=== PATIENT | male | born 1945 | race Caucasian/White ===

== ENCOUNTER 2023-01-25 10:59 | Outpatient (OUT) | payer MEDICARE, SELFPAY ==
--- NOTE | 2023-01-25 11:14 | ECG_ITS ---
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
== END 2023-01-25 11:00 | disposition home or self-care (01) ==
LOC: PST 11:04
PROVIDERS: PCP Internal Medicine
DX: Z01.810 Encounter for preprocedural cardiovascular examination (principal); K40.90 Unilateral inguinal hernia, without obstruction or gangrene, not specified as recurrent
CPT/HCPCS: 93005

== ENCOUNTER 2023-02-03 06:21 | Day surgery (SDC) | payer MEDICARE, SELFPAY ==
[2023-01-25 12:04] VITALS: PULSE 60; TEMP 36.5; O2SAT 97; BMI 29.2
[2023-02-03] VITALS (9 sets, daily range): BP systolic 112–149; BP diastolic 68–94; PULSE 56–67; RESP 12–18; TEMP 36.3–36.5; O2SAT 96–99; BMI 29.0
[2023-02-03] MEDS: LACTATED RINGER'S SOLUTION 1,000 ML 50 ML IV (07:02)
[2023-02-03] MEDS: CEFAZOLIN SODIUM/DEXTROSE,ISO 2 GM/50 ML PIGGYBACK IV (07:24)
[2023-02-03] MEDS: BUPIVACAINE HCL 0.25% PF 25 MG/10 ML VIAL INJ (08:26)
[2023-02-03] MEDS: 0.9 % SODIUM CHLORIDE 10 ML SYRINGE - SALINE FLUSH INJ (08:33)
[2023-02-03] MEDS: CEFAZOLIN SODIUM 1,000 MG VIAL 1000 MG IRR (08:36)
--- NOTE | 2023-02-03 09:04 | OP_ITS ---
OPERATION DATE: ??02/03/2023 PREOPERATIVE DIAGNOSIS:? Right inguinal hernia. POSTOPERATIVE DIAGNOSIS:? Indirect right inguinal hernia and cord lipoma. PROCEDURE:? Right inguinal herniorrhaphy with Bard polypropylene mesh insertion. SURGEON:? Tremayne Carter M.D. ANESTHESIA:? General with laryngeal mask airway, as well as right sided TAP block per Dr. Appiah.? ESTIMATED BLOOD LOSS:? Less than 10 mL. INDICATIONS AND CONSENT:? Patient is a 77-year-old male with a history of enlarging, symptomatic, reducible right inguinal hernia.? Indications, risks, benefits, alternatives of proceeding with herniorrhaphy were explained extensively to the patient, including the risks of bleeding, infection, scarring, pain, nerve injury, testicular injury, blood clot, pulmonary embolus, heart attack, anesthetic complications, need for further surgery or mesh removal, recurrent hernia.? All of his questions were answered.? Informed consent was obtained. PROCEDURE:? Patient brought to the operating room, placed in the supine position.? General anesthesia was induced.? Right side TAP block was performed by Dr. Appaih.? Patient was prepped and draped in the usual sterile fashion.? A right groin incision was made in the area of the skin crease and carried down through subcutaneous tissue using sharp dissection as well as electrocautery.? The external oblique was opened along the direction of its fibers, down through the external inguinal ring.? The cord structures were mobilized and retracted with a Hipolito drain.? There was noted to be an indirect hernia sac as well as a cord lipoma that was freed up from the cord structures, all the way up to the internal ring and reduced, and from the vas deferens.? The internal ring was enlarged.? This was then closed back down to normal size using interrupted Prolene sutures.? The wound was irrigated.? There was good hemostasis.? The Bard 5 x 10 cm mesh was trimmed and a keyhole was created.? It was placed in the floor of the inguinal canal. ?Arms were placed around the cord structures.? It was then secured circumferentially using interrupted 3-0 Vicryl sutures.? Care was taken to avoid undue tension on the cord structures.? Once this was complete, the wound was irrigated with antibiotic saline.? There was good hemostasis.? The external oblique was closed with a running 3-0 Vicryl suture.? The subcutaneous tissues were infiltrated with the remaining Exparel solution.? Randy?s fascia was re-approximated using interrupted 3-0 Monocryl suture.? The skin was then closed with a running 4-0 subcuticular Monocryl suture and skin glue.? Sterile pressure dressing was applied.? Sponge and needle counts were correct x2 per nursing personnel.? Patient tolerated procedure well, was sent to recovery room in good condition. CC:? Patient?s family doctor ANNIE
[2023-02-03] MEDS: HYDROCODONE/ACETAMINOPHEN 5-325 MG TABLET 1 TAB PO (09:41)
== END 2023-02-03 10:30 | disposition home or self-care (01) ==
PROVIDERS: PCP Internal Medicine; Visit Provider Surgery
PROC: (CPT 49505; principal; 2023-02-03 07:30)
DX: K40.90 Unilateral inguinal hernia, without obstruction or gangrene, not specified as recurrent (principal); Z87.891 Personal history of nicotine dependence; I10 Essential (primary) hypertension; K21.9 Gastro-esophageal reflux disease without esophagitis; G47.33 Obstructive sleep apnea (adult) (pediatric); E78.00 Pure hypercholesterolemia, unspecified
CPT/HCPCS: 49505; C1781; J2704

== ENCOUNTER 2023-06-07 10:20 | Outpatient (OUT) | payer MEDICARE, SELFPAY ==
[2023-06-07 10:52] LABS: Basophils Absolute Auto 0.2 10^3/uL (0.0-0.1); Basophils Percent Auto 2.6 % (0.2-2.0); Eosinophils Absolute Auto 0.1 10^3/uL (0.0-0.7); Eosinophils Percent Auto 1.8 % (0.9-7.0); Hematocrit 42.8 % (42.0-54.0); Hemoglobin 14.4 g/dL (14.0-18.0); Immature Granulocytes Abs Auto 0.04 10^3/uL (0.00-0.03); Immature Granulocytes Pct Auto 0.6 % (0.0-0.5); Lymphocytes Absolute Auto 1.4 10^3/uL (1.2-3.8); Lymphocytes Percent Auto 21.3 % (20.5-60.0); Mean Corpuscular HGB Conc 33.6 g/dL (29.9-35.2); Mean Corpuscular Hemoglobin 28.2 pg (25.9-34.0); Mean Corpuscular Volume 83.9 fL (80.0-94.0); Mean Platelet Volume 9.6 fL (9.5-13.5); Monocytes Absolute Auto 0.4 10^3/uL (0.3-0.8); Monocytes Percent Auto 6.7 % (1.7-12.0); Neutrophils Absolute Auto 4.4 10^3/uL (1.4-6.5); Platelet Count 218 10^3/uL (150-450); Red Cell Distribution Width 13.6 % (11.0-15.0); White Blood Count 6.6 10^3/uL (4.0-11.0)
[2023-06-07 11:10] LABS: Alanine Aminotransferase 31 U/L (16-63); Anion Gap 9.7; BUN Creatinine Ratio 17.6; Calcium 8.8 mg/dL (8.5-10.1); Carbon Dioxide 28.7 mmol/L (21.0-32.0); Chloride 105 mmol/L (98-107); Chol HDL Ratio 2.9; Cholesterol 166 mg/dL (<=200); Estimated GFR (African America >60 (>=60); Estimated GFR (Non-African Ame >60 (>=60); Glucose 90 mg/dL (74-106); HDL Cholesterol 57 mg/dL (40-60); LDL Cholesterol Calculated 96.8 mg/dL; Potassium 4.4 mmol/L (3.5-5.1); Sodium 139 mmol/L (136-145); Triglycerides 61 mg/dL (<=150); VLDL CHOLESTEROL 12.2 mg/dL
[2023-06-07 12:13] LABS: Prostate Specific Antigen Scrn 2.18 ng/mL (<=4.00)
== END 2023-06-07 10:21 | disposition home or self-care (01) ==
LOC: LAB 10:22
PROVIDERS: PCP Internal Medicine; Visit Provider Internal Medicine
DX: E78.00 Pure hypercholesterolemia, unspecified (principal); Z12.5 Encounter for screening for malignant neoplasm of prostate; Z79.899 Other long term (current) drug therapy; I10 Essential (primary) hypertension
CPT/HCPCS: 36415; 80048; 80061; 84460; 85025; G0103

== ENCOUNTER 2023-07-21 09:26 | Outpatient (OUT) | payer MEDICARE, SELFPAY ==
--- OUTSIDE RECORDS SUMMARY | 2023-07-21 09:50 | XMS_ITS | CCD ---
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 Name Role Phone DO Lyndon Dorman Primary Care Provider MD Jovon Ceja Attending Provider [phone] Jovon Ceja Unavailable DO Lyndon Dorman Primary Care Provider MD Jovon Ceja Attending Provider DANDY, DR MENDOZA Primary Care Unavailable KRISTA PATRICK Admitting Unavailable CELINA, KRISTA TIMMONS Attending Unavailable KRISTA PATRICK Consulting Unavailable DANDY, DR MENDOZA Primary Care Unavailable PERLA, DR GANT Admitting Unavailable PERLA, DR GANT Attending Unavailable DANDY, DR MENDOZA Primary Care Unavailable DANDY, DR MENDOZA Admitting Unavailable DANDY, DR MENDOZA Attending Unavailable DANDY, DR MENDOZA Primary Care Unavailable DANDY, DR MENDOZA Admitting Unavailable BALL, DR MENDOZA Attending Unavailable DANDY, DR MENDOZA Consulting Unavailable DANDY, DR MENDOZA Primary Care Unavailable BALL, DR MENDOZA Admitting Unavailable DANDY, DR MENDOZA Attending Unavailable DANDY, DR MENDOZA Consulting Unavailable DO Lyndon Dorman Primary Care Provider MD Jovon Ceja Attending Provider MD Jovon Ceja Referring Provider Lyndon Dorman Unavailable Lyndon Dorman Primary Care Unavailable Jovon Ceja Attending Unavailable Jovon Ceja Admitting Unavailable Lyndon Dorman Primary Care Unavailable Jovon Ceja Attending Unavailable Jovon Ceja Admitting Unavailable Lyndon Dorman Primary Care Unavailable Jovon Ceja Attending Unavailable Jovon Ceja Admitting Unavailable Jovon Ceja Admitting Unavailable Lyndon Dorman Primary Care Unavailable Jovon Ceja Referring Unavailable Jovon Ceja Attending Unavailable LYNDON DORMAN Primary Care Physician Tremayne CARTER Attending Unavailable LYNDON DORMAN Referring Unavailable NILL, Tremayne Davenport Attending Unavailable NILL, Tremayne Davenport Attending Unavailable NILL, Tremayne Davenport Attending Unavailable NILL, Tremayne Davenport Attending Unavailable Allergies Allergy Classification Reported Allergen(s) Allergy Type Date of Onset Reaction(s) Facility (2 sources) patient allergy list reviewed by nurse or physicia Propensity to adverse reactions 4 Comment:Done [employer] Other (1 source) No Known Medication Allergies; Translations: [No Known Medication Allergies] Propensity to adverse reactions (disorder) [facility] Repository Medications Current Medications Medication Drug Class(es) Dates Sig (Normalized) Sig (Original) amLODIPine 5 mg oral tablet (17 sources) Dihydropyridine Calcium Channel Moi Start: 03-03-2019 take 1 tablet by mouth once daily amLODIPine 5 mg Tab 5 mg = 1 tab(s), Oral, Daily Start Date: 03/03/19 Status: Ordered atorvastatin 20 mg oral tablet (20 sources) HMG-CoA Reductase Inhibitor Start: 08-11-2021 take 1 tablet by mouth once daily atorvastatin 20 mg Tab 20 mg = 1 tab(s), Oral, Daily, Refills(s) 0 Start Date: 12/30/22 Status: Ordered cephalexin 500 mg oral capsule (3 sources) Cephalosporin Antibacterial Start: 09-09-2021 take 500 mg by mouth three times daily Cephalexin Active 500 MG PO Three times daily September 09, 2021 12:00am cyclobenzaprine hydrochloride 10 mg oral tablet (3 sources) Muscle Relaxant Start: 09-09-2021 take 10 mg by mouth three times daily Cyclobenzaprine Active 10 MG PO Three times daily September 09, 2021 12:00am diclofenac sodium 75 mg delayed release oral tablet (20 sources) Nonsteroidal Anti-inflammatory Drug Start: 08-11-2021 take 75 mg by mouth twice daily Diclofenac Sodium Active 75 MG PO Twice daily August 11, 2021 12:00am Diclofenac 75mg Tab-DR (3 sources) Start: 03-03-2019 take 1 mg by mouth twice daily Diclofenac 75mg Tab-DR mg, Oral, BID, Refills(s) 0 Start Date: 03/03/19 Status: Ordered gabapentin 100 mg oral capsule (20 sources) Anti-epileptic Agent Start: 06-29-2023 take 1 capsule by mouth three times daily gabapentin 100 mg Cap 100 mg = 1 cap(s), Oral, TID, Refills(s) 0 Start Date: 06/29/23 Status: Ordered Start: 08-11-2021 take 100 mg by mouth twice daily Gabapentin Active 100 MG PO Twice daily August 11, 2021 12:00am losartan potassium 25 mg oral tablet (20 sources) Angiotensin 2 Receptor Moi Start: 08-11-2021 take 1 tablet by mouth once daily losartan 25 mg Tab 25 mg = 1 tab(s), Oral, Daily, Refills(s) 0 Start Date: 12/30/22 Status: Ordered oxyCODONE hydrochloride 5 mg oral tablet (3 sources) Opioid Agonist Start: 09-09-2021 take 5-10 mg by mouth every six hours Oxycodone Active 5 - 10 MG PO Q6H 40 8 September 09, 2021 Completed/Discontinued Medications Medication Drug Class(es) Dates Sig (Normalized) Sig (Original) {20 (nirmatrelvir 150 MG Oral Tablet) / 10 (ritonavir 100 MG Oral Tablet) } Pack [Paxlovid 5-Day] (11 sources) Start: 08-06-2022 take 3 tablets by mouth every twelve hours Paxlovid (300/100) 20 x 150 MG & 10 x 100MG 3 tablets Orally Twice a day for 5 day(s) Aug, Not-Taking Start: 08-06-2022 take 3 tablets by mo uth every twelve hours Paxlovid (300/100) 20 x 150 MG & 10 x 100MG 3 tablets Orally Twice a day for 5 day(s) Aug, Active Problems Active Problems Problem Classification Problem Date Documented Da te Episodic/Chronic Abdominal hernia (5 sources) Inguinal hernia; Translations: [Unilateral inguinal hernia, without obstruction or gangrene, not specified as recurrent] Onset: 01-13-2023 Episodic Abdominal pain (13 sources) Abdominal pain; Translations: [Abdominal pain] Episodic Acute bronchitis (4 sources) Acute bronchitis; Translations: [Acute bronchitis due to other specified organisms] Onset: 07-25-2014 Episodic Anxiety disorders (4 sources) Anxiety disorder; Translations: [Anxiety disorder, unspecified] Onset: 03-30-2016 Chronic Chronic obstructive pulmonary disease and bronchiectasis (1 source) Bronchitis, not specified as acute or chronic Episodic Disorders of lipid metabolism (19 sources) Pure hypercholesterolemi a, unspecified; Translations: [Hypercholesterolem ia] Onset: 06-05-2022 Chronic Diverticulosis and diverticulitis (19 sources) Diverticular disease of colon; Translations: [Diverticulosis of colon] 12-30-2022 Chronic Esophageal disorders (12 sources) Gastro-esophageal reflux disease with esophagitis; Translations: [Gastroesophageal reflux disease with esophagitis without hemorrhage] Onset: 01-12-2018 12-30-2022 Chronic Essential hypertension (20 sources) Essential (primary) hypertension; Translations: [Essential hypertension] Onset: 06-11-2022 Chronic Hyperplasia of prostate (7 sources) Benign prostatic hyperplasia; Translations: [Lower urinary tract symptoms due to benign prostatic hypertrophy] Onset: 03-26-2015 12-30-2022 Chronic Miscellaneous mental health disorders (2 sources) Primary insomnia; Translations: [Primary insomnia] Chronic Osteoarthritis (9 sources) Degenerative joint disease involving multiple joints; Translations: [Osteoarthritis of knee] 03-03-2019 Chronic Other acquired deformities (13 sources) Spondylolysis of cervical spine; Translations: [Spondylolysis, cervical region] Episodic Other aftercare (2 sources) Other fpc (current) drug therapy; Translations: [OTH ORTHOPEDIC DENTIST CURRENT DRUG THERAPY] Onset: 06-11-2022 Episodic Other aftercare (2 sources) Long-term current use of drug therapy; Translations: [Other intermodal dispatcher (current) drug therapy] Episodic Other connective tissue disease (1 source) 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] Episodic Other ear and sense organ disorders (3 sources) Hearing loss 12-30-2022 Chronic Other ear and sense organ disorders (2 sources) Sensorineural hearing loss; Translations: [Unspecified sensorineural hearing loss] Chronic Other ear and sense organ disorders (2 sources) Sensorineural hearing loss, bilateral; Translations: [Sensorineural hearing loss, bilateral] Onset: 05-08-2015 Chronic Other ear and sense organ disorders (3 sources) Tinnitus 03-03-2019 Episodic Other ear and sense organ disorders (2 sources) Bilateral tinnitus; Translations: [Tinnitus, bilateral] Episodic Other gastrointestinal disorders (13 sources) Urgent desire for stool; Translations: [Fecal urgency] Episodic Other gastrointestinal disorders (13 sources) Altered bowel function; Translations: [Change in bowel habits] Episodic Other hereditary and degenerative nervous system conditions (13 sources) Myelopathy due to another disorder; Translations: [Myelopathy in diseases classified elsewhere] Chronic Other hereditary and degenerative nervous system conditions (2 sources) Myelopathy in diseases classified elsewhere Onset: 06-17-2021 Resolved: 10-07-2021 Chronic Other hereditary and degenerative nervous system conditions (5 sources) Essential tremor; Translations: [Essential and other specified forms of tremor] Onset: 03-26-2015 06-29-2023 Chronic Other injuries and conditions due to external causes (2 sources) History of fall; Translations: [History of falling] Episodic Other nervous system disorders (16 sources) Cervical myelopathy; Translations: [Disease of spinal cord, unspecified] 12-30-2022 Chronic Other nervous system disorders (5 sources) Disease of spinal cord, unspecified; Translations: [Disease of spinal cord, unspecified] Onset: 12-25-2021 Resolved: 03-26-2022 Chronic Other nutritional; endocrine; and metabolic disorders (4 sources) Obesity; Translations: [Other obesity due to excess calories] 12-30-2022 Chronic Other nutritional; endocrine; and metabolic disorders (2 sources) Body mass index 30+ - obesity; Translations: [Body mass index (BMI) 30.0-30.9, adult] 07-13-2023 Chronic Other nutritional; endocrine; and metabolic disorders (1 source) Other obesity due to excess calories Chronic Other nutritional; endocrine; and metabolic disorders (1 source) Body mass index (BMI) 30.0-30.9, adult Chronic Other nutritional; endocrine; and metabolic disorders (2 sources) Overweight in adulthood with body mass index of 25 or more but less than 30 01-13-2023 Episodic Other nutritional; endocrine; and metabolic disorders (2 sources) Overweight; Translations: [Overweight] Episodic Other screening for suspected conditions (not mental disorders or infectious disease) (4 sources) Encounter for screening for malignant neoplasm of prostate; Translations: [Encounter for screening for malignant neoplasm of colon] Onset: 06-11-2022 Episodic Other skin disorders (4 sources) Epidermoid cyst of skin 03-03-2019 Episodic Other skin disorders (1 source) Epidermoid cyst; Translations: [Epidermal cyst] Onset: 07-13-2023 Episodic Other upper respiratory disease (2 sources) Seasonal allergic rhinitis; Translations: [Other seasonal allergic rhinitis] Onset: 12-31-2017 Chronic Residual codes; unclassified (15 sources) Obstructive sleep apnea syndrome; Translations: [Obstructive sleep apnea (adult) (pediatric)] 03-03-2019 Chronic Residual codes; unclassified (2 sources) Obstructive sleep apnea (adult) (pediatric) Chronic Residual codes; unclassified (5 sources) Insomnia; Translations: [Insomnia, unspecified] 12-30-2022 Episodic Residual codes; unclassified (2 sources) Immunization refused ; Translations: [Immunization not carried out because of patient refusal] Episodic Substance-related disorders (11 sources) Tobacco dependence in remission; Translations: [Nicotine dependence, cigarettes, in remission] Chronic Unclassified (1 source) 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; Translations: [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] Onset: 09-17-2022 Unclassified (1 source) M50.021 - 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; Translations: [M50.021 - 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] Onset: 12-25-2021 Unclassified (1 source) G99.2 - Myelopathy in diseases classified elsewhere; Translations: [G99.2 - Myelopathy in diseases classified elsewhere] Onset: 10-07-2021 Unclassified (2 sources) Other specified cough; Translations: [Other specified cough] Onset: 10-13-2018 Unclassified (1 source) Patient encounter status 07-13-2023 Past or Other Problems Problem Classification Problem Date Documented Da te Episodic/Chronic Bacterial infection; unspecified site (2 sources) Bacterial infectious disease; Translations: [Bacterial infection, unspecified, in conditions classified elsewhere and of unspecified site] Onset: 09-09-2016 Episodic Conditions associated with dizziness or vertigo (4 sources) Benign paroxysmal positional vertigo; Translations: [Benign paroxysmal positional vertigo] Onset: 03-26-2015 Episodic Esophageal disorders (4 sources) Esophageal disorders; Translations: [Gastro-esophageal reflux disease with esophagitis, without bleeding] Fracture of upper limb (2 sources) Open fracture of distal phalanx of finger; Translations: [Open fracture of distal phalanx or phalanges of hand] Onset: 03-01-2014 Episodic Immunizations and screening for infectious disease (4 sources) Encounter for immunization; Translations: [ENCOUNTER FOR IMMUNIZATION] Onset: 07-08-2021 Episodic Joint disorders and dislocations; trauma-related (2 sources) Current tear of medial cartilage AND/OR meniscus of knee; Translations: [Peripheral tear of medial meniscus, current injury, right knee, initial encounter] Onset: 03-03-2019 Episodic Malaise and fatigue (3 sources) Weakness; Translations: [Malaise and fatigue] Onset: 05-30-2018 Episodic Nonspecific chest pain (2 sources) Chest pain; Translations: [Other chest pain] Resolved: 06-04-2021 Episodic Open wounds of extremities (2 sources) Open wound of finger with complication; Translations: [Open wound of finger(s), complicated] Onset: 03-01-2014 Episodic Other acquired deformities (4 sources) Spondylolysis, cervical region; Translations: [SPONDYLOLYSIS CERVICAL REGION] Onset: 10-27-2021 Episodic Other connective tissue disease (1 source) Abnormal posture; Translations: [ABNORMAL POSTURE] Onset: 11-04-2021 Episodic Other gastrointestinal disorders (2 sources) Diarrhea; Translations: [Diarrhea, unspecified] Onset: 07-25-2014 Episodic Other lower respiratory disease (2 sources) Cough; Translations: [Cough] Onset: 08-12-2015 Episodic Other lower respiratory disease (2 sources) Dyspnea; Translations: [Other forms of dyspnea] Resolved: 06-04-2021 Episodic Other nutritional; endocrine; and metabolic disorders (4 sources) Body mass index 25-29 - overweight; Translations: [Body mass index (BMI) 27.0-27.9, adult] Onset: 08-12-2015 Episodic Other skin disorders (2 sources) Sebaceous cyst; Translations: [Sebaceous cyst] Onset: 02-21-2019 Episodic Other upper respiratory disease (3 sources) Dysphonia; Translations: [Dysphonia] Onset: 01-12-2018 06-29-2023 Episodic Other upper respiratory infections (6 sources) Acute maxillary sinusitis; Translations: [Acute maxillary sinusitis, unspecified] Onset: 10-03-2014 Episodic Residual codes; unclassified (2 sources) Sleep disorder; Translations: [Persistent disorder of initiating or maintaining sleep] Onset: 05-30-2018 Episodic Screening and history of mental health and substance abuse codes (2 sources) History of tobacco use; Translations: [Personal history of tobacco use, presenting hazards to health] Onset: 02-21-2019 Episodic Spondylosis; intervertebral disc disorders; other back problems (20 sources) Cervical spondylosis; Translations: [Other spondylosis with myelopathy, cervical region] Onset: 06-17-2021 Resolved: 12-30-2022 09-09-2021 Chronic Spondylosis; intervertebral disc disorders; other back problems (11 sources) Spinal stenosis, cervical region; Translations: [Radiculopathy, cervical region] Onset: 07-25-2014 Resolved: 10-07-2021 Episodic Viral infection (1 source) COVID-19 Results Test Name Value Interpretation Reference Range Facil ity Consent for Procedure/Surger yon 07-14-2023 Consent for Procedure/Surgery [id number] Normal [facility] Insurance Correspondenceon 1 09-14-2022 Insurance Correspondence [id number] Normal [facility] Ambulatory Visit Summaryon 1 09-13-2022 Ambulatory Visit Summary REGINEALINE PITTSCONNER Guardado :1945 Visit Date:07/13/2023 Ambulatory Visit Instructions Your Diagnosis Screening for malignant neoplasm of colon Epidermal cyst Your Care Team Attending Physician - Tremayne CARTER MD Primary Care Physician - LYNDON DORMAN DO Referring Physician - LYNDON DORMAN DO This Is Your Medications List Contact prescribing physician if questions or concerns amlodipine (amLODIPine 5 mg Tab) atorvastatin (atorvastatin 20 mg Tab) diclofenac (Diclofenac 75mg Tab-DR) gabapentin (gabapentin 100 mg Cap) losartan (losartan 25 mg Tab) Procedures Performed Repair of right inguinal hernia (02/03/2023), Bilateral cataracts (10/01/2015), Colonoscopy (12/31/2012), Arthroscopy of shoulder, History of cervical spine surgery, Repair of left inguinal hernia. Discharge Vitals Heart Rate (Peripheral) 74 Respiratory Rate 16 Blood Pressure 124/82 Height 180.3 cm Height 71 in Weight 100.3 kg Weight 220.66 lb BMI 30.85 Medications What How Much When Instructions Unchanged amlodipine (amLODIPine 5 mg Tab) 1 Tablets By Mouth Every day Contact prescribing physician if questions or concerns Unchanged atorvastatin (atorvastatin 20 mg Tab) 1 Tablets By Mouth Every day Contact prescribing physician if questions or concerns Unchanged diclofenac (Diclofenac 75mg Tab-DR) By Mouth 2 times a day Contact prescribing physician if questions or concerns Unchanged gabapentin (gabapentin 100 mg Cap) 1 Capsules By Mouth 3 times a day Contact prescribing physician if questions or concerns Unchanged losartan (losartan 25 mg Tab) 1 Tablets By Mouth Every day Contact prescribing physician if questions or concerns Medications and Immunizations Administered Not Given influenza virus vaccine, inactivated, Patient Refuses Allergies No Known Allergies No Known Medication Allergies Problems Ongoing - Any problem that you are currently receiving treatment for. BMI 30.0-30.9,adult BPH (benign prostatic hyperplasia) Cervical myelopathy Diverticular disease of colon Dysphonia Epidermal cyst Essential hypertension Essential tremor. Gastro-esophageal reflux disease with esophagitis Hearing loss HTN (hypertension) Hypercholesterolemia Insomnia Obesity Obstructive sleep apnea syndrome Pure hypercholesterolemia Right inguinal hernia Screening for malignant neoplasm of colon Sebaceous cyst Historical - Any problem that you are no longer receiving treatment for. Cervical spondylosis Generalised osteoarthritis Obstructive sleep apnea Tinnitus Patient Survey You may receive a survey via text or e-mail asking about your office visit. Please share your experience with us by completing your survey. We appreciate your feedback and thank you for choosing us for your care. Normal [facility] Physician Referralon 023 Physician Referral [id number] [facility] Ambulatory Visit Summaryon 0 02-24-2023 Ambulatory Visit Summary BRENT WEINER :1945 Visit Date:02/24/2023 Ambulatory Visit Instructions Your Diagnosis Right inguinal hernia Your Care Team Attending Physician - Tremayne CARTER MD Primary Care Physician - LYNDON DORMAN DO This Is Your Medications List Contact prescribing physician if questions or concerns amlodipine (amLODIPine 5 mg Tab) atorvastatin (atorvastatin 20 mg Tab) diclofenac (Diclofenac 75mg Tab-DR) losartan (losartan 25 mg Tab) Procedures Performed Repair of right inguinal hernia (02/03/2023), Bilateral cataracts (10/01/2015), Colonoscopy (12/31/2012), Arthroscopy of shoulder, History of cervical spine surgery, Repair of left inguinal hernia. Medications What How Much When Instructions Unchanged amlodipine (amLODIPine 5 mg Tab) 1 Tablets By Mouth Every day Contact prescribing physician if questions or concerns Unchanged atorvastatin (atorvastatin 20 mg Tab) 1 Tablets By Mouth Every day Contact prescribing physician if questions or concerns Unchanged diclofenac (Diclofenac 75mg Tab-DR) By Mouth 2 times a day Contact prescribing physician if questions or concerns Unchanged losartan (losartan 25 mg Tab) 1 Tablets By Mouth Every day Contact prescribing physician if questions or concerns Allergies No Known Allergies No Known Medication Allergies Problems Ongoing - Any problem that you are currently receiving treatment for. BMI 29.0-29.9,adult BPH (benign prostatic hyperplasia) Cervical myelopathy Diverticular disease of colon Essential hypertension Gastro-esophageal reflux disease with esophagitis Hearing loss HTN (hypertension) Hypercholesterolemia Insomnia Obesity Obstructive sleep apnea syndrome Right inguinal hernia Sebaceous cyst Historical - Any problem that you are no longer receiving treatment for. Cervical spondylosis Generalised osteoarthritis Obstructive sleep apnea Tinnitus Normal [facility] General Surgery Office/Clini c Noteon 02-24-2023 General Surgery Office/Clinic Note Chief Complaint post operative follow up HPI Staff 21 day post operative follow up post right inguinal hernia repair. Minimal positional discomfort. No use of pain medication. Denies bleeding or drainage. Bowels moving well. History of Present Illness 3 weeks s/p RIHR with mesh; doing well, mild soreness at times, takes occasional Diclofenac; no swelling or drainage; no strenuous activities. Review of Systems ROS - Provider Constitutional: no fever, no sweats, no weight loss. Eyes: no glasses, no blurred vision, no visual loss. ENMT: no dentures, no hoarseness, no swallowing difficulties, no hearing loss, no ear infection(s), no nose bleeds. Cardiovascular: normal blood pressure, no chest pain, regular heartbeat, no heart murmur. Respiratory: no shortness of breath, no cough, no asthma, no wheezing. Gastrointestinal: no nausea, no vomiting, no diarrhea, no constipation, no blood in stool, no change in bowel habits, no abdominal pain, no hepatitis. Genitourinary: no kidney stones, no urine infection, no dysuria. Musculoskeletal: no pain, no weakness. Skin: no changing moles, no rash, no skin lumps. Neurologic: no seizures, no epilepsy, no headache. Psychiatric: no emotional or psychiatric problem. Heme/Lymph: no bleeding problems, no anemia, no blood clots, no transfusions. Allergy/Immunologic: no swollen lymph nodes/glands, no IV drug abuse. Other: Additional ROS info: Except as noted in the above Review of Systems and in the History of Present Illness, all other systems have been reviewed and are negative or noncontributory. Physical Exam abd: soft, nontender, nondistended, incision without erythema or drainage, no ecchymoses. Assessment/Plan 1. Right inguinal hernia (K40.90: Unilateral inguinal hernia, without obstruction or gangrene, not specified as recurrent) doing well, gradually resume regular activities next week, ok to return to work; call with problems/questions. Follow-up No qualifying data available Problem List/Past Medical History Ongoing BMI 29.0-29.9,adult BPH (benign prostatic hyperplasia) Cervical myelopathy Diverticular disease of colon Essential hypertension Gastro-esophageal reflux disease with esophagitis Hearing loss HTN (hypertension) Hypercholesterolemia Insomnia Obesity Obstructive sleep apnea syndrome Right inguinal hernia Sebaceous cyst Historical Cervical spondylosis Generalised osteoarthritis Obstructive sleep apnea Tinnitus Procedure/Surgical History Repair of right inguinal hernia (02/03/2023), Bilateral cataracts (10/01/2015), Colonoscopy (12/31/2012), Arthroscopy of shoulder, History of cervical spine surgery, Repair of left inguinal hernia. Medications amLODIPine 5 mg Tab, 5 mg= 1 tab(s), Oral, Daily atorvastatin 20 mg Tab, 20 mg= 1 tab(s), Oral, Daily Diclofenac 75mg Tab-DR, Oral, BID losartan 25 mg Tab, 25 mg= 1 tab(s), Oral, Daily Allergies No Known Allergies No Known Medication Allergies Social History Alcohol Current, Beer, Wine, 1-2 times per week, 01/13/2023 Substance Abuse - Denies Substance Abuse, 03/03/2019 Tobacco Former smoker, quit more than 30 days ago Tobacco Use:. Never Smokeless Tobacco Use:. Cigarettes, 0.5 per day. Started age 20.0 Years. Stopped age 61 Years., 01/13/2023 Family History Asthma: Father. Diabetes mellitus type 2: Mother. Heart disease: Mother and Father. Hypertension: Father. TIA: Mother. Immunizations Vaccine Date Status SARS-CoV-2 (COVID-19) mRNA-1273 vaccine 07/08/2021 Recorded SARS-CoV-2 (COVID-19) mRNA-1273 vaccine 10/15/2020 Recorded SARS-CoV-2 (COVID-19) mRNA-1273 vaccine 09/19/2020 Recorded Normal [facility] Comment on above: Result Comment: Elec tronically Signed By: Tremayne CARTER MD\.br\Date and Time Signed: 02/24/23 15:04 EDT Ambulatory Visit Summaryon 0 02-10-2023 Ambulatory Visit Summary BRENT WEINER :1945 Visit Date:02/10/2023 Ambulatory Visit Instructions Your Care Team Attending Physician - Tremayne CARTER MD Primary Care Physician - LYNDON DORMAN DO This Is Your Medications List Contact prescribing physician if questions or concerns amlodipine (amLODIPine 5 mg Tab) atorvastatin (atorvastatin 20 mg Tab) diclofenac (Diclofenac 75mg Tab-DR) losartan (losartan 25 mg Tab) Procedures Performed Repair of right inguinal hernia (02/03/2023), Bilateral cataracts (10/01/2015), Colonoscopy (12/31/2012), Arthroscopy of shoulder, History of cervical spine surgery, Repair of left inguinal hernia. What to do next Scheduled Follow-Up Appointments Wednesday 1:40 PM EDT With: Tremayne CARTER MD Where: General Surgery Raul/Veto Driscoll Normal [facility] General Surgery Office/Clini c Noteon 02-10-2023 General Surgery Office/Clinic Note Chief Complaint post operative follow up HPI Staff 7 day post operative follow up post right inguinal hernia repair. Reports moderate burning discomfort, especially with certain movements. Taking Diclofenac or Aleve for discomfort. Denies bleeding or drainage. Bowels moving well. History of Present Illness 1 week s/p RIHR with mesh; doing well, mild soreness, controlled with NSAIDs; no drainage, normal bms, voiding well; no strenuous actvities. Review of Systems ROS - Provider Constitutional: no fever, no sweats, no weight loss. Eyes: no glasses, no blurred vision, no visual loss. ENMT: no dentures, no hoarseness, no swallowing difficulties, no hearing loss, no ear infection(s), no nose bleeds. Cardiovascular: normal blood pressure, no chest pain, regular heartbeat, no heart murmur. Respiratory: no shortness of breath, no cough, no asthma, no wheezing. Gastrointestinal: no nausea, no vomiting, no diarrhea, no constipation, no blood in stool, no change in bowel habits, no abdominal pain, no hepatitis. Genitourinary: no kidney stones, no urine infection, no dysuria. Musculoskeletal: no pain, no weakness. Skin: no changing moles, no rash, no skin lumps. Neurologic: no seizures, no epilepsy, no headache. Psychiatric: no emotional or psychiatric problem. Heme/Lymph: no bleeding problems, no anemia, no blood clots, no transfusions. Allergy/Immunologic: no swollen lymph nodes/glands, no IV drug abuse. Other: Additional ROS info: Except as noted in the above Review of Systems and in the History of Present Illness, all other systems have been reviewed and are negative or noncontributory. Physical Exam abd: soft, nontender, nondistended, incision without erythema or drainage, no ecchymosis, minimal induration. Assessment/Plan 1. Right inguinal hernia (K40.90: Unilateral inguinal hernia, without obstruction or gangrene, not specified as recurrent) doing well, continue no lifting > 15 lbs for 3 weeks, f/u with me in 2 weeks; call sooner if problems/questions. Follow-up No qualifying data available Problem List/Past Medical History Ongoing BMI 29.0-29.9,adult BPH (benign prostatic hyperplasia) Cervical myelopathy Diverticular disease of colon Essential hypertension Gastro-esophageal reflux disease with esophagitis Hearing loss HTN (hypertension) Hypercholesterolemia Insomnia Obesity Obstructive sleep apnea syndrome Right inguinal hernia Sebaceous cyst Historical Cervical spondylosis Generalised osteoarthritis Obstructive sleep apnea Tinnitus Procedure/Surgical History Repair of right inguinal hernia (02/03/2023), Bilateral cataracts (10/01/2015), Colonoscopy (12/31/2012), Arthroscopy of shoulder, History of cervical spine surgery, Repair of left inguinal hernia. Medications amLODIPine 5 mg Tab, 5 mg= 1 tab(s), Oral, Daily atorvastatin 20 mg Tab, 20 mg= 1 tab(s), Oral, Daily Diclofenac 75mg Tab-DR, Oral, BID losartan 25 mg Tab, 25 mg= 1 tab(s), Oral, Daily Allergies No Known Allergies No Known Medication Allergies Social History Alcohol Current, Beer, Wine, 1-2 times per week, 01/13/2023 Substance Abuse - Denies Substance Abuse, 03/03/2019 Tobacco Former smoker, quit more than 30 days ago Tobacco Use:. Never Smokeless Tobacco Use:. Cigarettes, 0.5 per day. Started age 20.0 Years. Stopped age 61 Years., 01/13/2023 Family History Asthma: Father. Diabetes mellitus type 2: Mother. Heart disease: Mother and Father. Hypertension: Father. TIA: Mother. Immunizations Vaccine Date Status SARS-CoV-2 (COVID-19) mRNA-1273 vaccine 07/08/2021 Recorded SARS-CoV-2 (COVID-19) mRNA-1273 vaccine 10/15/2020 Recorded SARS-CoV-2 (COVID-19) mRNA-1273 vaccine 09/19/2020 Recorded Normal [facility] Comment on above: Result Comment: Elec tronically Signed By: RAUL ZUNIGA, Tremayne Pope.br\Date and Time Signed: 02/10/23 16:33 EDT Provider Letteron 02-10-2023 Provider Letter (Inserted Image. Lisa ble to display) February 10, 2023 BRENT WEINER [address] [place] [address] : 1945 To Whom It May Concern, Please excuse above patient from work until March 02, 2023. Sincerely, Dr. Tremayne Carter MD General Surgery [facility] Operative Reporton Operative Report [id number]:127 [facility] ECG 12-Leadon 01-26-2023 ECG 12-Lead [id number] D:127 [facility] Pre-Certification Formon Pre-Certification Form [id number]:127 [facility] Consent for Procedure/Surger yon 01-14-2023 Consent for Procedure/Surgery [id number]:127 [facility] Ambulatory Visit Summaryon 0 01-13-2023 Ambulatory Visit Summary BRENT WEINER :1945 Visit Date:01/13/2023 Ambulatory Visit Instructions Your Care Team Attending Physician - RAUL ZUNIGA, Tremayne Davenport Primary Care Physician - LYNDON DORMAN DO This Is Your Medications List Contact prescribing physician if questions or concerns amlodipine (amLODIPine 5 mg Tab) atorvastatin (atorvastatin 20 mg Tab) diclofenac (Diclofenac 75mg Tab-DR) losartan (losartan 25 mg Tab) Procedures Performed Bilateral cataracts (10/01/2015), Colonoscopy (12/31/2012), Arthroscopy of shoulder, History of cervical spine surgery, Repair of left inguinal hernia. Discharge Vitals Heart Rate (Peripheral) 72 Respiratory Rate 16 Blood Pressure 118/74 Height 180.3 cm Height 71 in Weight 97 kg Weight 213.4 lb BMI 29.84 Medications What How Much When Instructions Unchanged amlodipine (amLODIPine 5 mg Tab) 1 Tablets By Mouth Every day Contact prescribing physician if questions or concerns Unchanged atorvastatin (atorvastatin 20 mg Tab) 1 Tablets By Mouth Every day Contact prescribing physician if questions or concerns Unchanged diclofenac (Diclofenac 75mg Tab-DR) By Mouth 2 times a day Contact prescribing physician if questions or concerns Unchanged losartan (losartan 25 mg Tab) 1 Tablets By Mouth Every day Contact prescribing physician if questions or concerns Allergies No Known Allergies No Known Medication Allergies Problems Ongoing - Any problem that you are currently receiving treatment for. BMI 29.0-29.9,adult BPH (benign prostatic hyperplasia) Cervical myelopathy Diverticular disease of colon Essential hypertension Gastro-esophageal reflux disease with esophagitis Hearing loss HTN (hypertension) Hypercholesterolemia Insomnia Obesity Obstructive sleep apnea syndrome Sebaceous cyst Historical - Any problem that you are no longer receiving treatment for. Cervical spondylosis Generalised osteoarthritis Obstructive sleep apnea Tinnitus Normal [facility] Physician Referralon 023 Physician Referral [id number]:127 Normal [facility] XR cerv spine AP/LAT/FLX/EXT on 09-17-2022 XR cerv spine AP/LAT/FLX/EXT [facility] [place] [address] XRay Report Signed Patient: Brent Weiner MR#: [id number] 254 : 1945 Acct:[id number] Age/Sex: 76 / M ADM Date: 09/17/22 Loc: XD Room: Type: [facility] Attending Dr: Jovon Ceja MD Copies to: Jovon Ceja MD Ordering Provider: Jovon Ceja MD Date of Service: 09/17/22 XR/XR cerv spine AP/LAT/FLX/EXT: M50.021 5 views of thecervical spine HISTORY: One year follow-up assessment for neck surgery. LEFT arm pain and posterior neck pain. COMPARISON: None The bony alignment stable. C3-C7 bilateral posterior fusion hardware present. No hardware failure loosening. Similar laminectomy changes. No acute cervical spine fracture identified. Similar mild degenerative listhesis. No hypermobility with flexion and extension views. Similar spondylosis and fusion changes. Facets are in adequate alignment. The dens is intact. The craniocervical junction is unremarkable. No paraspinal soft tissue abnormality seen. XR/XR cerv spine AP/LAT/FLX/EXT IMPRESSION: Stable postsurgical changes. No hypermobility. Impression dictated by: Kervin Marshall M.D.09/17/2022 11:55 AM Dictation Location: [place] [address] Transcribed By: [facility] 09/17/22 1155 Dictated By: Kervin Marshall DO 09/17/22 1150 Signed By: 09/17/22 1155 [facility] CBC AUTO DIFFon 06-05-2022 BASO # 0.2 103/ul Critically high 0.0-0.1 [facility] Comment on above: Performed By: #### C BC #### [facility] [address] [place] [address] Dr. Nirmal Abernathy Basophils/100 WBC (Bld) 3.4 % Critically high 0.2-2.0 [facility] Comment on above: Performed By: #### C BC #### [facility] [address] [place] [address] [address] Nirmal Abernathy EO # 0.2 103/ul Normal 0.0-0.7 [facility] Comment on above: Performed By: #### C BC #### [facility] [address] [place] [address] [address] Nirmal Abernathy Eosinophils/100 WBC (Bld) 3.9 % Normal 0.9-7.0 [facility] Comment on above: Performed By: #### C BC #### [facility] [address] [place] [address] Dr. Nirmal Abernathy Erythrocyte distribution wid th (RBC) [Ratio] 13.4 % Normal 11.0-15.0 [facility] Comment on above: Performed By: #### C BC #### [facility] [address] [place] [address] Dr. Nirmal Abernathy Hematocrit (Bld) [Volume fraction] 43.7 % Normal 4 2.0-54.0 [facility] Comment on above: Performed By: #### C BC #### [facility] [address] [place] [address] Dr. Nirmal Abernathy Hemoglobin (Bld) [Mass/Vol] 14.1 g/dL Normal 14.0-18. 0 [facility] Comment on above: Performed By: #### C BC #### [facility] [address] [place] [address] Dr. Nirmal Abernathy IG # 0.04 10e3/ul Critically high 0.00-0.03 [facility] Comment on above: Performed By: #### C BC #### [facility] [address] [place] [address] Dr. Nirmal Abernathy IG % 0.7 % Critically high 0.0-0.[address] [facility] Comment on above: Performed By: #### C BC #### [facility] [address] [place] [address] Dr. Nirmal Abernathy LYMPH # 1.4 103/ul Normal 1.2-3.8 [facility] Comment on above: Performed By: #### C BC #### [facility] [address] [place] [address] Dr. Nirmal Abernathy Lymphocytes/100 WBC (Bld) 22.9 % Normal 20.5-60.0 [facility] Comment on above: Performed By: #### C BC #### [facility] [address] [place] [address] Dr. Nirmal Abernathy MANUAL DIFF REQ NO Normal [facility] Comment on above: Performed By: #### C BC #### [facility] [address] [place] [address] [address] Nirmal Abernathy MCH (RBC) [Entitic mass] 27.0 pg Normal 25.9-34.0 [facility] Comment on above: Performed By: #### C BC #### [facility] [address] [place] [address] Dr. Nirmal Abernathy MCHC (RBC) [Mass/Vol] 32.3 g/dL Normal 29.9-35.2 [facility] Comment on above: Performed By: #### C BC #### [facility] [address] [place] [address] Dr. Nirmal Abernathy MCV (RBC) [Entitic vol] 83.7 fL Normal 80.0-94.0 [facility] Comment on above: Performed By: #### C BC #### [facility] [address] [place] [address] Dr. Nirmal Abernathy MONO # 0.5 103/ul Normal 0.3-0.8 [facility] Comment on above: Performed By: #### C BC #### [facility] [address] [place] [address] Dr. Nirmal Abernathy Monocytes/100 WBC (Bld) 8.1 % Normal 1.7-12.0 [facility] Comment on above: Performed By: #### C BC #### [facility] [address] [place] [address] Dr. Nirmal Abernathy NEUT # 3.6 103/ul Normal 1.4-6.5 [facility] Comment on above: Performed By: #### C BC #### [facility] [address] [place] [address] Dr. Nimral Abernathy Neutrophils/100 WBC (Bld) 61.0 % Normal 43.0-75.0 [facility] Comment on above: Performed By: #### C BC #### [facility] [address] [place] [address] Dr. Nirmal Abernathy Platelet mean volume (Bld) [Entitic vol] 9.1 fL Critically low 9.5-13.5 [facility] Comment on above: Performed By: #### C BC #### [facility] [address] [place] [address] Dr. Nirmal Abernathy PLT 258 103/ul Normal 150-450 [facility] Comment on above: Performed By: #### C BC #### [facility] [address] [place] [address] Dr. Nirmal Abernathy RBC 5.22 106/ul Normal 4.70-6.10 [facility] Comment on above: Performed By: #### C BC #### [facility] [address] [place] [address] Dr. Nirmal Abernathy WBC 5.9 103/ul Normal 4.0-11.0 [facility] Comment on above: Performed By: #### C BC #### [facility] [address] [place] [address] Dr. Nirmal Abernathy LIPID PROFILEon 06-05-2022 CHOL-HDL RATIO NORM SEE BELOW Normal [facility] Comment on above: Result Comment: 3.3 - 4.4 LOW RISK 4.4 - 7.1 AVERAGE RISK 7.1 - 11.0 MODERATE RISK >11.0 HIGH RISK Performed By: #### B MP, LIPID, ALT #### [facility] [address] [place] [address] Dr. Nirmal Abernathy Cholesterol [Mass/Vol] 164 mg/dL Normal <=200 [facility] Comment on above: Performed By: #### B MP, LIPID, ALT #### [facility] [address] [place] [address] Dr. Nirmal Abernathy Cholesterol in HDL [Mass/Vol] 58 mg/dL Normal 40-60 [facility] Comment on above: Performed By: #### B MP, LIPID, ALT #### [facility] [address] [place] [address] Dr. Nirmal Abernathy Cholesterol in LDL [Mass/Vol] 94.0 mg/dL Normal [facility] Comment on above: Performed By: #### B MP, LIPID, ALT #### [facility] [address] [place] [address] Dr. Nirmal Abernathy Cholesterol.total/Cholestero l in HDL [Mass ratio] 2.8 {ratio} Normal [facility] Comment on above: Performed By: #### B MP, LIPID, ALT #### [facility] [address] [place] [address] Dr. Nirmal Abernathy HDL NORMAL > or = 60 mg/dl - LO W CARDIOVASCULAR RISK <40 mg/dl - HIGH CARDIOVASCULAR RISK Normal [facility] Comment on above: Performed By: #### B MP, LIPID, ALT #### [facility] [address] [place] [address] [address] Nirmal Abernathy LDL CALC NORMAL SEE BELOW Normal [facility] Comment on above: Result Comment: <100 mg/dl OPTIMAL 100 - 129 mg/dl NEAR OR ABOVE OPTIMAL 130 - 159 mg/dl BORDERLINE HIGH 160 - 189 mg/dl HIGH >190 mg/dl VERY HIGH Performed By: #### B MP, LIPID, ALT #### [facility] [address] [place] [address] Dr. Nirmal Abernathy Triglyceride [Mass/Vol] 60 mg/dL Normal <=150 [facility] Comment on above: Performed By: #### B MP, LIPID, ALT #### [facility] [address] [place] [address] Dr. Nirmal Abernathy VLDL CALC 12.0 mg/dL Normal [facility] Comment on above: Performed By: #### B MP, LIPID, ALT #### [facility] [address] [place] [address] Dr. Nirmal Abernathy PROF CHEM 8 (BAS METB)on Anion gap [Moles/Vol] 6.3 mmol/L Normal [facility] Comment on above: Performed By: #### B MP, LIPID, ALT #### [facility] [address] [place] [address] Dr. Nirmal Abernathy Calcium [Mass/Vol] 9.0 mg/dL Normal 8.5-10.1 [facility] Comment on above: Performed By: #### B MP, LIPID, ALT #### [facility] [address] [place] [address] Dr. Nirmal Abernathy Chloride [Moles/Vol] 105 mmol/L Normal 98-107 [facility] Comment on above: Performed By: #### B MP, LIPID, ALT #### [facility] [address] [place] [address] [address] Nirmal Abernathy CO2 [Moles/Vol] 31.0 mmol/L Normal 21.0-32.0 [facility] [place] Comment on above: Performed By: #### B MP, LIPID, ALT #### [facility] [address] [place] [address] [address] Nirmal Abernathy Creatinine [Mass/Vol] 1.12 mg/dL Normal 0.70-1.30 [facility] Comment on above: Performed By: #### B MP, LIPID, ALT #### [facility] [address] [place] [address] [address] Nirmal Abernathy EGFR-AF PALAUAN >60 Normal >=60 [facility] [place] Comment on above: Performed By: #### B MP, LIPID, ALT #### [facility] [address] [place] [address] [address] Nirmal Abernathy EGFR-NON AF PALAUAN >60 Normal >=60 [facility] Comment on above: Performed By: #### B MP, LIPID, ALT #### [facility] [address] [place] [address] [address] Nirmal Abernathy Glucose [Mass/Vol] 99 mg/dL Normal 74-106 [facility] Comment on above: Performed By: #### B MP, LIPID, ALT #### [facility] [address] [place] [address] [address] Nirmal Abernathy Potassium [Moles/Vol] 4.3 mmol/L Normal 3.5-5.1 [facility] Comment on above: Performed By: #### B MP, LIPID, ALT #### [facility] [address] [place] [address] [address] Nirmal Abernathy Sodium [Moles/Vol] 138 mmol/L Normal 136-145 [facility] Comment on above: Performed By: #### B MP, LIPID, ALT #### [facility] [address] [place] [address] [address] Nirmal Abernathy Urea nitrogen [Mass/Vol] 19.0 mg/dL Critically high 7.0-[address] [facility] Comment on above: Performed By: #### B MP, LIPID, ALT #### [facility] [address] [place], [place] [address] Dr. Nirmal Abernathy Urea nitrogen/Creatinine [Mass ratio] 17.0 mg/mg Normal [facility] Comment on above: Performed By: #### B MP, LIPID, ALT #### [facility] [address] [id number] Nirmal Abernathy SGPTon 06-05-2022 ALT [Catalytic activity/Vol] 32 U/L Normal 16-63 [facility] Comment on above: Performed By: #### B MP, LIPID, ALT #### [facility] [address] [place] [address] [address] Nirmal Abernathy XR cerv spine AP/LAT/FLX/EXT on 03-26-2022 XR cerv spine AP/LAT/FLX/EXT [facility] [place] [address] [place] [address] XRay Report Signed Patient: Brent Weiner MR#: [id number] 254 : 1945 Acct:[id number] Age/Sex: 76 / M ADM Date: 03/26/22 Loc: X Room: Type: [facility] Attending Dr: Jovon Ceja MD Copies to: Jovon Ceja MD Ordering Provider: Jovon Ceja MD Date of Service: 03/26/22 XR/XR cerv spine AP/LAT/FLX/EXT: G95.9 AP with lateral neutral, flexion and extension views of thecervical spine HISTORY: Cervical myelopathy. Effusion 6 months ago. COMPARISON: 12/25/21 The bony alignment is stable. No hypermobility seen with flexion and extension views. No hardware failure identified. Laminectomy changes redemonstrated. No acute cervical spine fracture identified. No cervical spine listhesis identified. Similar spondylosis present. Facets are in adequate alignment. The dens is intact. The craniocervical junction is unremarkable. No paraspinal soft tissue abnormality seen. XR/XR cerv spine AP/LAT/FLX/EXT IMPRESSION: No hardware failure. No hypermobility. Stable findings. Impression dictated by: Kervin Marshall M.D.03/26/2022 2:50 PM Dictation Location: [place] [address] Transcribed By: [facility] 03/26/22 1450 Dictated By: Kervin Marshall DO 03/26/22 1448 Signed By: 03/26/22 145 [facility] XR cervical spine 2Von 12-25 XR cervical spine 2V [facility] [place] [id number] XRay Report Signed Patient: Brent Weiner MR#: [id number] 254 : 1945 Acct:[id number] Age/Sex: 75 / M ADM Date: 12/25/21 Loc: XD Room: Type: [facility] Attending Dr: Jovon Ceja MD Ordering Provider: Jovon Ceja MD Date of Service: 12/25/21 XR/XR cervical spine 2V: M50.021 Copies to: Jovon Ceja MD CERVICAL SPINE 2 views: CLINICAL HISTORY: Surgical follow-up. COMPARISON: Cervical spine 10/07/2021 FINDINGS: Posterior hardware fixation C3-C7 without change in alignment or hardware complication. Vertebral body heights appear well-maintained. Degree of disc space narrowing is unchanged. No prevertebral soft tissue swelling. Visualized lung apices are clear. XR/XR cervical spine 2V IMPRESSION: NO EVIDENCE OF HARDWARE COMPLICATION. Impression dictated by: Denis Lee Jr., Jose12/25/2021 10:47 AM Dictation Location: [place] [address] Transcribed By: [facility] 12/25/21 1047 Dictated By: Denis Lee Jr, DO 12/25/21 1046 Signed By: 12/25/21 1047 [facility] XR cervical spine 2Von 10-07 XR cervical spine 2V [facility] [place] [id number] XRay Report Signed Patient: Brent Weiner MR#: [id number] 254 : 1945 Acct:[id number] Age/Sex: 75 / M ADM Date: 10/07/21 Loc: XD Room: Type: [facility] Attending Dr: Jovon Ceja MD Ordering Provider: Jovon Ceja MD Date of Service: 10/07/21 XR/XR cervical spine 2V: G99.2 Copies to: Jovon Ceja MD 2 views of thecervical spine HISTORY: Fell one month postop posterior cervical fusion COMPARISON: 07/11/21 C3 C7 posterior fixation hardware with posterior decompression changes identified. No hardware failure or loosening identified. No acute cervical spine fracture identified. The bony alignment unchanged. Similar multilevel cervical spondylosis identified. Facets are in adequate alignment. The dens is intact. The craniocervical junction is unremarkable. No paraspinal soft tissue abnormality seen. XR/XR cervical spine 2V IMPRESSION: Uncomplicated posterior C3-C7 fixation and decompression. Impression dictated by: Kervin Marshall M.D.10/07/2021 2:05 PM Dictation Location: [place] [address] Transcribed By: [facility] 10/07/21 1405 Dictated By: Kervin Marshall DO 10/07/21 1403 Signed By: 10/07/21 1405 Normal [facility] LIPID PROFILEon 09-03-2021 CHOL-HDL RATIO NORM SEE BELOW Normal [facility] Comment on above: Result Comment: 3.3 - 4.4 LOW RISK 4.4 - 7.1 AVERAGE RISK 7.1 - 11.0 MODERATE RISK >11.0 HIGH RISK Performed By: #### L IPID, ALT #### [facility] [address] [place] [address] [address] Nirmal Abernathy Cholesterol [Mass/Vol] 137 mg/dL Normal <=200 [facility] Comment on above: Performed By: #### L IPID, ALT #### [facility] [address] [address] [address] Nirmal Abernathy Cholesterol in HDL [Mass/Vol] 51 mg/dL Normal [facility] Comment on above: Performed By: #### L IPID, ALT #### [facility] [address] [address] [address] Nirmal Abernathy Cholesterol in LDL [Mass/Vol] 69.6 mg/dL Normal [facility] Comment on above: Performed By: #### L IPID, ALT #### [facility] [address] [address] [address] Nirmal Abernathy Cholesterol.total/Cholestero l in HDL [Mass ratio] 2.7 {ratio} Normal [facility] Comment on above: Performed By: #### L IPID, ALT #### [facility] [address] [address] [address] Nirmal Abernathy HDL NORMAL > or = 60 mg/dl - LO W CARDIOVASCULAR RISK <40 mg/dl - HIGH CARDIOVASCULAR RISK Normal [facility] Comment on above: Performed By: #### L IPID, ALT #### [facility] [address] [place] [address] Dr. Nirmal Abernathy LDL CALC NORMAL SEE BELOW Normal [facility] Comment on above: Result Comment: <100 mg/dl OPTIMAL 100 - 129 mg/dl NEAR OR ABOVE OPTIMAL 130 - 159 mg/dl BORDERLINE HIGH 160 - 189 mg/dl HIGH >190 mg/dl VERY HIGH Performed By: #### L IPID, ALT #### [facility] [address] [place] [address] Dr. Nirmal Abernathy Triglyceride [Mass/Vol] 82 mg/dL Normal <=150 T [facility] Comment on above: Performed By: #### L IPID, ALT #### [facility] [address] [place] [address] Dr. Nirmal Abernathy VLDL CALC 16.4 mg/dL Normal [facility] Comment on above: Performed By: #### L IPID, ALT #### [facility] [address] [address] [address] Nirmal Abernathy [facility] 09-03-2021 ALT [Catalytic activity/Vol] 39 U/L Normal 21-72 [facility] Comment on above: Performed By: #### L IPID, ALT #### [facility] [address] [address] [address] Nirmal Abernathy Vital Signs Date Time Vital Sign Value Performing Clinician Facility 07-13-2023 13:56-0500 Blood Pressure Location Tremayne DEANL [facility] 07-13-2023 13:56-0500 Diastolic blood pressure 82 mm[Hg] Tremayne NILL [facility] 07-13-2023 13:56-0500 Heart rate 74 /min Tremayne NILL [facility] [place] 07-13-2023 13:56-0500 Respiratory rate 16 /min Tremayne NILL [facility] 07-13-2023 13:56-0500 Systolic blood pressure 124 mm[Hg] Tremayne NILL [facility] 06-07-2023 09:00-0500 Body height 180.34 cm Lyndon Ball Other [facility] Other 06-07-2023 09:00-0500 Body mass index (BMI) [Ratio] 30.23 kg/m2 Lyndon Ball Other [facility] Other 06-07-2023 09:00-0500 Body weight 98.34 kg Lynodn Ball Other [facility] Other 06-07-2023 09:00-0500 Diastolic blood pressure 88 mm[Hg] Lyndon Ball Other [facility] Other 06-07-2023 09:00-0500 Respiratory rate 12 /min Lyndon Ball Other [facility] Other 06-07-2023 09:00-0500 Systolic blood pressure 138 mm[Hg] Lyndon Ball Other [facility] Other 01-13-2023 15:25-0400 Blood Pressure Location Tremayne DEANL [facility] 01-13-2023 15:25-0400 Diastolic blood pressure 74 mm[Hg] Tremayne DEANL [facility] [place] 01-13-2023 15:25-0400 Heart rate 72 /min Tremayne NILL [facility] [place] 01-13-2023 15:25-0400 Respiratory rate 16 /min Tremayne DEANL [facility] [place] 01-13-2023 15:25-0400 Systolic blood pressure 118 mm[Hg] Tremayne NILL [facility] [place] 12-04-2022 09:30-0400 Body height 180.34 cm Lyndon Ball Other [facility] Other 12-04-2022 09:30-0400 Body mass index (BMI) [Ratio] 30.71 kg/m2 Lyndon Ball Other [facility] Other 12-04-2022 09:30-0400 Body weight 99.88 kg Lyndon Ball Other [facility] Other 12-04-2022 09:30-0400 Diastolic blood pressure 77 mm[Hg] Lyndon Ball Other [facility] Other 12-04-2022 09:30-0400 Respiratory rate 12 /min Lyndon Ball Other [facility] Other 12-04-2022 09:30-0400 SaO2% (BldA) [Mass fraction] 98 % Lyndon Ball Other [facility] Other 12-04-2022 09:30-0400 Systolic blood pressure 137 mm[Hg] Lyndon Ball Other [facility] Other 10-29-2022 11:20-0400 Body height 180.34 cm Jovon Ceja Other [facility] Other 10-29-2022 11:20-0400 Body mass index (BMI) [Ratio] 29.98 kg/m2 Jovon Ceja Other [facility] Other 10-29-2022 11:20-0400 Body weight 97.52 kg Jovon Ceja Other [facility] Other 09-17-2022 11:20-0500 Body height 180.34 cm Jovon Ceja Other [facility] Other 09-17-2022 11:20-0500 Body mass index (BMI) [Ratio] 29.98 kg/m2 Jovon Ceja Other [facility] Other 09-17-2022 11:20-0500 Body weight 97.52 kg Jovon Ceja Other [facility] Other 09-17-2022 11:20-0500 Respiratory rate 18 /min Jovon Ceja Other [facility] Other 03-26-2022 11:20-0400 Body height 180.34 cm Jovon Ceja Other [facility] Other 03-26-2022 11:20-0400 Body mass index (BMI) [Ratio] 27.33 kg/m2 Jovon Ceja Other [facility] Other 03-26-2022 11:20-0400 Body weight 88.91 kg Jovon Ceja Other [facility] Other 12-25-2021 10:40-0400 Body height 180.34 cm Jovon Ceja Other [facility] Other 05-26-2022 10:40-0400 Body mass index (BMI) [Ratio] 27.33 kg/m2 Jovon Ceja Other [facility] Other 12-25-2021 10:40-0400 Body weight 88.91 kg Jovon Ceja Other [facility] Other 10-07-2021 14:00-0500 Body height 180.34 cm Jovon Ceja Other [facility] Other 10-07-2021 14:00-0500 Body mass index (BMI) [Ratio] 27.89 kg/m2 Jovon Ceja Other [facility] Other 10-07-2021 14:00-0500 Body weight 90.72 kg Jovon Ceja Other [facility] Other 09-18-2021 14:00-0500 Body height 180.34 cm Jovon Ceja Other [facility] Other 09-18-2021 14:00-0500 Body mass index (BMI) [Ratio] 27.89 kg/m2 Jovon Ceja Other [facility] Other 09-18-2021 14:00-0500 Body weight 90.72 kg Jovon Ceja Other [facility] Other 07-24-2021 10:40-0500 Body height 180.34 cm Jovon Ceja Other [facility] Other 07-24-2021 10:40-0500 Body mass index (BMI) [Ratio] 27.89 kg/m2 Jovon Ceja Other [facility] Other 07-24-2021 10:40-0500 Body weight 90.72 kg Jovon Ceja Other [facility] Other 06-17-2021 11:40-0500 Body height 180.34 cm Jovon Ceja Other [facility] Other 06-17-2021 11:40-0500 Body mass index (BMI) [Ratio] 27.89 kg/m2 Jovon Ceja Other [facility] Other 06-17-2021 11:40-0500 Body weight 90.72 kg Jovon Ceja Other [facility] Other 06-17-2021 11:40-0500 Diastolic blood pressure 71 mm[Hg] Jovon Ceja Other [facility] Other 06-17-2021 11:40-0500 Systolic blood pressure 130 mm[Hg] Jovon Ceja Other [facility] Other Encounters Encounter Date Encounter Type Care Provider Facility Start: 07-13-2023 End: 07-14-2023 ambulatory LYNDON BALL Facility:[facility] Start: 07-13-2023 End: 07-13-2023 Patient encounter procedure Tremayne CARTER General [facility] Start: 06-18-2023 End: 06-18-2023 ambulatory Lyndon Ball Other [facility] Other Start: 06-18-2023 Telephone encounter Lyndon Ball [facility] Start: 06-08-2023 End: 06-08-2023 ambulatory Lyndon Ball Other [facility] Other Start: 06-08-2023 Telephone encounter Lyndon Ball [facility] Start: 06-07-2023 End: 06-07-2023 ambulatory Lyndon Ball Other [facility] Other Start: 06-07-2023 Patient encounter procedure Lyndon Dorman [facility] Start: 04-20-2023 End: 04-20-2023 ambulatory Lyndon Dorman Other [facility] Other Start: 04-20-2023 Telephone encounter [facility] Start: 04-19-2023 End: 04-19-2023 ambulatory Lyndon Dorman Other [facility] Other Start: 04-19-2023 Telephone encounter [facility]don [facility] Start: 02-24-2023 End: 02-25-2023 ambulatory Tremayne R NILL Facility: [facility] Start: 02-24-2023 End: 02-24-2023 Patient encounter procedure Tremayne R NILL General [facility] [place] Start: 02-10-2023 End: 02-11-2023 ambulatory Tremayne R NILL Facility: [facility] Start: 02-04-2023 End: 02-04-2023 ambulatory Lyndon Dorman Other [facility] Other Start: 02-04-2023 Telephone encounter [facility]don [facility] Start: 02-03-2023 End: 02-04-2023 ambulatory Tremayne R NILL Facility:[id number] Start: 01-13-2023 End: 01-14-2023 ambulatory Tremayne R NILL Facility: [facility] Start: 01-13-2023 End: 01-13-2023 Patient encounter procedure Tremayne R NILL General Surgery [facility] Start: 12-04-2022 End: 12-04-2022 ambulatory Lyndon Dorman Other [facility] Other Start: 12-04-2022 Office outpatient vi sit 25 minutes Lyndon Dorman [facility] Start: 10-29-2022 End: 10-29-2022 ambulatory Jovon Ceja Other [facility] Other Start: 10-29-2022 Office outpatient vi sit 15 minutes Jovon Ceja [facility] Start: 09-17-2022 Office outpatient vi sit 15 minutes Jovon Ceja [facility] Start: 09-17-2022 End: 09-17-2022 ambulatory Jovon Ceja Facility:[facility] Start: 09-17-2022 End: 09-17-2022 ambulatory DO Lyndon Dorman Work Phone: [facility] Work Phone: Start: 09-17-2022 End: 09-17-2022 Patient encounter procedure DO Lyndon Dorman Work Phone: [facility] [employer] [place] Work Phone: Start: 08-17-2022 End: 08-17-2022 ambulatory Lyndon Dorman Other [facility] Other Start: 08-17-2022 Telephone encounter Lyndon Dorman [facility] Start: 08-06-2022 ([facility] VCS) [facility] Lyndon Dorman [facility] Start: 08-06-2022 End: 08-06-2022 ambulatory Lyndon Dorman Other [facility] Other Start: 06-05-2022 Adult health examination Lyndon Dorman Other [facility] Other Start: 06-05-2022 End: 06-06-[address] LYNDNO DORMAN Facility: Start: 03-26-2022 Office outpatient vi sit 15 minutes Jovon Ceja [facility] Start: 03-26-2022 End: 03-26-2022 ambulatory Lyndon Dorman [facility] [employer] Other Start: 03-26-2022 End: 03-26-2022 Patient encounter procedure DO Lyndon Dorman Work Phone: [facility] [employer] Start: 12-25-2021 Office outpatient vi sit 15 minutes Jovon Ceja [facility] Start: 12-25-2021 End: 12-25-2021 ambulatory Lyndon Dorman [facility] [employer] Other Start: 12-25-2021 End: 12-25-2021 Patient encounter procedure DO Lyndon Dorman Work Phone: [facility] Start: 10-27-2021 End: 11-01-[address] LYNDON DORMAN Facility:[facility] Start: 10-24-2021 End: 10-24-2021 ambulatory Jovon Ceja Other [facility] Other Start: 10-24-2021 Telephone encounter Jovon Ceja [facility] Start: 10-07-2021 Postop follow up vis it related to original px Jovon Ceja [facility] Start: 10-07-2021 End: 10-07-2021 ambulatory Lyndon Dorman [facility] [employer] Other Start: 10-07-2021 End: 10-07-2021 Patient encounter procedure DO Lyndon Dorman Work Phone: [facility] Start: 09-18-2021 End: 09-18-2021 ambulatory Jovon Ceja Other [facility] Other Start: 09-18-2021 Postop follow up vis it related to original px Jovon Ceja [facility] Start: 09-08-2021 Admission to same y surgery center Jovon Ceja [facility] Start: 09-08-2021 End: 09-08-2021 ambulatory Jovon Ceja Other [facility] Other Start: 09-03-2021 End: 09-04-[address] LYNDON DORMAN Facility:[facility] Start: 08-01-[address] LYNDON DORMAN Facili ty:[facility] Start: 07-24-2021 End: 07-24-2021 ambulatory Jovonaileen Ceja Other [facility] Other Start: 07-24-2021 Office outpatient vi sit 40 minutes Jovon Ceja [facility] Start: 07-08-2021 End: 07-09-[address] LYNDON DORMAN Facility:[facility] Start: 06-17-2021 End: 06-17-2021 ambulatory Jovon Ceja Other [facility] [employer] Other Start: 06-17-2021 Office outpatient ne w 30 minutes Jovon Ceja [facility] Procedures Date Procedure Procedure Detail Performing Clinician Start: 02-03-2023 Repair of right ingu inal hernia Tremayne DEANRaji Start: 09-17-2022 X-ray of cervical spine DO Lyndon Dorman Work Phone: Start: 06-05-[address] RUSS ULRICH DANDY Comment on above: Performed By: #### P [facility] #### [facility] [address] [place] [address] Dr. Nirmal Abernathy Start: 03-26-2022 X-ray of cervical spine DO Lyndon Dorman Work Phone: Start: 12-25-2021 X-ray of cervical spine DO Lyndon Dorman Work Phone: Start: 10-07-2021 X-ray of cervical spine DO Lyndon Dorman Work Phone: Start: 05-30-2018 Diabetes mellitus screening Lyndon Dorman Other Start: 05-24-2017 General examination of patient Lyndon Dorman Other Start: 11-20-2015 Screening for malign ant neoplasm of colon Lyndon Dorman Other Start: 10-01-2015 Bilateral cataracts (disorder) Tremayne NILL Start: 03-26-2015 Screening for malign ant neoplasm of prostate Lyndon Dorman Other Start: 12-31-2012 Colonoscopy Tremayne NI LL Arthroscopy of shoulder Chaparro ael NILL Depression screening Omayraroly Dorman Other History of surgical procedure on cervical spine Tremayne CARTER Pre-surgery evaluation Jovon Ceja Other Repair of left inguinal hernia Tremayne CARTER Screening for malign ant neoplasm of prostate Lyndon Dorman Other Immunizations Immunization Date Immunization Notes Care Provider Genevieve ross 07-08-2021 COVID-19 mRNA-1273 (Moderna) DO Lyndon Dorman Work Phone: [facility] 10-15-2020 COVID-19 mRNA-1273 (Moderna) DO Lyndon Dorman Work Phone: [facility] 09-19-2020 COVID-19 mRNA-1277 (Moderna) DO Lyndon Dorman Work Phone: [facility] 05-24-2017 diphtheria, tetanus toxoids and acellular pertussis vaccine, unspecified formulation Lyndon Dorman Other [facility] [employer] Other 05-24-2017 pneumococcal polysaccharide vaccine, 23 valent Lyndon Dorman Other [facility] Other 03-30-2016 pneumococcal conjuga te vaccine, 13 valent Lyndon Dorman Other [facility] Other 03-30-2016 pneumococcal Conjugate, unspecified formulation; Translations: [Need for prophylactic vaccination against Streptococcus pneumoniae (pneumococcus)] Lyndon Dorman Other [employer] Other NEGATED: Highlighted row has not occurred!07-13-2023 influenza virus vaccine, unspecified formulation Tremayne CARTER [facility] Payers Date Payer Category Payer Self-pay [id number] 1957 Medicare [id number] 50 [id number] 1957 Self-pay [id number] 1945 Unknown [id number] 2.16.84 [id number] 1945 Unknown [id number] 2.16.84 [id number] 1945 Unknown [id number] 2.16.84 [id number] 1945 Unknown [id number] 2.16.84 [id number] 1945 Unknown [id number] 2.16.8 [id number] 1945 Unknown [id number] 2.16.8 40.1.337865.3.579.2.727 1945 Unknown [id number] 2.16.8 [id number] 1945 Unknown [id number] 2.16.8 [id number] 1945 Unknown [id number] 2.16.8 [id number] Medicare Medicare [id number] Unknown [id number] 2.16.84 [id number] Unknown [id number] 2.16.8 40.1.392683.3.579.2.531 Unknown [id number] 2.16.8 [id number] Unknown [id number] 2.16.8 [id number] Unknown [id number] 2.16.8 [id number] Social History Date Type Detail Facility Start: 09-08-2021 End: 07-13-2023 Tobacco smoking status ARIS Ex-smoker (finding) [facility] Start: 1945 Sex Assigned At Male F [facility] Sex Assigned At [facility] Tobacco smoking status Never Gener al [facility] [place] [facility] Equipment Procedure Code Equipment Code Equipment Origin al Text Equipment Identifier Dates Decompression, spine, cervical, posterior approach CANCELLOUS 15CC CRUSHED FDA Start: 09-08-2021 Decompression, spine, cervical, posterior approach Bone-screw internal spinal fixation system, non-sterile ()[id number] FDA Start: 09-08-2021 Decompression, spine, cervical, posterior approach Bone-screw internal spinal fixation system, non-sterile ()[id number] FDA Start: 09-08-2021 Decompression, spine, cervical, posterior approach Bone-screw internal spinal fixation system, non-sterile ()[id number] FDA Start: 09-08-2021 Decompression, spine, cervical, posterior approach Bone-screw internal spinal fixation system, non-sterile ()[id number] FDA Start: 09-08-2021 Decompression, spine, cervical, posterior approach Spinal fusion graft kit ([id number] FDA Start: 09-08-2021 Decompression, spine, cervical, posterior approach Bone-screw internal spinal fixation system, non-sterile ()[id number] FDA Start: 09-08-2021 Decompression, spine, cervical, posterior approach CANCELLOUS 15CC CRUSHED FDA Start: 09-08-2021 Decompression, spine, cervical, posterior approach CANCELLOUS 15CC CRUSHED FDA Start: 09-08-2021 Functional Status Date Assessment Result Facility 07-13-2023 Functional Status N/A [facility] 01-13-2023 Functional Status N/A [facility] Clinical Notes 06-17-2021 to 07-13-2023 Note Date & Type Note Facility 07-13-2023 Note Chief Complaint consultation for colonoscopy HPI Staff 77 year old male presents on consultation from Dr. Dorman for screening colonoscopy. Denies abdominal or rectal pain. No rectal bleeding or change in bowel habits. Denies nausea or vomiting. No unexplained weight loss. Last colonoscopy completed 12/2012 with diverticulosis. No known family history of colon cancer. History of Present Illness 77 yo male with h/o htn, hypercholesterolemia, cervical myelopathy, essential tremor, BPH, DARRICK; referred for colorectal screening; denies change in bms or blood in stools; no abdominal complaints; denies asa use, on Diclofenac daily, no SBE prophylaxis; abdominal operations significant for bilateral inguinal hernia repairs, last colonoscopy 2012, reportedly wnl; no fmhx of GI malignancy or IBD; no tobacco use. patient also reports enlarging epidermal cyst left upper back, no episodes of infection. Review of Systems PHQ Score Initial Depression Screen Score: 0 SCORE ROS - Provider Constitutional: no fever, no sweats, no weight loss. Eyes: no glasses, no blurred vision, no visual loss. ENMT: no dentures, no hoarseness, no swallowing difficulties, no hearing loss, no ear infection(s), no nose bleeds. Cardiovascular: normal blood pressure, no chest pain, regular heartbeat, no heart murmur. Respiratory: no shortness of breath, no cough, no asthma, no wheezing. Gastrointestinal: no nausea, no vomiting, no diarrhea, no constipation, no blood in stool, no change in bowel habits, no abdominal pain, no hepatitis. Genitourinary: no kidney stones, no urine infection, no dysuria. Musculoskeletal: no pain, no weakness. Skin: no changing moles, no rash, yes skin lumps. Neurologic: no seizures, no epilepsy, no headache. Psychiatric: no emotional or psychiatric problem. Heme/Lymph: no bleeding problems, no anemia, no blood clots, no transfusions. Allergy/Immunologic: no swollen lymph nodes/glands, no IV drug abuse. Other: Additional ROS info: Except as noted in the above Review of Systems and in the History of Present Illness, all other systems have been reviewed and are negative or noncontributory. Physical Exam Vitals & Measurements HR: 74(Peripheral) RR: 16 BP: 124/82 HT: 71 in HT: 180.3 cm WT: 100.3 kg WT: 220.66 lb BMI: 30.85 HEENT: normal conjunctiva, sclera clear, no scleral icterus, EOM intact, PERRLA, oral mucosa moist without lesions. Neck: trachea midline, no mass, symmetric, no thyromegaly or nodules, no adenopathy Respiratory: lungs CTA, respirations non labored. Cardiovascular: regular rate and rhythm, no murmur, no pedal edema or varicosities. Gastrointestinal: soft, non distended, no tenderness, no masses, no palpable hernias, diastasis recti no, no hepatosplenomegaly; normal bs Lymphatic: no cervical adenopathy, no supraclavicular adenopathy. Musculoskeletal: normal gait, digits and nails without infection, nodes, cyanosis, clubbing. Skin: no rashes, no lesions, no ulcers, no left upper back with 1.5 cm epidermal cyst with central pore, no erythema or fluctuance, no drainage, nontender. Psychiatric/Neuro: oriented to time, place, person, judgement normal, affect appropriate for age, insight intact, no focal deficits. Tests: , review of old records completed , Discussed surgical options, risks, and possible complications with patient. Assessment/Plan 1. Screening for malignant neoplasm of colon (Z12.11: Encounter for screening for malignant neoplasm of colon) plan colonoscopy under anesthesia, also excisional biopsy of enlarging epidermal cyst of left upper back, informed consent obtained. 2. Epidermal cyst (L72.0: Epidermal cyst) see # 1 Follow-up No qualifying data available Problem List/Past Medical History Ongoing BMI 30.0-30.9,adult BPH (benign prostatic hyperplasia) Cervical myelopathy Diverticular disease of colon Dysphonia Epidermal cyst Essential hypertension Essential tremor. Gastro-esophageal reflux disease with esophagitis Hearing loss HTN (hypertension) Hypercholesterolemia Insomnia Obesity Obstructive sleep apnea syndrome Pure hypercholesterolemia Right inguinal hernia Screening for malignant neoplasm of colon Sebaceous cyst Historical Cervical spondylosis Generalised osteoarthritis Obstructive sleep apnea Tinnitus Procedure/Surgical History Repair of right inguinal hernia (02/03/2023), Bilateral cataracts (10/01/2015), Colonoscopy (12/31/2012), Arthroscopy of shoulder, History of cervical spine surgery, Repair of left inguinal hernia. Medications amLODIPine 5 mg Tab, 5 mg= 1 tab(s), Oral, Daily atorvastatin 20 mg Tab, 20 mg= 1 tab(s), Oral, Daily Diclofenac 75mg Tab-DR, Oral, BID gabapentin 100 mg Cap, 100 mg= 1 cap(s), Oral, TID losartan 25 mg Tab, 25 mg= 1 tab(s), Oral, Daily Allergies No Known Allergies No Known Medication Allergies Social History Alcohol Current, Beer, Wine, 1-2 times per week, 01/13/2023 Substance Abuse - Denies (more content not included)... [facility] Comment on above: Result Comment: Elec tronically Signed By: RAUL ZUNIGA, Tremayne Arzola\Date and Time Signed: 07/13/23 14:31 EST 06-18-2023 Evaluation note Encounter Date Diagnosis Assessment Notes Jun, Cervical spondylosis (ICD-10 - M47.812) [facility] Other 11-06-2023 Evaluation note* Encounter Date Diagnosis Assessment Notes Treatment Notes Treatment Clinical Notes Jun, Medicare annual wellness visit, subsequent (ICD-10 - Z00.00) Personalized health advice was given to the beneficiary including a written plan for screenings discussed and provided. Advanced care planning reviewed and/or information given as requested. Additional counseling was provided here today in regards to, [ ]. The above visit was performed by [ ], under direct supervision of [ ]. Document reviewed and amended by provider signed below. Jun, Primary hypertension (ICD-10 - I10) This patient is instructed to consume a healthy, low-fat, low-salt diet. They are also encouraged to continue exercise to achieve/maintain a normal BMI. Jun, Elevated cholesterol (ICD-10 - E78.00) Instructed on diet and exercise with continued statin therapy.Discussed the beneficial effects of lowering cholesterol in reducing the risk for cerebrovascular and cardiovascular disease. Jun, DARRICK (obstructive sleep apnea) (ICD-10 - G47.33) This patient is aware of the benefits associated with DARRICK: With continued use, the patient reduces the risk for NJ, CVA, HTN, cardiac dysrhythmias and sudden cardiac deaths.The patient is also aware of the association between DARRICK and morning headaches, daytime somnolence, fatigue and obesity, which also has been improved with continued use.The patient is compliant with treatment, wearing the equipment every night for greater than 4 hours.The patient is instructed to continue use of the CPAP for DARRICK treatment. Jun, Gastroesophageal reflux disease with esophagitis without hemorrhage (ICD-10 - K21.00) Diet instructions: Smaller portions, avoid eating and laying flat, avoid eating or drinking prior to bedtime. Weight loss. Jun, Cigarette nicotine dependence in remission (ICD-10 - F17.211) Continue abstinence Jun, Primary osteoarthritis of first carpometacarpal joint of left hand (ICD-10 - M18.12) Ice, rest and Voltaren Gel. No improvement, referral to OT vs Orthopedics Jun, De Quervain's tenosynovitis (ICD-10 - M65.4) Jun, Screening PSA (prostate specific antigen) (ICD-10 - Z12.5) Yearly PSA and LEONARDO Jun, Colon cancer screening (ICD-10 - Z12.11) Due for screening colonoscopy. Refer to Dr. Stu Carter Jun, High risk medication use (ICD-10 - Z79.899) Check ALT and CBC [facility] Other 09-19-2023 Evaluation note* Encounter Date Diagnosis Assessment Notes Treatment Notes Treatment Clinical Notes Apr, Primary hypertension (ICD-10 - I10) [facility] Other 09-18-2023 Evaluation note* Encounter Date Diagnosis Assessment Notes Treatment Notes Treatment Clinical Notes Apr, Primary hypertension (ICD-10 - I10) [facility] Other 06-14-2023 NoteChief Complaint consultation for possible hernia HPI Staff 77 year old male presents on consultation from Dr. Dorman for possible right inguinal hernia. Reportsright groin pain since August after excessive coughing. Pushing on groin area relieves pain. Does note small protrusion that he can massage away. Denies nausea or vomiting. Reports some bowel changes. Started wearing truss last week which has resulted in significant improvement in discomfort. No imaging completed. History of Present Illness 77 yo male with h/o htn, hyperlipidemia, DARRICK, cervical myelopathy, bph, referred for right groin bulge and discomfort, began in August after heavy lifting; no skin changes, no N/V or bowel changes; no increase in size, area reduces with sitting and lying; h/o remote LIHR with mesh; on Diclofenac prn, no asa. no tobacco use. Review of Systems PHQ Score Initial Depression Screen Score: 0 ROS - Provider Constitutional: no fever, no sweats, no weight loss. Eyes: no glasses, no blurred vision, no visual loss. ENMT: no dentures, no hoarseness, no swallowing difficulties, no hearing loss, no ear infection(s),no nose bleeds. Cardiovascular: normal blood pressure, no chest pain, regular heartbeat, no heart murmur. Respiratory: no shortness of breath, no cough, no asthma, no wheezing. Gastrointestinal: no nausea, no vomiting, no diarrhea, no constipation, no blood in stool, no change in bowel habits, no abdominal pain, no hepatitis. Genitourinary: no kidney stones, no urine infection, no dysuria. Musculoskeletal: no pain, no weakness. Skin: no changing moles, no rash, no skin lumps. Neurologic: no seizures, no epilepsy, no headache. Psychiatric: no emotional or psychiatric problem. Heme/Lymph: no bleeding problems, no anemia, no blood clots, no transfusions. Allergy/Immunologic: no swollen lymph nodes/glands, no IV drug abuse. Other: Additional ROS info: Except as noted in the above Review of Systems and in the History of Present Illness, all other systems have been reviewed and are negative or noncontributory. Physical Exam Vitals & Measurements HR: 72(Peripheral) RR: 16 BP: 118/74 HT: 71 in HT: 180.3 cm WT: 97 kg WT: 213.4 lb BMI: 29.84 HEENT: normal conjunctiva, sclera clear, no scleral icterus, EOM intact, PERRLA, oral mucosa moist without lesions. Neck: trachea midline, no mass, symmetric, no thyromegaly or nodules, no adenopathy Respiratory: lungs CTA, respirations non labored. Cardiovascular: regular rate and rhythm, no murmur, no pedal edema or varicosities. Gastrointestinal: soft, non distended, no tenderness, no masses, reducible right inguinal hernia, mild tenderness, no skin changes, no recurrent LIH, diastasis recti no, no hepatosplenomegaly; normalbs Lymphatic: no cervical adenopathy, no inguinal adenopathy. Musculoskeletal: normal gait, digits and nails without infection, nodes, cyanosis, clubbing. Skin: no rashes, no lesions, no ulcers, no subcutaneous nodules, induration. Psychiatric/Neuro: oriented to time, place, person, judgement normal, affect appropriate for age, insight intact, no focal deficits. Tests: review of old records completed, Discussed surgical options, risks, and possible complications with patient. Assessment/Plan 1. Right inguinal hernia (K40.90: Unilateral inguinal hernia, without obstruction or gangrene, not specified as recurrent) plan right inguinal herniorrhaphy with mesh insertion, informed consent obtained. Ancef 2 gms IV prior to OR TAP block per Anesthesia SCDs Follow-up No qualifying data available Problem List/Past Medical History Ongoing BMI 29.0-29.9,adult BPH (benign prostatic hyperplasia) Cervical myelopathy Diverticular disease of colon Essential hypertension Gastro-esophageal reflux disease with esophagitis Hearing loss HTN (hypertension) Hypercholesterolemia Insomnia Obesity Obstructive sleep apnea syndrome Right inguinal hernia Sebaceous cyst Historical Cervical spondylosis Generalised osteoarthritis Obstructive sleep apnea Tinnitus Procedure/Surgical History Bilateral cataracts (10/01/2015), Colonoscopy (12/31/2012), Arthroscopy of shoulder, History of cervical spine surgery, Repair of left inguinal hernia. Medications amLODIPine 5 mg Tab, 5 mg= 1 tab(s), Oral, Daily atorvastatin 20 mg Tab, 20 mg= 1 tab(s), Oral, Daily Diclofenac 75mg Tab-DR, Oral, BID losartan 25 mg Tab, 25 mg= 1 tab(s), Oral, Daily Allergies No Known Allergies No Known Medication Allergies Social History Alcohol Current, Beer, Wine, 1-2 times per week, 01/13/2023 Substance Abuse - Denies Substance Abuse, 03/03/2019 Tobacco Former smoker, quit more than 30 days ago Tobacco Use:. Never Smokeless Tobacco Use:. Cigarettes, 0.5 per day. Started age 18.0 Years. Stopped age 61 Years., 01/13/2023 Family History Asthma: Father. Diabetes mellitus type 2: Mother. Heart disease: Mother and Father. Hypertension: Father. TIA: Mother (more content not included)...[facility] CenterComment on above:Result Comment: Electronically Signed By: RAUL ZUNIGA, Tremayne Arzola\Date and Time Signed: 01/13/23 17:35 [id number] Evaluation note* Encounter Date Diagnosis Assessment Notes Treatment Notes Treatment Clinical Notes November, Primary hypertension (ICD-10 - I10) This patient is instructed to consume a healthy, low-fat, low-salt diet. They are also encouraged to continue exercise to achieve/maintain a normal BMI. November, Elevated cholesterol (ICD-10 - E78.00) Instructed on diet and exercise with continued statin therapy.Discussed the beneficial effects of lowering cholesterol in reducing the risk for cerebrovascular and cardiovascular disease. Noncompliant w/ treatment, suggested taking M/W/F or qod to avoid side effects. November, DARRICK (obstructive sleep apnea) (ICD-10 - G47.33) This patient is aware of the benefits associated with DARRICK: With continued use, the patient reduces the risk for [place], CVA, HTN, cardiac dysrhythmias and sudden cardiac deaths.The patient is also aware of the association between DARRICK and morning headaches, daytime somnolence, fatigue and obesity, which also has been improved with continued use.The patient is compliant with treatment, wearing the equipment every night for greater than 4 hours.The patient is instructed to continue use of the CPAP for DARRICK treatment. November, Other obesity due to excess calories (ICD-10 - E66.09) This patient has been instructed on a low-fat, high-fiber diet. They are instructed to reduce calories, portion sizes and snacks. It is recommended that they exercise for 30 minutes, 3-5 times weekly. November, Gastroesophageal reflux disease with esophagitis without hemorrhage (ICD-10 - K21.00) Diet instructions: Smaller portions, avoid eating and laying flat, avoid eating or drinking prior to bedtime. Weight loss. Pepcid as needed November, Cervical spondylosis (ICD-10 - M47.812) ROM exercises, heat/ice and Tylenol. NSAIDs only as needed for increased aching and pain November, Cigarette nicotine dependence in remission (ICD-10 - F17.211) Continue abstinence, aware of benefits of abstaining from tobacco products November, Body mass index [BMI ] 30.0-30.9, adult (ICD-10 - Z68.30) [facility] Other 03-30-2023 Evaluation note* Encounter Date Diagnosis Assessment Notes Treatment Notes Treatment Clinical Notes Sep, 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 (ICD-10 - M50.021) This patient really has a normal exam he feels his neck is a bit uncomfortable on the lower left side. He also has some occipital tenderness but this is more myofascial. His left arm will bother him occasionally this appears to be palpable I suspected tendinitis I made a point to tell him this is not radicular. He held a wheelbarrow with 7 yards of mulch the other day and spread it. I think his activity level for 72-year-old is abnormally high. At this point I will discharge her from my care he is able to follow-up at any time Sep, Cervical myelopathy (ICD-10 - G95.9) [facility] Other 02-16-2023 Evaluation note* Encounter Date Diagnosis Assessment Notes Treatment Notes Treatment Clinical Notes Sep, 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 (ICD-10 - M50.021) I independently reviewed the plain x-ray of the cervical spine which shows good stable solid hardware. Spine is unchanged. This was compared to previous. The patient complains of left anterior shoulder discomfort which is probably a palpable bicep tendinitis. We will see the patient 1 more time in 6 weeks just to make sure he is okay. Sep, Cervical myelopathy (ICD-10 - G95.9) [facility] Other 01-16-2023 Evaluation note* Encounter Date Diagnosis Assessment Notes Treatment Notes Treatment Clinical Notes Aug, Primary hypertension (ICD-10 - I10) [facility] Other 01-05-2023 Evaluation note* Encounter Date Diagnosis Assessment Notes Treatment Notes Treatment Clinical Notes Aug, COVID-19 (ICD-10 - U07.1) Start Paxlovid due to age, HTN and lack of UTD booster. Self isolate at home. - Cannot work - avoid contact with others - avoid pets - wipe counters, door knobs if touched - if can't avoid leaving home, must wear mask to protect others - need to stay isolated for 10 days from onset of symptoms or contact with COVID positive individual - to discontinue isolation must be 10 days AND must be without fever for 24 hours AND symptoms must be improving. Always wear a mask in public places. Aug, Bronchitis, not specified as acute or chronic (ICD-10 - J40) Instructed to use Robitussin or Mucinex for cough, saline or Flonase NS for congestion, Tylenol for pain and fever. [facility] Other 08-25-2022 Evaluation note* Encounter Date Diagnosis Assessment Notes Treatment Notes Treatment Clinical Notes Mar, Cervical myelopathy (ICD-10 - G95.9) Patient's gait is good, arm strength and range of motion good. Neck is healing well he looks quite comfortable. 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 He did not get his xray as requested prior to his appointment today. I will see the patient again in September at his yearly with 1 more x-ray of the neck to ensure the hardware remains good. For his age this patient is unusually active [facility] Other 05-26-2022 Evaluation note* Encounter Date Diagnosis Assessment Notes Treatment Notes Treatment Clinical Notes November, Cervical myelopathy (ICD-10 - G95.9) At 3-1/2 months postop the patient is doing extremely well he has no real deficits he is increasing his activity. X-ray was independently reviewed and shows good hardware placement. He can do work with unlimited activity in my opinion. I will see him back in 3 months with another dynamic neck x-ray. I answered questions for him and his . [facility] Other 03-08-2022 Evaluation note* Encounter Date Diagnosis Assessment Notes Treatment Notes Treatment Clinical Notes Sep, 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 (ICD-10 - M50.021) Clinically the patient has no sequela from surgery. His neck is stiff but he has no true arm pain; overall he has done very well in the first 4 weeks. I have restricted lifting to 25 pounds for 2 more weeks. At that point he can discontinue the collar and increase lifting about 10 pounds more until his 3 months postop visit. I will see him in 2 months with an x-ray. Sep, Spinal stenosis, cervical region (ICD-10 - M48.02) Sep, Cervical radiculopathy at C7 (ICD-10 - M54.12) Sep, Myelopathy in diseases classified elsewhere (ICD-10 - G99.2) [facility] Other 02-17-2022 Evaluation note* Encounter Date Diagnosis Assessment Notes Treatment Notes Treatment Clinical Notes Sep, Cervical radiculopathy at C7 (ICD-10 - M54.12) Brent is doing very well, his radicular symptoms are completely gone. He did say that he had some minimal symptoms in his right arm, and preoperatively all the symptoms were in his left arm. I will see him again in a month with an x-ray of his cervical spine. Sep, 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 (ICD-10 - M50.021) Sep, Spinal stenosis, cervical region (ICD-10 - M48.02) [facility] Other 12-23-2021 Evaluation note* Encounter Date Diagnosis Assessment Notes Treatment Notes Treatment Clinical Notes Jul, 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 (ICD-10 - M50.021) I have independently again reviewed the MRI of the cervical spine and the plain x-ray of the cervical spine independently with flexion-extension views. The patient's main motion segment is that C4-5. It is a poor quality MRI but there is no question there is obvious cervical cord compression at C3-4 and C4-5 especially where the motion segment is. The patient's cervical radicular pain is better but still present. It is minor at this point. He still is in need of a cervical decompression C3 4,5,6,7 as well as lateral mass fusion C3-7 and lateral mass screws and rods C3-7. I discussed with the patient the indication operation postop course risk benefits of surgery to include potential paralysis infection incomplete relief of symptoms new weakness and incomplete relief of neck pain. He fully understands agrees and would like to proceed with surgical intervention.. Jul, Spinal stenosis, cervical region (ICD-10 - M48.02) Jul, Cervical radiculopathy at C7 (ICD-10 - M54.12) [facility] Other 11-16-2021 Evaluation note* Encounter Date Diagnosis Assessment Notes Treatment Notes Treatment Clinical Notes Jun, 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 (ICD-10 - M50.021) I have independently reviewed the MRI of the cervical spine and report. This patient has a disc herniation at C4-5 with significant stenosis, no cord signal change. Clinically he has a C5 radiculopathy on the left, possibly symptoms of cord compression but no hyperreflexia, no Jordan sign, no gait disturbance. It appears he may be fused at C5-6 and C6-7, it is difficult to tell.The patient has had these symptoms for some time, but he is overall doing well. I will obtain a dynamic neck x-ray and see him before and at the new year talk about a remedy for the cervical stenosis. He understands and agrees after a thorough discussion. 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) [facility] Other evaluation + Plan note No data available for this section General Surgery [place] Evaluation noteNo assessment information available [facility] Work Phone: Evaluation noteNo InformationNort [facility] Other History general Narrative - Reported* Type Description Date Medical History hypertension Surgical History HERNIA 2004 Surgical History RIGHT SHOULDER SURGER 1979 [facility] Other History general Narrative - Reported* Type Description Date Medical History hypertension Surgical History HERNIA 2004 Surgical History RIGHT SHOULDER SURGER 1979 Surgical History PCD-Doctor Ceja Hospitalization History See Above [facility] Other Hislmpk general Narrative - Reported* Type Description Date Medical History hypertension Medical History Pure hypercholesterolemia Medical History Essential hypertension Medical History Overweight (BMI 25.0-29.9) Medical History Obstructive sleep apnea Medical History Gastro-esophageal re flux disease with esophagitis, without bleeding Medical History Benign prostatic hyp erplasia with lower urinary tract symptoms Medical History Cervical spondylosis with radicu lopathy Medical History Cigarette nicotine dependence in remission Medical History Bilateral primary osteoarthritis of knee Medical History Primary insomnia Medical History Bilateral tinnitus Medical History Sensorineural hearing loss Surgical History HERNIA 2004 Surgical History RIGHT SHOULDER SURGER 1979 Surgical History PCD-Doctor Ceja Hospitalization History See Above [facility] Other Hisqydg general Narrative - Reported* Type Description Date Medical History hypertension Medical History Pure hypercholesterolemia Medical History Essential hypertension Medical History Overweight (BMI 25.0-29.9) Medical History Obstructive sleep apnea Medical History Gastro-esophageal re flux disease with esophagitis, without bleeding Medical History Benign prostatic hyp erplasia with lower urinary tract symptoms Medical History Cervical spondylosis with radicu lopathy Medical History Cigarette nicotine dependence in remission Medical History Bilateral primary osteoarthritis of knee Medical History Primary insomnia Medical History Bilateral tinnitus Medical History Sensorineural hearing loss Surgical History HERNIA 2004 Surgical History RIGHT SHOULDER SURGER 1979 Surgical History PCD-Doctor Perla Surgical History Right inguinal hernia 01/2023 Hospitalization History See Above [facility] Other Hospital Discharge instructions No data available for this section General Surgery [place] Progress note No data available for this section General Surgery [place] Reason for referral (narrative)* Reason Referral for screeni ng colonoscopy Diagnosis 1 Colon cancer screeni ng (Z12.11) Referral Organization [facility] Dandy holloway Referring Provider First Name Lyndon Referring Provider Last Name Dandy Referring Provider [facility]ty [facility] [place] [facility] Referred Organization [facility] Referred Provider rTemayne Carter Referred Address [address] [place], [place],[address] Referred Provider Specialty Surgery Referral Priority Routine General Notes Mr. Weiner is due fo r a screening colonoscopy. His previous colonoscopy was completed in 2012. He denies personal or family hx of polyps or cancer. He denies change in appetite, weight or bowel habits. He denies abdominal pain, heartburn, dysphagia, melena or hematochezia. Clinical Notes Please include labs just completed for his wellness exam. [facility] Other Reason for visit NarrativeReferral Dr. Pranay Dorman Cervical SpondylosisNort [facility] Other Chief Complaint and Reason for Visit Chief Complaint G99.2 M60.021 Chief Complaint g95.9 Chief Complaint m50.021 Family History No Family History Records Found Relationship Condition Age at Onset Recorded Date/T marty father Asthma Unknown Myocardial infarction Unknown Hypertension Unknown Not Specified Diabetes mellitus Unknown Cerebrovascular accident (CVA) Unknown Transient ischemic attack Unknown Coronary artery disease Unknown Advance Directives No Advanced Directives Records Found Advance Directive Response Recorded Date/ Time Advance Directives No July 07, 2021 1:12pm Advance Directive Response Recorded Date/ Time Advance Directives No July 07, 2021 12:12pm Reason for Referral Reason Evaluate and Treat S trenthening Diagnosis 1 Cervical spondylolys is (M43.02) Referral Organization [facility] Referring Provider First Name Jovon Referring Provider Last Name Perla Referring Provider Specialty Neurologica l Surgery Referred Organization [facility] [address] [facility] [place] Referred Provider Specialty Physical The rapist Referral Priority Routine Summary Purpose Additional Source Comments Care Teams (unrecognized sec tion and content) Team Status: Inactive Member Role Status Dates Lyndon Dorman DO Primary Care Provider Active Jovon Ceja MD Attending Provider Active Team Status: Active Member Role Status Dates Lyndon Dorman DO Primary Care Provider Active Team Status: Inactive Member Role Status Dates Lyndon Dorman , Primary Care Provider Active Jovon Ceja MD Attending Provider, Referring Provid er Active Goals (unrecognized section and content) Goals may be documented in a n alternate sectionNo InformationNo InformationNo InformationNo InformationNo InformationNo InformationNo InformationNo InformationGoals may be documented in an alternate sectionGoals may be documented in an alternate sectionNo InformationNo InformationNo InformationNo InformationNo Information No data available for this sectionNo Information No data available for this sectionNo InformationNo InformationNo InformationNo InformationNo Information No data available for this section REASON FOR VISIT (unrecogniz ed section and content) Xray results and discuss vaibhav geryrequesting order for PTpcd with fusion C3- [id number] removal4 wk po PCD3 mo po PCD w/xray6 months po PCDCOVID +Refillyrly f/u PCD w/xrayf/u arm pain6 MONTH FOLLOW UP MBNo InformationrefillsNo InformationWellnessLab resultsRefill (unrecognized sect ion and content) No Status Records FoundNo Status Records FoundNo Status Records Found INFORMATION SOURCE (unrecogn ized section and content) DATE CREATED AUTHOR 06/12/2022 [facility] DATE CREATED AUTHOR AUTHOR'S ORGANIZ ATION 09/28/2022 [facility] DATE CREATED AUTHOR AUTHOR'S ORGANIZ ATION 07/15/2023 [facility] FOR RECORDS PERTAINING TO PATIENTS WHO ARE OR HAVE BEEN ENROLLED IN A CHEMICAL DEPENDENCY/SUBSTANCEABUSE PROGRAM, SOME INFORMATION MAY BE OMITTED. This clinical summary was aggregated from multiple sources. Caution should be exercised in using it in the provision of clinical care. This summary normalizes information from multiple sources, and as a consequence, information in this document may materially change the coding, format and clinical context of patient data. In addition, data may be omitted in some cases. CLINICAL DECISIONS SHOULD BE BASED ON THE PRIMARY CLINICAL RECORDS. [employer] [facility]. provides no warranty or guarantee of the accuracy or completeness of information in this document.
== END 2023-07-21 09:27 | disposition home or self-care (01) ==
LOC: PST 09:26
PROVIDERS: PCP Internal Medicine; Visit Provider Surgery
DX: Z01.818 Encounter for other preprocedural examination (principal); Z12.11 Encounter for screening for malignant neoplasm of colon; L72.0 Epidermal cyst

== ENCOUNTER 2023-07-28 09:38 | Day surgery (SDC) | payer MEDICARE, SELFPAY ==
--- NOTE | 2023-07-28 | OP_ITS ---
OPERATION DATE: 07/28/2023 PREOPERATIVE DIAGNOSIS: Colorectal screening as well as enlarging epidermal cyst left upper back. POSTOPERATIVE DIAGNOSIS: Mild sigmoid diverticulosis as well as epidermal cyst left upper back, 1.5 cm. PROCEDURE: Colonoscopy to cecum with excisional biopsy of left upper back epidermal cyst. SURGEON: Tremayne Carter M.D. ANESTHESIA: Monitored anesthesia care as well as local with 0.5% Marcaine plain. ESTIMATED BLOOD LOSS: Less than 5 mL. INDICATIONS AND CONSENT: Patient is a 77-year-old male presents for colorectal screening as well as enlarging left upper back epidermal cyst. Indications, risks, benefits, alternatives of proceeding with colonoscopy as well as excisional biopsy of the cyst were explained extensively to the patient, including the risks of bleeding, colon perforation, scarring, pain, recurrence of the cyst or need for further surgery. All of his questions were answered. Informed consent was obtained. PROCEDURE: Patient brought to the operating room, placed in the left lateral decubitus position. Monitored anesthesia care was provided. Rectal exam was performed which revealed no masses or blood. The scope was inserted into the anal canal. Under direct visualization was advanced. It was advanced to the cecum where cecal markings were clearly identified. Upon withdrawal of the scope, mucosal surfaces were carefully examined. There were no mass lesions or polyps. No inflammatory changes or ulcerations. There was mild sigmoid diverticulosis without inflammatory changes or scarring. The scope was retroflexed in the anal canal. There was no significant hemorrhoidal disease. The scope was then withdrawn. Patient was then positioned in the right lateral decubitus position. The epidermal cyst of the left upper back was prepped and draped in the usual sterile fashion. It was anesthetized with 0.5% Marcaine. It was excised in elliptical fashion, encompassing the central pore, carried down through subcutaneous tissue using sharp dissection. It was noted to be 1.5 cm in greatest diameter. Carefully dissected out and sent off to Pathology. The wound was irrigated. The subcutaneous tissue was re-approximated with interrupted 3-0 Monocryl suture. The skin was then closed with a running 4-0 subcuticular Monocryl suture and skin glue. Sterile pressure dressing was applied. Sponge and needle counts were correct x2 per nursing personnel. Patient tolerated procedure well, was sent to recovery room in good condition.f/u screening colonoscopy in 10 years CC: Dr. Pranay VALENCIA
[2023-07-28 10:02] VITALS: BP 143/88; PULSE 73; RESP 18; TEMP 36.2; O2SAT 94; BMI 28.2
[2023-07-28] MEDS: LACTATED RINGER'S SOLUTION 1,000 ML 50 ML IV ×2 (10:10→12:39)
[2023-07-28] MEDS: BUPIVACAINE HCL 0.5% PF 50 MG/10 ML VIAL 6 ML INJ (12:40)
[2023-07-28 12:53] VITALS: BP 91/52; PULSE 54; RESP 16; TEMP 36.4; O2SAT 97
[2023-07-28 13:08] VITALS: BP 118/73; PULSE 54; RESP 16; O2SAT 97
[2023-07-28 13:23] VITALS: BP 125/86; PULSE 55; RESP 18; O2SAT 97
== END 2023-07-28 13:27 | disposition home or self-care (01) ==
PROVIDERS: PCP Internal Medicine; Visit Provider Surgery
PROC: (CPT 11402; principal; 2023-07-28 10:35)
PROC: (CPT 11402; 2023-07-28 10:35)
DX: Z12.11 Encounter for screening for malignant neoplasm of colon (principal); L72.0 Epidermal cyst; K57.30 Diverticulosis of large intestine without perforation or abscess without bleeding; I10 Essential (primary) hypertension; E78.00 Pure hypercholesterolemia, unspecified; G25.0 Essential tremor; G95.9 Disease of spinal cord, unspecified; G47.33 Obstructive sleep apnea (adult) (pediatric); N40.0 Benign prostatic hyperplasia without lower urinary tract symptoms; R49.0 Dysphonia; K21.00 Gastro-esophageal reflux disease with esophagitis, without bleeding; H91.90 Unspecified hearing loss, unspecified ear; E66.9 Obesity, unspecified; G47.00 Insomnia, unspecified; Z87.891 Personal history of nicotine dependence; Z79.899 Other long term (current) drug therapy; Z68.29 Body mass index [BMI] 29.0-29.9, adult
CPT/HCPCS: 11402; 12031; G0121; 88304; J2704

== ENCOUNTER 2024-04-10 08:31 | Outpatient (OUT) | payer MEDICARE, SELFPAY ==
--- OUTSIDE RECORDS SUMMARY | 2024-04-10 08:41 | XMS_ITS | CCD ---
Author Organization [facility] Care Team Providers [facility] Recruiting Coordinator Name Role Phone DO Lyndon Dorman Primary Care Provider MD Jovon Duncan Attending Provider [phone] Jovon Duncan Unavailable DO Lyndon Dorman Primary Care Provider [phone] MD Jovon Duncan Attending Provider DR LYNDON DORMAN Primary Care Unavailable CELINA, KRISTA TIMMONS Admitting Unavailable CELINA, KRISTA TIMMONS Attending Unavailable CELINA, KRISTA TIMMONS Consulting Unavailable DANDY, DR MENDOZA Primary Care Unavailable PERLA, DR GANT Admitting Unavailable DUNCAN, DR GANT Attending Unavailable BALL, DR MENDOZA Primary Care Unavailable BALL, DR MENDOZA Admitting Unavailable BALL, DR MENDOZA Attending Unavailable BALL, DR MENDOZA Primary Care Unavailable BALL, DR MENDOZA Admitting Unavailable BALL, DR MENDOZA Attending Unavailable BALL, DR MENDOZA Consulting Unavailable BALL, DR MENDOZA Primary Care Unavailable BALL, DR MENDOZA Admitting Unavailable BALL, DR MENDOZA Attending Unavailable BALL, DR MENDOZA Consulting Unavailable DO Lyndon Dorman Primary Care Provider MD Jovon Duncan Attending Provider [phone] MD Jovon Duncan Referring Provider [phone] Lyndon Dorman Unavailable LYNDON DORMAN Primary Care Physician RAUL, Tremayne Davenport Attending Unavailable NILL, Tremayne Davenport Attending Unavailable NILL, Tremayne Davenport Attending Unavailable LYNDON DORMAN Referring Unavailable NILL, Tremayne Davenport Attending Unavailable NILL, Tremayne Davenport Attending Unavailable NILL, Tremayne Davenport Attending Unavailable NILL, Tremayne Davenport Attending Unavailable DO Lyndon Dorman Primary Care Provider MD Greta Pena Attending Provider [phone] Greta Pena Attending Unavailable Greta Pena Admitting Unavailable Lyndon Dorman Primary Care Unavailable Allergies Allergy Classification Reported Allergen(s) Allergy Type Date of Onset Reaction(s) Facility (2 sources) patient allergy list reviewed by nurse or physicia Propensity to adverse reactions Comment:Done [employer] Other (1 source) No Known Medication Allergies; Translations: [No Known Medication Allergies] Propensity to adverse reactions (disorder) [facility] Repository Medications Current Medications Medication Drug Class(es) Dates Sig (Normalized) Sig (Original) amLODIPine 5 mg oral tablet (20 sources) Dihydropyridine Calcium Channel Moi Start: 02-07-2024 take 1 tablet by mouth once daily Amlodipine Active 0 .ROUTE .COMPLEX February 07, 2024 7:03am TAKE 1 TABLET BY MOUTH EVERY DAY Start: 03-03-2019 End: 02-07-2024 take 5 mg by mouth once daily Amlodipine Discontinued 5 MG PO Daily October 04, 2023 1:45pm February 07, 2024 7:03am azithromycin 250 mg oral tablet (2 sources) Macrolide Antimicrobial Start: 07-20-2023 Azithromycin 250 MG as directed Orally daily for 5 days Jul, Active diclofenac sodium 75 mg delayed release oral tablet (20 sources) Nonsteroidal Anti-inflammatory Drug Start: 08-11-2021 End: 10-04-2023 take 75 mg by mouth twice daily Diclofenac Sodium Active 75 MG PO Twice daily October 04, 2023 1:46pm Diclofenac 75mg Tab-DR (4 sources) Start: 03-03-2019 take 1 mg by mouth twice daily Diclofenac 75mg Tab-DR mg, Oral, BID, Refills(s) 0 Start Date: 03/03/19 Status: Ordered Losartan (20 sources) Angiotensin 2 Receptor Moi Start: 02-07-2024 take 1 tablet by mouth once daily Losartan Active 0 .ROUTE .COMPLEX February 07, 2024 7:03am TAKE 1 TABLET BY MOUTH EVERY DAY FOR 30 DAYS Start: 08-11-2021 End: 02-07-2024 take 25 mg by mouth once daily Losartan Discontinued 2 5 MG PO Daily October 04, 2023 1:46pm February 07, 2024 7:03am Completed/Discontinued Medications Medication Drug Class(es) Dates Sig (Normalized) Sig (Original) atorvastatin 20 mg oral tablet (20 sources) HMG-CoA Reductase Inhibitor Start: 08-11-2021 End: 12-06-2023 take 20 mg by mouth once daily at bedtime Atorvastatin Discontinued 20 MG PO Daily at bedtime October 04, 2023 1:46pm December 06, 2023 9:21am cephalexin 500 mg oral capsule (7 sources) Cephalosporin Antibacterial Start: 09-09-2021 End: 11-30-2023 take 500 mg by mouth three times daily Cephalexin Discontinued 500 MG PO Three times daily 15 September 09, 2021 1:00am November 30, 2023 9:56am cyclobenzaprine hydrochloride 10 mg oral tablet (7 sources) Muscle Relaxant Start: 09-09-2021 End: 11-30-2023 take 10 mg by mouth three times daily Cyclobenzaprine Discontinued 10 MG PO Three times daily 40 September 09, 2021 1:00am November 30, 2023 9:57am gabapentin 100 mg oral capsule (20 sources) Anti-epileptic Agent Start: 06-29-2023 take 1 capsule by mouth three times daily gabapentin 100 mg Cap 100 mg = 1 cap(s), Oral, TID, Refills(s) 0 Start Date: 06/29/23 Status: Ordered Start: 08-11-2021 End: 10-04-2023 take 100 mg by mouth twice daily Gabapentin Discontinued 100 MG PO Twice daily 60 October 04, 2023 2:27pm October 04, 2023 6:12pm oxyCODONE hydrochloride 5 mg oral tablet (7 sources) Opioid Agonist Start: 09-09-2021 End: 11-30-2023 take 5-10 mg by mouth every six hours Oxycodone Discontinued 5 - 10 MG PO Q6H 40 8 September 09, 2021 November 30, 2023 9:57am paxlovid (300/100) 20 x 150 mg & 10 x 100mg tablet therapy pack (2 sources) Start: 08-06-2022 take 3 tablets by mouth every twelve hours Paxlovid (300/100) 20 x 150 MG & 10 x 100MG 3 tablets Orally Twice a day for 5 day(s) Aug, Not-Taking/PRN {20 (nirmatrelvir 150 MG Oral Tablet) / 10 (ritonavir 100 MG Oral Tablet) } Pack [Paxlovid 5-Day] (11 sources) Start: 08-06-2022 take 3 tablets by mouth every twelve hours Paxlovid (300/100) 20 x 150 MG & 10 x 100MG 3 tablets Orally Twice a day for 5 day(s) Aug, Not-Taking Start: 08-06-2022 take 3 tablets by mo [facility] every twelve hours Paxlovid (300/100) 20 x 150 MG & 10 x 100MG 3 tablets Orally Twice a day for 5 day(s) Aug, Active Problems Active Problems Problem Classification Problem Date Documented Da te Episodic/Chronic Abdominal hernia (6 sources) Inguinal hernia; Translations: [Unilateral inguinal hernia, [...] or chronic Episodic Disorders of lipid metabolism (20 sources) Pure hypercholesterolemi a, unspecified; Translations: [Hypercholesterolem ia] Onset: 06-05-2022 Chronic Diverticulosis and diverticulitis (20 sources) Diverticular disease of colon; Translations: [Diverticulosis of colon] Onset: 08-10-2023 12-30-2022 Chronic Esophageal disorders (16 sources) Gastro-esophageal reflux disease with esophagitis; Translations: [Gastroesophageal reflux disease with esophagitis without hemorrhage] Onset: 01-12-2018 12-30-2022 Chronic Essential hypertension (20 sources) Essential (primary) hypertension; Translations: [Essential hypertension] Onset: 06-11-2022 Chronic Hyperplasia of prostate (8 sources) Benign prostatic hyperplasia; Translations: [Lower urinary tract symptoms due to benign prostatic hypertrophy] Onset: 03-26-2015 12-30-2022 Chronic Miscellaneous mental health disorders (2 sources) Primary insomnia; Translations: [Primary insomnia] Chronic Osteoarthritis (20 sources) Degenerative joint disease involving multiple joints; Translations: [Osteoarthritis of knee] 03-03-2019 Chronic Other acquired deformities (13 sources) Spondylolysis of cervical spine; Translations: [Spondylolysis, cervical region] Episodic Other aftercare (2 sources) 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; Translations: [OTH NURSE TRANSPLANT CURRENT DRUG THERAPY] Onset: 06-11-2022 Episodic Other aftercare (2 sources) Long-term current use of drug therapy; Translations: [Other senior living (current) drug therapy] Episodic Other connective tissue disease (2 sources) 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] Episodic Other connective tissue disease (4 sources) Hand pain; Translations: [Pain in left hand] 11-29-2023 Episodic Other connective tissue disease (4 sources) Pain in left hand; Translations: [Pain in limb] Onset: 11-30-2023 11-30-2023 Episodic Other ear and sense organ disorders (4 sources) Hearing loss 12-30-2022 Chronic Other ear and sense organ disorders (2 sources) Sensorineural hearing loss; Translations: [Unspecified sensorineural hearing loss] Chronic Other ear and sense organ disorders (2 sources) Sensorineural hearing loss, bilateral; Translations: [Sensorineural hearing loss, bilateral] Onset: 05-08-2015 Chronic Other ear and sense organ disorders (4 sources) Tinnitus 03-03-2019 Episodic Other ear and [...] Other hereditary and degenerative nervous system conditions (6 sources) Essential tremor; Translations: [Essential and other specified forms of tremor] Onset: 03-26-2015 06-29-2023 Chronic Other injuries and conditions due to external causes (2 sources) History of fall; Translations: [History of falling] Episodic Other nervous system disorders (20 sources) Cervical myelopathy; Translations: [Disease of spinal cord, unspecified] 12-30-2022 Chronic Other nervous system disorders (4 sources) Disease of spinal cord, unspecified Onset: 12-25-2021 Resolved: 03-26-2022 Chronic Other nutritional; endocrine; and metabolic disorders (6 sources) Obesity; Translations: [Other obesity due to excess calories] 12-30-2022 Chronic Other nutritional; endocrine; and metabolic disorders (3 sources) Body mass index 30+ - obesity; [...] colon] Onset: 06-11-2022 Episodic Other skin disorders (6 sources) Epidermoid cyst of skin 03-03-2019 Episodic Other skin disorders (1 source) Epidermoid cyst; Translations: [Epidermal cyst] Onset: 07-13-2023 Episodic Other skin disorders (1 source) Sebaceous cyst of skin; Translations: [Sebaceous cyst] Onset: 08-10-2023 Episodic Other upper respiratory disease (2 sources) Seasonal allergic rhinitis; Translations: [Other seasonal allergic rhinitis] Onset: 12-31-2017 Chronic Other upper respiratory infections (7 sources) Acute maxillary sinusitis; Translations: [Acute maxillary sinusitis, unspecified] Onset: 10-03-2014 Episodic Residual codes; unclassified (20 sources) Obstructive sleep apnea syndrome; Translations: [Obstructive sleep apnea (adult) (pediatric)] 03-03-2019 Chronic Residual codes; unclassified (4 sources) Obstructive sleep apnea (adult) (pediatric); Translations: [Obstructive sleep apnea (adult)(pediatric)] Chronic Residual codes; unclassified (6 sources) Insomnia; Translations: [Insomnia, unspecified] 12-30-2022 Episodic Residual codes; unclassified (2 sources) Immunization refused ; Translations: [Immunization not carried out because of patient refusal] Episodic Spondylosis; intervertebral disc disorders; other back problems (20 sources) Cervical spondylosis; Translations: [Other spondylosis with myelopathy, cervical region] Onset: 06-17-2021 Resolved: 12-30-2022 09-09-2021 Chronic Spondylosis; intervertebral disc disorders; other back problems (12 sources) Spinal stenosis, cervical region; Translations: [Radiculopathy, cervical region] Onset: 07-25-2014 Resolved: 10-07-2021 Episodic Substance-related disorders (14 sources) Tobacco dependence in remission; Translations: [Nicotine dependence, cigarettes, in remission] Chronic Unclassified (2 sources) Other specified cough; Translations: [Other specified cough] Onset: 10-13-2018 Unclassified (2 sources) Patient encounter status 07-13-2023 Past or Other [...] Onset: 02-21-2019 Episodic Other upper respiratory disease (4 sources) Dysphonia; Translations: [Dysphonia] Onset: 01-12-2018 06-29-2023 Episodic Residual codes; unclassified (2 sources) Sleep disorder; Translations: [Persistent disorder of initiating or maintaining sleep] Onset: 05-30-2018 Episodic Screening and history of mental health and substance abuse codes (2 sources) History of tobacco use; Translations: [Personal history of tobacco use, presenting hazards to health] Onset: 02-21-2019 Episodic Viral infection (1 source) COVID-19 Results Test Name Value Interpretation Reference Range Facility XR hand LT min 3V*on 024 XR hand LT min 3V* [facility] [address] [place] [address] XRay Report Signed Patient: Brent Weiner MR#: [id number] : 1945 Acct:[id number] Age/Sex: 77 / M ADM Date: 11/30/23 Loc: [facility] Room: Type: [facility] Attending Dr: Greta Pena MD Copies to: Greta Pena MD Ordering Provider: Greta Pena MD Date of Service: 11/30/23 XR/XR hand LT min 3V*: M79.642 - Pain in left hand 4 views left hand plain film COMPARISON: None HISTORY: First carpometacarpal joint pain. ACUTE FINDINGS: None DEGENERATIVE CHANGE: Extensive first carpometacarpal degeneration with joint space narrowing symmetrically sclerotic and cystic changes and subluxation. Mild STT arthritis. Interphalangeal degeneration greatest in the fifth digit. SOFT TISSUE FINDINGS: Unremarkable JOINT EFFUSION: None POSTOP CHANGES: None BONY MINERALIZATION: Adequate XR/XR hand LT min 3V* IMPRESSION: Extensive first carpometacarpal degeneration. Impression dictated by: Kervin Marshall M.D.11/30/2023 1:39 PM Dictation Location: [facility]--14 Transcribed By: [facility] 11/30/23 1339 Dictated By: Kervin Marshall DO 11/30/23 1335 Signed By: 11/30/23 1339 Normal [facility] Ambulatory Visit Summaryon 0 08-10-2023 Ambulatory Visit Summary REGINEALINE PITTSCONNER Guardado :1945 Visit Date:08/10/2023 Ambulatory Visit Instructions Your Diagnosis Diverticular disease of colon Sebaceous cyst Your Care Team Attending Physician - RAUL ZUNIGA, Tremayne Davenport Primary Care Physician - LYNDON DORMAN DO This Is Your Medications List Contact prescribing physician if questions or concerns amlodipine (amLODIPine 5 mg Tab) atorvastatin (atorvastatin 20 mg Tab) diclofenac (Diclofenac 75mg Tab-DR) gabapentin (gabapentin 100 mg Cap) losartan (losartan 25 mg Tab) Procedures Performed Colonoscopy (07/28/2023), Excision of cyst (07/28/2023), Repair of right inguinal hernia (02/03/2023), Bilateral [...] you for choosing us for your care. Wendy Curran [facility] General Surgery Office/Clini c Noteon 08-10-2023 General Surgery Office/Clinic Note Chief Complaint post operative follow up HPI Staff 13 day post operative follow up post colonoscopy and excisional biopsy left upper back cyst. Denies soreness, bleeding or drainage. History of Present Illness 13 days s/p colonoscopy and excisional biopsy epidermal cyst of back; colonoscopy with mild diverticulosis; cyst consistent with epidermal cyst; Review of Systems ROS - Provider Constitutional: [...] been reviewed and are negative or noncontributory. Assessment/Plan 1. Diverticular disease of colon (K57.30: Diverticulosis of large intestine without perforation or abscess without bleeding) recommend high fiber diet and daily fiber supplement; f/u screening colonoscopy in 10 years if in good health; call sooner if problems/questions. 2. Sebaceous cyst (L72.3: Sebaceous cyst) healing well, call with problems/questions. Follow-up No qualifying data [...] osteoarthritis Obstructive sleep apnea Tinnitus Procedure/Surgical History Colonoscopy (07/28/2023), Excision of cyst (07/28/2023), Repair of right inguinal hernia (02/03/2023), Bilateral [...] age 18.0 Years. Stopped age 61 Years., 07/13/2023 Family History Asthma: Father. Diabetes mellitus type 2: Mother. Heart disease: Mother and Father. Hypertension: Father. TIA: Mother. Immunizations Vaccine Date Status Comments influenza virus vaccine, inactivated - Not Given Patient Refuses SARS-CoV-2 (COVID-19) mRNA-1273 vaccine 07/08/2021 Recorded SARS-CoV-2 (COVID-19) mRNA-1273 vaccine 10/15/2020 Recorded SARS-CoV-2 (COVID-19) mRNA-1273 vaccine 09/19/2020 Recorded [facility] Comment on above: Result Comment: Elec tronically Signed By: RAUL ZUNIGA, Tremayne Davenport\.br\Date and Time Signed: 08/10/23 13:14 EST Pathology Noteon 08-04-2023 Pathology Note [id number]#1.00TIF F [facility] Outside Colonoscopyon 2023 Outside Colonoscopy [id number]#1.00TIF F [facility] Consent for Procedure/Surger yon 07-14-2023 Consent for Procedure/Surgery [id number]#1.00TI FF [facility] Insurance Correspondenceon 1 09-14-2022 Insurance Correspondence [id number]#1.00TI FF [facility] Ambulatory Visit Summaryon 1 09-13-2022 Ambulatory Visit Summary BRENT WEINER :1945 Visit Date:07/13/2023 Ambulatory Visit Instructions Your Diagnosis Screening for malignant neoplasm of colon Epidermal cyst Your Care Team Attending Physician - RAUL [...] you for choosing us for your care. [facility] Physician Referralon 023 Physician Referral [id number]#1.00TIF F [facility] Ambulatory Visit Summaryon 0 02-24-2023 Ambulatory Visit Summary BRNET WEINER :1945 Visit Date:02/24/2023 Ambulatory Visit Instructions Your Diagnosis Right inguinal hernia Your Care Team Attending Physician - RAUL [...] Generalised osteoarthritis Obstructive sleep apnea Tinnitus Normal [facility] General Surgery Office/Clini c Noteon 02-24-2023 General [...] SARS-CoV-2 (COVID-19) mRNA-1273 vaccine 09/19/2020 Recorded Normal [facility] Comment on above: Result Comment: Elec tronically Signed By: Tremayne CARTER MD\.br\Date and Time Signed: 02/24/23 15:04 EDT Ambulatory Visit Summaryon 0 02-10-2023 Ambulatory Visit Summary BRENT WEINER :1945 Visit Date:02/10/2023 Ambulatory Visit Instructions Your Care Team Attending Physician - Tremayne CARTER MD Primary Care Physician - DANDY ADAMS LYNDON This Is Your Medications List Contact prescribing [...] MD Where: General Surgery Raul/Veto Driscoll Normal [facility] General Surgery Office/Clini c Noteon 02-10-2023 General [...] SARS-CoV-2 (COVID-19) mRNA-1273 vaccine 09/19/2020 Recorded Normal [facility] Comment on above: Result Comment: Elec tronically Signed By: RAUL ZUNIGA, Tremayne Davenport\.br\Date and Time Signed: 02/10/23 16:33 EDT Provider Letteron 02-10-2023 Provider Letter (Inserted Image. Lisa ble to display) February 10, 2023 BRENT WEINER [address] [place] [address] : 1945 To Whom It May Concern, Please excuse above patient from work until March 02, 2023. Sincerely, Dr. Tremayne Carter MD General Surgery [facility] Operative Reporton Operative Report [id number]#1.00CD: 127 [facility] ECG 12-Leadon 01-26-2023 ECG 12-Lead [id number]#1.00CD: 127 [facility] Pre-Certification Formon Pre-Certification Form [id number]#1.00CD :127 [facility] Consent for Procedure/Surger yon 01-14-2023 Consent for Procedure/Surgery [id number]#1.00CD:1 27 Normal [facility] Ambulatory Visit Summaryon 0 01-13-2023 Ambulatory Visit [...] Generalised osteoarthritis Obstructive sleep apnea Tinnitus Normal [facility] Physician Referralon 023 Physician Referral [id number]#1.00CD: 127 Normal [facility] CBC AUTO DIFFon 06-05-2022 BASO # 0.2 103/ul Critically high 0.0-0.1 [facility] Comment on above: Performed By: #### C BC #### [facility] [address] [address] [address] Nirmal Abernathy Basophils/100 WBC (Bld) 3.4 % Critically high 0.2-2.0 [facility] Comment on above: Performed By: #### C BC #### [facility] [address] [address] [address] Nirmal Abernathy EO # 0.2 103/ul Normal 0.0-0.7 [facility] Comment on above: Performed By: #### C BC #### [facility] [address] [address] [address] Nirmal Abernathy Eosinophils/100 WBC (Bld) 3.9 % Normal 0.9-7.0 [facility] Comment on above: Performed By: #### C BC #### [facility] [address] [address] [address] Nirmal Abernathy Erythrocyte distribution width (RBC) [Ratio] 13.4 % Normal 11.0-15.0 [facility] Comment on above: Performed By: #### C BC #### [facility] [address] [address] [address] Nirmal Abernathy Hematocrit (Bld) [Volume fraction] 43.7 % Normal 42.0-54.0 [facility] Comment on above: Performed By: #### C BC #### [facility] [address] [address] [address] Nirmal Abernathy Hemoglobin (Bld) [Mass/Vol] 14.1 g/dL Normal 14.0-18.0 [facility] Comment on above: Performed By: #### C BC #### [facility] [address] [address] [address] Nirmal Abernathy IG # 0.04 10e3/ul Critically high 0.00-0.03 [facility] Comment on above: Performed By: #### C BC #### [facility] [address] [address] [address] Nirmal Abernathy IG % 0.7 % Critically high 0.0-0.5 [facility] Comment on above: Performed By: #### C BC #### [facility] [address] [place] [address] Dr. Nirmal Abernathy LYMPH # 1.4 103/ul Normal 1.2-3.8 [facility] Comment on above: Performed By: #### C BC #### [facility] [address] [place] [address] Dr. Nirmal Abernathy Lymphocytes/100 WBC (Bld) 22.9 % Normal 20.5-60.0 [facility] Comment on above: Performed By: #### C BC #### [facility] [address] [place] [address] Dr. Nirmal Abernathy MANUAL DIFF REQ NO Normal [facility] Comment on above: Performed By: #### C BC #### [facility] [address] [place] [address] Dr. Nirmal Abernathy MCH (RBC) [Entitic mass] 27.0 pg Normal 25.9-34.0 [facility] Comment on above: Performed By: #### C BC #### [facility] [address] [place] [address] Dr. Nirmal Abernathy MCHC (RBC) [Mass/Vol] 32.3 g/dL Normal 29.9-35.2 [facility] Comment on above: Performed By: #### C BC #### [facility] [address] [place] [address] Dr. Nirmal Abernathy MCV (RBC) [Entitic vol] 83.7 fL Normal 80.0-94.0 [facility] Comment on above: Performed By: #### C BC #### [facility] [address] [place] [address] Dr. Nirmal Abernathy MONO # 0.5 103/ul Normal 0.3-0.8 [facility] Comment on above: Performed By: #### C BC #### [facility] [address] [place] [address] Dr. Nirmal Abernathy Monocytes/100 WBC (Bld) 8.1 % Normal 1.7-12.0 [facility] Comment on above: Performed By: #### C BC #### [facility] [address] [address] [address] Nirmal Abernathy NEUT # 3.6 103/ul Normal 1.4-6.5 [facility] Comment on above: Performed By: #### C BC #### [facility] [address] [address] [address] Nirmal Abernathy Neutrophils/100 WBC (Bld) 61.0 % Normal 43.0-75.0 [facility] Comment on above: Performed By: #### C BC #### [facility] [address] [address] [address] Nirmal Abernathy Platelet mean volume (Bld) [Entitic vol] 9.1 fL Critically low 9.5-13.5 [facility] Comment on above: Performed By: #### C BC #### [facility] [address] [place] [address] Dr. Nirmal Abernathy PLT 258 103/ul Normal 150-450 [facility] Comment on above: Performed By: #### C BC #### [facility] [address] [place] [address] Dr. Nirmal Abernathy RBC 5.22 106/ul Normal 4.70-6.10 [facility] Comment on above: Performed By: #### C BC #### [facility] [address] [place] [address] Dr. Nirmal Abernathy WBC 5.9 103/ul Normal 4.0-11.0 [facility] Comment on above: Performed By: #### C BC #### [facility] Laboratory [address] [place] [address] Dr. Nirmal Abernathy LIPID PROFILEon 06-05-2022 CHOL-HDL RATIO NORM SEE BELOW Normal [facility] Comment on above: Result Comment: 3.3 - 4.4 LOW RISK 4.4 - 7.1 AVERAGE RISK 7.1 - 11.0 MODERATE RISK >11.0 HIGH RISK Performed By: #### B MP, LIPID, ALT #### [facility] [address] [address] [address] Nirmal Abernathy Cholesterol [Mass/Vol] 164 mg/dL Normal <=200 [facility] Comment on above: Performed By: #### B MP, LIPID, ALT #### [facility] [address] [address] [address] Nirmal Abernathy Cholesterol in HDL [Mass/Vol] 58 mg/dL Normal 40-60 [facility] Comment on above: Performed By: #### B MP, LIPID, ALT #### [facility] [address] [address] [address] Nirmal Abernathy Cholesterol in LDL [Mass/Vol] 94.0 mg/dL Normal [facility] Comment on above: Performed By: #### B MP, LIPID, ALT #### [facility] [address] [address] [address] Nirmal Abernathy Cholesterol.total/Ch olesterol in HDL [Mass ratio] 2.8 {ratio} Normal [facility] Comment on above: Performed By: #### B MP, LIPID, ALT #### [facility] [address] [address] [address] Nirmal Abernathy HDL NORMAL > or = 60 mg/dl - LO W CARDIOVASCULAR RISK <40 mg/dl - HIGH CARDIOVASCULAR RISK Normal [facility] Comment on above: Performed By: #### B MP, LIPID, ALT #### [facility] [address] [address] [address] Nirmal Abernathy LDL CALC NORMAL SEE BELOW Normal [facility] Comment on above: Result Comment: <100 mg/dl OPTIMAL 100 - 129 mg/dl NEAR OR ABOVE OPTIMAL 130 - 159 mg/dl BORDERLINE HIGH 160 - 189 mg/dl HIGH >190 mg/dl VERY HIGH Performed By: #### B MP, LIPID, ALT #### [facility] [address] [address] [address] Nirmal Abernathy Triglyceride [Mass/Vol] 60 mg/dL Normal <=150 [facility] Comment on above: Performed By: #### B MP, LIPID, ALT #### [facility] [address] [address] [address] Nirmal Abernathy VLDL CALC 12.0 mg/dL Normal [facility] Comment on above: Performed By: #### B MP, LIPID, ALT #### [facility] [address] [address] [address] Nirmal Abernathy PROF CHEM 8 (BAS METB)on Anion gap [Moles/Vol] 6.3 mmol/L Normal [facility] Comment on above: Performed By: #### B MP, LIPID, ALT #### [facility] [address] [address] [address] Nirmal Abernathy Calcium [Mass/Vol] 9.0 mg/dL Normal 8.5-10.1 [facility] Comment on above: Performed By: #### B MP, LIPID, ALT #### [facility] [address] [address] [address] Nirmal Abernathy Chloride [Moles/Vol] 105 mmol/L Normal 98-107 [facility] Comment on above: Performed By: #### B MP, LIPID, ALT #### [facility] [address] [place] [address] Dr. Nirmal Abernathy CO2 [Moles/Vol] 31.0 mmol/L Normal 21.0-32.0 [facility] Comment on above: Performed By: #### B MP, LIPID, ALT #### [facility] [address] [place] [address] Dr. Nirmal Abernathy Creatinine [Mass/Vol] 1.12 mg/dL Normal 0.70-1.30 [facility] Comment on above: Performed By: #### B MP, LIPID, ALT #### [facility] [address] [place] [address] Dr. Nirmal Abernathy EGFR-AF POLISH >60 Normal >=60 [facility] Comment on above: Performed By: #### B MP, LIPID, ALT #### [facility] [address] [address] [address] Nirmal Abernathy EGFR-NON AF POLISH >60 Normal >=60 [facility] Comment on above: Performed By: #### B MP, LIPID, ALT #### [facility] [address] [place] [address] Dr. Nirmal Abernathy Glucose [Mass/Vol] 99 mg/dL Normal 74-106 [facility] Comment on above: Performed By: #### B MP, LIPID, ALT #### [facility] [address] [address] [address] Nirmal Abernathy Potassium [Moles/Vol] 4.3 mmol/L Normal 3.5-5.1 [facility] Comment on above: Performed By: #### B MP, LIPID, ALT #### [facility] [address] [address] [address] Nirmal Abernathy Sodium [Moles/Vol] 138 mmol/L Normal 136-145 [facility] Comment on above: Performed By: #### B MP, LIPID, ALT #### [facility] [address] [place] [address] Dr. Nirmal Abernathy Urea nitrogen [Mass/Vol] 19.0 mg/dL Critically high 7.0-18.0 [facility] Comment on above: Performed By: #### B MP, LIPID, ALT #### [facility] [address] [place] [address] Dr. Nirmal Abernathy Urea nitrogen/Creatinine [Mass ratio] 17.0 mg/mg Normal [facility] Comment on above: Performed By: #### B MP, LIPID, ALT #### [facility] [address] [place] [address] Dr. [facility] ALT [Catalytic activity/Vol] 32 U/L Normal 16-63 [facility] Comment on above: Performed By: #### B MP, LIPID, ALT #### [facility] [address] [place] [address] Dr. Nirmal Abernathy LIPID PROFILEon 09-03-2021 CHOL-HDL RATIO NORM SEE BELOW Normal [facility] Comment on above: Result Comment: 3.3 - 4.4 LOW RISK 4.4 - 7.1 AVERAGE RISK 7.1 - 11.0 MODERATE RISK >11.0 HIGH RISK Performed By: #### L IPID, ALT #### [facility] [address] [place] [address] Dr. Nirmal Abernathy Cholesterol [Mass/Vol] 137 mg/dL Normal <=200 [facility] Comment on above: Performed By: #### L IPID, ALT #### [facility] [address] [address] [address] Nirmal Abernathy Cholesterol in HDL [Mass/Vol] 51 mg/dL Normal [facility] Comment on above: Performed By: #### L IPID, ALT #### [facility] [address] [address] [address] Nirmal Abernathy Cholesterol in LDL [Mass/Vol] 69.6 mg/dL Normal [facility] Comment on above: Performed By: #### L IPID, ALT #### [facility] [address] [address] [address] Nirmal Abernathy Cholesterol.total/Ch olesterol in HDL [Mass ratio] 2.7 {ratio} Normal [facility] Comment on above: Performed By: #### L IPID, ALT #### [facility] [address] [address] [address] Nirmal Abernathy HDL NORMAL > or = 60 mg/dl - LO W CARDIOVASCULAR RISK <40 mg/dl - HIGH CARDIOVASCULAR RISK Normal [facility] Comment on above: Performed By: #### L IPID, ALT #### [facility] [address] [address] [address] Nirmal Abernathy LDL CALC NORMAL SEE BELOW Normal [facility] Comment on above: Result Comment: <100 mg/dl OPTIMAL 100 - 129 mg/dl NEAR OR ABOVE OPTIMAL 130 - 159 mg/dl BORDERLINE HIGH 160 - 189 mg/dl HIGH >190 mg/dl VERY HIGH Performed By: #### L IPID, ALT #### [facility] [address] [address] [address] Nirmal Abernathy Triglyceride [Mass/Vol] 82 mg/dL Normal <=150 [facility] Comment on above: Performed By: #### L IPID, ALT #### [facility] [address] [address] [address] Nirmal Abernathy VLDL CALC 16.4 mg/dL Normal [facility] Comment on above: Performed By: #### L IPID, ALT #### [facility] [address] [address] [address] Nirmal Abernathy [facility] 09-03-2021 ALT [Catalytic activity/Vol] 39 U/L Normal 21-72 [facility] Comment on above: Performed By: #### L IPID, ALT #### [facility] [address] [address] [address] Nirmal Abernathy Vital Signs Date Time Vital Sign Value Performing Clinician Facility 03-31-2024 10:22-0400 Body height 180.[address] [facility] 03-31-2024 10:22-0400 Body mass index (BMI) [Ratio] 27.6 kg/m2 [facility] 03-31-2024 10:22-0400 Body weight 89.[address] [facility] 03-31-2024 10:22-0400 Diastolic blood pressure 79 mm[Hg] [facility] 03-31-2024 10:22-0400 Heart rate 57 /min [facility] 03-31-2024 10:22-0400 Respiratory rate 12 /min [facility] 03-31-2024 10:22-0400 Systolic blood pressure 135 mm[Hg] [facility] 12-06-2023 08:57-0400 Body height 180.34 cm DO Lyndon Ball Work Phone: [facility] 12-06-2023 08:57-0400 Body mass index (BMI) [Ratio] 30.3 kg/m2 DO Lyndon Ball Work Phone: [facility] 12-06-2023 08:57-0400 Body weight 98.59 kg DO Lyndon Ball Work Phone: [facility] 12-06-2023 08:57-0400 Diastolic blood pressure 84 mm[Hg] DO Lyndon Ball Work Phone: [facility] 12-06-2023 08:57-0400 Heart rate 56 /min DO Lyndon Ball Work Phone: [facility] 12-06-2023 08:57-0400 Respiratory rate 12 /min DO Lyndon Ball Work Phone: [facility] 12-06-2023 08:57-0400 Systolic blood pressure 150 mm[Hg] DO Lyndon Ball Work Phone: [facility] 07-13-2023 13:56-0500 Blood Pressure Location Tremayne NILL [facility] [place] 07-13-2023 13:56-0500 Diastolic blood pressure 82 mm[Hg] T[facility] NILL [facility] [place] 07-13-2023 13:56-0500 Heart rate 74 /min Tremayne NILL [facility] [place] 07-13-2023 13:56-0500 Respiratory rate 16 /min Tremayne NILL [facility] [place] 07-13-2023 13:56-0500 Systolic blood pressure 124 mm[Hg] Tremayne NILL [facility] [place] 06-07-2023 09:00-0500 Body height 180.34 cm Lyndon Ball Other [facility] Other 06-07-2023 09:00-0500 Body mass index (BMI) [Ratio] 30.23 kg/m2 Lyndon Ball Other [facility] Other 06-07-2023 09:00-0500 Body weight 98.34 kg Lyndon Ball Other [facility] Other 06-07-2023 09:00-0500 Diastolic blood pressure 88 mm[Hg] Lyndon Ball Other [facility] Other 06-07-2023 09:00-0500 Respiratory rate 12 /min Lyndon Ball Other [facility] Other 06-07-2023 09:00-0500 Systolic blood pressure 138 mm[Hg] Lyndon Ball Other [facility] Other 06-14-2023 15:25-0400 Blood Pressure Location Tremayne DEANL [facility] [place] 01-13-2023 15:25-0400 Diastolic blood pressure 74 mm[Hg] Tremayne DEANL [facility] [place] 01-13-2023 15:25-0400 Heart rate 72 /min Tremayne DEANL [facility] [place] 01-13-2023 15:25-0400 Respiratory rate 16 /min Tremayne DEANL [facility] [place] 01-13-2023 15:25-0400 Systolic blood pressure 118 mm[Hg] Tremayne DEANL [facility] [place] 12-04-2022 09:30-0400 Body height 180.34 cm Lyndon Ball Other [facility] Other 12-04-2022 09:30-0400 Body mass index (BMI) [Ratio] 30.71 kg/m2 Lyndon Ball Other [facility] Other 12-04-2022 09:30-0400 Body weight 99.88 kg Lyndon Ball Other [facility] Other 12-04-2022 09:30-0400 Diastolic blood pressure 77 mm[Hg] Lyndon Ball Other [facility] Other 12-04-2022 09:30-0400 Respiratory rate 12 /min Lyndon Ball Other [facility] Other 12-04-2022 09:30-0400 SaO2% (BldA) [Mass fraction] 98 % Lyndon Ball Other [facility] Other 12-04-2022 09:30-0400 Systolic blood pressure 137 mm[Hg] Lyndon Ball Other [facility] Other 10-29-2022 11:20-0400 Body height 180.34 cm Jovon Duncan Other [facility] Other 10-29-2022 11:20-0400 Body mass index (BMI) [Ratio] 29.98 kg/m2 Jovon Duncan Other [facility] Other 10-29-2022 11:20-0400 Body weight 97.52 kg Jovon Duncan Other [facility] Other 09-17-2022 11:20-0500 Body height 180.34 cm Jovon Duncan Other [facility] Other 09-17-2022 11:20-0500 Body mass index (BMI) [Ratio] 29.98 kg/m2 Jovon Duncan Other [facility] Other 09-17-2022 11:20-0500 Body weight 97.52 kg Jovon Duncan Other [facility] Other 09-17-2022 11:20-0500 Respiratory rate 18 /min Jovon Duncan Other [facility] Other 03-26-2022 11:20-0400 Body height 180.34 cm Jovon Duncan Other [facility] Other 03-26-2022 11:20-0400 Body mass index (BMI) [Ratio] 27.33 kg/m2 Jovon Duncan Other [facility] Other 03-26-2022 11:20-0400 Body weight 88.91 kg Jovon Duncan Other [facility] Other 12-25-2021 10:40-0400 Body height 180.34 cm Jovon Duncan Other [facility] Other 12-25-2021 10:40-0400 Body mass index (BMI) [Ratio] 27.33 kg/m2 Jovon Duncan Other [facility] Other 12-25-2021 10:40-0400 Body weight 88.91 kg Jovon Duncan Other [facility] Other 10-07-2021 14:00-0500 Body height 180.34 cm Jovon Duncan Other [facility] Other 10-07-2021 14:00-0500 Body mass index (BMI) [Ratio] 27.89 kg/m2 Jovon Duncan Other [facility] Other 10-07-2021 14:00-0500 Body weight 90.72 kg Jovon Duncan Other [facility] Other 09-18-2021 14:00-0500 Body height 180.34 cm Jovon Duncan Other [facility] Other 09-18-2021 14:00-0500 Body mass index (BMI) [Ratio] 27.89 kg/m2 Jovon Duncan Other [facility] Other 09-18-2021 14:00-0500 Body weight 90.72 kg Jovon Duncan Other [facility] Other 07-24-2021 10:40-0500 Body height 180.34 cm Jovon Duncan Other [facility] Other 07-24-2021 10:40-0500 Body mass index (BMI) [Ratio] 27.89 kg/m2 Jovon Duncan Other [facility] Other 07-24-2021 10:40-0500 Body weight 90.72 kg Jovon Duncan Other [facility] Other 06-17-2021 11:40-0500 Body height 180.34 cm Jovon Duncan Other [facility] Other 06-17-2021 11:40-0500 Body mass index (BMI) [Ratio] 27.89 kg/m2 Jovon Duncan Other [facility] Other 06-17-2021 11:40-0500 Body weight 90.72 kg Jovon Duncan Other [facility] Other 06-17-2021 11:40-0500 Diastolic blood pressure 71 mm[Hg] Jovon Duncan Other [facility] Other 06-17-2021 11:40-0500 Systolic blood pressure 130 mm[Hg] Jovon Duncan Other [facility] Other Encounters Encounter Date Encounter Type Care Provider Facility Start: 03-31-2024 End: 03-31-2024 ambulatory [facility] Work Phone: Start: 03-31-2024 End: 03-31-2024 Patient encounter procedure [facility] Work Phone: Start: 12-06-2023 End: 12-06-2023 ambulatory DO Lyndon Ball Work Phone: [facility] Work Phone: Start: 12-06-2023 End: 12-06-2023 Patient encounter procedure DO Lyndon Ball Work Phone: [facility] Work Phone: Start: 11-30-2023 End: 11-30-2023 ambulatory Greta Pena Facility:[facility] Start: 11-30-2023 End: 11-30-2023 ambulatory DO Lyndon Dorman Work Phone: [facility] Work Phone: Start: 11-30-2023 End: 11-30-2023 Patient encounter procedure DO Lyndon Dorman Work Phone: [facility] Work Phone: Start: 10-04-2023 Non-patient / Non-visit DO Pranay Dorman Work Phone: [facility] [employer] Work Phone: Start: 08-11-2023 End: 08-11-2023 ambulatory Lyndon Dorman Other [facility] Other Start: 08-11-2023 Telephone encounter Lyndon Dandy [facility] Start: 08-10-2023 End: 08-11-2023 ambulatory Tremayne R NILL Facility:[facility] Start: 08-10-2023 End: 08-10-2023 Patient encounter procedure Tremayne R NILL [facility] [place] Start: 08-05-2023 End: 08-05-2023 ambulatory Lyndon Dorman Other [facility] Other Start: 08-05-2023 Telephone encounter Lyndon Dorman JESE [facility] Start: 07-28-2023 End: 07-29-2023 ambulatory Tremayne R NILL Facility:[id number] Start: 07-20-2023 End: 07-20-2023 ambulatory Lyndon Dorman Other [facility] Other Start: 07-20-2023 Office outpatient vi sit 15 minutes Lyndon Dorman [facility] Start: 07-13-2023 End: 07-14-2023 ambulatory LYNDON DORMAN Facility: [facility] Start: 07-13-2023 End: 07-13-2023 Patient encounter procedure Tremayne R NILL [facility] [place] Start: 06-18-2023 End: 06-18-2023 ambulatory Lyndon Dorman Other [facility] Other Start: 06-18-2023 Telephone encounter Lyndon Dorman [facility] Start: 06-08-2023 End: 06-08-2023 ambulatory Lyndon Dorman Other [facility] Other Start: 06-08-2023 Telephone encounter Lyndon Dorman [facility] Start: 06-07-2023 End: 06-07-2023 ambulatory Lyndon Dorman Other [facility] Other Start: 06-07-2023 Patient encounter procedure Lyndon Dorman [facility] Start: 04-20-2023 End: 04-20-2023 ambulatory Lyndon Dorman Other [facility] Other Start: 04-20-2023 Telephone encounter Lyndon Dorman [facility] Start: 04-19-2023 End: 04-19-2023 ambulatory Lyndon Dorman Other [facility] Other Start: 04-19-2023 Telephone encounter Lyndon Dorman [facility] Start: 02-24-2023 End: 02-25-2023 ambulatory Tremayne R NILL Facility: [place] Start: 02-24-2023 End: 02-24-2023 Patient encounter procedure Tremayne R NILL [facility] [place] Start: 02-10-2023 End: 02-11-2023 ambulatory Tremayne R NILL Facility: [facility] Start: 02-04-2023 End: 02-04-2023 ambulatory Lyndon Dorman Other [facility] Other Start: 02-04-2023 Telephone encounter Lyndon Dorman [facility] Start: 02-03-2023 End: 02-04-2023 ambulatory Tremayne DEANL Facility:[id number] Start: 01-13-2023 End: 01-14-2023 ambulatory Tremayne R NILL Facility:[facility] Start: 01-13-2023 End: 01-13-2023 Patient encounter procedure Tremayne CARTER [facility] Start: 12-04-2022 End: 12-04-2022 ambulatory Lyndon Dorman Other [facility] Other Start: 12-04-2022 Office outpatient vi sit 25 minutes Lyndon Dorman [facility] Start: 10-29-2022 End: 10-29-2022 ambulatory Jovon Duncan Other [facility] Other Start: 10-29-2022 Office outpatient vi sit 15 minutes Jovon Duncan [facility] Start: 09-17-2022 Office outpatient vi sit 15 minutes Jovon Duncan [facility] Start: 09-17-2022 End: 09-17-2022 ambulatory DO Lyndon Dorman Work Phone: [facility] Work Phone: Start: 09-17-2022 End: 09-17-2022 Patient encounter procedure DO Lyndon Dorman Work Phone: [facility] [place] Work Phone: Start: 08-17-2022 End: 08-17-2022 ambulatory Lyndon Dorman Other [facility] Other Start: 08-17-2022 Telephone encounter Lyndon Dorman [facility] Start: 08-06-2022 ([facility]) [facility] Lyndon Dorman [facility] Start: 08-06-2022 End: 08-06-2022 ambulatory Lyndon Dorman Other [facility] Other Start: 06-05-2022 Adult health examination Lyndon Dorman Other [facility] Other Start: 06-05-2022 End: 06-06-[address] LYNDON DORMAN Facility:[facility] Start: 03-26-2022 End: 03-26-2022 ambulatory Jovon Duncan Other [facility] Other Start: 03-26-2022 Office outpatient vi sit 15 minutes Jovon Duncan [facility] Start: 03-26-2022 End: 03-26-2022 Patient encounter procedure DO Lyndon Dorman Work Phone: [facility] Start: 12-25-2021 End: 12-25-2021 ambulatory Jovon Duncan Other [facility] Other Start: 12-25-2021 Office outpatient vi sit 15 minutes Jovon Duncan [facility] Start: 12-25-2021 End: 12-25-2021 Patient encounter procedure DO Lyndon Dorman Work Phone: [facility] Start: 10-27-2021 End: 11-01-[address] LYNDON DORMAN Facility:[facility] Start: 10-24-2021 End: 10-24-2021 ambulatory Jovon Duncan Other [facility] Other Start: 10-24-2021 Telephone encounter Jovon Duncan [facility] Start: 10-07-2021 End: 10-07-2021 ambulatory Jovon Duncan Other [facility] Other Start: 10-07-2021 Postop follow up vis it related to original px Jovon Duncan [facility] Start: 10-07-2021 End: 10-07-2021 Patient encounter procedure DO Lyndon Dorman Work Phone: [facility] Start: 09-18-2021 End: 09-18-2021 ambulatory Jovon Duncan Other [facility] Other Start: 09-18-2021 Postop follow up vis it related to original px Jovon Duncan [facility] Start: 09-08-2021 [facility]mission to [facility] Jovon Duncan [facility] Start: 09-08-2021 End: 09-08-2021 ambulatory Jovonaileen Duncan Other [facility] Other Start: 09-03-2021 End: 09-04-[address] LYNDON DORMAN Facility:[facility] Start: 08-01-[address] LYNDON DORMAN Facili ty:[facility] Start: 07-24-2021 End: 07-24-2021 ambulatory Jovon Duncan Other [facility] Other Start: 07-24-2021 Office outpatient vi sit 40 minutes Jovon Duncan [facility] Start: 07-08-2021 End: 07-09-[address] LYNDON DORMAN Facility:[facility] Start: 06-17-2021 End: 06-17-2021 ambulatory Jovon Duncan Other [facility] Other Start: 06-17-2021 Office outpatient ne w 30 minutes Jovon Duncan [facility] Procedures Date Procedure Procedure Detail Performing Clinician Start: 11-30-2023 Plain X-ray of left hand DO Lyndon Dorman Work Phone: Start: 07-28-2023 Colonoscopy Tremayne NI LL Start: 07-28-2023 Excision of cyst Michae l NILL Comment on above: upper back Start: 02-03-2023 Repair of right ingu inal hernia Tremayne DEANL Start: 09-17-2022 X-ray of cervical spine DO Lyndon Dorman Work Phone: Start: 06-05-[address] RUSS DORMAN Comment on above: Performed By: #### P [facility] #### [facility] [address] [place] [address] Dr. Nirmal Abernathy Start: 03-26-2022 X-ray of [...] Lyndon Dorman Other Start: 12-31-2012 Colonoscopy Tremayne KEBEDE LL Arthroscopy of shoulder Chaparro aeswathi NILL Depression screening Kamilla Dorman Other History of surgical procedure on cervical spine Tremayne DEANL Pre-surgery evaluation Jovon Duncan Other Repair of left ingui nal hernia Tremayne DEANL Screening for malign ant neoplasm of prostate Lyndon Dorman Other Plan of Treatment Date Care Activity Detail Author Start: 11-30-2023 Plain X-ray of left hand XR hand LT min 3V* [facility] Start: 11-30-2023 XR Hand - left GE 3 Views [facility] Immunizations Immunization Date Immunization Notes Care Provider Fa cody 07-08-2021 COVID-19 mRNA-1273 (Moderna) DO Lyndon Ball Work Phone: [facility] 10-15-2020 COVID-19 mRNA-1273 (Moderna) DO Lyndon Ball Work Phone: [facility] 09-19-2020 COVID-19 mRNA-1273 (Moderna) DO Lyndon Dorman Work Phone: [facility] 05-24-2017 diphtheria, tetanus toxoids and acellular pertussis vaccine, unspecified formulation Lyndon Dorman Other [facility] 05-24-2017 pneumococcal polysaccharide vaccine, 23 valent Lyndon Dorman Other [facility] 03-30-2016 pneumococcal conjuga te vaccine, 13 valent Lyndon Dorman Other [facility] 03-30-2016 pneumococcal Conjugate, unspecified formulation; Translations: [Need for prophylactic vaccination against Streptococcus pneumoniae (pneumococcus)] Lyndon Dorman Other [facility] Other NEGATED: Highlighted row has not occurred!07-13-2023 influenza virus vaccine, unspecified formulation Tremayne RAUL [facility] [place] Payers Date Payer Category Payer Self-pay [id number] 1957 Medicare [id number] Self-pay [id number] 1945 Unknown [id number] 2.16.84 0.1.515674.3.579.2.593 1945 Unknown [id number] 2.16.84 0.1.026735.3.579.2.59 1947 Unknown [id number] 2.16.84 0.1.131487.3.579.2.593 1945 Unknown [id number] 2.16.84 0.1.624951.3.579.2.59 1947 Unknown [id number] 2.16.8 40.1.233644.3.579.2.727 1947 Unknown [id number] 2.16.8 40.1.337619.3.579.2.727 1947 Unknown [id number] 2.16.8 40.1.864515.3.579.2.727 1947 Unknown [id number] 2.16.8 40.1.051587.3.579.2.727 1947 Unknown [id number] 2.16.8 40.1.608111.3.579.2.727 1945 Unknown [id number] 2.16.8 40.1.583017.3.579.2.727 1945 Unknown [id number] 2.16.8 40.1.696358.3.579.2.727 Medicare Medicare [id number] Unknown [id number] 2.16.84 0.1.582907.3.579.2.593 Unknown [id number] 2.16.8 40.1.154584.3.579.2.531 Social History Date Type Detail Facility Start: 09-08-2021 End: 07-13-2023 Tobacco smoking status MOIS Ex-smoker (finding) [facility] Start: 1945 Sex Assigned At Male F [facility] Sex Assigned At [facility] Tobacco smoking status Never [facility] [place] Start: 10-04-2023 Tobacco smoking stat us [facility] Never smoked tobacco (finding) [facility] Medical Equipment Procedure Code Equipment Code Equipment Origin al Text Equipment Identifier Dates Decompression, spine, cervical, posterior approach CANCELLOUS 15CC CRUSHED FDA Start: 09-08-2021 Decompression, spine, cervical, posterior approach Bone-screw internal spinal fixation system, non-sterile ()[id number] FDA Start: 09-08-2021 Decompression, spine, cervical, posterior approach Bone-screw internal spinal fixation system, non-sterile ()[id number] FDA Start: 09-08-2021 Decompression, spine, cervical, posterior approach Bone-screw internal spinal fixation system, non-sterile ()[id number] FDA Start: 09-08-2021 Decompression, spine, cervical, posterior approach Bone-screw internal spinal fixation system, non-sterile ()[id number] FDA Start: 09-08-2021 Decompression, spine, cervical, posterior approach Spinal fusion graft kit ([id number] FDA Start: 09-08-2021 Decompression, spine, cervical, posterior approach Bone-screw internal spinal fixation system, non-sterile ()[id number] FDA Start: 09-08-2021 Decompression, spine, cervical, posterior [...] Facility 07-13-2023 Functional Status N/A [facility] [place] 01-13-2023 Functional Status N/A [facility] Clinical Notes 06-17-2021 to 08-11-2023 Note Date & Type Note Facility 08-11-2023 Evaluation note Encounter Date Diagnosis Assessment Notes Aug, 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 [facility] Other 12-19-2023 Evaluation note* Encounter Date Diagnosis Assessment Notes Treatment Notes Treatment Clinical Notes Jul, Acute non-recurrent maxillary sinusitis (ICD-10 - J01.00) Instructed to use Robitussin or Mucinex for cough, saline or Flonase NS for congestion, Tylenol for pain and fever. Jul, Primary hypertension (ICD-10 - I10) Avoid use of Sudafed. This patient is instructed to consume a healthy, low-fat, low-salt diet. They are also encouraged to continue exercise to achieve/maintain a normal BMI. [facility] Other 12-12-2023 NoteChief Complaint consultation for colonoscopy HPI Staff 77 year old male presents on consultation from Dr. Dorman for screening colonoscopy. Denies abdominalor rectal pain. No rectal bleeding or change in bowel habits. Denies nausea or vomiting. No unexplained weight loss. Last colonoscopy completed 12/2012 with diverticulosis. No known family history of c olon cancer. History of Present Illness 77 yo [...] biopsy of enlarging epidermal cyst of left upperback, informed consent obtained. 2. Epidermal cyst (L72.0: [...] Substance Abuse - Denies (more content not included)...[facility]:Result Comment: Electronically Signed By: RAUL ZUNIGA, Tremayne Arzola\Date and Time Signed: 07/13/23 14:31 [id number] Evaluation note * Encounter Date Diagnosis Assessment Notes Treatment Notes Treatment Clinical Notes Jun, Cervical spondylosis (ICD-10 - M47.812) [facility] Other 11-06-2023 Evaluation note* Encounter Date Diagnosis [...] use, the patient reduces the risk for IL, CVA, HTN, cardiac dysrhythmias and sudden cardiac [...] (ICD-10 - Z79.899) Check ALT and CBC [facility] Other 09-19-2023 Evaluation note* Encounter Date Diagnosis Assessment Notes Treatment Notes Treatment Clinical Notes Apr, Primary hypertension (ICD-10 - I10) [facility] Other 09-18-2023 Evaluation note* Encounter Date Diagnosis Assessment Notes Treatment Notes Treatment Clinical Notes Apr, Primary hypertension (ICD-10 - I10) [facility] Other 06-14-2023 NoteChief Complaint consultation for possible [...] Hypertension: Father. TIA: Mother (more content not included)...[facility] on above:Result Comment: Electronically Signed By: RAUL ZUNIGA, Tremayne Arzola\Date and Time Signed: 01/13/23 17:35 [id number] Evaluation note* Encounter Date Diagnosis Assessment Notes [...] use, the patient reduces the risk for IL, CVA, HTN, cardiac dysrhythmias and sudden cardiac [...] [BMI ] 30.0-30.9, adult (ICD-10 - Z68.30) [facility] Other 03-30-2023 Evaluation note* Encounter Date Diagnosis [...] time Sep, Cervical myelopathy (ICD-10 - G95.9) [facility] Other 02-16-2023 Evaluation note* Encounter Date Diagnosis [...] okay. Sep, Cervical myelopathy (ICD-10 - G95.9) [facility] Other 01-16-2023 Evaluation note* Encounter Date Diagnosis Assessment Notes Treatment Notes Treatment Clinical Notes Aug, Primary hypertension (ICD-10 - I10) [facility] Other 01-05-2023 Evaluation note* Encounter Date Diagnosis [...] for congestion, Tylenol for pain and fever. [facility] Other 08-25-2022 Evaluation note* Encounter Date Diagnosis Assessment Notes Treatment Notes Treatment Clinical Notes Mar, Cervical myelopathy (ICD-10 - G95.9) Patient's gait is good, arm strength and range of motion good. Neck is healing well he looks quite comfortable. 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 He did not get his xray as requested prior to his appointment today. I will see the patient again in September at his yearly with 1 more x-ray of the neck to ensure the hardware remains good. For his age this patient is unusually active [facility] Other 05-26-2022 Evaluation note* Encounter Date Diagnosis [...] answered questions for him and his . [facility] Other 03-08-2022 Evaluation note* Encounter Date Diagnosis [...] in diseases classified elsewhere (ICD-10 - G99.2) [facility] Other 02-17-2022 Evaluation note* Encounter Date Diagnosis [...] Spinal stenosis, cervical region (ICD-10 - M48.02) [facility] Other 12-23-2021 Evaluation note* Encounter Date Diagnosis [...] Cervical radiculopathy at C7 (ICD-10 - M54.12) [facility] Other 11-16-2021 Evaluation note* Encounter Date Diagnosis [...] dynamic neck x-ray and see him before [place] and at the new year talk about a remedy for the cervical stenosis. He understands and agrees after a thorough discussion. 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) [facility] Other evaluation + Plan note No data available for this section [facility] [place] Evaluation noteNo assessment information available [facility] Work Phone: Evaluation noteNo InformationNortEncompass Health Rehabilitation [facility] [employer] Other evaluation note* Diagnosis Onset Date Resolution Status Arthritis of carpometacarpal (CMC) joint of left thumb acute Left hand pain acute [facility] Work Phone: Evaluation note* Diagnosis Onset Date Resolution Status Arthritis of carpometacarpal (CMC) joint of left thumb acute Left hand pain acute Hypercholesterolemia acute Hypertension acute DARRICK (obstructive sleep apnea) acute [facility] Work Phone: Evaluation note* Diagnosis Onset Date Resolution Status Hypertension acute DARRICK (obstructive sleep apnea) acute [facility] Work Phone: History general Narrative - Reported* Type Description Date Medical History hypertension Surgical History HERNIA 2004 Surgical History RIGHT SHOULDER SURGER 1979 [facility] Other History general Narrative - Reported* Type Description Date Medical History hypertension Surgical History HERNIA 2004 Surgical History RIGHT SHOULDER SURGER 1979 Surgical History PCD-Doctor Duncan Hospitalization History See Above [facility] Other Hisgkwj general Narrative - Reported* Type Description Date [...] RIGHT SHOULDER SURGER 1979 Surgical History PCD[facility] Hospitalization History See Above [facility] Other Histcyt general Narrative - Reported* Type Description Date [...] RIGHT SHOULDER SURGER 1979 Surgical History PCD-Doctor [facility] Surgical History Right inguinal hernia 01/2023 Hospitalization History See Above [facility] Other Hisloro general Narrative - Reported* Type Description Date [...] RIGHT SHOULDER SURGER 1979 Surgical History PCD-[facility] Surgical History Right inguinal hernia 01/2023 Surgical History Colonoscopy 08/2023 Hospitalization History See Above [facility] Other Hospital Discharge instructions No data available for this section [facility] [place] Progress note No data available for this section [facility] [place] Reason for referral (narrative)* Reason Referral for screeni ng colonoscopy Diagnosis 1 Colon cancer screeni ng (Z12.11) Referral Organization [facility] [employer] Referring Provider First Name Lyndon Referring Provider Last Name Dandy Referring Provider Specialty Internal Ca dicine Referred Organization [facility] Referred Provider Tremayne Carter Referred Address [address], [place],[address] Referred Provider Specialty Surgery Referral Priority Routine [...] labs just completed for his wellness exam. 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 Weiner has faile d conservative treatment, which included NSAIDs, topical Voltaren, ice and rest. [facility] Other Rewryy for visit NarrativeReferral Dr. Pranay Dorman Cervical SpondylosisNort [employer] Other Chief Complaint and Reason for Visit Chief Complaint G99.2 M60.021 Chief Complaint g95.9 Chief Complaint m50.021 Chief Complaint Amb Documentation De Quervain's tenosynovitis M79.642 - Pain in left hand Reason for Visit Arthritis of carpome tacarpal (CMC) joint of left thumb Left hand pain Chief Complaint Amb Documentation De Quervain's tenosynovitis M79.642 - Pain in left hand 6 Month Follow up Reason for Visit Arthritis of carpome tacarpal (CMC) joint of left thumb Left hand pain Hypercholesterolemia Hypertension DARRICK (obstructive sleep apnea) Chief Complaint increased BP Reason for Visit Hypertension DARRICK (obstructive sleep apnea) Family History Relationship Condition Age at Onset Recorded Date/T marty father Asthma Unknown Myocardial infarction Unknown Hypertension Unknown Not Specified Diabetes mellitus Unknown Cerebrovascular accident (CVA) Unknown Transient ischemic attack Unknown Coronary artery disease Unknown Relationship Condition Age at Onset Recorded Date/T marty father Asthma Unknown Myocardial infarction Unknown Hypertension Unknown Not Specified Diabetes mellitus Unknown Cerebrovascular accident (CVA) Unknown Transient ischemic attack Unknown Coronary artery disease Unknown father Hypertension Unknown Heart disease Unknown Relationship Condition Age at Onset Recorded Date/T marty father Asthma Unknown Myocardial infarction Unknown Hypertension Unknown mother Diabetes mellitus Unknown Cerebrovascular accident (CVA) Unknown Transient ischemic attack Unknown Coronary artery disease Unknown father Hypertension Unknown Heart disease Unknown Advance Directives Advance Directive Response Recorded Date/ Time Advance Directives No July 07, 2021 1:12pm Advance Directive Response Recorded Date/ Time Advance Directives No July 07, 2021 12:12pm Reason for Referral Reason Evaluate and Treat S t[place]hening Diagnosis 1 Cervical spondylolys is (M43.02) Referral Organization [facility] Referring Provider First Name Jovon Referring Provider Last Name Perla Referring Provider Specialty Neurologica l Surgery Referred Organization [facility] Referred Address [address], [place],[address] Referred Provider Specialty Physical [employer] Referral Priority Routine Summary Purpose Additional Source Comments Care Teams (unrecognized sec tion and content) Team Status: Active Member Role Status Dates Lyndon Dorman DO Primary Care Provider Active Team Status: Inactive Member Role Status Dates Lyndon Dorman DO Primary Care Provide r, Attending Provider Active Start: March 31, 2024 End: March 31, 2024 Team Status: Active Member Role Status Dates Lyndon Dorman DO Primary Care Provider Active Team Status: Active Member Role Status Dates Lyndon Dorman DO Primary Care Provider Active Start: October 04, 2023 LIZY Shah Attending Provider Active Start : October 04, 2023 Team Status: Inactive Member Role Status Dates Lydnon Dorman DO Primary Care Provider Active Start: November 30, 2023 End: November 30, 2023 Greta Pena MD Attending Provider Active Start: November 30, 2023 End: November 30, 2023 Team Status: Active Member Role Status Dates Lyndon Dorman DO Primary Care Provider Active Start: November 30, 2023 Greta Pena MD Attending Provider Active Start: November 30, 2023 Team Status: Inactive Member Role Status Dates Lyndon Dorman DO Primary Care Provider Active Jovon Duncan MD Attending Provider Active Team Status: Inactive Member Role Status Dates Lyndon Dorman DO Primary Care Provider Active Jovon Duncan MD Attending Provider, Referring Provid er Active Team Status: Inactive Member Role Status Dates Lyndon Dorman DO Primary Care Provide r, Attending Provider Active Start: December 06, 2023 End: December 06, 2023 Team Status: Inactive Member Role Status Dates Lyndon Dorman DO Primary Care Provide r, Attending Provider Active Start: March 31, 2024 End: March 31, 2024 Goals (unrecognized section and content) Goals may [...] No data available for this sectionNo InformationNo Information No data available for this sectionNo InformationGoals may be documented in an alternate sectionGoals may be documented in an alternate sectionGoals may be documented in an alternate sectionGoals may be documented in an alternate section REASON FOR VISIT (unrecogniz ed section and content) Xray results and discuss vaibhav geryrequesting order for PTpcd with fusion C3- [id number] removal4 wk po PCD3 mo po PCD w/xray6 months po PCDCOVID +Refillyrly f/u PCD w/xrayf/u arm pain6 MONTH FOLLOW UP MBNo InformationrefillsNo InformationWellnessLab resultsRefillcoldNo InformationReferral (unrecognized sect ion and content) No Status Records FoundNo Status Records FoundNo Status Records Found INFORMATION SOURCE (unrecogn ized section and content) DATE CREATED AUTHOR 06/12/2022 [facility] DATE CREATED AUTHOR AUTHOR'S ORGANIZ ATION 08/11/2023 [facility] DATE CREATED AUTHOR AUTHOR'S ORGANIZ ATION 12/04/2023 [facility] FOR RECORDS PERTAINING TO PATIENTS WHO ARE [...] BE BASED ON THE PRIMARY CLINICAL RECORDS. [facility]. provides no warranty or guarantee of the accuracy or completeness of information in this document.
--- NOTE | 2024-04-10 08:52 | XR_ITS ---
The [address] [address] Patient Name: NISHI WEINER MRN: [id number] date: 1945 Sex: M Assigned Patient Location: LAB Current Patient Location: LAB Accession/Order Number: [id number] Exam Date: 04/10/2024 08:46 Report Date: 04/10/2024 16:23 At the request of: KELLY DELGADO Procedure: XR chest 2V EXAMINATION: XR chest 2V HISTORY: Palpitations, Shortness Of Breath, Hypertension COMPARISON: 10/13/2018 TECHNIQUE: PA and lateral FINDINGS: LUNGS: No significant pulmonary parenchymal abnormalities. VASCULATURE: No increased pulmonary vasculature. PLEURA: No pneumothorax, effusion, or pleural thickening. CARDIAC: No cardiomegaly or cardiac silhouette abnormality. MEDIASTINUM: Calcifications consistent with old granulomatous disease. BONES: No fracture or visible bone lesion. Cervical fusion hardware OTHER: Negative. XR/XR chest 2V IMPRESSION: No acute cardiac pulmonary process Electronically authenticated by: ANAHY ONOFRE Date: 04/10/2024 16:23
[2024-04-10 09:01] LABS: Basophils Absolute Auto 0.1 10^3/uL (0.0-0.1); Basophils Percent Auto 1.6 % (0.2-2.0); Eosinophils Absolute Auto 0.1 10^3/uL (0.0-0.7); Eosinophils Percent Auto 1.9 % (0.9-7.0); Hematocrit 46.4 % (42.0-54.0); Hemoglobin 15.4 g/dL (14.0-18.0); Immature Granulocytes Abs Auto 0.06 10^3/uL (0.00-0.03); Immature Granulocytes Pct Auto 0.8 % (0.0-0.5); Lymphocytes Absolute Auto 1.2 10^3/uL (1.2-3.8); Lymphocytes Percent Auto 16.7 % (20.5-60.0); Mean Corpuscular HGB Conc 33.2 g/dL (29.9-35.2); Mean Corpuscular Hemoglobin 27.9 pg (25.9-34.0); Mean Corpuscular Volume 84.1 fL (80.0-94.0); Mean Platelet Volume 9.4 fL (9.5-13.5); Monocytes Absolute Auto 0.4 10^3/uL (0.3-0.8); Monocytes Percent Auto 5.9 % (1.7-12.0); Neutrophils Absolute Auto 5.3 10^3/uL (1.4-6.5); Neutrophils Percent Auto 73.1 % (43.0-75.0); Platelet Count 239 10^3/uL (150-450); Red Blood Count 5.52 10^6/uL (4.70-6.10); Red Cell Distribution Width 13.4 % (11.0-15.0); White Blood Count 7.3 10^3/uL (4.0-11.0)
[2024-04-10 10:20] LABS: Anion Gap 10.6; BUN Creatinine Ratio 16.8; Carbon Dioxide 29.7 mmol/L (21.0-32.0); Chloride 103 mmol/L (98-107); Estimated GFR (African America >60 (>=60); Estimated GFR (Non-African Ame >60 (>=60); Glucose 105 mg/dL (74-106); Potassium 4.3 mmol/L (3.5-5.1); Sodium 139 mmol/L (136-145); Thyroid Stimulating Hormone 1.588 uIU/mL (0.358-3.740)
== END 2024-04-10 08:32 | disposition home or self-care (01) ==
LOC: LAB 08:31
PROVIDERS: PCP Internal Medicine; Visit Provider Internal Medicine
DX: R00.2 Palpitations (principal); R06.2 Wheezing; I10 Essential (primary) hypertension; R53.83 Other fatigue
CPT/HCPCS: 36415; 71046; 80048; 84443; 85025; 93242

== ENCOUNTER 2024-04-28 13:45 | Outpatient (OUT) | payer MEDICARE, SELFPAY ==
--- OUTSIDE RECORDS SUMMARY | 2024-04-28 13:49 | XMS_ITS | CCD ---
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 Role Phone DO Lyndon Dorman Primary Care Provider MD Jovon Duncan Attending Provider [phone] Jovon Duncan Unavailable DO Lyndon Dorman Primary Care Provider [phone] MD Jovon Duncan Attending Provider DR LYNDON [...] Care Provider MD Jovon Duncan Attending Provider [phone] MD Jovon Duncan Referring Provider Lyndon Dorman Unavailable LYNDON DORMAN Primary Care Physician RAUL, Tremayne Davenport Attending Unavailable NILL, Tremayne Davenport Attending Unavailable NILL, Tremayne Davenport Attending Unavailable LYNDON DORMAN Referring Unavailable NILL, Tremayne Davenport Attending Unavailable NILL, Tremayne Davenport Attending Unavailable NILL, Tremayne Davenport Attending Unavailable NILL, Tremayne Davenport Attending Unavailable DO Lyndon Dorman Primary Care Provider MD Greta Pena Attending Provider Greta Pena Attending Unavailable Greta Pena Admitting Unavailable Lyndon Dorman Primary Care Unavailable Allergies Allergy Classification Reported Allergen(s) Allergy Type Date of Onset Reaction(s) Facility (2 sources) patient allergy list reviewed by nurse or physicia Propensity to adverse reactions Comment:Done [employer] Other (1 source) No Known Medication Allergies; Translations: [No Known Medication Allergies] Propensity to adverse reactions (disorder) [facility] Repository Medications Current Medications Medication Drug Class(es) [...] Start: 08-06-2022 take 3 tablets by mo 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 Attending Dr: Greta Pena MD Copies to: [...] Kervin Marshall M.D.11/30/2023 1:39 PM Dictation Location: [facility]--14 Transcribed By: [facility] 11/30/23 1339 Dictated By: Kervin Marshall DO 11/30/23 1335 Signed By: 11/30/23 1339 Normal [facility] Ambulatory Visit Summaryon 0 08-10-2023 [...] your care. Wendy Curran [facility] General Surgery Office/Clini c Noteon 08-10-2023 General [...] Recorded SARS-CoV-2 (COVID-19) mRNA-1273 vaccine 09/19/2020 Recorded [facility] Comment on above: Result Comment: Elec tronically Signed By: RAUL ZUNIGA, Tremayne Davenport\.br\Date and Time Signed: 08/10/23 13:14 EST Pathology Noteon 08-04-2023 Pathology Note [id number]#1.00TIF F [facility] Outside Colonoscopyon 2023 Outside Colonoscopy [id number]#1.00TIF F [facility] Consent for Procedure/Surger yon 07-14-2023 Consent for Procedure/Surgery [id number]#1.00TI FF [facility] Insurance Correspondenceon 1 09-14-2022 Insurance Correspondence [id number]#1.00TI FF [facility] Ambulatory Visit Summaryon 1 09-13-2022 Ambulatory [...] you for choosing us for your care. [facility] Physician Referralon 023 Physician Referral [id number]#1.00TIF F [facility] Ambulatory Visit Summaryon 0 02-24-2023 Ambulatory [...] Generalised osteoarthritis Obstructive sleep apnea Tinnitus Normal [facility] General Surgery Office/Clini c Noteon 02-24-2023 General [...] SARS-CoV-2 (COVID-19) mRNA-1273 vaccine 09/19/2020 Recorded Normal [facility] Comment on above: Result Comment: Elec [...] MD Where: General Surgery Raul/Veto Driscoll Normal [facility] General Surgery Office/Clini c Noteon 02-10-2023 General [...] SARS-CoV-2 (COVID-19) mRNA-1273 vaccine 09/19/2020 Recorded Normal [facility] Comment on above: Result Comment: Elec tronically Signed By: RAUL ZUNIGA, Tremayne Davenport\.br\Date and Time Signed: 02/10/23 16:33 EDT Provider Letteron 02-10-2023 Provider Letter (Inserted Image. Lisa ble to display) February 10, 2023 BRENT WEINER [address] [place] [address] : 1945 To Whom It May Concern, Please excuse above patient from work until March 02, 2023. Sincerely, Dr. Tremayne Carter MD General Surgery [facility] Operative Reporton Operative Report [id number]#1.00CD: 127 [facility] ECG 12-Leadon 01-26-2023 ECG 12-Lead [id number]#1.00CD: 127 [facility] Pre-Certification Formon Pre-Certification Form [id number]#1.00CD :127 [facility] Consent for Procedure/Surger yon 01-14-2023 Consent for Procedure/Surgery [id number]#1.00CD:1 27 Normal [facility] Ambulatory Visit Summaryon 0 01-13-2023 Ambulatory Visit [...] Generalised osteoarthritis Obstructive sleep apnea Tinnitus Normal [facility] Physician Referralon 023 Physician Referral [id number]#1.00CD: 127 Normal [facility] CBC AUTO DIFFon 06-05-2022 BASO # 0.2 103/ul Critically high 0.0-0.1 [facility] Comment on above: Performed By: #### C BC #### [facility] [address] [address] [address] Nirmal Abernathy Basophils/100 WBC (Bld) 3.4 % Critically high 0.2-2.0 [facility] Comment on above: Performed By: #### C BC #### [facility] [address] [address] [address] Nirmal Abernathy EO # 0.2 103/ul Normal 0.0-0.7 [facility] Comment on above: Performed By: #### C BC #### [facility] [address] [address] [address] Nirmal Abernathy Eosinophils/100 WBC (Bld) 3.9 % Normal 0.9-7.0 [facility] Comment on above: Performed By: #### C BC #### [facility] [address] [address] [address] Nirmal Abernathy Erythrocyte distribution width (RBC) [Ratio] 13.4 % Normal 11.0-15.0 [facility] Comment on above: Performed By: #### C BC #### [facility] [address] [address] [address] Nirmal Abernathy Hematocrit (Bld) [Volume fraction] 43.7 % Normal 42.0-54.0 [facility] Comment on above: Performed By: #### C BC #### [facility] [address] [address] [address] Nirmal Abernathy Hemoglobin (Bld) [Mass/Vol] 14.1 g/dL Normal 14.0-18.0 [facility] Comment on above: Performed By: #### C BC #### [facility] [address] [address] [address] Nirmal Abernathy IG # 0.04 10e3/ul Critically high 0.00-0.03 [facility] Comment on above: Performed By: #### C BC #### [facility] [address] [address] [address] Nirmal Abernathy IG % 0.7 % Critically high 0.0-0.5 [facility] Comment on above: Performed By: #### C BC #### [facility] [address] [place] [address] Dr. Nirmal Abernathy LYMPH # 1.4 103/ul Normal 1.2-3.8 [facility] Comment on above: Performed By: #### C BC #### [facility] [address] [place] [address] Dr. Nirmal Abernathy Lymphocytes/100 WBC (Bld) 22.9 % Normal 20.5-60.0 [facility] Comment on above: Performed By: #### C BC #### [facility] [address] [place] [address] Dr. Nirmal Abernathy MANUAL DIFF REQ NO Normal [facility] Comment on above: Performed By: #### C BC #### [facility] [address] [place] [address] Dr. Nirmal Abernathy MCH (RBC) [Entitic mass] 27.0 pg Normal 25.9-34.0 [facility] Comment on above: Performed By: #### C BC #### [facility] [address] [place] [address] Dr. Nirmal Abernatyh MCHC (RBC) [Mass/Vol] 32.3 g/dL Normal 29.9-35.2 [facility] Comment on above: Performed By: #### C BC #### [facility] [address] [place] [address] Dr. Nirmal Abernathy MCV (RBC) [Entitic vol] 83.7 fL Normal 80.0-94.0 [facility] Comment on above: Performed By: #### C BC #### [facility] [address] [place] [address] Dr. Nirmal Abernathy MONO # 0.5 103/ul Normal 0.3-0.8 [facility] Comment on above: Performed By: #### C BC #### [facility] [address] [place] [address] Dr. Nirmal Abernathy Monocytes/100 WBC (Bld) 8.1 % Normal 1.7-12.0 [facility] Comment on above: Performed By: #### C BC #### [facility] [address] [address] [address] Nirmal Abernathy NEUT # 3.6 103/ul Normal 1.4-6.5 [facility] Comment on above: Performed By: #### C BC #### [facility] [address] [address] [address] Nirmal Abernathy Neutrophils/100 WBC (Bld) 61.0 % Normal 43.0-75.0 [facility] Comment on above: Performed By: #### C BC #### [facility] [address] [address] [address] Nirmal Abernathy Platelet mean volume (Bld) [Entitic vol] 9.1 fL Critically low 9.5-13.5 [facility] Comment on above: Performed By: #### C BC #### [facility] [address] [place] [address] Dr. Nirmal Abernathy PLT 258 103/ul Normal 150-450 [facility] Comment on above: Performed By: #### C BC #### [facility] [address] [place] [address] Dr. Nirmal Abernathy RBC 5.22 106/ul Normal 4.70-6.10 [facility] Comment on above: Performed By: #### C BC #### [facility] [address] [place] [address] Dr. Nirmal Abernathy WBC 5.9 103/ul Normal 4.0-11.0 [facility] Comment on above: Performed By: #### C BC #### [facility] [address] [place] [address] Dr. Nirmal Abernathy LIPID PROFILEon 06-05-2022 CHOL-HDL RATIO NORM SEE BELOW Normal [facility] Comment on above: Result Comment: 3.3 - 4.4 LOW RISK 4.4 - 7.1 AVERAGE RISK 7.1 - 11.0 MODERATE RISK >11.0 HIGH RISK Performed By: #### B MP, LIPID, ALT #### [facility] [address] [address] [address] Nirmal Abernathy Cholesterol [Mass/Vol] 164 mg/dL Normal <=200 [facility] Comment on above: Performed By: #### B MP, LIPID, ALT #### [facility] [address] [address] [address] Nirmal Abernathy Cholesterol in HDL [Mass/Vol] 58 mg/dL Normal 40-60 [facility] Comment on above: Performed By: #### B MP, LIPID, ALT #### [facility] [address] [address] [address] Nirmal Abernathy Cholesterol in LDL [Mass/Vol] 94.0 mg/dL Normal [facility] Comment on above: Performed By: #### B MP, LIPID, ALT #### [facility] [address] [address] [address] Nirmal Abernathy Cholesterol.total/Ch olesterol in HDL [Mass ratio] 2.8 {ratio} Normal [facility] Comment on above: Performed By: #### B MP, LIPID, ALT #### [facility] [address] [address] [address] Nirmal Abernathy HDL NORMAL > or = 60 mg/dl - LO W CARDIOVASCULAR RISK <40 mg/dl - HIGH CARDIOVASCULAR RISK Normal [facility] Comment on above: Performed By: #### B MP, LIPID, ALT #### [facility] [address] [address] [address] Nirmal Abernathy LDL CALC NORMAL SEE BELOW Normal [facility] Comment on above: Result Comment: <100 mg/dl OPTIMAL 100 - 129 mg/dl NEAR OR ABOVE OPTIMAL 130 - 159 mg/dl BORDERLINE HIGH 160 - 189 mg/dl HIGH >190 mg/dl VERY HIGH Performed By: #### B MP, LIPID, ALT #### [facility] [address] [address] [address] Nirmal Abernathy Triglyceride [Mass/Vol] 60 mg/dL Normal <=150 [facility] Comment on above: Performed By: #### B MP, LIPID, ALT #### [facility] [address] [address] [address] Nirmal Abernathy VLDL CALC 12.0 mg/dL Normal [facility] Comment on above: Performed By: #### B MP, LIPID, ALT #### [facility] [address] [address] [address] Nirmal Abernathy PROF CHEM 8 (BAS METB)on Anion gap [Moles/Vol] 6.3 mmol/L Normal [facility] Comment on above: Performed By: #### B MP, LIPID, ALT #### [facility] [address] [address] [address] Nirmal Abernathy Calcium [Mass/Vol] 9.0 mg/dL Normal 8.5-10.[address] [facility] Comment on above: Performed By: #### B MP, LIPID, ALT #### [facility] [address] [address] [address] Nirmal Abernathy Chloride [Moles/Vol] 105 mmol/L Normal 98-107 [facility] Comment on above: Performed By: #### B MP, LIPID, ALT #### [facility] [address] [place] [address] Dr. Nirmal Abernathy CO2 [Moles/Vol] 31.0 mmol/L Normal 21.0-32.0 [facility] Comment on above: Performed By: #### B MP, LIPID, ALT #### [facility] [address] [place] [address] Dr. Nirmal Abernathy Creatinine [Mass/Vol] 1.12 mg/dL Normal 0.70-1.30 [facility] Comment on above: Performed By: #### B MP, LIPID, ALT #### [facility] [address] [place] [address] Dr. Nirmal Abernathy EGFR-AF SURINAMESE >60 Normal >=60 [facility] Comment on above: Performed By: #### B MP, LIPID, ALT #### [facility] [address] [address] [address] Nirmal Abernathy EGFR-NON AF SURINAMESE >60 Normal >=60 [facility] Comment on above: Performed By: #### B MP, LIPID, ALT #### [facility] [address] [place] [address] Dr. Nirmal Abernathy Glucose [Mass/Vol] 99 mg/dL Normal 74-[address] [facility] Comment on above: Performed By: #### B MP, LIPID, ALT #### [facility] [address] [address] [address] Nirmal Abernathy Potassium [Moles/Vol] 4.3 mmol/L Normal 3.5-5.1 [facility] Comment on above: Performed By: #### B MP, LIPID, ALT #### [facility] [address] [address] [address] Nirmal Abernathy Sodium [Moles/Vol] 138 mmol/L Normal 136-[address] [facility] Comment on above: Performed By: #### B MP, LIPID, ALT #### [facility] [address] [place] [address] Dr. Nirmal Abernathy Urea nitrogen [Mass/Vol] 19.0 mg/dL Critically high 7.0-18.0 [facility] Comment on above: Performed By: #### B MP, LIPID, ALT #### [facility] [address] [place] [address] Dr. Nirmal Abernathy Urea nitrogen/Creatinine [Mass ratio] 17.0 mg/mg Normal [facility] Comment on above: Performed By: #### B MP, LIPID, ALT #### [facility] [address] [place] [address] Dr. [facility]irm[facility] ALT [Catalytic activity/Vol] 32 U/L Normal 16-63 [facility] Comment on above: Performed By: #### B MP, LIPID, ALT #### [facility] [address] [place] [address] Dr. Nirmal Abernathy LIPID PROFILEon 09-03-2021 CHOL-HDL RATIO NORM SEE BELOW Normal [facility] Comment on above: Result Comment: 3.3 - 4.4 LOW RISK 4.4 - 7.1 AVERAGE RISK 7.1 - 11.0 MODERATE RISK >11.0 HIGH RISK Performed By: #### L IPID, ALT #### [facility] [address] [place] [address] Dr. Nirmal Abernathy Cholesterol [Mass/Vol] 137 mg/dL Normal <=200 [facility] Comment on above: Performed By: #### L IPID, ALT #### [facility] [address] [address] [address] Nirmal Abernathy Cholesterol in HDL [Mass/Vol] 51 mg/dL Normal [facility] Comment on above: Performed By: #### L IPID, ALT #### [facility] [address] [address] [address] Nirmal Abernathy Cholesterol in LDL [Mass/Vol] 69.6 mg/dL Normal [facility] Comment on above: Performed By: #### L IPID, ALT #### [facility] [address] [address] [address] Nirmal Abernathy Cholesterol.total/Ch olesterol in HDL [Mass ratio] 2.7 {ratio} Normal [facility] Comment on above: Performed By: #### L IPID, ALT #### [facility] [address] [address] [address] Nirmal Abernathy HDL NORMAL > or = 60 mg/dl - LO W CARDIOVASCULAR RISK <40 mg/dl - HIGH CARDIOVASCULAR RISK Normal [facility] Comment on above: Performed By: #### L IPID, ALT #### [facility] [address] [address] [address] Nirmal Abernathy LDL CALC NORMAL SEE BELOW Normal [facility] Comment on above: Result Comment: <100 mg/dl OPTIMAL 100 - 129 mg/dl NEAR OR ABOVE OPTIMAL 130 - 159 mg/dl BORDERLINE HIGH 160 - 189 mg/dl HIGH >190 mg/dl VERY HIGH Performed By: #### L IPID, ALT #### [facility] [address] [address] [address] Nirmal Abernathy Triglyceride [Mass/Vol] 82 mg/dL Normal <=150 [facility] Comment on above: Performed By: #### L IPID, ALT #### [facility] [address] [address] [address] Nirmal Abernathy VLDL CALC 16.4 mg/dL Normal [facility] Comment on above: Performed By: #### L IPID, ALT #### [facility] [address] [address] [address] Nirmal Abernathy [facility] 09-03-2021 ALT [Catalytic activity/Vol] 39 U/L Normal 21-72 [facility] Comment on above: Performed By: #### L IPID, ALT #### [facility] [address] [address] [address] Nirmal Abernathy Vital Signs Date Time Vital Sign Value Performing Clinician Facility 03-31-2024 10:22-0400 Body height 180.34 cm [facility] 03-31-2024 10:22-0400 Body mass index (BMI) [Ratio] 27.6 kg/m2 [facility] 03-31-2024 10:22-0400 Body weight 89.81 kg [facility] 03-31-2024 10:22-0400 Diastolic blood pressure 79 mm[Hg] [facility] 03-31-2024 10:22-0400 Heart rate 57 /min [facility] 03-31-2024 10:22-0400 Respiratory rate 12 /min [facility] 03-31-2024 10:22-0400 Systolic blood pressure 135 mm[Hg] [facility] 12-06-2023 08:57-0400 Body height 180.34 cm DO Lyndon Ball Work Phone: [facility] 12-06-2023 08:57-0400 Body mass index (BMI) [Ratio] 30.3 kg/m2 DO Lyndon Ball Work Phone: [facility] 12-06-2023 08:57-0400 Body weight 98.59 kg DO Lyndon Ball Work Phone: [facility] 12-06-2023 08:57-0400 Diastolic blood pressure 84 mm[Hg] DO Lyndon Ball Work Phone: [facility] 12-06-2023 08:57-0400 Heart rate 56 /min DO Lyndon Ball Work Phone: [facility] 12-06-2023 08:57-0400 Respiratory rate 12 /min DO Lyndon Ball Work Phone: [facility] 12-06-2023 08:57-0400 Systolic blood pressure 150 mm[Hg] DO Lyndon Ball Work Phone: [facility] 07-13-2023 13:56-0500 Blood Pressure Location Tremayne NILL [facility] [place] 07-13-2023 13:56-0500 Diastolic blood pressure 82 mm[Hg] Tremayne NILL [facility] [place] 07-13-2023 13:56-0500 Heart rate 74 /min Tremayne NILL [facility] [place] 07-13-2023 13:56-0500 Respiratory rate 16 /min Tremayne NILL [facility] [place] 07-13-2023 13:56-0500 Systolic blood pressure 124 mm[Hg] Tremayne NILL [facility] [place] 06-07-2023 09:00-0500 Body height 180.34 cm Lyndon Ball Other [employer] Other 06-07-2023 09:00-0500 Body mass index (BMI) [Ratio] 30.23 kg/m2 Lyndon Ball Other [employer] Other 06-07-2023 09:00-0500 Body weight 98.34 kg Lyndon Ball Other [employer] Other 06-07-2023 09:00-0500 Diastolic blood pressure 88 mm[Hg] Lyndon Ball Other [employer] Other 06-07-2023 09:00-0500 Respiratory rate 12 /min Lyndon Ball Other [employer] Other 06-07-2023 09:00-0500 Systolic blood pressure 138 mm[Hg] Lyndon Ball Other [employer] Other 06-14-2023 15:25-0400 Blood Pressure Location Tremayne DEANL [facility] [place] 01-13-2023 15:25-0400 Diastolic blood pressure 74 mm[Hg] Tremayne DEANL [facility] [place] 01-13-2023 15:25-0400 Heart rate 72 /min Tremayne DEANL [facility] [place] 01-13-2023 15:25-0400 Respiratory rate 16 /min Tremayne DEANL [facility] [place] 01-13-2023 15:25-0400 Systolic blood pressure 118 mm[Hg] Tremayne DEANL [facility] [place] 12-04-2022 09:30-0400 Body height 180.34 cm Lyndon Ball Other [employer] Other 12-04-2022 09:30-0400 Body mass index (BMI) [Ratio] 30.71 kg/m2 Lyndon Ball Other [employer] Other 12-04-2022 09:30-0400 Body weight 99.88 kg Lyndon Ball Other [employer] Other 12-04-2022 09:30-0400 Diastolic blood pressure 77 mm[Hg] Lyndon Ball Other [employer] Other 12-04-2022 09:30-0400 Respiratory rate 12 /min Lyndon Ball Other [employer] Other 12-04-2022 09:30-0400 SaO2% (BldA) [Mass fraction] 98 % Lyndon Ball Other [employer] Other 12-04-2022 09:30-0400 Systolic blood pressure 137 mm[Hg] Lyndon Ball Other [employer] Other 10-29-2022 11:20-0400 Body height 180.34 cm Jovon Duncan Other [employer] Other 10-29-2022 11:20-0400 Body mass index (BMI) [Ratio] 29.98 kg/m2 Jovon Duncan Other [employer] Other 10-29-2022 11:20-0400 Body weight 97.52 kg Jovon Duncan Other [employer] Other 09-17-2022 11:20-0500 Body height 180.34 cm Jovon Duncan Other [employer] Other 09-17-2022 11:20-0500 Body mass index (BMI) [Ratio] 29.98 kg/m2 Jovon Duncan Other [employer] Other 09-17-2022 11:20-0500 Body weight 97.52 kg Jovon Duncan Other [employer] Other 09-17-2022 11:20-0500 Respiratory rate 18 /min Jovon Duncan Other [employer] Other 03-26-2022 11:20-0400 Body height 180.34 cm Jovon Duncan Other [employer] Other 03-26-2022 11:20-0400 Body mass index (BMI) [Ratio] 27.33 kg/m2 Jovon Duncan Other [employer] Other 03-26-2022 11:20-0400 Body weight 88.91 kg Jovon Duncan Other [employer] Other 12-25-2021 10:40-0400 Body height 180.34 cm Jovon Duncan Other [employer] Other 12-25-2021 10:40-0400 Body mass index (BMI) [Ratio] 27.33 kg/m2 Jovon Duncan Other [employer] Other 12-25-2021 10:40-0400 Body weight 88.91 kg Jovon Duncan Other [employer] Other 10-07-2021 14:00-0500 Body height 180.34 cm Jovon Duncan Other [employer] Other 10-07-2021 14:00-0500 Body mass index (BMI) [Ratio] 27.89 kg/m2 Jovon Duncan Other [employer] Other 10-07-2021 14:00-0500 Body weight 90.72 kg Jovon Duncan Other [employer] Other 09-18-2021 14:00-0500 Body height 180.34 cm Jovon Duncan Other [employer] Other 09-18-2021 14:00-0500 Body mass index (BMI) [Ratio] 27.89 kg/m2 Jovon Duncan Other [employer] Other 09-18-2021 14:00-0500 Body weight 90.72 kg Jovon Duncan Other [employer] Other 07-24-2021 10:40-0500 Body height 180.34 cm Jovon Duncan Other [employer] Other 07-24-2021 10:40-0500 Body mass index (BMI) [Ratio] 27.89 kg/m2 Jovon Duncan Other [employer] Other 07-24-2021 10:40-0500 Body weight 90.72 kg Jovon Duncan Other [employer] Other 06-17-2021 11:40-0500 Body height 180.34 cm Jovon Duncan Other [employer] Other 06-17-2021 11:40-0500 Body mass index (BMI) [Ratio] 27.89 kg/m2 Jovon Duncan Other [employer] Other 06-17-2021 11:40-0500 Body weight 90.72 kg Jovon Duncan Other [employer] Other 06-17-2021 11:40-0500 Diastolic blood pressure 71 mm[Hg] Jovon Duncan Other [employer] Other 06-17-2021 11:40-0500 Systolic blood pressure 130 mm[Hg] Jovon Duncan Other [employer] Other Encounters Encounter Date Encounter Type Care Provider Facility Start: 03-31-2024 End: 03-31-2024 ambulatory [facility] Work Phone: Start: 03-31-2024 End: 03-31-2024 Patient encounter procedure [facility] Work Phone: Start: 12-06-2023 End: 12-06-2023 ambulatory DO Lyndon Ball Work Phone: [facility] Work Phone: Start: 12-06-2023 End: 12-06-2023 Patient encounter procedure DO Lyndon Ball Work Phone: [facility] Work Phone: Start: 11-30-2023 End: 11-30-2023 ambulatory Greta Pena Facility:[facility] Start: 11-30-2023 End: 11-30-2023 ambulatory DO Lyndon Dorman Work Phone: [facility] Work Phone: Start: 11-30-2023 End: 11-30-2023 Patient encounter procedure DO Lyndon Dorman Work Phone: [facility] Work Phone: Start: 10-04-2023 Non-patient / Non-visit DO Pranay Dorman Work Phone: [facility] [employer] Work Phone: Start: 08-11-2023 End: 08-11-2023 ambulatory Lyndon Dorman Other [employer] Other Start: 08-11-2023 Telephone encounter Lyndon Dandy SAW[facility] Start: 08-10-2023 End: 08-11-2023 ambulatory Tremayne R NILL Facility:[facility] Start: 08-10-2023 End: 08-10-2023 Patient encounter procedure Tremayne R NILL General Surgery N[facility] [place] Start: 08-05-2023 End: 08-05-2023 ambulatory Lyndon Dorman Other [employer] Other Start: 08-05-2023 Telephone encounter Lyndon Dorman JESE [facility] Start: 07-28-2023 End: 07-29-2023 ambulatory Tremayne R NILL Facility:[id number] Start: 07-20-2023 End: 07-20-2023 ambulatory Lyndon Dorman Other [employer] Other Start: 07-20-2023 Office outpatient vi sit 15 minutes Lyndon Dorman [facility] Start: 07-13-2023 End: 07-14-2023 ambulatory LYNDON DORMAN Facility: [place] Start: 07-13-2023 End: 07-13-2023 Patient encounter procedure Tremayne R NILL General Surgery [facility] [place] Start: 06-18-2023 End: 06-18-2023 ambulatory Lyndon Dorman Other [employer] Other Start: 06-18-2023 Telephone encounter Lyndon Dorman [facility] Start: 06-08-2023 End: 06-08-2023 ambulatory Lyndon Dorman Other [employer] Other Start: 06-08-2023 Telephone encounter Lyndon Dorman [facility] Start: 06-07-2023 End: 06-07-2023 ambulatory Lyndon Dorman Other [employer] Other Start: 06-07-2023 Patient encounter procedure Lyndon Dorman [facility] Start: 04-20-2023 End: 04-20-2023 ambulatory Lyndon Dorman Other [employer] Other Start: 04-20-2023 Telephone encounter Lyndon Dorman [facility] Start: 04-19-2023 End: 04-19-2023 ambulatory Lyndon Dorman Other [employer] Other Start: 04-19-2023 Telephone encounter Lyndon Dorman [facility] Start: 02-24-2023 End: 02-25-2023 ambulatory Tremayne R NILL Facility: [facility] Start: 02-24-2023 End: 02-24-2023 Patient encounter procedure Tremayne R NILL General Surgery [facility] [place] Start: 02-10-2023 End: 02-11-2023 ambulatory Tremayne R NILL Facility: [facility] Start: 02-04-2023 End: 02-04-2023 ambulatory Lyndon Dorman Other [employer] Other Start: 02-04-2023 Telephone encounter Lyndon Dorman [facility] Start: 02-03-2023 End: 02-04-2023 ambulatory Tremayne DEANL Facility:[id number] Start: 01-13-2023 End: 01-14-2023 ambulatory Tremayne R NILL Facility:[facility] Start: 01-13-2023 End: 01-13-2023 Patient encounter procedure Tremayne CARTER General Surgery [facility] [place] Start: 12-04-2022 End: 12-04-2022 ambulatory Lyndon Dorman Other [employer] Other Start: 12-04-2022 Office outpatient vi sit 25 minutes Lyndon Dorman [facility] Start: 10-29-2022 End: 10-29-2022 ambulatory Jovon Duncan Other [employer] Other Start: 10-29-2022 Office outpatient vi sit 15 minutes Jovon Duncan [facility] Start: 09-17-2022 Office outpatient vi sit 15 minutes Jovon Duncan [facility] Start: 09-17-2022 End: 09-17-2022 ambulatory DO Lyndon Dorman Work Phone: [facility] Work Phone: Start: 09-17-2022 End: 09-17-2022 Patient encounter procedure DO Lyndon Dorman Work Phone: [facility] [place] Work Phone: Start: 08-17-2022 End: 08-17-2022 ambulatory Lyndon Dorman Other [employer] Other Start: 08-17-2022 Telephone encounter Lyndon Dorman [facility] Start: 08-06-2022 ([facility]) [facility]uled Lyndon Domran [facility] Start: 08-06-2022 End: 08-06-2022 ambulatory Lyndon Dorman Other [employer] Other Start: 06-05-2022 Adult health examination Lyndon Dorman Other [employer] Other Start: 06-05-2022 End: 06-06-[address] LYNDNO DORMAN Facility:[facility] Start: 03-26-2022 End: 03-26-2022 ambulatory Jovon Duncan Other [employer] Other Start: 03-26-2022 Office outpatient vi sit 15 minutes Jovon Duncan [facility] Start: 03-26-2022 End: 03-26-2022 Patient encounter procedure DO Lyndon Dorman Work Phone: [facility] Start: 12-25-2021 End: 12-25-2021 ambulatory Jovon Duncan Other [employer] Other Start: 12-25-2021 Office outpatient vi sit 15 minutes Jovon Duncan [facility] Start: 12-25-2021 End: 12-25-2021 Patient encounter procedure DO Lyndon Dorman [facility] Phone[facility] Start: 10-27-2021 End: 11-01-[address] LYNDON DORMAN Facility:[facility] Start: 10-24-2021 End: 10-24-2021 ambulatory Jovon Duncan Other [employer] Other Start: 10-24-2021 Telephone encounter Jovon Duncan [facility] Start: 10-07-2021 End: 10-07-2021 ambulatory Jovon Duncan Other [employer] Other Start: 10-07-2021 Postop follow up vis it related to original px Jovon Duncan [facility] Start: 10-07-2021 End: 10-07-2021 Patient encounter procedure DO Lyndon Dorman Work Phone[facility] Start: 09-18-2021 End: 09-18-2021 ambulatory Jovon Duncan Other [employer] Other Start: 09-18-2021 Postop follow up vis it related to original px Jovon Duncan [facility] Start: 09-08-2021 Admission to [facility] center Jovon Duncan [facility] Start: 09-08-2021 End: 09-08-2021 ambulatory Jovonaileen Duncan Other [employer] Other Start: 09-03-2021 End: 09-04-[address] LYNDON DORMAN Facility:[facility] Start: 08-01-[address] LYNDON DORMAN Facili ty:[facility] Start: 07-24-2021 End: 07-24-2021 ambulatory Jovon Duncan Other [employer] Other Start: 07-24-2021 Office outpatient vi sit 40 minutes Jovon Duncan [facility] Start: 07-08-2021 End: 07-09-[address] LYNDON DORMAN Facility:[facility] Start: 06-17-2021 End: 06-17-2021 ambulatory Jovon Duncan Other [employer] Other Start: 06-17-2021 Office outpatient ne w 30 minutes Jovon Duncan [facility] Neuro[facility] Procedures Date Procedure Procedure [...] Comment on above: Performed By: #### P [facility] #### [facility] [address] [place] [address] Dr. Nirmal Abernathy Start: 03-26-2022 X-ray of [...] left hand XR hand LT min 3V* [facility] Start: 11-30-2023 XR Hand - left GE 3 Views [facility] Immunizations Immunization Date Immunization Notes Care Provider Fa cody 07-08-2021 COVID-19 mRNA-1273 (Moderna) DO Lyndon Ball Work Phone: [facility] 10-15-2020 COVID-19 mRNA-1273 (Moderna) DO Lyndon Ball Work Phone: [facility] 09-19-2020 COVID-19 mRNA-1273 (Moderna) DO Lyndon Dorman Work Phone: [facility] 05-24-2017 diphtheria, tetanus toxoids and acellular pertussis vaccine, unspecified formulation Lyndon Dorman Other [facility] 05-24-2017 pneumococcal polysaccharide vaccine, 23 valent Lyndon Dorman Other [facility] 03-30-2016 pneumococcal conjuga te vaccine, 13 valent Lyndon Dorman Other [facility] 03-30-2016 pneumococcal Conjugate, unspecified formulation; Translations: [Need for prophylactic vaccination against Streptococcus pneumoniae (pneumococcus)] Lyndon Dorman Other [employer] Other NEGATED: Highlighted row has not occurred!07-13-2023 influenza virus vaccine, unspecified formulation Tremayne RAUL General Surgery [place] Payers Date Payer Category Payer Self-pay [id number] 1957 Medicare [id number] 50 [id number] 1957 Self-pay [id number] 1945 Unknown [id number] 2.16.84 [id number] 1945 Unknown [id number] 2.16.84 [id number] 1947 Unknown [id number] 2.16.84 [id number] 1945 Unknown [id number] 2.16.84 0.1.213262.3.579.2.59 1945 Unknown [id number] 2.16.8 40.1.917891.3.579.2.727 1945 Unknown [id number] 2.16.8 [id number] 1945 Unknown [id number] 2.16.8 40.1.466242.3.579.2.727 1947 Unknown [id number] 2.16.8 40.1.271033.3.579.2.727 1945 Unknown [id number] 2.16.8 40.1.721920.3.579.2.727 1945 Unknown [id number] 2.16.8 [id number] 1945 Unknown [id number] 2.16.8 [id number] Medicare Medicare [id number] Unknown [id number] 2.16.84 [id number] Unknown [id number] 2.16.8 [id number] Social History Date Type Detail Facility Start: 09-08-2021 End: 07-13-2023 Tobacco smoking status ORIS Ex-smoker (finding) [facility] Start: 1945 Sex Assigned At Male [facility] Assigned At [facility] Tobacco smoking status Never [facility] Start: 10-04-2023 Tobacco smoking stat us [facility] Never smoked tobacco (finding) [facility] Medical Equipment Procedure Code Equipment Code Equipment Origin al Text Equipment Identifier Dates Decompression, spine, cervical, posterior approach CANCELLOUS 15CC CRUSHED FDA Start: 09-08-2021 Decompression, spine, cervical, posterior approach Bone-screw internal spinal fixation system, non-sterile ()[id number] FDA Start: 09-08-2021 Decompression, spine, cervical, posterior approach Bone-screw internal spinal fixation system, non-sterile ()[id number] FDA Start: 09-08-2021 Decompression, spine, cervical, posterior approach Bone-screw internal spinal fixation system, non-sterile ()[id number] FDA Start: 09-08-2021 Decompression, spine, cervical, posterior approach Bone-screw internal spinal fixation system, non-sterile ()[id number] FDA Start: 09-08-2021 Decompression, spine, cervical, posterior approach Spinal fusion graft kit ([id number] FDA Start: 09-08-2021 Decompression, spine, cervical, posterior approach Bone-screw internal spinal fixation system, non-sterile ()[id number] FDA Start: 09-08-2021 Decompression, spine, cervical, posterior [...] 07-13-2023 Functional Status N/A [facility] 01-13-2023 Functional Status N/A General 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 [employer] Other 12-19-2023 Evaluation note* Encounter Date Diagnosis [...] continue exercise to achieve/maintain a normal BMI. [employer] Other 12-12-2023 NoteChief Complaint consultation for colonoscopy [...] Substance Abuse - Denies (more content not included)...[facility]Result Comment: Electronically Signed By: RAUL ZUNIGA, Tremayne Arzola\Date and Time Signed: 07/13/23 14:31 [id number] Evaluation note * Encounter Date Diagnosis Assessment Notes Treatment Notes Treatment Clinical Notes Jun, Cervical spondylosis (ICD-10 - M47.812) [employer] Other 11-06-2023 Evaluation note* Encounter Date Diagnosis [...] use, the patient reduces the risk for MA, CVA, HTN, cardiac dysrhythmias and sudden cardiac [...] (ICD-10 - Z79.899) Check ALT and CBC [employer] Other 09-19-2023 Evaluation note* Encounter Date Diagnosis Assessment Notes Treatment Notes Treatment Clinical Notes Apr, Primary hypertension (ICD-10 - I10) [employer] Other 09-18-2023 Evaluation note* Encounter Date Diagnosis Assessment Notes Treatment Notes Treatment Clinical Notes Apr, Primary hypertension (ICD-10 - I10) [employer] Other 06-14-2023 NoteChief Complaint consultation for possible [...] Hypertension: Father. TIA: Mother (more content not included)...[facility]:Result Comment: Electronically Signed By: RAUL ZUNIGA, Tremayne Arzola\Date and Time Signed: 01/13/23 17:35 [id number] Evaluation note* Encounter Date Diagnosis Assessment Notes [...] use, the patient reduces the risk for MA, CVA, HTN, cardiac dysrhythmias and sudden cardiac [...] [BMI ] 30.0-30.9, adult (ICD-10 - Z68.30) [employer] Other 03-30-2023 Evaluation note* Encounter Date Diagnosis [...] time Sep, Cervical myelopathy (ICD-10 - G95.9) [employer] Other 02-16-2023 Evaluation note* Encounter Date Diagnosis [...] okay. Sep, Cervical myelopathy (ICD-10 - G95.9) [employer] Other 01-16-2023 Evaluation note* Encounter Date Diagnosis Assessment Notes Treatment Notes Treatment Clinical Notes Aug, Primary hypertension (ICD-10 - I10) [employer] Other 01-05-2023 Evaluation note* Encounter Date Diagnosis [...] for congestion, Tylenol for pain and fever. [employer] Other 08-25-2022 Evaluation note* Encounter Date Diagnosis Assessment Notes Treatment Notes Treatment Clinical Notes Mar, Cervical myelopathy (ICD-10 - G95.9) Patient's gait is good, arm strength and range of motion good. Neck is healing well he looks quite comfortable. 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 He did not get his xray as requested prior to his appointment today. I will see the patient again in September at his yearly with 1 more x-ray of the neck to ensure the hardware remains good. For his age this patient is unusually active [employer] Other 05-26-2022 Evaluation note* Encounter Date Diagnosis [...] answered questions for him and his . [employer] Other 03-08-2022 Evaluation note* Encounter Date Diagnosis [...] in diseases classified elsewhere (ICD-10 - G99.2) [employer] Other 02-17-2022 Evaluation note* Encounter Date Diagnosis [...] Spinal stenosis, cervical region (ICD-10 - M48.02) [employer] Other 12-23-2021 Evaluation note* Encounter Date Diagnosis [...] Cervical radiculopathy at C7 (ICD-10 - M54.12) [employer] Other 11-16-2021 Evaluation note* Encounter Date Diagnosis [...] dynamic neck x-ray and see him before Sara and at the new year talk about a remedy for the cervical stenosis. He understands and agrees after a thorough discussion. 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 Work Phone: Evaluation noteNo InformationNortGeisinger Jersey Shore Hospital [employer] Other evaluation note* Diagnosis Onset Date Resolution Status Arthritis of carpometacarpal (CMC) joint of left thumb acute Left hand pain acute [facility] Work Phone: Evaluation note* Diagnosis Onset Date Resolution Status Arthritis of carpometacarpal (CMC) joint of left thumb acute Left hand pain acute Hypercholesterolemia acute Hypertension acute DARRICK (obstructive sleep apnea) acute [facility] Work Phone: Evaluation note* Diagnosis Onset Date Resolution Status Hypertension acute DARRICK (obstructive sleep apnea) acute [facility] Work Phone: History general Narrative - Reported* Type Description Date Medical History hypertension Surgical History HERNIA 2004 Surgical History RIGHT SHOULDER SURGER 1979 [employer] Other History general Narrative - Reported* Type Description Date Medical History hypertension Surgical History HERNIA 2004 Surgical History RIGHT SHOULDER SURGER 1979 Surgical History PCD-Doctor Duncan Hospitalization History See Above [employer] Other Hisjjae general Narrative - Reported* Type Description Date [...] History PCD-Doctor [facility] Hospitalization History See Above [employer] Other Hishlnp general Narrative - Reported* Type Description Date [...] inguinal hernia 01/2023 Hospitalization History See Above [employer] Other Hisnacv general Narrative - Reported* Type Description Date [...] History Colonoscopy 08/2023 Hospitalization History See Above [employer] Other Hospital Discharge instructions No data available for this section General Surgery [place] Progress note No data available for this section General Surgery [place] Reason for referral (narrative)* Reason Referral for screeni ng colonoscopy Diagnosis 1 Colon cancer screeni ng (Z12.11) Referral Organization [facility] [employer] Referring Provider First Name Lyndon Referring Provider Last Name Dandy Referring Provider Specialty Internal Dc dicine Referred Organization [facility] Referred Provider Tremayne Carter Referred Address [address], [place],[address] Referred Provider Specialty Surgery Referral Priority Routine [...] labs just completed for his wellness exam. [employer] Other Reglzk for referral (narrative)* Reason Referral for suspect ed DeQuervain's Tenosynovitis Diagnosis 1 De Quervain's tenosy novitis (M65.4) Referral Organization [facility] [employer] Referring Provider First Name Lyndon Referring Provider Last Name Dandy Referring Provider Specialty Internal Dc dicine Referred Organization [facility] Referred Address [address], [place],[address] Referred Provider Specialty Orthopaedic Surgery Referral Priority Routine General Notes Mr. Weiner has faile d conservative treatment, which included NSAIDs, topical Voltaren, ice and rest. [employer] Other Renecc for visit NarrativeReferral Dr. Pranay Dorman Cervical SpondylosisNort [employer] Other Chief Complaint and Reason for Visit [...] 1 Cervical spondylolys is (M43.02) Referral Organization [facility]gery Referring Provider First Name Jovon Referring Provider Last Name Perla Referring Provider Specialty Neurologica l Surgery Referred Organization [facility] Referred Address [address], [place],[address] Referred Provider Specialty Physical The rapist Referral [...] geryrequesting order for PTpcd with fusion C3- V2oocvlm removal4 wk po PCD3 mo po PCD w/xray6 months po PCDCOVID +Refillyrly f/u PCD w/xrayf/u arm pain6 MONTH FOLLOW UP MBNo InformationrefillsNo InformationWellnessLab resultsRefillcoldNo InformationReferral (unrecognized sect ion and content) No Status Records FoundNo Status Records FoundNo Status Records Found INFORMATION SOURCE (unrecogn ized section and content) DATE CREATED AUTHOR 06/12/2022 [facility] DATE CREATED AUTHOR AUTHOR'S ORGANIZ ATION 08/11/2023 [facility] DATE CREATED AUTHOR AUTHOR'S ORGANIZ ATION 12/04/2023 [facility] y[facility]ician Group FOR RECORDS PERTAINING TO PATIENTS [...] BE BASED ON THE PRIMARY CLINICAL RECORDS. [facility] HospitalFreeChar[facility]. provides no warranty or guarantee of the accuracy or completeness of information in this document.
--- NOTE | 2024-04-28 14:00 | CA_ITS ---
Patient Name: NISHI WEINER MR#: [id number] : 1945 Exam Date: 04/28/2024 Ordering Doctor: DR KELLY DELGADO D.O. ECHOCARDIOGRAM REPORT PROCEDURE: CA ECHO DOPPLER COMPLETE INDICATIONS: Shortness of breath, hypertension, murmur COMPARISON: None. DESCRIPTION: COMPLETE ECHOCARDIOGRAM Real-time transthoracic echocardiography with 2D, M-mode, spectral and color flow Doppler performed. QUALITY: Technical quality was good. LEFT VENTRICLE: Normal chamber size. Mild concentric left ventricular hypertrophy. LV EF: Global left ventricular systolic function is normal; visually estimated ejection fraction is 55 to 60%. No significant wall motion abnormalities DIASTOLIC: Normal diastolic function. ATRIAL SEPTUM: Inadequately seen. LEFT ATRIUM: Normal chamber size. RIGHT ATRIUM: Normal chamber size. RIGHT VENTRICLE: Normal chamber size. Normal right ventricular systolic function. TRICUSPID VALVE: Normal mobility and thickness. No stenosis with trivial regurgitation. Doppler studies reveal mildly (35-45) elevated right sided pressures. RVSP 40 mmHg MITRAL VALVE: Normal mobility and thickness. No evidence of mitral valve stenosis. There is no mitral annular calcification. Trivial mitral regurgitation. AORTIC VALVE: Normal trileaflet appearance. No visible sclerosis. Normal leaflet mobility. No evidence of aortic valve stenosis. No aortic regurgitation. AORTIC ROOT: Normal diameter and appearance. Ascending aorta is normal in size. PULMONIC VALVE: Normal thickness and mobility. No stenosis. Trivial regurgitation. PERICARDIUM: No evidence of pericardial effusion. IVC: Within normal limits. CONCLUSION: 1. Global left ventricular systolic function is normal; visually estimated ejection fraction is 55 to 60% 2. Normal right ventricular size and systolic function 3. Mild left ventricular hypertrophy 4. Normal diastolic function 5. The left atrium is normal in size 6. Mildly elevated right ventricular systolic pressure; RVSP 40 mmHg 7. No significant valvular abnormalities Adult Echocardiography Procedure Report Left Ventricle LVEDD (3.7 - 5.6 cm): 4.70 cm LVESD (2.2 - 4.0 cm): 3.30 cm LVIVS thickness (0.6 - 1.2 cm): 1.20 cm LVPW thickness (0.5 - 1.0 cm): 1.26 cm e': 0.12 m/s E - e': 4.42 LVOT Max Gradient: 3.56 mm[Hg] LVOT Area (cm2): 0.94 m/s Peak Velocity (LVOT): 0.94 m/s Mean Velocity (LVOT): 0.56 m/s LVOT Diameter 2.32 cm Left Atrium Left Atrium Systolic Dimension: 4.04 cm Mitral Valve MV E to A Ratio: 0.85 Mitral Valve A-Wave Peak Velocity: 0.61 m/s Mitral Valve E-Wave Peak Velocity: 0.52 m/s Right Ventricle Aorta AO Root Diam: 3.42 cm Ascending Ao Diam: 3.44 cm Aortic Valve AoV Area (Peak Benjamin): 2.79 cm2, 2.79 cm2 AoV Area (VTI): 3.53 cm2, 3.53 cm2 Peak Velocity(Antegrade Flow): 1.42 m/s Peak Gradient(Antegrade Flow): 8.10 mm[Hg] Mean Velocity(Antegrade Flow): 0.83 m/s Mean Gradient(Antegrade Flow): 3.46 mm[Hg] Velocity Time Integral: 24.09 cm Tricuspid Valve Peak Velocity (Regurgitant Flow): 3.07 m/s, 2.83 m/s Pulmonic Valve Mean Gradient: 2.30 mm[Hg], 1.94 mm[Hg] Mean Velocity: 0.71 m/s, 0.65 m/s Peak Velocity: 0.95 m/s Peak Gradient: 3.86 mm[Hg], 3.31 mm[Hg] Right Atrium Dictated by: Harry Lawson M.D. on 04/28/2024 at 16:16 Approved by: Harry Lawson M.D. on 04/28/2024 at 16:19
== END 2024-04-28 13:46 | disposition home or self-care (01) ==
LOC: CARD 13:46
PROVIDERS: PCP Internal Medicine; Visit Provider Internal Medicine
DX: R06.02 Shortness of breath (principal); I10 Essential (primary) hypertension; E78.00 Pure hypercholesterolemia, unspecified; R01.1 Cardiac murmur, unspecified
CPT/HCPCS: 93306

== ENCOUNTER 2024-05-30 10:28 | Outpatient (OUT) | payer MEDICARE, SELFPAY ==
--- OUTSIDE RECORDS SUMMARY | 2024-05-30 10:34 | XMS_ITS | CCD ---
Author Organization [facility] Care Team Providers Care Veterinary Practice Manager Name Role Phone DO Lyndon Dorman Primary Care Provider MD Jovon Duncan Attending Provider Jovon Duncan Unavailable DO Lyndon Dorman Primary Care Provider [phone] MD Jovon Duncan Attending Provider [phone] LYNDON DORMAN Primary Care Unavailable CELINA, [...] Care Provider MD Jovon Duncan Attending Provider MD Jovon Duncan Referring Provider [phone] Lyndon Dorman Unavailable LYNDON DORMAN Primary Care Physician [phone] RAUL, Tremayne Davenport Attending Unavailable NILL, Tremayne Davenport Attending Unavailable NILL, Tremayne Davenport Attending Unavailable LYNDON DORMAN Referring Unavailable NILL, Tremayne Davenport Attending Unavailable NILL, Tremayne Davenport Attending Unavailable NILL, Tremayne Davenport Attending Unavailable NILL, Tremayne Davenport Attending Unavailable DO Lyndon Dorman Primary Care Provider [phone] MD Greta Pena Attending Provider Greta Pena Attending Unavailable Greta Pena Admitting Unavailable Lyndon Dorman Primary Care Unavailable Allergies Allergy Classification Reported Allergen(s) Allergy Type Date of Onset Reaction(s) Facility (2 sources) patient allergy list reviewed by nurse or physicia Propensity to adverse reactions 4 Comment:Done [employer] Other (1 source) No Known Medication Allergies; Translations: [No Known Medication Allergies] Propensity to adverse reactions (disorder) [facility] Repository Medications Current Medications Medication Drug Class(es) Dates Sig (Normalized) Sig (Original) azithromycin 250 mg oral tablet (2 sources) Macrolide Antimicrobial Start: 07-20-2023 Azithromycin 250 MG as directed Orally daily for 5 days Jul, Active carvedilol 6.25 mg oral tablet (4 sources) alpha-Adrenergic Moi, beta-Adrenergic Moi Start: 04-28-2024 End: 05-02-2024 take 6.25 mg by mouth twice daily at mealtime Carvedilol Active 6.25 MG PO Twice daily 180 90 May 02, 2024 11:40am must administer with a meal/food diclofenac sodium 75 mg delayed release oral tablet (20 sources) Nonsteroidal Anti-inflammatory Drug Start: 08-11-2021 End: 10-04-2023 take 75 mg by mouth twice daily Diclofenac Sodium Active 75 MG PO Twice daily 60 30 October 04, 2023 1:46pm Diclofenac 75mg Tab-DR (4 sources) Start: 03-03-2019 take 1 mg by mouth twice daily Diclofenac 75mg Tab-DR mg, Oral, BID, Refills(s) 0 Start Date: 03/03/19 Status: Ordered losartan potassium 25 mg oral tablet (20 sources) Angiotensin 2 Receptor Moi Start: 04-28-2024 End: 05-02-2024 take 25 mg by mouth twice daily Losartan Active 25 MG PO Twice daily 180 90 May 02, 2024 11:40am Start: 02-07-2024 End: 04-28-2024 take 1 tablet by mouth once daily Losartan Discontinued 0 .ROUTE .COMPLEX February 07, 2024 7:03am April 28, 2024 6:42pm TAKE 1 TABLET BY MOUTH EVERY DAY FOR 30 DAYS Start: 02-07-2024 take 1 tablet by rach th once daily Losartan Active 0 .ROUTE .COMPLEX February 07, 2024 7:03am TAKE 1 TABLET BY MOUTH EVERY DAY FOR 30 DAYS Start: 08-11-2021 End: 02-07-2024 take 25 mg by mouth once daily Losartan Discontinued 2 5 MG PO Daily October 04, 2023 1:46pm February 07, 2024 7:03am predniSONE 10 mg oral tablet (1 source) Start: 05-30-2024 Prednisone Act mariella 10 MG PO As Directed 19 04May 30, 2024 12:00am 1 tab tid w/ food x 3 days, then bid w/ food x 3 days, then qd w/ food x 3 days Completed/Discontinued Medications Medication Drug Class(es) Dates Sig (Normalized) Sig (Original) amLODIPine 5 mg oral tablet (20 sources) Dihydropyridine Calcium Channel Moi Start: 02-07-2024 End: 04-28-2024 take 1 tablet by mouth once daily Amlodipine Discontinued 0 .ROUTE .COMPLEX 90 February 07, 2024 7:03am April 28, 2024 6:41pm TAKE 1 TABLET BY MOUTH EVERY DAY Start: 03-03-2019 End: 02-07-2024 take 5 mg by mouth once daily Amlodipine Discontinued 5 MG PO Daily October 04, 2023 1:45pm February 07, 2024 7:03am atorvastatin 20 mg oral tablet (20 sources) HMG-CoA Reductase Inhibitor Start: 08-11-2021 End: 12-06-2023 take 20 mg by mouth once daily at bedtime Atorvastatin Discontinued 20 MG PO Daily at bedtime October 04, 2023 1:46pm December 06, 2023 9:21am cephalexin 500 mg oral capsule (9 sources) Cephalosporin Antibacterial Start: 09-09-2021 End: 11-30-2023 take 500 mg by mouth three times daily Cephalexin Discontinued 500 MG PO Three times daily September 09, 2021 1:00am November 30, 2023 9:56am cyclobenzaprine hydrochloride 10 mg oral tablet (9 sources) Muscle Relaxant Start: 09-09-2021 End: 11-30-2023 [...] 6:12pm oxyCODONE hydrochloride 5 mg oral tablet (9 sources) Opioid Agonist Start: 09-09-2021 End: 11-30-2023 [...] Translations: [Anxiety disorder, unspecified] Onset: 03-30-2016 Chronic Cardiac dysrhythmias (6 sources) Palpitations; Translations: [Palpitations] 03-31-2024 Episodic Chronic obstructive pulmonary disease and bronchiectasis (1 [...] region] Episodic Other aftercare (2 sources) Other long term care social worker (current) drug therapy; Translations: [OTH MASS SPEC CURRENT DRUG THERAPY] Onset: 06-11-2022 Episodic Other aftercare (2 sources) Long-term current use of drug therapy; Translations: [Other nursing home (current) drug therapy] Episodic Other connective tissue disease (2 sources) 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] Episodic Other connective tissue disease (6 sources) Hand pain; Translations: [Pain in left [...] fall; Translations: [History of falling] Episodic Other lower respiratory disease (4 sources) Dyspnea; Translations: [Other forms of dyspnea] Resolved: 06-04-2021 03-31-2024 Episodic Other lower respiratory disease (4 sources) Shortness of breath; Translations: [Shortness of breath] 03-31-2024 Episodic Other nervous system disorders (20 sources) Cervical myelopathy; Translations: [Disease of spinal cord, unspecified] 12-30-2022 Chronic Other nervous system disorders (4 sources) Disease of spinal cord, unspecified Onset: 12-25-2021 Resolved: 03-26-2022 Chronic Other non-traumatic joint disorders (1 source) Pain in left knee; Translations: [Left knee pain] 05-30-2024 Episodic Other nutritional; endocrine; and metabolic disorders (8 sources) Obesity; Translations: [Other obesity due to [...] (adult) (pediatric)] 03-03-2019 Chronic Residual codes; unclassified (8 sources) Obstructive sleep apnea (adult) (pediatric); Translations: [...] disc disorders; other back problems (20 sources) Spinal stenosis, cervical region; Translations: [Radiculopathy, [...] Cough; Translations: [Cough] Onset: 08-12-2015 Episodic Other nutritional; endocrine; and metabolic disorders [...] Test Name Value Interpretation Reference Range Facility Basophils Auto (Bld) [#/Vol] on 04-10-2024 Basophils (Bld) [#/Vol] 0.1 10 3/uL 0.0-0.1 [facility] Basophils/100 WBC Auto (Bld) on 04-10-2024 Basophils/100 WBC (Bld) 1.6 % 0.2-2.0 [facility] Eosinophils/100 WBC Auto (Bl d)on 04-10-2024 Eosinophils/100 WBC (Bld) 1.9 % 0.9-7.0 [facility] Erythrocyte distribution wid th Auto (RBC) [Ratio]on 04-10-2024 Erythrocyte distribution width (RBC) [Ratio] 13.4 % 11.0-15.0 [facility] Estimated glomerular filtrat ion rate (GFR) non- Americanon 04-10-2024 GFR/1.73 sq M.predicted among non-blacks MDRD (S/P/Bld) [Vol rate/Area] mL/min/{1.73_m2} >=60 [facility] Hematocrit Auto (Bld) [Volum e fraction]on 04-10-2024 Hematocrit (Bld) [Volume fraction] 46.4 % 42.0-54.0 [facility] Hemoglobin [Mass/volume] in Bloodon 04-10-2024 Hemoglobin (Bld) [Mass/Vol] 15.4 g/dL 14.0-18.0 [facility] Laboratory - Chemistry and C hemistry - challengeon 04-10-2024 Calcium [Mass/Vol] 9.0 mg/dL 8.5-10.1 [facility] Chloride [Moles/Vol] 103 mmol/L 98-107 [facility] CO2 [Moles/Vol] 29.7 mmol/L 21.0-32.0 [facility] Creatinine [Mass/Vol] 1.07 mg/dL 0.70-1.30 [facility] GFR/1.73 sq M.predicted MDRD (S/P/Bld) [Vol rate/Area] mL/min/{1.73_m2} >=60 [facility] Glucose [Mass/Vol] 105 mg/dL 74-106 [facility] Potassium [Moles/Vol] 4.3 mmol/L 3.5-5.1 [facility] Sodium [Moles/Vol] 139 mmol/L 136-145 [facility] TSH Qn 1.588 m[IU]/L 0.358-3.740 [facility] Urea nitrogen [Mass/Vol] 18.0 mg/dL 7.0-18.0 [facility] Urea nitrogen/Creatinine [Mass ratio] 16.8 mg/mg [facility] Laboratory - Hematology and Cell countson 04-10-2024 Immature granulocytes/100 WBC (Bld) 0.8 % High 0.0-0.5 [facility] Leukocytes [#/volume] correc gerber for nucleated erythrocytes in Blood by Automated counon 04-10-2024 WBC corrected for nucl RBC Auto (Bld) [#/Vol] 7.3 10 3/uL 4.0-11.0 [facility] Lymphocytes Auto (Bld) [#/Vo l]on 04-10-2024 Lymphocytes (Bld) [#/Vol] 1.2 10 3/uL 1.2-3.8 [facility] Lymphocytes/100 WBC Auto (Bl d)on 04-10-2024 Lymphocytes/100 WBC (Bld) 16.7 % Low 20.5-60.0 [facility] MCH Auto (RBC) [Entitic mass ]on 04-10-2024 MCH (RBC) [Entitic mass] 27.9 pg 25.9-34.0 [facility] MCHC Auto (RBC) [Mass/Vol]on 04-10-2024 MCHC (RBC) [Mass/Vol] 33.2 g/dL 29.9-35.2 [facility] MCV Auto (RBC) [Entitic vol] on 04-10-2024 MCV (RBC) [Entitic vol] 84.1 fL 80.0-94.0 [facility] Monocytes Auto (Bld) [#/Vol] on 04-10-2024 Monocytes (Bld) [#/Vol] 0.4 10 3/uL 0.3-0.8 [facility] Monocytes/100 WBC Auto (Bld) on 04-10-2024 Monocytes/100 WBC (Bld) 5.9 % 1.7-12.0 [facility] Neutrophils Auto (Bld) [#/Vo l]on 04-10-2024 Neutrophils (Bld) [#/Vol] 5.3 10 3/uL 1.4-6.5 [facility] Neutrophils/100 WBC Auto (Bl d)on 04-10-2024 Neutrophils/100 WBC (Bld) 73.1 % 43.0-75.0 [facility] No Panel Informationon 04-10 Eosinophils # (Auto) 0.1 10 3/uL 0.0-0.7 [facility] Immature Granulocyte # (Auto) 0.06 10 3/uL High 0.00-0.03 [facility] Platelet mean volume Auto (B ld) [Entitic vol]on 04-10-2024 Platelet mean volume (Bld) [Entitic vol] 9.4 fL Low 9.5-13.5 [facility] Platelets Auto (Bld) [#/Vol] on 04-10-2024 Platelets (Bld) [#/Vol] 239 10 3/uL 150-450 [facility] RBC Auto (Bld) [#/Vol]on RBC (Bld) [#/Vol] 5.52 10 6/uL 4.70-6.10 [facility] Serum or plasma anion gap de terminationon 04-10-2024 Anion gap [Moles/Vol] 10.6 mmol/L [facility] XR hand LT min 3V*on 024 XR hand LT min 3V* [facility] [address] [place] [address] XRay Report Signed Patient: Brent Weiner MR#: [id number] : 1945 Acct:[id number] Age/Sex: 77 / M ADM Date: 11/30/23 Loc: [facility] Room: Type: [facility] Attending Dr: Greta Pena MD Copies to: [...] Kervin Marshall M.D.11/30/2023 1:39 PM Dictation Location: [place] [address] Transcribed By: [facility] 11/30/23 1339 Dictated By: Kervin Marshall DO 11/30/23 1335 Signed By: 11/30/23 1339 Normal [facility] Ambulatory Visit Summaryon 0 08-10-2023 Ambulatory Visit Summary BRENT WEINER :1945 Visit Date:08/10/2023 Ambulatory Visit Instructions Your [...] for choosing us for your care. Normal [facility] General Surgery Office/Clini c Noteon 08-10-2023 General [...] Recorded SARS-CoV-2 (COVID-19) mRNA-1273 vaccine 09/19/2020 Recorded [facility] Comment on above: Result Comment: Elec tronically Signed By: RAUL ZUNIGA, Tremayne Arzola\Date and Time Signed: 08/10/23 13:14 EST Pathology Noteon 08-04-2023 Pathology Note [id number]#1.00TIF F [facility] Outside Colonoscopyon 2023 Outside Colonoscopy [id number]#1.00TIF F [facility] Consent for Procedure/Surger yon 07-14-2023 Consent for Procedure/Surgery [id number]#1.00TI FF [facility] Insurance Correspondenceon 1 09-14-2022 Insurance Correspondence [id number]#1.00TI FF [facility] Ambulatory Visit Summaryon 1 09-13-2022 Ambulatory [...] for choosing us for your care. Normal [facility] Physician Referralon 023 Physician Referral [id number]#1.00TIF F Normal [facility] Ambulatory Visit Summaryon 0 02-24-2023 Ambulatory [...] Generalised osteoarthritis Obstructive sleep apnea Tinnitus Normal [facility] General Surgery Office/Clini c Noteon 02-24-2023 [...] (COVID-19) mRNA-1273 vaccine 09/19/2020 Recorded Normal [facility] Comment on above: Result Comment: Elec tronically Signed By: RAUL ZUNIGA, Tremayne Davenport\.br\Date and Time Signed: 02/24/23 15:04 EDT Ambulatory [...] Follow-Up Appointments Wednesday 1:40 PM EDT With: RAUL ZUNIGA, Tremayne Davenport Where: General Surgery Raul/Veto Yamila [facility] General Surgery Office/Clini c Noteon [...] (COVID-19) mRNA-1273 vaccine 09/19/2020 Recorded Normal [facility] Comment on above: Result Comment: Elec tronically Signed By: RAUL ZUNIGA, Tremayne Arzola\Date and Time Signed: 02/10/23 16:33 EDT Provider Letteron 02-10-2023 Provider Letter (Inserted Image. Lisa ble to display) February 10, 2023 BRENT WEINER [address] [place] [address] : 1945 To Whom It May Concern, Please excuse above patient from work until March 02, 2023. Sincerely, Dr. Tremayne Carter MD General Surgery [facility] Operative Reporton Operative Report [id number]#1.00CD: 127 [facility] ECG 12-Leadon 01-26-2023 ECG 12-Lead [id number]#1.00CD: 127 [facility] Pre-Certification Formon Pre-Certification Form [id number]#1.00CD :127 [facility] Consent for Procedure/Surger yon 01-14-2023 Consent for Procedure/Surgery [id number]#1.00CD:1 27 [facility] Ambulatory Visit Summaryon 0 01-13-2023 Ambulatory Visit Summary BRENT WEINER :1945 Visit Date:01/13/2023 Ambulatory Visit Instructions Your Care Team Attending Physician - RAUL ZUNIGA, Tremayne Davenport Primary Care Physician - DANDY ADAMS, LYNDON This Is Your Medications List Contact [...] Generalised osteoarthritis Obstructive sleep apnea Tinnitus Normal [facility] Physician Referralon 023 Physician Referral [id number]#1.00CD: 127 Normal [facility] CBC AUTO DIFFon 06-05-2022 BASO # 0.2 103/ul Critically high 0.0-0.1 [facility] Comment on above: Performed By: #### C BC #### [facility] [address] [place] [address] Dr. Nirmal Abernathy Basophils/100 WBC (Bld) 3.4 % Critically high 0.2-2.0 [facility] Comment on above: Performed By: #### C BC #### [facility] [address] [place] [address] Dr. Nirmal Abernathy EO # 0.2 103/ul Normal 0.0-0.7 [facility] Comment on above: Performed By: #### C BC #### [facility] [address] [place] [address] Dr. Nirmal Abernathy Eosinophils/100 WBC (Bld) 3.9 % Normal 0.9-7.0 [facility] Comment on above: Performed By: #### C BC #### [facility] [address] [place] [address] Dr. Nirmal Abernathy Erythrocyte distribution width (RBC) [Ratio] 13.4 % Normal 11.0-15.0 [facility] Comment on above: Performed By: #### C BC #### [facility] [address] [place] [address] Dr. Nirmal Abernathy Hematocrit (Bld) [Volume fraction] 43.7 % Normal 42.0-54.0 [facility] Comment on above: Performed By: #### C BC #### [facility] [address] [place] [address] Dr. Nirmal Abernathy Hemoglobin (Bld) [Mass/Vol] 14.1 g/dL Normal 14.0-18.0 [facility] Comment on above: Performed By: #### C BC #### [facility] [address] [place] [address] Dr. Nirmal Abernathy IG # 0.04 10e3/ul Critically high 0.00-0.03 [facility] Comment on above: Performed By: #### C BC #### [facility] [address] [place] [address] Dr. Nirmal Abernathy IG % 0.7 % Critically high 0.0-0.5 [facility] Comment on above: Performed By: #### C BC #### [facility] [address] [place] [address] Dr. Nirmal Abernathy LYMPH # 1.4 103/ul Normal 1.2-3.8 [facility] Comment on above: Performed By: #### C BC #### [facility] [address] [place] [address] Dr. Nirmal Abernathy Lymphocytes/100 WBC (Bld) 22.9 % Normal 20.5-60.0 [facility] Comment on above: Performed By: #### C BC #### [facility] [address] [place] [address] Dr. Nirmal Abernathy MANUAL DIFF REQ NO Normal [facility] Comment on above: Performed By: #### C BC #### [facility] [address] [place] [address] Dr. Nirmal Abernathy MCH (RBC) [Entitic mass] 27.0 pg Normal 25.9-34.0 [facility] Comment on above: Performed By: #### C BC #### [facility] [address] [place] [address] Dr. Nirmal Abernathy MCHC (RBC) [Mass/Vol] 32.3 g/dL Normal 29.9-35.2 [facility] Comment on above: Performed By: #### C BC #### [facility] [address] [place] [address] [address] Nirmal Abernathy MCV (RBC) [Entitic vol] 83.7 fL Normal 80.0-94.0 [facility] Comment on above: Performed By: #### C BC #### [facility] [address] [place] [address] [address] Nirmal Abernathy MONO # 0.5 103/ul Normal 0.3-0.8 [facility] Comment on above: Performed By: #### C BC #### [facility] [address] [place] [address] Dr. Nirmal Abernathy Monocytes/100 WBC (Bld) 8.1 % Normal 1.7-12.0 [facility] Comment on above: Performed By: #### C BC #### [facility] [address] [place] [address] Dr. Nirmal Abernathy NEUT # 3.6 103/ul Normal 1.4-6.5 [facility] Comment on above: Performed By: #### C BC #### [facility] [address] [place] [address] Dr. Nirmal Abernathy Neutrophils/100 WBC (Bld) 61.0 % Normal 43.0-75.0 [facility] Comment on above: Performed By: #### C BC #### [facility] [address] [place] [address] Dr. Nirmal Abernathy Platelet mean volume (Bld) [Entitic vol] 9.1 fL Critically low 9.5-13.5 [facility] Comment on above: Performed By: #### C BC #### [facility] [address] [place] [address] Dr. Nirmal Abernathy PLT 258 103/ul Normal 150-450 [facility] Comment on above: Performed By: #### C BC #### [facility] [address] [place] [address] Dr. Nirmal Abernathy RBC 5.22 106/ul Normal 4.70-6.10 [facility] Comment on above: Performed By: #### C BC #### [facility] [address] [place] [address] [address] Nirmal Abernathy WBC 5.9 103/ul Normal 4.0-11.0 [facility] Comment on above: Performed By: #### C BC #### [facility] [address] [place] [address] [address] Nirmal Abernathy LIPID PROFILEon 06-05-2022 CHOL-HDL RATIO NORM SEE BELOW Normal [facility] Comment on above: Result Comment: 3.3 - 4.4 LOW RISK 4.4 - 7.1 AVERAGE RISK 7.1 - 11.0 MODERATE RISK >11.0 HIGH RISK Performed By: #### B MP, LIPID, ALT #### [facility] [address] [place] [address] [address] Nirmal Abernathy Cholesterol [Mass/Vol] 164 mg/dL Normal <=200 [facility] Comment on above: Performed By: #### B MP, LIPID, ALT #### [facility] [address] [place] [address] [address] Nirmal Abernathy Cholesterol in HDL [Mass/Vol] 58 mg/dL Normal 40-60 [facility] Comment on above: Performed By: #### B MP, LIPID, ALT #### [facility] [address] [place] [address] [address] Nirmal Abernathy Cholesterol in LDL [Mass/Vol] 94.0 mg/dL Normal [facility] Comment on above: Performed By: #### B MP, LIPID, ALT #### [facility] [address] [place] [address] [address] Nirmal Abernathy Cholesterol.total/Ch olesterol in HDL [Mass ratio] 2.8 {ratio} Normal [facility] Comment on above: Performed By: #### B MP, LIPID, ALT #### [facility] [address] [place] [address] [address] Nirmal Abernathy HDL NORMAL > or = 60 mg/dl - LO W CARDIOVASCULAR RISK <40 mg/dl - HIGH CARDIOVASCULAR RISK Normal [facility] Comment on above: Performed By: #### B MP, LIPID, ALT #### [facility] [address] [place] [address] [address] Nirmal Abernathy LDL CALC NORMAL SEE BELOW Normal [facility] Comment on above: Result Comment: <100 mg/dl OPTIMAL 100 - 129 mg/dl NEAR OR ABOVE OPTIMAL 130 - 159 mg/dl BORDERLINE HIGH 160 - 189 mg/dl HIGH >190 mg/dl VERY HIGH Performed By: #### B MP, LIPID, ALT #### [facility] [address] [place] [address] [address] Nirmal Abernathy Triglyceride [Mass/Vol] 60 mg/dL Normal <=150 [facility] Comment on above: Performed By: #### B MP, LIPID, ALT #### [facility] [address] [place] [address] [address] Nirmal Abernathy VLDL CALC 12.0 mg/dL Normal [facility] Comment on above: Performed By: #### B MP, LIPID, ALT #### [facility] [address] [place] [address] [address] Nirmal Abernathy PROF CHEM 8 (BAS METB)on Anion gap [Moles/Vol] 6.3 mmol/L Normal [facility] Comment on above: Performed By: #### B MP, LIPID, ALT #### [facility] [address] [place] [address] [address] Nirmal Abernathy Calcium [Mass/Vol] 9.0 mg/dL Normal 8.5-10.1 [facility] Comment on above: Performed By: #### B MP, LIPID, ALT #### [facility] [address] [place] [address] [address] Nirmal Abernathy Chloride [Moles/Vol] 105 mmol/L Normal 98-107 [facility] Comment on above: Performed By: #### B MP, LIPID, ALT #### [facility] [address] [place] [address] Dr. Nirmal Abernathy CO2 [Moles/Vol] 31.0 mmol/L Normal 21.0-32.0 [facility] Comment on above: Performed By: #### B MP, LIPID, ALT #### [facility] [address] [place] [address] [address] Nirmal Abernathy Creatinine [Mass/Vol] 1.12 mg/dL Normal 0.70-1.30 [facility] Comment on above: Performed By: #### B MP, LIPID, ALT #### [facility] [address] [place] [address] [address] Nirmal Abernathy EGFR-AF CITIZEN [place] >60 Normal >=60 [facility] Comment on above: Performed By: #### B MP, LIPID, ALT #### [facility] [address] [place] [address] [address] Nirmal Abernathy EGFR-NON AF CITIZEN [place] >60 Normal >=60 [facility] Comment on above: Performed By: #### B MP, LIPID, ALT #### [facility] [address] [place] [address] [address] Nirmal Abernathy Glucose [Mass/Vol] 99 mg/dL Normal 74-106 [facility] Comment on above: Performed By: #### B MP, LIPID, ALT #### [facility] [address] [place] [address] Dr[address] Nirmal Abernathy Potassium [Moles/Vol] 4.3 mmol/L Normal 3.5-5.1 [facility] Comment on above: Performed By: #### B MP, LIPID, ALT #### [facility] [address] [address] [address] Nirmal Abernathy Sodium [Moles/Vol] 138 mmol/L Normal 136-145 [facility] Comment on above: Performed By: #### B MP, LIPID, ALT #### [facility] [address] [address] [address] Nirmal Abernathy Urea nitrogen [Mass/Vol] 19.0 mg/dL Critically high 7.0-18.0 [facility] Comment on above: Performed By: #### B MP, LIPID, ALT #### [facility] [address] [address] [address] Nirmal Abernathy Urea nitrogen/Creatinine [Mass ratio] 17.0 mg/mg Normal [facility] Comment on above: Performed By: #### B MP, LIPID, ALT #### [facility] [address] [address] [address] Nirmal Abernathy SGPTon 06-05-2022 ALT [Catalytic activity/Vol] 32 U/L Normal 16-63 [facility] Comment on above: Performed By: #### B MP, LIPID, ALT #### [facility] [address] [place] [address] Dr. Nirmal Abernathy LIPID PROFILEon 09-03-2021 CHOL-HDL RATIO NORM SEE BELOW Normal [facility] Comment on above: Result Comment: 3.3 - 4.4 LOW RISK 4.4 - 7.1 AVERAGE RISK 7.1 - 11.0 MODERATE RISK >11.0 HIGH RISK Performed By: #### L IPID, ALT #### [facility] [address] [place] [address] Dr. Nirmal Abernathy Cholesterol [Mass/Vol] 137 mg/dL Normal <=200 [facility] Comment on above: Performed By: #### L IPID, ALT #### [facility] [address] [place] [address] Dr. Nirmal Abernathy Cholesterol in HDL [Mass/Vol] 51 mg/dL Normal [facility] Comment on above: Performed By: #### L IPID, ALT #### [facility] [address] [place] [address] Dr. Nirmal Abernathy Cholesterol in LDL [Mass/Vol] 69.6 mg/dL Normal [facility] Comment on above: Performed By: #### L IPID, ALT #### [facility] [address] [place] [address] Dr. Nirmal Abernathy Cholesterol.total/Ch olesterol in HDL [Mass ratio] 2.7 {ratio} Normal [facility] Comment on above: Performed By: #### L IPID, ALT #### [facility] [address] [place] [address] Dr. Nirmal Abernathy HDL NORMAL > or = 60 mg/dl - LO W CARDIOVASCULAR RISK <40 mg/dl - HIGH CARDIOVASCULAR RISK Normal [facility] Comment on above: Performed By: #### L IPID, ALT #### [facility] [address] [place] [address] Dr. Nirmal Abernathy LDL CALC NORMAL SEE BELOW Normal [facility] Comment on above: Result Comment: <100 mg/dl OPTIMAL 100 - 129 mg/dl NEAR OR ABOVE OPTIMAL 130 - 159 mg/dl BORDERLINE HIGH 160 - 189 mg/dl HIGH >190 mg/dl VERY HIGH Performed By: #### L IPID, ALT #### [facility] [address] [address] [address] Nirmal Abernathy Triglyceride [Mass/Vol] 82 mg/dL Normal <=150 [facility] Comment on above: Performed By: #### L IPID, ALT #### [facility] [address] [address] [address] Nirmal Abernathy VLDL CALC 16.4 mg/dL Normal [facility] Comment on above: Performed By: #### L IPID, ALT #### [facility] [address] [address] [address] Nirmal Abernathy [facility] 09-03-2021 ALT [Catalytic activity/Vol] 39 U/L Normal [facility] Comment on above: Performed By: #### L IPID, ALT #### [facility] [address] [address] [address] Nirmal Abernathy Vital Signs Date Time Vital Sign Value Performing Clinician Facility 05-30-2024 09:28040 Body height 180.34 cm [facility] 05-30-2024 09:280400 Body mass index (BMI) [Ratio] 30.4 kg/m2 [facility] 05-30-2024 09:0400 Body weight 98.99 kg [facility] 05-30-2024 [id number]:[id number] Diastolic blood pressure 88 mm[Hg] [facility] 05-30-2024 09:28-0400 Heart rate 57 /min [facility] 05-30-2024 09:0400 Respiratory rate 12 /min [facility] 05-30-2024 09:[id number] Systolic blood pressure 158 mm[Hg] [facility] 05-23-2024 14:290400 Body height 180.34 cm [facility] 05-23-2024 14:29-0400 Body mass index (BMI) [Ratio] 30.4 kg/m2 [facility] 05-23-2024 14:29-0400 Body weight 98.93 kg [facility] 05-23-2024 14:29-0400 Diastolic blood pressure 80 mm[Hg] [facility] 05-23-2024 14:29-0400 Heart rate 58 /min [facility] 05-23-2024 14:29-0400 Respiratory rate 12 /min [facility] 05-23-2024 14:29-0400 Systolic blood pressure 137 mm[Hg] [facility] 05-18-2024 15:55-0400 Diastolic blood pressure 80 mm[Hg] [facility] 05-18-2024 15:55-0400 Heart rate 64 /min [facility] 05-18-2024 15:55-0400 Systolic blood pressure 130 mm[Hg] [facility] 03-31-2024 10:22-0400 Body height 180.34 cm [facility] 03-31-2024 10:22-0400 Body mass index (BMI) [Ratio] 27.6 kg/m2 [facility] 03-31-2024 10:22-0400 Body weight 89.81 kg [facility] 03-31-2024 10:22-0400 Diastolic blood pressure 79 mm[Hg] [facility] 03-31-2024 10:22-0400 Heart rate 57 /min [facility] 03-31-2024 10:22-0400 Respiratory rate 12 /min [facility] 03-31-2024 10:22-0400 Systolic blood pressure 135 mm[Hg] [facility] 12-06-2023 08:57-0400 Body height 180.34 cm DO Lyndon Ball Work Phone: [facility] 12-06-2023 08:57-0400 Body mass index (BMI) [Ratio] 30.3 kg/m2 DO Lyndon Ball Work Phone: [facility] 12-06-2023 08:57-0400 Body weight 98.59 kg DO Lyndon Ball Work Phone: [facility] 12-06-2023 08:57-0400 Diastolic blood pressure 84 mm[Hg] DO Lyndon Ball Work Phone: [facility] 12-06-2023 08:57-0400 Heart rate 56 /min DO Lyndon Ball Work Phone: [facility] 12-06-2023 08:57-0400 Respiratory rate 12 /min DO Lyndon Ball Work Phone: [facility] 12-06-2023 08:57-0400 Systolic blood pressure 150 mm[Hg] DO Lyndon Ball Work Phone: [facility] 07-13-2023 13:56-0500 Blood Pressure Location Tremayne NILL [facility] 07-13-2023 13:56-0500 Diastolic blood pressure 82 mm[Hg] Tremayne NILL [facility] 07-13-2023 13:56-0500 Heart rate 74 /min Tremayne NILL [facility] 07-13-2023 13:56-0500 Respiratory rate 16 /min Tremayne NILL [facility] 07-13-2023 13:56-0500 Systolic blood pressure 124 mm[Hg] Tremayne NILL [facility] 06-07-2023 09:00-0500 Body height 180.34 cm Lyndon Ball Other [facility] [employer] Other 06-07-2023 09:00-0500 Body mass index (BMI) [Ratio] 30.23 kg/m2 Lyndon Ball Other [employer] [facility] [employer] Other 06-07-2023 09:00-0500 Body weight 98.34 kg Lyndon Ball Other [employer] [facility] [employer]. Other 06-07-2023 09:00-0500 Diastolic blood pressure 88 mm[Hg] Lyndon Ball Other [employer] Other 06-07-2023 09:00-0500 Respiratory rate 12 /min Lyndon Ball Other [employer] Other 06-07-2023 09:00-0500 Systolic blood pressure 138 mm[Hg] Lyndon Ball Other [employer] Other 01-13-2023 15:25-0400 Blood Pressure Location [facility] 01-13-2023 15:25-0400 Diastolic blood pressure 74 mm[Hg] Tremayne NILL [facility] 01-13-2023 15:25-0400 Heart rate 72 /min Tremanye NILL [facility] 01-13-2023 15:25-0400 Respiratory rate 16 /min Tremayne NILL [facility] 01-13-2023 15:25-0400 Systolic blood pressure 118 mm[Hg] Tremayne NILL [facility] 12-04-2022 09:30-0400 Body height 180.34 cm Lyndon Ball Other [employer] Other 12-04-2022 09:30-0400 Body mass index (BMI) [Ratio] 30.71 kg/m2 Lyndon Ball Other [employer] Other 12-04-2022 09:30-0400 Body weight 99.88 kg Lyndon Ball Other [employer] Other 12-04-2022 09:30-0400 Diastolic blood pressure 77 mm[Hg] Lyndon Ball Other [employer] Other 12-04-2022 09:30-0400 Respiratory rate 12 /min Lyndon Ball Other [employer] Other 12-04-2022 09:30-0400 SaO2% (BldA) [Mass fraction] 98 % Lyndon Ball Other [employer] Other 12-04-2022 09:30-0400 Systolic blood pressure 137 mm[Hg] Lyndon Ball Other [employer] Other 10-29-2022 11:20-0400 Body height 180.34 cm Jovon Duncan Other [employer] Other 10-29-2022 11:20-0400 Body mass index (BMI) [Ratio] 29.98 kg/m2 Jovon Duncan Other [employer] Other 10-29-2022 11:20-0400 Body weight 97.52 kg Jovon Duncan Other [employer] Other 09-17-2022 11:20-0500 Body height 180.34 cm Jovon Duncan Other [employer] Other 09-17-2022 11:20-0500 Body mass index (BMI) [Ratio] 29.98 kg/m2 Jovon Duncan Other [employer] Other 09-17-2022 11:20-0500 Body weight 97.52 kg Jovon Duncan Other [employer] Other 09-17-2022 11:20-0500 Respiratory rate 18 /min Jovon Duncan Other [employer] Other 03-26-2022 11:20-0400 Body height 180.34 cm Jovon Duncan Other [employer] Other 03-26-2022 11:20-0400 Body mass index (BMI) [Ratio] 27.33 kg/m2 Jovon Duncan Other [employer] Other 03-26-2022 11:20-0400 Body weight 88.91 kg Jovon Duncan Other [employer] Other 12-25-2021 10:40-0400 Body height 180.34 cm Jovon Duncan Other [employer] Other 12-25-2021 10:40-0400 Body mass index (BMI) [Ratio] 27.33 kg/m2 Jovon Duncan Other [employer] Other 12-25-2021 10:40-0400 Body weight 88.91 kg Jovon Duncan Other [employer] Other 10-07-2021 14:00-0500 Body height 180.34 cm Jovon Duncan Other [employer] Other 10-07-2021 14:00-0500 Body mass index (BMI) [Ratio] 27.89 kg/m2 Jovon Duncan Other [employer] Other 10-07-2021 14:00-0500 Body weight 90.72 kg Jovon Duncan Other [employer] Other 09-18-2021 14:00-0500 Body height 180.34 cm Jovon Duncan Other [employer] Other 09-18-2021 14:00-0500 Body mass index (BMI) [Ratio] 27.89 kg/m2 Jovon Duncan Other [employer] Other 09-18-2021 14:00-0500 Body weight 90.72 kg Jovon Duncan Other [employer] Other 07-24-2021 10:40-0500 Body height 180.34 cm Jovon Duncan Other [employer] Other 07-24-2021 10:40-0500 Body mass index (BMI) [Ratio] 27.89 kg/m2 Jovon Duncan Other [employer] Other 07-24-2021 10:40-0500 Body weight 90.72 kg Jovon Duncan Other [employer] Other 06-17-2021 11:40-0500 Body height 180.34 cm Jovon Duncan Other [employer] Other 06-17-2021 11:40-0500 Body mass index (BMI) [Ratio] 27.89 kg/m2 Jovon Duncan Other [employer] Other 06-17-2021 11:40-0500 Body weight 90.72 kg Jovon Duncan Other [employer] Other 06-17-2021 11:40-0500 Diastolic blood pressure 71 mm[Hg] Jovon Duncan Other [employer] Other 06-17-2021 11:40-0500 Systolic blood pressure 130 mm[Hg] Jovon Duncan Other [employer] Other Encounters Encounter Date Encounter Type Care Provider Facility Start: 05-30-2024 End: 05-30-2024 ambulatory [facility] Work Phone: Start: 05-30-2024 End: 05-30-2024 Patient encounter procedure [facility] Work Phone: Start: 05-23-2024 End: 05-23-2024 ambulatory [facility] Work Phone: Start: 05-23-2024 End: 05-23-2024 Patient encounter procedure [facility] Physician [facility] Work Phone: Start: 05-18-2024 Non-patient / Non-visit [facility] Physician [facility] Work Phone: Start: 04-20-2024 Non-patient / Non-visit [facility] Physician [facility] Work Phone: Start: 04-10-2024 Non-patient / Non-visit [facility] Physician [facility] Work Phone: Start: 03-31-2024 End: 03-31-2024 ambulatory [facility] Work Phone: Start: 03-31-2024 End: 03-31-2024 Patient encounter procedure [facility] Work Phone: Start: 12-06-2023 End: 12-06-2023 ambulatory DO Lyndon Ball Work Phone: [facility] Work Phone: Start: 12-06-2023 End: 12-06-2023 Patient encounter procedure DO Lyndon Ball Work Phone: [facility] Physician [facility] Work Phone: Start: 11-30-2023 End: 11-30-2023 ambulatory Greta Pena Facility:[facility] Start: 11-30-2023 End: 11-30-2023 ambulatory DO Lyndon Ball Work Phone: [facility] Work Phone: Start: 11-30-2023 End: 11-30-2023 Patient encounter procedure DO Lyndon Ball Work Phone: [facility] Physician [facility] Work Phone: Start: 10-04-2023 Non-patient / Non-visit DO Pranay Dorman Work Phone: [facility] [employer] Work Phone: Start: 08-11-2023 End: 08-11-2023 ambulatory Lyndon Dorman Other [employer] [employer] Other Start: 08-11-2023 Telephone encounter Lyndon Dorman [facility] Start: 08-10-2023 End: 08-11-2023 ambulatory Tremayne R NILL Facility:[facility] Start: 08-10-2023 End: 08-10-2023 Patient encounter procedure Tremayne R NILL [facility] N[facility] Start: 08-05-2023 End: 08-05-2023 ambulatory Lyndon Domran Other [facility] [employer] Other Start: 08-05-2023 Telephone encounter Lyndon Dorman [facility] Start: 07-28-2023 End: 07-29-2023 ambulatory Tremayne R NILL Facility:[id number] Start: 07-20-2023 End: 07-20-2023 ambulatory Lyndon Dorman Other [employer] Other Start: 07-20-2023 Office outpatient vi sit 15 minutes Lyndon Dorman [facility] Start: 07-13-2023 End: 07-14-2023 ambulatory LYNDON DORMAN Facility:[facility] Start: 07-13-2023 End: 07-13-2023 Patient encounter procedure Tremayne R NILL General Surgery Nill/[facility] Start: 06-18-2023 End: 06-18-2023 ambulatory Lyndon Dorman Other [employer] [employer] Other Start: 06-18-2023 Telephone encounter Lyndon Dorman [facility] Start: 06-08-2023 End: 06-08-2023 ambulatory Lyndon Dorman Other [employer] Other Start: 06-08-2023 Telephone encounter Lyndon Guardado [facility] Start: 06-07-2023 End: 06-07-2023 ambulatory Lyndon Dorman Other [employer] Other Start: 06-07-2023 Patient encounter procedure Lyndon Dorman [facility] Start: 04-20-2023 End: 04-20-2023 ambulatory Lyndon Dorman Other [employer] Other Start: 04-20-2023 Telephone encounter Lyndon Dorman [facility] Start: 04-19-2023 End: 04-19-2023 ambulatory Lyndon Dorman Other [employer] Other Start: 04-19-2023 Telephone encounter Lyndon Guardado [facility] Start: 02-24-2023 End: 02-25-2023 ambulatory Tremayne R NILL Facility:[facility] Start: 02-24-2023 End: 02-24-2023 Patient encounter procedure Tremayne R NILL [facility] Nill/[facility] Start: 02-10-2023 End: 02-11-2023 ambulatory Tremayne R NILL Facility:[facility] Start: 02-04-2023 End: 02-04-2023 ambulatory Lyndon Dorman Other [employer] Other Start: 02-04-2023 Telephone encounter Lyndon SAWANT [facility] Start: 02-03-2023 End: 02-04-2023 ambulatory Tremayne R NILL Facility:[id number] Start: 01-13-2023 End: 01-14-2023 ambulatory Tremayne R NILL Facility:[facility] Start: 01-13-2023 End: 01-13-2023 Patient encounter procedure Tremayne R NILL [facility] Nill/[facility] Start: 12-04-2022 End: 12-04-2022 ambulatory Lyndon Dorman Other [employer] Other Start: 12-04-2022 Office outpatient vi sit 25 minutes Lyndon Dorman [facility] Start: 10-29-2022 End: 10-29-2022 ambulatory Jovon Duncan Other [employer] Other Start: 10-29-2022 Office outpatient vi sit 15 minutes Jovon Duncan [facility] Start: 09-17-2022 Office outpatient vi sit 15 minutes Jovon Duncan [facility] Start: 09-17-2022 End: 09-17-2022 ambulatory DO Lyndon Dorman Work Phone: [facility] Work Phone: Start: 09-17-2022 End: 09-17-2022 Patient encounter procedure DO Lyndon Dandy Work Phone: [facility] [place] Work Phone: Start: 08-17-2022 End: 08-17-2022 ambulatory Lyndon Dorman Other [employer] Other Start: 08-17-2022 Telephone encounter Lyndon Dorman [facility] Start: 08-06-2022 ([facility] VCS) [facility] Scheduled Lyndon Dorman [facility] Start: 08-06-2022 End: 08-06-2022 ambulatory Lyndon Dorman Other [employer] Other Start: 06-05-2022 Adult health examination Lyndon Dorman Other [employer] Other Start: 06-05-2022 End: 06-06-[address] LYNDON DORMAN Facility: Start: 03-26-2022 End: 03-26-2022 ambulatory Jovon Duncan Other [employer] Other Start: 03-26-2022 Office outpatient vi sit 15 minutes Jovon Duncan [facility] Start: 03-26-2022 End: 03-26-2022 Patient encounter procedure DO Lyndon Dorman Work Phone: [facility] Start: 12-25-2021 End: 12-25-2021 ambulatory Jovon Duncan Other [employer] Other Start: 12-25-2021 Office outpatient vi sit 15 minutes Jovon Duncan [facility] Start: 12-25-2021 End: 12-25-2021 Patient encounter procedure DO Lyndon Dorman Work Phone: [facility] Start: 10-27-2021 End: 11-01-[address] LYNDON DORMAN Facility: Start: 10-24-2021 End: 10-24-2021 ambulatory Jovon Duncan Other [employer] Other Start: 10-24-2021 Telephone encounter Jovon Duncan [facility] Start: 10-07-2021 End: 10-07-2021 ambulatory Jovon Duncan Other [employer] [facility] [employer] Other Start: 10-07-2021 Postop follow up vis it related to original px Jovon Duncan [facility] Start: 10-07-2021 End: 10-07-2021 Patient encounter procedure DO Lyndon Dorman Work Phone: [facility] Start: 09-18-2021 End: 09-18-2021 ambulatory Jovon Duncan Other [employer] [facility] [employer] Other Start: 09-18-2021 Postop follow up vis it related to original px Jovon Duncan [facility] Start: 09-08-2021 Admission to same [facility] Jovon Duncan [facility] Start: 09-08-2021 End: 09-08-2021 ambulatory Jovon Duncan Other [employer] Other Start: 09-03-2021 End: 09-04-[address] LYNDON DORMAN Facility:[facility] Start: 08-01-[address] LYNDON DORMAN Facili ty:[facility] Start: 07-24-2021 End: 07-24-2021 ambulatory Jovon Duncan Other [facility] [employer] Other Start: 07-24-2021 Office outpatient vi sit 40 minutes Jovon Duncan [facility] Start: 07-08-2021 End: 07-09-[address] LYNDON DORMAN Facility:[facility] Start: 06-17-2021 End: 06-17-2021 ambulatory Jovno Duncan Other [employer] Other Start: 06-17-2021 Office outpatient ne w 30 minutes Jovon Duncan [facility] Procedures Date Procedure Procedure Detail Performing Clinician Start: 11-30-2023 Plain X-ray of left hand DO Lyndon Dorman Work Phone: Start: 07-28-2023 Colonoscopy Tremayne NI LL Start: 07-28-2023 Excision of cyst Michae l NILL Comment on above: upper back Start: 02-03-2023 Repair of right ingu inal hernia Tremayne NILL Start: 09-17-2022 X-ray of cervical spine DO Lyndon Dorman Work Phone: Start: 06-05-[address] RUSS DORMAN Comment on above: Performed By: #### P [facility] #### [facility] [address] [place] [address] Dr. Nirmal Abernathy Start: 03-26-2022 X-ray of [...] Tremayne NI LL Arthroscopy of shoulder Chaparro aeswathi NILL Depression screening Kamilla Dorman Other History of surgical procedure on cervical spine Tremayne NILL Pre-surgery evaluation Jovon Duncan Other Repair of left ingui nal hernia Tremayne NILL Screening for malign ant neoplasm of prostate Lyndon Dorman Other Plan of Treatment Date Care Activity Detail Author Start: 11-30-2023 Plain X-ray of left hand XR hand LT min 3V* [facility] Start: 11-30-2023 XR Hand - left GE 3 Views [facility] Holter monitor study [facility] XR Chest 2 Views [facility] XR Knee - left 4 Views [facility] Immunizations Immunization Date Immunization Notes Care Provider Genevieve ross 07-08-2021 COVID-19 mRNA-1273 (Moderna) DO Lyndon Dorman Work Phone: [facility] 10-15-2020 COVID-19 mRNA-1273 (Moderna) DO Lyndon Dorman Work Phone: [facility] 09-19-2020 COVID-19 mRNA-1273 (Moderna) DO Lyndon Dorman Work Phone: [facility] 05-24-2017 diphtheria, tetanus toxoids and acellular pertussis vaccine, unspecified formulation Lyndon Dorman Other [facility] 05-24-2017 pneumococcal polysaccharide vaccine, 23 valent Lyndon Dorman Other [facility] 03-30-2016 pneumococcal conjuga te vaccine, 13 valent Lyndon Dorman Other [facility] 03-30-2016 pneumococcal Conjugate, unspecified formulation; Translations: [Need for prophylactic vaccination against Streptococcus pneumoniae (pneumococcus)] Lyndon Dorman Other [employer] Other NEGATED: Highlighted row has not occurred!07-13-2023 influenza virus vaccine, unspecified formulation Tremayne DEANSwathi [facility] Payers Date Payer Category Payer Self-pay [id number] 1957 Medicare [id number] 50 [id number] 1957 Self-pay [id number] 1945 Unknown [id number] 2.16.84 [id number] 1945 Unknown [id number] 2.16.84 [id number] 1945 Unknown [id number] 2.16.84 [id number] 1945 Unknown [id number] 2.16.84 [id number] 1945 Unknown [id number] 2.16.8 [id number] 1945 Unknown [id number] 2.16.8 [id number] 1945 Unknown [id number] 2.16.8 [id number] 1945 Unknown [id number] 2.16.8 [id number] 1945 Unknown [id number] 2.16.8 [id number] 1945 Unknown [id number] 2.16.8 [id number] 1945 Unknown [id number] 2.16.8 [id number] Medicare Medicare [id number] Unknown [id number] 2.16.84 [id number] Unknown [id number] 2.16.8 [id number] Social History Date Type Detail Facility Start: 09-08-2021 End: 07-13-2023 Tobacco smoking status DEIS Ex-smoker (finding) [facility] Start: 1945 Sex Assigned At Male F [facility] Sex Assigned At [facility] Tobacco smoking status Never Gener al [facility] Start: 10-04-2023 Tobacco smoking stat us [facility] Never smoked tobacco (finding) [facility] Medical Equipment Procedure Code Equipment Code Equipment Origin al Text Equipment Identifier Dates Decompression, spine, cervical, posterior approach CANCELLOUS 15CC CRUSHED FDA Start: 09-08-2021 Decompression, spine, cervical, posterior approach Bone-screw internal spinal fixation system, non-sterile ()[id number] FDA Start: 09-08-2021 Decompression, spine, cervical, posterior approach Bone-screw internal spinal fixation system, non-sterile ()[id number] FDA Start: 09-08-2021 Decompression, spine, cervical, posterior approach Bone-screw internal spinal fixation system, non-sterile ()[id number] FDA Start: 09-08-2021 Decompression, spine, cervical, posterior approach Bone-screw internal spinal fixation system, non-sterile ()[id number] FDA Start: 09-08-2021 Decompression, spine, cervical, posterior approach Spinal fusion graft kit ([id number] FDA Start: 09-08-2021 Decompression, spine, cervical, posterior approach Bone-screw internal spinal fixation system, non-sterile ([id number] FDA Start: 09-08-2021 Decompression, spine, cervical, posterior [...] Facility 07-13-2023 Functional Status N/A [facility] 01-13-2023 Functional Status N/A General [facility] Clinical Notes 06-17-2021 to 08-11-2023 Note Date & Type Note Facility 08-11-2023 Evaluation note Encounter Date Diagnosis Assessment Notes Aug, 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 [employer] 12-19-2023 Evaluation note* Encounter Date Diagnosis [...] continue exercise to achieve/maintain a normal BMI. [facility] Other 12-12-2023 NoteChief Complaint consultation for colonoscopy [...] Substance Abuse - Denies (more content not included)...[facility] HospitalComment on above:Result Comment: Electronically Signed By: RAUL ZUNIGA, Tremayne Arzola\Date and Time Signed: 07/13/23 14:31 [id number] Evaluation note * Encounter Date Diagnosis Assessment Notes Treatment Notes Treatment Clinical Notes Jun, Cervical spondylosis (ICD-10 - M47.812) [facility] 11-06-2023 Evaluation note* Encounter Date Diagnosis [...] use, the patient reduces the risk for MS, CVA, HTN, cardiac dysrhythmias and sudden cardiac [...] (ICD-10 - Z79.899) Check ALT and CBC [facility] Other 09-19-2023 Evaluation note* Encounter Date Diagnosis Assessment Notes Treatment Notes Treatment Clinical Notes Apr, Primary hypertension (ICD-10 - I10) [facility] 09-18-2023 Evaluation note* Encounter Date Diagnosis Assessment Notes Treatment Notes Treatment Clinical Notes Apr, Primary hypertension (ICD-10 - I10) [facility] 06-14-2023 NoteChief Complaint consultation for possible [...] Hypertension: Father. TIA: Mother (more content not included)...[facility] HospitalComment on above:Result Comment: Electronically Signed By: RAUL ZUNIGA, Tremayne Arzola\Date and Time Signed: 01/13/23 17:35 [id number] Evaluation note* Encounter Date Diagnosis Assessment Notes [...] use, the patient reduces the risk for MS, CVA, HTN, cardiac dysrhythmias and sudden cardiac [...] [BMI ] 30.0-30.9, adult (ICD-10 - Z68.30) [facility] Other 03-30-2023 Evaluation note* Encounter Date Diagnosis [...] time Sep, Cervical myelopathy (ICD-10 - G95.9) [facility] Other 02-16-2023 Evaluation note* Encounter Date Diagnosis [...] okay. Sep, Cervical myelopathy (ICD-10 - G95.9) [facility] Other 01-16-2023 Evaluation note* Encounter Date Diagnosis Assessment Notes Treatment Notes Treatment Clinical Notes Aug, Primary hypertension (ICD-10 - I10) [facility] 01-05-2023 Evaluation note* Encounter Date Diagnosis [...] for congestion, Tylenol for pain and fever. [facility] Other 08-25-2022 Evaluation note* Encounter Date Diagnosis Assessment Notes Treatment Notes Treatment Clinical Notes Mar, Cervical myelopathy (ICD-10 - G95.9) Patient's gait is good, arm strength and range of motion good. Neck is healing well he looks quite comfortable. 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 He did not get his xray as requested prior to his appointment today. I will see the patient again in September at his yearly with 1 more x-ray of the neck to ensure the hardware remains good. For his age this patient is unusually active [facility] Other 05-26-2022 Evaluation note* Encounter Date Diagnosis [...] answered questions for him and his . [facility] Other 03-08-2022 Evaluation note* Encounter Date Diagnosis [...] in diseases classified elsewhere (ICD-10 - G99.2) [facility] Other 02-17-2022 Evaluation note* Encounter Date Diagnosis [...] Spinal stenosis, cervical region (ICD-10 - M48.02) [facility] Other 12-23-2021 Evaluation note* Encounter Date Diagnosis [...] Cervical radiculopathy at C7 (ICD-10 - M54.12) [facility] Other 11-16-2021 Evaluation note* Encounter Date Diagnosis [...] dynamic neck x-ray and see him before [place] and at the new year talk about a remedy for the cervical stenosis. He understands and agrees after a thorough discussion. 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 [employer]. Other evaluation + Plan note No data available for this section General Surgery [place] Evaluation noteNo assessment information available [facility] Work Phone: Evaluation noteNo InformationNortJefferson Hospital [employer]. Other evaluation note* Diagnosis Onset Date Resolution Status Arthritis of carpometacarpal (CMC) joint of left thumb acute Left hand pain acute [facility] Work Phone: Evaluation note* Diagnosis Onset Date Resolution Status Arthritis of carpometacarpal (CMC) joint of left thumb acute Left hand pain acute Hypercholesterolemia acute Hypertension acute DARRICK (obstructive sleep apnea) acute [facility] Work Phone: Evaluation note* Diagnosis Onset Date Resolution Status Hypertension acute DARRICK (obstructive sleep apnea) acute [facility] Work Phone: Evaluation note* Diagnosis Onset Date Resolution Status Hypertension acute Neck pain acute DARRICK (obstructive sleep apnea) acute Palpitation acute SOB (shortness of breath) ac mukul Hypertension acute Neck pain acute DARRICK (obstructive sleep apnea) acute Palpitation acute SOB (shortness of breath) ac mukul [facility] Work Phone: Hisfnja general Narrative - Reported* Type Description Date Medical History hypertension Surgical History HERNIA 2004 Surgical History RIGHT SHOULDER SURGER 1979 [facility] Other Hisquhn general Narrative - Reported* Type Description Date Medical History hypertension Surgical History HERNIA 2004 Surgical History RIGHT SHOULDER SURGER 1979 Surgical History PCD-Doctor Duncan Hospitalization History See Above [facility] Other Hiscsnv general Narrative - Reported* Type Description Date [...] History PCD-Doctor Duncan Hospitalization History See Above [facility] Other Hisfclh general Narrative - Reported* Type Description Date [...] inguinal hernia 01/2023 Hospitalization History See Above [facility] Other Hisyxsu general Narrative - Reported* Type Description Date [...] Perla Surgical History Right inguinal hernia 01/2023 Surgical History Colonoscopy 08/2023 Hospitalization History See Above [facility] Other Hospital Discharge instructions No data available for this section General Surgery Jolo Progress note No data available for this section General Surgery Jolo Reason for referral (narrative)* Reason Referral for screeni ng colonoscopy Diagnosis 1 Colon cancer screeni ng (Z12.11) Referral Organization [facility] [employer] Referring Provider First Name Lyndon Referring Provider Last Name Dandy Referring Provider Specialty Internal Az dicine Referred Organization [facility] Referred Provider Tremayne Carter Referred Address [address], [place],[address] Referred Provider Specialty Surgery Referral Priority Routine [...] labs just completed for his wellness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
--- NOTE | 2024-05-30 10:42 | XR_ITS ---
The [address] [address] Patient Name: NISHI WENIER MRN: [id number] date: 1945 Sex: M Assigned Patient Location: [facility] Current Patient Location: Accession/Order Number: [id number] Exam Date: 05/30/2024 10:50 Report Date: 06/02/2024 08:04 At the request of: KELLY DELGADO Procedure: XR knee LT 4V PROCEDURE: XR knee LT 4V COMPARISON: None. HISTORY: Left Knee Pain FINDINGS: BONES:No acute fracture or dislocation. Extensive chondrocalcinosis. SOFT TISSUES:Negative. No visible soft tissue swelling. EFFUSION:None visible. OTHER: Negative. XR/XR knee LT 4V IMPRESSION: Extensive chondrocalcinosis Electronically authenticated by: ANAHY ONOFRE Date: 06/02/2024 08:04
== END 2024-05-30 10:29 | disposition home or self-care (01) ==
LOC: RAD 10:30
PROVIDERS: PCP Internal Medicine; Visit Provider Internal Medicine
DX: M25.562 Pain in left knee (principal); M11.262 Other chondrocalcinosis, left knee
CPT/HCPCS: 73564

== ENCOUNTER 2024-06-16 06:50 | Outpatient (OUT) | payer MEDICARE, SELFPAY ==
--- OUTSIDE RECORDS SUMMARY | 2024-06-16 06:55 | XMS_ITS | CCD ---
Author Organization [facility] CliniSyhi Care Team Providers Care Defense Attorney Name Role Phone DO Lyndon Dorman Primary Care Provider MD Jovon Duncan Attending Provider Jovon Dnucan Unavailable DO Lyndon Dorman Primary Care Provider [phone] MD Jovon Duncan Attending Provider DR LYNDON [...] Unavailable BALL, DR MENDOZA Consulting Unavailable DO Lynodn Dorman Primary Care Provider MD Jovon Duncan Attending Provider MD Jovon Duncan Referring Provider Lyndon Dorman Unavailable LYNDON DORMAN Primary Care Physician [phone] RAUL, Tremayne [place] Attending Unavailable NILL, Tremayne [place] Attending Unavailable NILL, Tremayne [place] Attending Unavailable LYNDON DORMAN Referring Unavailable NILL, Tremayne [place] Attending Unavailable NILL, Tremayne [place] Attending Unavailable NILL, Tremayne [place] Attending Unavailable NILL, Tremayne [place] Attending Unavailable DO Lyndon Dorman Primary Care Provider [phone] MD Greta Pena Attending Provider [phone] Greta Pena Attending Unavailable Greta Pena Admitting Unavailable Lyndon Dorman Primary Care Unavailable Allergies Allergy Classification Reported Allergen(s) Allergy Type Date of Onset Reaction(s) Facility (2 sources) patient allergy list reviewed by nurse or physicia Propensity to adverse reactions 4 Comment:Done iTOK Other (1 source) No Known Medication Allergies; Translations: [No Known Medication Allergies] Propensity to adverse reactions (disorder) [facility] Repository Medications Current Medications Medication Drug [...] Episodic Other aftercare (2 sources) 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; Translations: [OTH MANIFOLD BUILDER CURRENT DRUG THERAPY] Onset: 06-11-2022 Episodic Other aftercare (2 sources) Long-term current use of drug therapy; Translations: [Other chcf (current) drug therapy] Episodic Other connective tissue [...] Basophils (Bld) [#/Vol] 0.1 10 3/uL 0.0-0.1 [facility] Basophils/100 WBC Auto (Bld) on 04-10-2024 Basophils/100 WBC (Bld) 1.6 % 0.2-2.0 [facility] Eosinophils/100 WBC Auto (Bl d)on 04-10-2024 Eosinophils/100 WBC (Bld) 1.9 % 0.9-7.0 [facility] Erythrocyte distribution wid th Auto (RBC) [Ratio]on 04-10-2024 Erythrocyte distribution width (RBC) [Ratio] 13.4 % 11.0-15.0 [facility] Estimated glomerular filtrat ion rate (GFR) non- Americanon 04-10-2024 GFR/1.73 sq M.predicted among non-blacks MDRD (S/P/Bld) [Vol rate/Area] mL/min/{1.73_m2} >=60 [facility] Hematocrit Auto (Bld) [Volum e fraction]on 04-10-2024 Hematocrit (Bld) [Volume fraction] 46.4 % 42.0-54.0 [facility] Hemoglobin [Mass/volume] in Bloodon 04-10-2024 Hemoglobin (Bld) [Mass/Vol] 15.4 g/dL 14.0-18.0 [facility] Laboratory - Chemistry and C hemistry - challengeon 04-10-2024 Calcium [Mass/Vol] 9.0 mg/dL 8.5-10.1 [facility] Chloride [Moles/Vol] 103 mmol/L 98-107 [facility] CO2 [Moles/Vol] 29.7 mmol/L 21.0-32.0 [facility] Creatinine [Mass/Vol] 1.07 mg/dL 0.70-1.30 [facility] GFR/1.73 sq M.predicted MDRD (S/P/Bld) [Vol rate/Area] mL/min/{1.73_m2} >=60 [facility] Glucose [Mass/Vol] 105 mg/dL 74-106 [facility] Potassium [Moles/Vol] 4.3 mmol/L 3.5-5.1 [facility] Sodium [Moles/Vol] 139 mmol/L 136-145 [facility] TSH Qn 1.588 m[IU]/L 0.358-3.740 [facility] Urea nitrogen [Mass/Vol] 18.0 mg/dL 7.0-18.0 [facility] Urea nitrogen/Creatinine [Mass ratio] 16.8 mg/mg [facility] Laboratory - Hematology and Cell countson 04-10-2024 Immature granulocytes/100 WBC (Bld) 0.8 % High 0.0-0.5 [facility] Leukocytes [#/volume] correc gerber for nucleated erythrocytes in Blood by Automated counon 04-10-2024 WBC corrected for nucl RBC Auto (Bld) [#/Vol] 7.3 10 3/uL 4.0-11.0 [facility] Lymphocytes Auto (Bld) [#/Vo l]on 04-10-2024 Lymphocytes (Bld) [#/Vol] 1.2 10 3/uL 1.2-3.8 [facility] Lymphocytes/100 WBC Auto (Bl d)on 04-10-2024 Lymphocytes/100 WBC (Bld) 16.7 % Low 20.5-60.0 [facility] MCH Auto (RBC) [Entitic mass ]on 04-10-2024 MCH (RBC) [Entitic mass] 27.9 pg 25.9-34.0 [facility] MCHC Auto (RBC) [Mass/Vol]on 04-10-2024 MCHC (RBC) [Mass/Vol] 33.2 g/dL 29.9-35.2 [facility] MCV Auto (RBC) [Entitic vol] on 04-10-2024 MCV (RBC) [Entitic vol] 84.1 fL 80.0-94.0 [facility] Monocytes Auto (Bld) [#/Vol] on 04-10-2024 Monocytes (Bld) [#/Vol] 0.4 10 3/uL 0.3-0.8 [facility] Monocytes/100 WBC Auto (Bld) on 04-10-2024 Monocytes/100 WBC (Bld) 5.9 % 1.7-12.0 [facility] Neutrophils Auto (Bld) [#/Vo l]on 04-10-2024 Neutrophils (Bld) [#/Vol] 5.3 10 3/uL 1.4-6.5 [facility] Neutrophils/100 WBC Auto (Bl d)on 04-10-2024 Neutrophils/100 WBC (Bld) 73.1 % 43.0-75.0 [facility] No Panel Informationon 04-10 Eosinophils # (Auto) 0.1 10 3/uL 0.0-0.7 [facility] Immature Granulocyte # (Auto) 0.06 10 3/uL High 0.00-0.03 [facility] Platelet mean volume Auto (B ld) [Entitic vol]on 04-10-2024 Platelet mean volume (Bld) [Entitic vol] 9.4 fL Low 9.5-13.5 [facility] Platelets Auto (Bld) [#/Vol] on 04-10-2024 Platelets (Bld) [#/Vol] 239 10 3/uL 150-450 [facility] RBC Auto (Bld) [#/Vol]on RBC (Bld) [#/Vol] 5.52 10 6/uL 4.70-6.10 [facility] Serum or plasma anion gap de terminationon 04-10-2024 Anion gap [Moles/Vol] 10.6 mmol/L [facility] XR hand LT min 3V*on 024 XR hand LT min 3V* [facility] [place] [place] [facility] [address] [place] [address] XRay Report Signed Patient: Brent Weiner MR#: [id number] : 1945 Acct:[id number] Age/Sex: 77 / M ADM Date: 11/30/23 Loc: [facility] Room: Type: [facility] Attending Dr: Greta Pena MD Copies [...] Kervin Marshall M.D.11/30/2023 1:39 PM Dictation Location: [place] [address] Transcribed By: [facility] 11/30/23 1339 Dictated By: Kervin Marshall DO 11/30/23 1335 Signed By: 11/30/23 1339 Normal [facility] Ambulatory Visit Summaryon 0 08-10-2023 [...] choosing us for your care. Normal [facility] General Surgery Office/Clini c Noteon [...] Recorded SARS-CoV-2 (COVID-19) mRNA-1273 vaccine 09/19/2020 Recorded [facility] Comment on above: Result Comment: Elec tronically Signed By: RAUL ZUNIGA, Tremayne Arzola\Date and Time Signed: 08/10/23 13:14 EST Pathology Noteon 08-04-2023 Pathology Note [id number]#1.00TIF F [facility] Outside Colonoscopyon 2023 Outside Colonoscopy [id number]#1.00TIF F [facility] Consent for Procedure/Surger yon 07-14-2023 Consent for Procedure/Surgery [id number]#1.00TI FF [facility] Insurance Correspondenceon 1 09-14-2022 Insurance Correspondence [id number]#1.00TI FF [facility] Ambulatory Visit Summaryon 1 09-13-2022 Ambulatory Visit [...] for choosing us for your care. Normal [facility] Physician Referralon 023 Physician Referral [id number]#1.00TIF F Normal [facility] Ambulatory Visit Summaryon 0 02-24-2023 Ambulatory [...] Generalised osteoarthritis Obstructive sleep apnea Tinnitus Normal [facility] General Surgery Office/Clini c Noteon 02-24-2023 [...] (COVID-19) mRNA-1273 vaccine 09/19/2020 Recorded Normal [facility] Comment on above: Result Comment: [...] [place] Where: General Surgery Raul/Veto Yamila [facility] General Surgery Office/Clini c Noteon [...] (COVID-19) mRNA-1273 vaccine 09/19/2020 Recorded Normal [facility] Comment on above: Result Comment: Elec tronically Signed By: RAUL ZUNIGA, Tremayne Arzola\Date and Time Signed: 02/10/23 16:33 EDT Provider Letteron 02-10-2023 Provider Letter (Inserted Image. Lisa ble to display) February 10, 2023 BRENT WEINER [address] [place] [address] : 1945 To Whom It May Concern, Please excuse above patient from work until March 02, 2023. Sincerely, Dr. Tremayne Carter MD General Surgery [facility] Operative Reporton Operative Report [id number]#1.00CD: 127 [facility] ECG 12-Leadon 01-26-2023 ECG 12-Lead [id number]#1.00CD: 127 [facility] Pre-Certification Formon Pre-Certification Form [id number]#1.00CD :127 [facility] Consent for Procedure/Surger yon 01-14-2023 Consent for Procedure/Surgery [id number]#1.00CD:1 27 [facility] Ambulatory Visit Summaryon 0 01-13-2023 Ambulatory Visit [...] Generalised osteoarthritis Obstructive sleep apnea Tinnitus Normal [facility] Physician Referralon 023 Physician Referral [id number]#1.00CD: 127 Normal [facility] CBC AUTO DIFFon 06-05-2022 BASO # 0.2 103/ul Critically high 0.0-0.1 [facility] Comment on above: Performed By: #### C BC #### [facility] [address] [place] [address] Dr. Nirmal Abernathy Basophils/100 WBC (Bld) 3.4 % Critically high 0.2-2.0 [facility] Comment on above: Performed By: #### C BC #### [facility] [address] [place] [address] Dr. Nirmal Abernathy EO # 0.2 103/ul Normal 0.0-0.7 [facility] Comment on above: Performed By: #### C BC #### [facility] [address] [place] [address] Dr. Nirmal Abernathy Eosinophils/100 WBC (Bld) 3.9 % Normal 0.9-7.0 [facility] Comment on above: Performed By: #### C BC #### [facility] [address] [place] [address] Dr. Nirmal Abernathy Erythrocyte distribution width (RBC) [Ratio] 13.4 % Normal 11.0-15.0 [facility] Comment on above: Performed By: #### C BC #### [facility] [address] [place] [address] Dr. Nirmal Abernathy Hematocrit (Bld) [Volume fraction] 43.7 % Normal 42.0-54.0 [facility] Comment on above: Performed By: #### C BC #### [facility] [address] [place] [address] Dr. Nirmal Abernathy Hemoglobin (Bld) [Mass/Vol] 14.1 g/dL Normal 14.0-18.0 [facility] Comment on above: Performed By: #### C BC #### [facility] [address] [place] [address] Dr. Nirmal Abernathy IG # 0.04 10e3/ul Critically high 0.00-0.03 [facility] Comment on above: Performed By: #### C BC #### [facility] [address] [place] [address] Dr. Nirmal Abernathy IG % 0.7 % Critically high 0.0-0.5 [facility] Comment on above: Performed By: #### C BC #### [facility] [address] [place] [address] Dr. Nirmal Abernathy LYMPH # 1.4 103/ul Normal 1.2-3.8 [facility] Comment on above: Performed By: #### C BC #### [facility] [address] [place] [address] Dr. Nirmal Abernathy Lymphocytes/100 WBC (Bld) 22.9 % Normal 20.5-60.0 [facility] Comment on above: Performed By: #### C BC #### [facility] [address] [place] [address] Dr. Nirmal Abernathy MANUAL DIFF REQ NO Normal [facility] Comment on above: Performed By: #### C BC #### [facility] [address] [place] [address] Dr. Nirmal Abernathy MCH (RBC) [Entitic mass] 27.0 pg Normal 25.9-34.0 [facility] Comment on above: Performed By: #### C BC #### [facility] [address] [place] [address] Dr. Nirmal Abernathy MCHC (RBC) [Mass/Vol] 32.3 g/dL Normal 29.9-35.2 [facility] Comment on above: Performed By: #### C BC #### [facility] [address] [place] [address] [address] Nirmal Abernathy MCV (RBC) [Entitic vol] 83.7 fL Normal 80.0-94.0 [facility] Comment on above: Performed By: #### C BC #### [facility] [address] [place] [address] [address] Nirmal Abernathy MONO # 0.5 103/ul Normal 0.3-0.8 [facility] Comment on above: Performed By: #### C BC #### [facility] [address] [place] [address] Dr. Nirmal Abernathy Monocytes/100 WBC (Bld) 8.1 % Normal 1.7-12.0 [facility] Comment on above: Performed By: #### C BC #### [facility] [address] [place] [address] Dr. Nirmal Abernathy NEUT # 3.6 103/ul Normal 1.4-6.5 [facility] Comment on above: Performed By: #### C BC #### [facility] [address] [place] [address] Dr. Nirmal Abernathy Neutrophils/100 WBC (Bld) 61.0 % Normal 43.0-75.0 [facility] Comment on above: Performed By: #### C BC #### [facility] [address] [place] [address] Dr. Nirmal Abernathy Platelet mean volume (Bld) [Entitic vol] 9.1 fL Critically low 9.5-13.5 [facility] Comment on above: Performed By: #### C BC #### [facility] [address] [place] [address] Dr. Nirmal Abernathy PLT 258 103/ul Normal 150-450 [facility] Comment on above: Performed By: #### C BC #### [facility] [address] [place] [address] Dr. Nirmal Abernathy RBC 5.22 106/ul Normal 4.70-6.10 [facility] Comment on above: Performed By: #### C BC #### [facility] [address] [place] [address] [address] Nirmal Abernathy WBC 5.9 103/ul Normal 4.0-11.0 [facility] Comment on above: Performed By: #### C BC #### [facility] [address] [place] [address] [address] Nirmal Abernathy LIPID PROFILEon 06-05-2022 CHOL-HDL RATIO NORM SEE BELOW Normal [facility] Comment on above: Result Comment: 3.3 - 4.4 LOW RISK 4.4 - 7.1 AVERAGE RISK 7.1 - 11.0 MODERATE RISK >11.0 HIGH RISK Performed By: #### B MP, LIPID, ALT #### [facility] [address] [place] [address] [address] Nirmal Abernathy Cholesterol [Mass/Vol] 164 mg/dL Normal <=200 [facility] Comment on above: Performed By: #### B MP, LIPID, ALT #### [facility] [address] [place] [address] [address] Nirmal Abernathy Cholesterol in HDL [Mass/Vol] 58 mg/dL Normal 40-60 [facility] Comment on above: Performed By: #### B MP, LIPID, ALT #### [facility] [address] [place] [address] [address] Nirmal Abernathy Cholesterol in LDL [Mass/Vol] 94.0 mg/dL Normal [facility] Comment on above: Performed By: #### B MP, LIPID, ALT #### [facility] [address] [place] [address] [address] Nirmal Abernathy Cholesterol.total/Ch olesterol in HDL [Mass ratio] 2.8 {ratio} Normal [facility] Comment on above: Performed By: #### B MP, LIPID, ALT #### [facility] [address] [place] [address] [address] Nirmal Abernathy HDL NORMAL > or = 60 mg/dl - LO W CARDIOVASCULAR RISK <40 mg/dl - HIGH CARDIOVASCULAR RISK Normal [facility] Comment on above: Performed By: #### B MP, LIPID, ALT #### [facility] [address] [place] [address] [address] Nirmal Abernathy LDL CALC NORMAL SEE BELOW Normal [facility] Comment on above: Result Comment: <100 mg/dl OPTIMAL 100 - 129 mg/dl NEAR OR ABOVE OPTIMAL 130 - 159 mg/dl BORDERLINE HIGH 160 - 189 mg/dl HIGH >190 mg/dl VERY HIGH Performed By: #### B MP, LIPID, ALT #### [facility] [address] [place] [address] [address] Nirmal Abernathy Triglyceride [Mass/Vol] 60 mg/dL Normal <=150 [facility] Comment on above: Performed By: #### B MP, LIPID, ALT #### [facility] [address] [place] [address] [address] Nirmal Abernathy VLDL CALC 12.0 mg/dL Normal [facility] Comment on above: Performed By: #### B MP, LIPID, ALT #### [facility] [address] [place] [address] [address] Nirmal Abernathy PROF CHEM 8 (BAS METB)on Anion gap [Moles/Vol] 6.3 mmol/L Normal [facility] Comment on above: Performed By: #### B MP, LIPID, ALT #### [facility] [address] [place] [address] [address] Nirmal Abernathy Calcium [Mass/Vol] 9.0 mg/dL Normal 8.5-10.[address] [facility] Comment on above: Performed By: #### B MP, LIPID, ALT #### [facility] [address] [place] [address] [address] Nirmal Abernathy Chloride [Moles/Vol] 105 mmol/L Normal 98-107 [facility] Comment on above: Performed By: #### B MP, LIPID, ALT #### [facility] [address] [place] [address] Dr. Nirmal Abernathy CO2 [Moles/Vol] 31.0 mmol/L Normal 21.0-32.0 [facility] Comment on above: Performed By: #### B MP, LIPID, ALT #### [facility] [address] [place] [address] [address] Nirmal Abernathy Creatinine [Mass/Vol] 1.12 mg/dL Normal 0.70-1.30 [facility] Comment on above: Performed By: #### B MP, LIPID, ALT #### [facility] [address] [place] [address] [address] Nirmal Abernathy EGFR-AF MACANESE >60 Normal >=60 [facility] Comment on above: Performed By: #### B MP, LIPID, ALT #### [facility] [address] [place] [address] [address] Nirmal Abernathy EGFR-NON AF MACANESE >60 Normal >=60 [facility] Comment on above: Performed By: #### B MP, LIPID, ALT #### [facility] [address] [place] [address] [address] Nirmal Abernathy Glucose [Mass/Vol] 99 mg/dL Normal 74-[address] [facility] Comment on above: Performed By: #### B MP, LIPID, ALT #### [facility] [address] [place] [address] [address] Nirmal Abernathy Potassium [Moles/Vol] 4.3 mmol/L Normal 3.5-5.1 [facility] Comment on above: Performed By: #### B MP, LIPID, ALT #### [facility] [address] [place] [address] [address] Nirmal Abernathy Sodium [Moles/Vol] 138 mmol/L Normal 136-145 [facility] Comment on above: Performed By: #### B MP, LIPID, ALT #### [facility] [address] [place] [address] [address] Nirmal Abernathy Urea nitrogen [Mass/Vol] 19.0 mg/dL Critically high 7.0-18.0 [facility] Comment on above: Performed By: #### B MP, LIPID, ALT #### [facility] [address] [place] [address] [address] Nirmal Abernathy Urea nitrogen/Creatinine [Mass ratio] 17.0 mg/mg Normal [facility] Comment on above: Performed By: #### B MP, LIPID, ALT #### [facility] [address] [place] [address] [address] Nirmal Abernathy SGPTon 06-05-2022 ALT [Catalytic activity/Vol] 32 U/L Normal 16-63 [facility] Comment on above: Performed By: #### B MP, LIPID, ALT #### [facility] [address] [place] [address] Dr. Nirmal Abernathy LIPID PROFILEon 09-03-2021 CHOL-HDL RATIO NORM SEE BELOW Normal [facility] Comment on above: Result Comment: 3.3 - 4.4 LOW RISK 4.4 - 7.1 AVERAGE RISK 7.1 - 11.0 MODERATE RISK >11.0 HIGH RISK Performed By: #### L IPID, ALT #### [facility] [address] [place] [address] Dr. Nirmal Abernathy Cholesterol [Mass/Vol] 137 mg/dL Normal <=200 [facility] Comment on above: Performed By: #### L IPID, ALT #### [facility] [address] [place] [address] Dr. Nirmal Abernathy Cholesterol in HDL [Mass/Vol] 51 mg/dL Normal [facility] Comment on above: Performed By: #### L IPID, ALT #### [facility] [address] [place] [address] Dr. Nirmal Abernathy Cholesterol in LDL [Mass/Vol] 69.6 mg/dL Normal [facility] Comment on above: Performed By: #### L IPID, ALT #### [facility] [address] [place] [address] Dr. Nirmal Abernathy Cholesterol.total/Ch olesterol in HDL [Mass ratio] 2.7 {ratio} Normal [facility] Comment on above: Performed By: #### L IPID, ALT #### [facility] [address] [place] [address] Dr. Nirmal Abernathy HDL NORMAL > or = 60 mg/dl - LO W CARDIOVASCULAR RISK <40 mg/dl - HIGH CARDIOVASCULAR RISK Normal [facility] Comment on above: Performed By: #### L IPID, ALT #### [facility] [address] [place] [address] Dr. Nirmal Abernathy LDL CALC NORMAL SEE BELOW Normal [facility] Comment on above: Result Comment: <100 mg/dl OPTIMAL 100 - 129 mg/dl NEAR OR ABOVE OPTIMAL 130 - 159 mg/dl BORDERLINE HIGH 160 - 189 mg/dl HIGH >190 mg/dl VERY HIGH Performed By: #### L IPID, ALT #### [facility] [address] [place] [address] [address] Nirmal Abernathy Triglyceride [Mass/Vol] 82 mg/dL Normal <=150 [facility] Comment on above: Performed By: #### L IPID, ALT #### [facility] [address] [place] [address] [address] Nirmal Abernathy VLDL CALC 16.4 mg/dL Normal [facility] Comment on above: Performed By: #### L IPID, ALT #### [facility] [address] [place] [address] [address] Nirmal Abernathy [facility] 09-03-2021 ALT [Catalytic activity/Vol] 39 U/L Normal [facility] Comment on above: Performed By: #### L IPID, ALT #### [facility] [address] [place] [address] [address] Nirmal Abernathy Vital Signs Date Time Vital Sign Value Performing Clinician Facility 05-30-2024 09:28040 Body height 180.34 cm [facility] 05-30-2024 09:280400 Body mass index (BMI) [Ratio] 30.4 kg/m2 [facility] 05-30-2024 09:0400 Body weight 98.99 kg [facility] 05-30-2024 09:[id number] Diastolic blood pressure 88 mm[Hg] [facility] 05-30-2024 09:28-0400 Heart rate 57 /min [facility] 05-30-2024 09:0400 Respiratory rate 12 /min [facility] 05-30-2024 09:[id number] Systolic blood pressure 158 mm[Hg] [facility] 05-23-2024 14:290400 Body height 180.34 cm [facility] 05-23-2024 14:29-0400 Body mass index (BMI) [Ratio] 30.4 kg/m2 [facility] 05-23-2024 14:29-0400 Body weight 98.93 kg [facility] 05-23-2024 14:29-0400 Diastolic blood pressure 80 mm[Hg] [facility] 05-23-2024 14:29-0400 Heart rate 58 /min [facility] 05-23-2024 14:29-0400 Respiratory rate 12 /min [facility] 05-23-2024 14:29-0400 Systolic blood pressure 137 mm[Hg] [facility] 05-18-2024 15:55-0400 Diastolic blood pressure 80 mm[Hg] [facility] 05-18-2024 15:55-0400 Heart rate 64 /min [facility] 05-18-2024 15:55-0400 Systolic blood pressure 130 mm[Hg] [facility] 03-31-2024 10:22-0400 Body height 180.34 cm [facility] 03-31-2024 10:22-0400 Body mass index (BMI) [Ratio] 27.6 kg/m2 [facility] 03-31-2024 10:22-0400 Body weight 89.81 kg [facility] 03-31-2024 10:22-0400 Diastolic blood pressure 79 mm[Hg] [facility] 03-31-2024 10:22-0400 Heart rate 57 /min [facility] 03-31-2024 10:22-0400 Respiratory rate 12 /min [facility] 03-31-2024 10:22-0400 Systolic blood pressure 135 mm[Hg] [facility] 12-06-2023 08:57-0400 Body height 180.34 cm DO Lyndon Ball Work Phone: [facility] 12-06-2023 08:57-0400 Body mass index (BMI) [Ratio] 30.3 kg/m2 DO Lyndon Ball Work Phone: [facility] 12-06-2023 08:57-0400 Body weight 98.59 kg DO Lyndon Ball Work Phone: [facility] 12-06-2023 08:57-0400 Diastolic blood pressure 84 mm[Hg] DO Lyndon Ball Work Phone: [facility] 12-06-2023 08:57-0400 Heart rate 56 /min DO Lyndon Ball Work Phone: [facility] 12-06-2023 08:57-0400 Respiratory rate 12 /min DO Lyndon Ball Work Phone: [facility] 12-06-2023 08:57-0400 Systolic blood pressure 150 mm[Hg] DO Lyndon Ball Work Phone: [facility] 07-13-2023 13:56-0500 Blood Pressure Location Tremayne NILL [facility] 07-13-2023 13:56-0500 Diastolic blood pressure 82 mm[Hg] Tremayne NILL [facility] 07-13-2023 13:56-0500 Heart rate 74 /min Tremayne NILL [facility] 07-13-2023 13:56-0500 Respiratory rate 16 /min Tremayne NILL [facility] 07-13-2023 13:56-0500 Systolic blood pressure 124 mm[Hg] Tremayne NILL [facility] 06-07-2023 09:00-0500 Body height 180.34 cm Lyndon Ball Other [facility] Other 06-07-2023 09:00-0500 Body mass index (BMI) [Ratio] 30.23 kg/m2 Lyndon Ball Other [employer] [facility] Other 06-07-2023 09:00-0500 Body weight 98.34 kg Lyndon Ball Other [employer] [facility] Other 06-07-2023 09:00-0500 Diastolic blood pressure 88 mm[Hg] Lyndon Ball Other [facility] Other 06-07-2023 09:00-0500 Respiratory rate 12 /min Lyndon Ball Other [facility] Other 06-07-2023 09:00-0500 Systolic blood pressure 138 mm[Hg] Lyndon Ball Other [facility] Other 01-13-2023 15:25-0400 Blood Pressure Location [employer] [place] 01-13-2023 15:25-0400 Diastolic blood pressure 74 mm[Hg] Tremayne NILL [facility] [place] 01-13-2023 15:25-0400 Heart rate 72 /min Tremayne NILL [facility] [place] 01-13-2023 15:25-0400 Respiratory rate 16 /min Tremayne NILL [facility] [place] 01-13-2023 15:25-0400 Systolic blood pressure 118 mm[Hg] Tremayne NILL [facility] [place] 12-04-2022 09:30-0400 Body height 180.34 cm Lyndon Ball Other [facility] Other 12-04-2022 09:30-0400 Body mass index (BMI) [Ratio] 30.71 kg/m2 Lyndon Ball Other [facility] Other 12-04-2022 09:30-0400 Body weight 99.88 kg Lyndon Ball Other [facility] Other 12-04-2022 09:30-0400 Diastolic blood pressure 77 mm[Hg] Lyndon Ball Other [facility] Other 12-04-2022 09:30-0400 Respiratory rate 12 /min Lyndon Ball Other [facility] Other 12-04-2022 09:30-0400 SaO2% (BldA) [Mass fraction] 98 % Lyndon Ball Other [facility] Other 12-04-2022 09:30-0400 Systolic blood pressure 137 mm[Hg] Lyndon Ball Other [facility] Other 10-29-2022 11:20-0400 Body height 180.34 cm Jovon Duncan Other [facility] Other 10-29-2022 11:20-0400 Body mass index (BMI) [Ratio] 29.98 kg/m2 Jovon Duncan Other [facility] Other 10-29-2022 11:20-0400 Body weight 97.52 kg Jovon Duncan Other [facility] Other 09-17-2022 11:20-0500 Body height 180.34 cm Jovon Duncan Other [facility] Other 09-17-2022 11:20-0500 Body mass index (BMI) [Ratio] 29.98 kg/m2 Jovon Duncan Other [facility] Other 09-17-2022 11:20-0500 Body weight 97.52 kg Jovon Duncan Other [facility] Other 09-17-2022 11:20-0500 Respiratory rate 18 /min Jovon Duncan Other [facility] Other 03-26-2022 11:20-0400 Body height 180.34 cm Jovon Duncan Other [facility] Other 03-26-2022 11:20-0400 Body mass index (BMI) [Ratio] 27.33 kg/m2 Jovon Duncan Other [facility] Other 03-26-2022 11:20-0400 Body weight 88.91 kg Jovon Duncan Other [facility] Other 12-25-2021 10:40-0400 Body height 180.34 cm Jovon Duncan Other [facility] Other 12-25-2021 10:40-0400 Body mass index (BMI) [Ratio] 27.33 kg/m2 Jovon Duncan Other [facility] Other 12-25-2021 10:40-0400 Body weight 88.91 kg Jovon Duncan Other [facility] Other 10-07-2021 14:00-0500 Body height 180.34 cm Jovon Duncan Other [facility] Other 10-07-2021 14:00-0500 Body mass index (BMI) [Ratio] 27.89 kg/m2 Jovon Duncan Other [facility] Other 10-07-2021 14:00-0500 Body weight 90.72 kg Jovon Duncan Other [facility] Other 09-18-2021 14:00-0500 Body height 180.34 cm Jovon Duncan Other [facility] Other 09-18-2021 14:00-0500 Body mass index (BMI) [Ratio] 27.89 kg/m2 Jovon Duncan Other [facility] Other 09-18-2021 14:00-0500 Body weight 90.72 kg Jovon Duncan Other [facility] Other 07-24-2021 10:40-0500 Body height 180.34 cm Jovon Duncan Other [facility] Other 07-24-2021 10:40-0500 Body mass index (BMI) [Ratio] 27.89 kg/m2 Jovon Duncan Other [facility] Other 07-24-2021 10:40-0500 Body weight 90.72 kg Jovon Duncan Other [facility] Other 06-17-2021 11:40-0500 Body height 180.34 cm Jovon Duncan Other [facility] Other 06-17-2021 11:40-0500 Body mass index (BMI) [Ratio] 27.89 kg/m2 Jovon Duncan Other [facility] Other 06-17-2021 11:40-0500 Body weight 90.72 kg Jovon Duncan Other [facility] Other 06-17-2021 11:40-0500 Diastolic blood pressure 71 mm[Hg] Jovon Duncan Other [facility] Other 06-17-2021 11:40-0500 Systolic blood pressure 130 mm[Hg] Jovon Duncan Other [facility] Other Encounters Encounter Date Encounter Type Care Provider Facility Start: 05-30-2024 End: 05-30-2024 ambulatory [facility] Work Phone: Start: 05-30-2024 End: 05-30-2024 [facility]: Start: 05-23-2024 End: 05-23-2024 ambulatory [facility] Work Phone: Start: 05-23-2024 End: 05-23-2024 Patient encounter procedure [facility] Work Phone: Start: 05-18-2024 Non-patient / Non-visit [facility] Work Phone: Start: 04-20-2024 Non-patient / Non-visit [facility] Work Phone: Start: 04-10-2024 Non-patient / Non-visit [facility] Work Phone: Start: 03-31-2024 End: 03-31-2024 ambulatory [facility] Work Phone: Start: 03-31-2024 End: 03-31-2024 Patient encounter procedure [facility] Work Phone: Start: 12-06-2023 End: 12-06-2023 ambulatory DO Lyndon Ball Work Phone: [facility] Work Phone: Start: 12-06-2023 End: 12-06-2023 Patient encounter procedure DO Lyndon Ball Work Phone: [facility] Work Phone: Start: 11-30-2023 End: 11-30-2023 ambulatory Greta Pena Facility:[facility] Start: 11-30-2023 End: 11-30-2023 ambulatory DO Lyndon Ball Work Phone: [facility] Work Phone: Start: 11-30-2023 End: 11-30-2023 Patient encounter procedure DO Lyndon Ball Work Phone: [facility] Work Phone: Start: 10-04-2023 Non-patient / Non-visit DO Pranay Dorman Work Phone: [facility] [employer] Work Phone: Start: 08-11-2023 End: 08-11-2023 ambulatory Lyndon Dorman Other [employer] Other Start: 08-11-2023 Telephone encounter Lyndon Dorman [facility] Start: 08-10-2023 End: 08-11-2023 ambulatory Tremayne R NILL Facility:[facility] [place] Start: 08-10-2023 End: 08-10-2023 Patient encounter procedure Tremayne R NILL [facility] [place] Start: 08-05-2023 End: 08-05-2023 ambulatory Lyndon Dorman Other [facility] [employer] Other Start: 08-05-2023 Telephone encounter Lyndon Dorman [facility] Start: 07-28-2023 End: 07-29-2023 ambulatory Tremayne R NILL Facility:[id number] Start: 07-20-2023 End: 07-20-2023 ambulatory Lyndon Dorman Other [employer] Other Start: 07-20-2023 Office outpatient vi sit 15 minutes Lyndon Dorman [facility] Start: 07-13-2023 End: 07-14-2023 ambulatory LYNDON DORMAN Facility:[facility] [place] Start: 07-13-2023 End: 07-13-2023 Patient encounter procedure Tremayne R NILL [facility] [place] Start: 06-18-2023 End: 06-18-2023 ambulatory Lyndon Dorman Other [employer] Other Start: 06-18-2023 Telephone encounter Lyndon Dorman [facility] Start: 06-08-2023 End: 06-08-2023 ambulatory Lyndon Dorman Other [facility] Other Start: 06-08-2023 Telephone encounter Lyndon Guardado [facility] Start: 06-07-2023 End: 06-07-2023 ambulatory Lyndon Dorman Other [facility] Other Start: 06-07-2023 Patient encounter procedure Lyndon Dorman [facility] Start: 04-20-2023 End: 04-20-2023 ambulatory Lyndon Dorman Other [facility] Other Start: 04-20-2023 Telephone encounter Lyndon Dorman [facility] Start: 04-19-2023 End: 04-19-2023 ambulatory Lyndon Dorman Other [facility] Other Start: 04-19-2023 Telephone encounter Lyndon Guardado [place] [facility] Start: 02-24-2023 End: 02-25-2023 ambulatory Tremayne R NILL Facility:[facility] [place] Start: 02-24-2023 End: 02-24-2023 Patient encounter procedure Tremayne R NILL [facility] [place] Start: 02-10-2023 End: 02-11-2023 ambulatory Tremayne R NILL Facility:[facility] [place] Start: 02-04-2023 End: 02-04-2023 ambulatory Lyndon Dorman Other [employer] Other Start: 02-04-2023 Telephone encounter Lyndon SAWANT [facility] [place] [facility] Start: 02-03-2023 End: 02-04-2023 ambulatory Tremayne R NILL Facility:CD:[id number] Start: 01-13-2023 End: 01-14-2023 ambulatory Tremayne R NILL Facility:[facility] [place] Start: 01-13-2023 End: 01-13-2023 Patient encounter procedure Tremayne R NILL [facility] [place] Start: 12-04-2022 End: 12-04-2022 ambulatory Lyndon Dorman Other [employer] Other Start: 12-04-2022 Office outpatient vi sit 25 minutes Lyndon Dorman [facility] Start: 10-29-2022 End: 10-29-2022 ambulatory Jovon Duncan Other [employer] Other Start: 10-29-2022 Office outpatient vi sit 15 minutes Jovon Duncan [facility] Start: 09-17-2022 Office outpatient vi sit 15 minutes Jovon Duncan [facility] Start: 09-17-2022 End: 09-17-2022 ambulatory DO Lyndon Dorman Work Phone: [facility] Work Phone: Start: 09-17-2022 End: 09-17-2022 Patient encounter procedure DO Lyndon Dandy Work Phone: [facility] Work Phone: Start: 08-17-2022 End: 08-17-2022 ambulatory Lyndon Dorman Other [facility] Other Start: 08-17-2022 Telephone encounter Lyndon Dorman [facility] Start: 08-06-2022 (FPG VCS) [facility] Scheduled Lyndon Dorman [facility] Start: 08-06-2022 End: 08-06-2022 ambulatory Lyndon Dorman Other [facility] Other Start: 06-05-2022 Adult health examination Lyndon Dorman Other [facility] Other Start: 06-05-2022 End: 06-06-[address] LYNDON DORMAN Facility: Start: 03-26-2022 End: 03-26-2022 ambulatory Jovon Duncan Other [facility] Other Start: 03-26-2022 Office outpatient vi sit 15 minutes Jovon Duncan [facility] Start: 03-26-2022 End: 03-26-2022 Patient encounter procedure DO Lyndon Dorman Work Phone: [facility] Start: 12-25-2021 End: 12-25-2021 ambulatory Jovon Duncan Other [facility] Other Start: 12-25-2021 Office outpatient vi sit 15 minutes Jovon Duncan [facility] Start: 12-25-2021 End: 12-25-2021 Patient encounter procedure DO Lyndon Dorman Work Phone: [facility] Start: 10-27-2021 End: 11-01-[address] LYNDON DORMAN Facility: Start: 10-24-2021 End: 10-24-2021 ambulatory Jovon Duncan Other [facility] Other Start: 10-24-2021 Telephone encounter Jovon Duncan [facility] Start: 10-07-2021 End: 10-07-2021 ambulatory Jovon Duncan Other [employer] [facility] [employer] Other Start: 10-07-2021 Postop follow up vis it related to original px Jovon Duncan [facility] Start: 10-07-2021 End: 10-07-2021 Patient encounter procedure DO Lyndon Dorman Work Phone: [facility] Start: 09-18-2021 End: 09-18-2021 ambulatory Jovon Duncan Other [employer] [facility] [employer] Other Start: 09-18-2021 Postop follow up vis it related to original px Jovon Duncan [facility] Start: 09-08-2021 Admission to same [facility] Jovon Duncan [facility] Start: 09-08-2021 End: 09-08-2021 ambulatory Jovon Duncan Other [facility] Other Start: 09-03-2021 End: 09-04-[address] LYNDON DORMAN Facility:[facility] Start: 08-01-[address] LYNDON DORMAN Facili ty:[facility] Start: 07-24-2021 End: 07-24-2021 ambulatory Jovon Duncan Other [facility] [employer] Other Start: 07-24-2021 Office outpatient vi sit 40 minutes Jovon Duncan [facility] Start: 07-08-2021 End: 07-09-[address] LYNDON DORMAN Facility:[facility] Start: 06-17-2021 End: 06-17-2021 ambulatory Jovon Duncan Other [employer] Other Start: 06-17-2021 Office outpatient ne w 30 minutes Jovon Duncan [facility] Procedures Date Procedure Procedure [...] Comment on above: Performed By: #### [facility] #### [facility] [address] [place] [address] Dr. Nirmal Abernathy Start: 03-26-2022 X-ray of [...] left hand XR hand LT min 3V* [facility] Start: 11-30-2023 XR Hand - left GE 3 Views [facility] Holter monitor study [facility] XR Chest 2 Views [facility] XR Knee - left 4 Views [facility] Immunizations Immunization Date Immunization Notes Care Provider Genevieve ross 07-08-2021 COVID-19 mRNA-1273 (Moderna) DO Lyndon Dorman Work Phone: [facility] 10-15-2020 COVID-19 mRNA-1273 (Moderna) DO Lyndon Dorman Work Phone: [facility] 09-19-2020 COVID-19 mRNA-1273 (Moderna) DO Lyndon Dorman Work Phone: [facility] 05-24-2017 diphtheria, tetanus toxoids and acellular pertussis vaccine, unspecified formulation Lyndon Dorman Other [facility] 05-24-2017 pneumococcal polysaccharide vaccine, 23 valent Lyndon Dorman Other [facility] 03-30-2016 pneumococcal conjuga te vaccine, 13 valent Lyndon Dorman Other [facility] 03-30-2016 pneumococcal Conjugate, unspecified formulation; Translations: [Need for prophylactic vaccination against Streptococcus pneumoniae (pneumococcus)] Lyndon Dorman Other [facility] Other NEGATED: Highlighted row has not occurred!07-13-2023 influenza virus vaccine, unspecified formulation Tremayne DEANSwathi [facility] [place] Payers Date Payer Category Payer Self-pay [id number] 1957 Medicare [id number] 50 [id number] 1957 Self-pay [id number] 1945 Unknown [id number] 2.16.84 [id number] 1945 Unknown [id number] 2.16.84 [id number] 1945 Unknown [id number] 2.16.84 [id number] 1945 Unknown [id number] 2.16.84 [id number] 1945 Unknown [id number] 2.16.8 [id number] 1945 Unknown [id number] 2.16.8 [id number] 1945 Unknown [id number] 2.16.8 [id number] 1945 Unknown [id number] 2.16.8 [id number] 1945 Unknown [id number] 2.16.8 [id number] 1945 Unknown [id number] 2.16.8 [id number] 1945 Unknown [id number] 2.16.8 [id number] Medicare Medicare [id number] Unknown [id number] 2.16.84 [id number] Unknown [id number] 2.16.8 [id number] Social History Date Type Detail Facility Start: 09-08-2021 End: 07-13-2023 Tobacco smoking status ALIS Ex-smoker (finding) [facility] Start: 1945 Sex Assigned At Male F [facility] Sex Assigned At [facility] Tobacco smoking status Never [facility] Start: 10-04-2023 Tobacco smoking stat us [facility] Never smoked tobacco (finding) [facility] Medical Equipment Procedure Code Equipment Code Equipment Origin al Text Equipment Identifier Dates Decompression, spine, cervical, posterior approach CANCELLOUS 15CC CRUSHED FDA Start: 09-08-2021 Decompression, spine, cervical, posterior approach Bone-screw internal spinal fixation system, non-sterile ()[id number] FDA Start: 09-08-2021 Decompression, spine, cervical, posterior approach Bone-screw internal spinal fixation system, non-sterile ()[id number] FDA Start: 09-08-2021 Decompression, spine, cervical, posterior approach Bone-screw internal spinal fixation system, non-sterile ()[id number] FDA Start: 09-08-2021 Decompression, spine, cervical, posterior approach Bone-screw internal spinal fixation system, non-sterile ()[id number] FDA Start: 09-08-2021 Decompression, spine, cervical, posterior approach Spinal fusion graft kit ([id number] FDA Start: 09-08-2021 Decompression, spine, cervical, posterior approach Bone-screw internal spinal fixation system, non-sterile ([id number] FDA Start: 09-08-2021 Decompression, spine, cervical, posterior [...] Facility 07-13-2023 Functional Status N/A [facility] 01-13-2023 Functional Status N/A [facility] Clinical Notes 06-17-2021 to 08-11-2023 Note Date & Type Note Facility 08-11-2023 Evaluation note Encounter Date Diagnosis Assessment Notes Aug, 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 [facility] Other 12-19-2023 Evaluation note* Encounter Date Diagnosis [...] continue exercise to achieve/maintain a normal BMI. [facility] Other 12-12-2023 NoteChief Complaint consultation for colonoscopy [...] Substance Abuse - Denies (more content not included)...[facility]Result Comment: Electronically Signed By: RAUL ZUNIGA, Tremayne Arzola\Date and Time Signed: 07/13/23 14:31 [id number] Evaluation note * Encounter Date Diagnosis Assessment Notes Treatment Notes Treatment Clinical Notes Jun, Cervical spondylosis (ICD-10 - M47.812) [facility] Other 11-06-2023 Evaluation note* Encounter Date Diagnosis [...] use, the patient reduces the risk for SC, CVA, HTN, cardiac dysrhythmias and sudden cardiac [...] (ICD-10 - Z79.899) Check ALT and CBC [facility] Other 09-19-2023 Evaluation note* Encounter Date Diagnosis Assessment Notes Treatment Notes Treatment Clinical Notes Apr, Primary hypertension (ICD-10 - I10) [facility] Other 09-18-2023 Evaluation note* Encounter Date Diagnosis Assessment Notes Treatment Notes Treatment Clinical Notes Apr, Primary hypertension (ICD-10 - I10) [facility] Other 06-14-2023 NoteChief Complaint consultation for possible [...] Hypertension: Father. TIA: Mother (more content not included)...[facility]Result Comment: Electronically Signed By: RAUL ZUNIGA, Tremayne Arzola\Date and Time Signed: 01/13/23 17:35 [id number] Evaluation note* Encounter Date Diagnosis Assessment Notes [...] use, the patient reduces the risk for SC, CVA, HTN, cardiac dysrhythmias and sudden cardiac [...] [BMI ] 30.0-30.9, adult (ICD-10 - Z68.30) [facility] Other 03-30-2023 Evaluation note* Encounter Date Diagnosis [...] time Sep, Cervical myelopathy (ICD-10 - G95.9) [facility] Other 02-16-2023 Evaluation note* Encounter Date Diagnosis [...] okay. Sep, Cervical myelopathy (ICD-10 - G95.9) [facility] Other 01-16-2023 Evaluation note* Encounter Date Diagnosis Assessment Notes Treatment Notes Treatment Clinical Notes Aug, Primary hypertension (ICD-10 - I10) [facility] Other 01-05-2023 Evaluation note* Encounter Date Diagnosis [...] for congestion, Tylenol for pain and fever. [facility] Other 08-25-2022 Evaluation note* Encounter Date Diagnosis Assessment Notes Treatment Notes Treatment Clinical Notes Mar, Cervical myelopathy (ICD-10 - G95.9) Patient's gait is good, arm strength and range of motion good. Neck is healing well he looks quite comfortable. 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 He did not get his xray as requested prior to his appointment today. I will see the patient again in September at his yearly with 1 more x-ray of the neck to ensure the hardware remains good. For his age this patient is unusually active [facility] Other 05-26-2022 Evaluation note* Encounter Date Diagnosis [...] answered questions for him and his . [facility] Other 03-08-2022 Evaluation note* Encounter Date Diagnosis [...] in diseases classified elsewhere (ICD-10 - G99.2) [facility] Other 02-17-2022 Evaluation note* Encounter Date Diagnosis [...] Spinal stenosis, cervical region (ICD-10 - M48.02) [facility] Other 12-23-2021 Evaluation note* Encounter Date Diagnosis [...] Cervical radiculopathy at C7 (ICD-10 - M54.12) [facility] Other 11-16-2021 Evaluation note* Encounter Date Diagnosis [...] in diseases classified elsewhere (ICD-10 - G99.2) [facility] [employer] Other evaluation + Plan note No data available for this section [facility] [place] Evaluation noteNo assessment information available [facility] Work Phone: Evaluation noteNo InformationNortUpper [facility] Other evaluation note* Diagnosis Onset Date Resolution Status Arthritis of carpometacarpal (CMC) joint of left thumb acute Left hand pain acute [facility] Work Phone: Evaluation note* Diagnosis Onset Date Resolution Status Arthritis of carpometacarpal (CMC) joint of left thumb acute Left hand pain acute Hypercholesterolemia acute Hypertension acute DARRICK (obstructive sleep apnea) acute [facility] Work Phone: Evaluation note* Diagnosis Onset Date Resolution Status Hypertension acute DARRICK (obstructive sleep apnea) acute [facility] Work Phone: Evaluation note* Diagnosis Onset Date Resolution Status Hypertension acute Neck pain acute DARRICK (obstructive sleep apnea) acute Palpitation acute SOB (shortness of breath) [place] Hypertension acute Neck pain acute DARRICK (obstructive sleep apnea) acute Palpitation acute SOB (shortness of breath) [facility] [place] [facility] Work Phone: Hisfcve general Narrative - Reported* Type Description Date Medical History hypertension Surgical History HERNIA 2004 Surgical History RIGHT SHOULDER SURGER 1979 [facility] Other Hisibiy general Narrative - Reported* Type Description Date Medical History hypertension Surgical History HERNIA 2004 Surgical History RIGHT SHOULDER SURGER 1979 Surgical History PCD-Doctor Duncan Hospitalization History See Above iTOK Other Hisszng general Narrative - Reported* Type Description Date [...] History PCD-[facility] Hospitalization History See Above iTOK Other Hisxogj general Narrative - Reported* Type Description Date [...] inguinal hernia 01/2023 Hospitalization History See Above iTOK Other Hisqqvg general Narrative - Reported* Type Description Date [...] History Colonoscopy 08/2023 Hospitalization History See Above iTOK Other Hospital Discharge instructions No data available for this section General Surgery [place] Progress note No data available for this section General Surgery [place] Reason for referral (narrative)* Reason Referral for screeni ng colonoscopy Diagnosis 1 Colon cancer screeni ng (Z12.11) Referral Organization [facility] Airu jewel Referring Provider First Name Lyndon Referring Provider Last Name Dandy Referring Provider Specialty Internal Vt dicine Referred Organization [facility] Referred Provider Tremayne Carter Referred Address [address], [place],[address] Referred Provider Specialty Surgery Referral Priority Routine [...] labs just completed for his wellness exam. iTOK Other Reason for referral (narrative)* Reason Referral for suspect ed DeQuervain's Tenosynovitis Diagnosis 1 De Quervain's tenosy novitis (M65.4) Referral Organization [facility] Airu Sharath holloway Referring Provider First Name Lyndon Referring Provider Last Name Dandy Referring Provider Specialty Internal Vt dicine Referred Organization [facility] Referred [address] [place], [place],[address] Referred Provider Specialty Orthopaedic Surgery Referral Priority Routine General Notes Mr. Weiner has faile d conservative treatment, which included NSAIDs, topical Voltaren, ice and rest. iTOK Other Reason for visit NarrativeReferral Dr. Pranay Dorman Cervical SpondylosisNort [employer] Travel Other Chief Complaint and Reason for Visit [...] 1 Cervical spondylolys is (M43.02) Referral Organization [facility]gery Referring Provider First Name Jovon Referring Provider Last Name Perla Referring Provider Specialty Neurologica l Surgery Referred Organization [facility] Referred Address [address], [place],[address] Referred Provider Specialty Physical The rapist Referral [...] geryrequesting order for PTpcd with fusion C3- [id number] removal4 wk po PCD3 mo po PCD w/xray6 months po PCDCOVID +Refillyrly f/u PCD w/xrayf/u arm pain6 MONTH FOLLOW UP MBNo InformationrefillsNo InformationWellnessLab resultsRefillcoldNo InformationReferral (unrecognized sect ion and content) No Status Records FoundNo Status Records FoundNo Status Records Found INFORMATION SOURCE (unrecogn ized section and content) DATE CREATED AUTHOR 06/12/[address] [facility] DATE CREATED AUTHOR AUTHOR'S ORGANIZ ATION 08/11/2023 [facility] DATE CREATED AUTHOR AUTHOR'S ORGANIZ ATION 12/04/2023 [facility] FOR RECORDS PERTAINING TO PATIENTS [...] BE BASED ON THE PRIMARY CLINICAL RECORDS. [facility] [employer] [facility]. provides no warranty or guarantee of the accuracy or completeness of information in this document.
[2024-06-16 07:28] LABS: Chol HDL Ratio 3.6; Cholesterol 200 mg/dL (<=200); HDL Cholesterol 56 mg/dL (40-60); Triglycerides 60 mg/dL (<=150)
[2024-06-16 08:32] LABS: Prostate Specific Antigen Scrn 1.83 ng/mL (<=4.00)
== END 2024-06-16 06:51 | disposition home or self-care (01) ==
LOC: LAB 06:52
PROVIDERS: PCP Internal Medicine; Visit Provider Internal Medicine
DX: E78.00 Pure hypercholesterolemia, unspecified (principal); Z12.5 Encounter for screening for malignant neoplasm of prostate
CPT/HCPCS: 36415; 80061; G0103

== ENCOUNTER 2024-11-20 08:11 | Outpatient (OUT) | payer MEDICARE, SELFPAY ==
--- NOTE | 2024-11-20 | PCN_ITS ---
CARDIAC STRESS TEST Requesting Physician: Dr. Pranay Dorman Procedure Date: 11/20/2024 LEXISCAN EKG STRESS TEST The test was discussed with the patient, including details, as well as risks and benefits, and he was agreeable to proceed. Resting 12-lead EKG showed sinus bradycardia, heart rate 55 beats per minute, otherwise normal EKG. Resting blood pressure 146/90 mm/Hg. The patient was injected with 0.4 mg of IV Lexiscan, and he was monitored for a few minutes. Max heart rate 108 beats per minute, representing 75% of age predicted maximum heart rate and max blood pressure 164/94 mm/Hg. The patient did not have any symptoms with Lexiscan injection. EKG throughout the test did not show any significant T or ST changes. No arrhythmias, except for rare PACs. CONCLUSION: 1. Negative Lexiscan EKG stress test for ischemia. 2. The nuclear myocardial perfusion images result will be reported separately. [facility]
--- NOTE | 2024-11-20 08:20 | NM_ITS ---
Patient Name: NISHI WEINER MR#: [id number] : 1945 Exam Date: 11/20/2024 Ordering Doctor: DR Lyndon Dorman D.O. RADIOLOGY REPORT PROCEDURE: NM MICHAEL PERF SPECT REST STR COMPARISON: None. INDICATIONS: CHEST PAIN, SHORTNESS OF BREATH, FATIGUE, HYPERTENSION TECHNIQUE: Exam Description: Rest/Stress one day protocol gated SPECT Rest Imagin.2 mCi Tc-99m Cardiolite IV on 11-20-2024 Stress Imaging 30.9 mCi Tc-99m Cardiolite IV on 11-20-2024 Exercise Protocol: 0.4 mg Lexiscan given IV Heart Rate (bpm): Rest: 56 Max: 108 PMHR: 75 Blood Pressure: Rest: 146/90 Max: 164/94 Symptoms: Rest and peak stress ECG findings were pending and the exercise portion of the study was pending per attending physician [facility] . For more details please see separate cardiac stress test report. FINDINGS: QUALITY OF STUDY: Good PERFUSION DEFECT: LOCATION: Inferolateral SIZE: Small SEVERITY: Mild TYPE: Fixed with normal contractility and thickening WALL MOTION: LV SIZE: 94 mL. TID / TCD: 0.9 LVEF: Calculated EF 61%. SUMMARY: Normal Myocardial perfusion imaging study CONCLUSION: Normal myocardial perfusion stress test, without ischemia or infarct Normal left ventricle systolic function, EF 61% No transient ischemic dilatation, TID 0.9 Lexiscan EKG stress test is reports separately Dictated by: German Carcamo MD on 11/20/2024 at 13:40 Approved by: German Carcamo MD on 11/20/2024 at 13:46
--- OUTSIDE RECORDS SUMMARY | 2024-11-20 08:28 | XMS_ITS | CCD ---
Author Organization [facility] Care Team Providers Care Manager Interface Name Role Phone DO Lyndon Dorman Primary Care Provider MD Jovon Duncan Attending Provider Jovon Duncan Unavailable DO Lyndon Dorman Primary Care Provider MD Jovon Duncan Attending Provider DR LYNDON DORMAN Primary Care Unavailable KRISTA PATRICK Admitting Unavailable CELINA, KRISTA TIMMONS Attending Unavailable KRISTA PATRICK Consulting Unavailable DANDY, DR MENDOZA Primary Care Unavailable PERLA, DR GANT Admitting Unavailable DUNCAN, DR GANT Attending Unavailable DANDY, DR MENDOZA Primary Care Unavailable DANDY, DR MENDOZA Admitting Unavailable DANDY, DR MENDOZA Attending Unavailable DANDY, DR MENDOZA Primary Care Unavailable DANDY, DR MENDOZA Admitting Unavailable DANDY, DR MENDOZA Attending Unavailable BALL, DR MENDOZA Consulting Unavailable DANDY, DR MENDOZA Primary Care Unavailable BALL, DR MENDOZA Admitting Unavailable BALL, DR MENDOZA Attending Unavailable DANDY, DR MENDOZA Consulting Unavailable DO Lyndon Dorman Primary Care Provider [phone] MD Jovon Duncan Attending Provider MD Jovon Duncan Referring Provider [phone] Lyndon Dorman Unavailable LYNDON DORMAN Primary Care Physician [phone] NILRaji, Tremayne Davenport Attending Unavailable NILL, Tremayne R Attending Unavailable NILL, Tremayne R Attending Unavailable LYNDON DORMAN Referring Unavailable NILL, Tremayne R Attending Unavailable NILL, Tremayne R Attending Unavailable NILL, Tremayne R Attending Unavailable NILL, Tremayne Davenport Attending Unavailable DO Lyndon Dorman Primary Care Provider MD Greta Pena Attending Provider [phone] Greta Pena Attending Unavailable Greta Pena Admitting Unavailable Lyndon Dorman Primary Care Unavailable Unavailable Primary Care Provider UnavailLyndon Avila MD Primary Care Provider Lyndon Dorman MD Primary Care Provider KLAUDIA VARGAS Attending Unavailable KLAUDIA VARGAS Attending Unavailable Allergies Allergy Classification Reported Allergen(s) Allergy Type Date of Onset Reaction(s) Facility (2 sources) patient allergy list reviewed by nurse or physicia Propensity to adverse reactions Comment:Done #waywire Other (1 source) No Known Medication Allergies; Translations: [No Known Medication Allergies] Propensity to adverse reactions (disorder) [place] Repository Medications Current Medications Medication Drug Class(es) Dates Sig (Normalized) Sig (Original) azithromycin 250 mg oral tablet (2 sources) Macrolide Antimicrobial Start: 07-20-2023 Azithromycin 250 MG as directed Orally daily for 5 days Jul, Active carvedilol 6.25 mg oral tablet (9 sources) alpha-Adrenergic Moi, beta-Adrenergic Moi Start: 07-23-2024 take 1 tablet by mouth twice daily at mealtime Carvedilol 6.25 mg tablet Active 0 .ROUTE .COMPLEX 180 July 23, 2024 7:30pm TAKE 1 TABLET BY MOUTH TWICE A DAY *TAKE WITH MEAL/FOOD* Start: 04-28-2024 End: 07-23-2024 take 1 tablet by mouth twice daily at mealtime Carvedilol 6.25 mg tablet Discontinued 6.25 MG PO Twice daily 180 90 May 02, 2024 11:40am July 23, 2024 7:30pm must administer with a meal/food diclofenac sodium 75 mg delayed release oral tablet (20 sources) Nonsteroidal Anti-inflammatory Drug Start: 10-04-2024 take 1 tablet by mouth twice daily as needed for pain Diclofenac Sodium 75 mg tablet,delayed release (DR/EC) Active 0 .ROUTE .COMPLEX 60 October 04, 2024 8:41am TAKE 1 TABLET BY MOUTH TWICE A DAY NEEDED FOR PAIN Start: 08-11-2021 End: 10-04-2024 take 1 tablet by mouth twice daily as needed for pain Diclofenac Sodium 75 mg tablet,delayed release (DR/EC) Discontinued 75 MG PO Twice daily as needed for Pain 60 October 04, 2023 1:46pm October 04, 2024 8:41am Diclofenac 75mg Tab-DR (4 sources) Start: 03-03-2019 take 1 mg by mouth twice daily Diclofenac 75mg Tab-DR mg, Oral, BID, Refills(s) 0 Start Date: 03/03/19 Status: Ordered gabapentin 100 mg oral capsule (20 sources) Anti-epileptic Agent Start: 10-15-2024 take 1 capsule by mouth twice daily Gabapentin 100 mg capsule Active 0 .ROUTE .COMPLEX 60 October 15, 2024 10:47am TAKE 1 CAPSULE BY MOUTH TWICE A DAY Start: 06-29-2023 take 1 capsule by mo [facility] three times daily gabapentin 100 mg Cap 100 mg = 1 cap(s), Oral, TID, Refills(s) 0 Start Date: 06/29/23 Status: Ordered Start: 08-11-2021 End: 10-15-2024 take 1 capsule by mouth twice daily Gabapentin 100 mg capsule Discontinued 100 MG PO Twice daily 60 30 October 04, 2023 6:12pm October 15, 2024 10:47am losartan potassium 25 mg oral tablet (20 sources) Angiotensin 2 Receptor Moi Start: 07-14-2024 take 2 tablets by mouth in the morning, then take 1 tablet by mouth in the evening Losartan 25 mg tablet Active 0 PO .COMPLEX 270 90 July 14, 2024 5:32pm orally 2 tablets in the am and 1 tablet in the evening; Start: 04-28-2024 End: 07-14-2024 take 1 tablet by mouth in the evening Losartan 25 mg tablet Discontinued 25 MG PO .COMPLEX 270 90 July 14, 2024 3:02pm July 14, 2024 5:32pm 25 mg orally 2 tablets in the am and 1 tablet in the evening; Start: 02-07-2024 End: 04-28-2024 take 1 tablet by mouth once daily Losartan 25 mg tablet Discontinued 0 .ROUTE .COMPLEX 90 February 07, 2024 7:03am April 28, 2024 6:42pm TAKE 1 TABLET BY MOUTH EVERY DAY FOR 30 DAYS Start: 02-07-2024 End: 04-28-2024 take 1 tablet by mouth once daily Losartan Discontinued 0 .ROUTE .COMPLEX 90 February 07, 2024 7:03am April 28, 2024 6:42pm TAKE 1 TABLET BY MOUTH EVERY DAY FOR 30 DAYS Start: 02-07-2024 take 1 tablet by rach once daily Losartan Active 0 .ROUTE .COMPLEX 90 February 07, 2024 7:03am TAKE 1 TABLET BY MOUTH EVERY DAY FOR 30 DAYS Start: 08-11-2021 End: 02-07-2024 take 1 tablet by mouth once daily Losartan 25 mg tablet Discontinued 25 MG PO Daily October 04, 2023 1:46pm February 07, 2024 7:03am Completed/Discontinued Medications Medication Drug Class(es) Dates Sig (Normalized) Sig (Original) amLODIPine 5 mg oral tablet (20 sources) Dihydropyridine Calcium Channel Moi Start: 02-07-2024 End: 04-28-2024 take 1 tablet by mouth once daily Amlodipine 5 mg tablet Discontinued 0 .ROUTE .COMPLEX 90 February 07, 2024 7:03am April 28, 2024 6:41pm TAKE 1 TABLET BY MOUTH EVERY DAY Start: 03-03-2019 End: 02-07-2024 take 1 tablet by mouth once daily Amlodipine 5 mg tablet Discontinued 5 MG PO Daily October 04, 2023 1:45pm February 07, 2024 7:03am atorvastatin 20 mg oral tablet (20 sources) HMG-CoA Reductase Inhibitor Start: 08-11-2021 End: 12-06-2023 take 1 tablet by mouth once daily at bedtime Atorvastatin 20 mg tablet Discontinued 20 MG PO Daily at bedtime October 04, 2023 1:46pm December 06, 2023 9:21am cephalexin 500 mg oral capsule (11 sources) Cephalosporin Antibacterial Start: 09-09-2021 End: 11-30-2023 take 1 capsule by mouth three times daily Cephalexin 500 mg capsule Discontinued 500 MG PO Three times daily 15 September 09, 2021 1:00am November 30, 2023 9:56am cyclobenzaprine hydrochloride 10 mg oral tablet (11 sources) Muscle Relaxant Start: 09-09-2021 End: 11-30-2023 take 1 tablet by mouth three times daily as needed for muscle spasms Cyclobenzaprine 10 mg tablet Discontinued 10 MG PO Three times daily as needed for back spasms 40 September 09, 2021 1:00am November 30, 2023 9:57am oxyCODONE hydrochloride 5 mg oral tablet (11 sources) Opioid Agonist Start: 09-09-2021 End: 11-30-2023 take 5-10 mg by mouth every six hours as needed for pain Oxycodone 5 mg Tablet Discontinued 5 - 10 MG PO Q6H as needed for Pain 40 8 September 09, 2021 November 30, 2023 9:57am paxlovid (300/100) 20 x 150 mg & 10 x 100mg tablet therapy pack (2 sources) Start: 08-06-2022 take 3 tablets by mouth every twelve hours Paxlovid (300/100) 20 x 150 MG & 10 x 100MG 3 tablets Orally Twice a day for 5 day(s) Aug, Not-Taking/PRN predniSONE 10 mg oral tablet (3 sources) Start: 05-30-2024 End: 06-15-2024 Prednisone 10 mg tablet Discontinued 10 MG PO As Directed 18 May 30, 2024 12:00am June 15, 2024 12:52pm 1 tab tid w/ food x 3 days, then bid w/ food x 3 days, then qd w/ food x 3 days {20 (nirmatrelvir 150 MG Oral Tablet) / [...] disorder, unspecified] Onset: 03-30-2016 Chronic Cardiac dysrhythmias (11 sources) Palpitations; Translations: [Palpitations] 03-31-2024 Episodic Chronic [...] hypertension; Translations: [Essential hypertension] Onset: 06-11-2022 Chronic Comment on above: Echo: LVEF 60%, norm al RV size/function, RVSP 40 - 04/2024 Hyperplasia of prostate (8 sources) Benign prostatic hyperplasia; Translations: [Lower urinary tract symptoms due to benign prostatic hypertrophy] Onset: 03-26-2015 12-30-2022 Chronic Joint disorders and dislocations; trauma-related (5 sources) Current tear of medial cartilage AND/OR meniscus of knee; Translations: [Peripheral tear of medial meniscus, current injury, right knee, initial encounter] Onset: 03-03-2019 05-30-2024 Episodic Miscellaneous mental health disorders (2 sources) Primary insomnia; Translations: [Primary insomnia] Chronic Osteoarthritis (20 sources) Degenerative joint disease involving multiple joints; Translations: [Osteoarthritis of knee] 03-03-2019 Chronic Other acquired deformities (13 sources) Spondylolysis of cervical spine; Translations: [Spondylolysis, cervical region] Episodic Other aftercare (2 sources) Other bed bug exterminator (current) drug therapy; Translations: [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 DRUG THERAPY] Onset: 06-11-2022 Episodic Other aftercare (2 sources) Long-term current use of drug therapy; Translations: [Other snf (current) drug therapy] Episodic Other connective tissue disease (2 sources) 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] Episodic Other connective tissue disease (8 sources) Hand pain; Translations: [Pain in left hand] 11-29-2023 Episodic Other connective tissue disease (4 sources) Pain in left hand; Translations: [Pain in limb] Onset: 11-30-2023 11-30-2023 Episodic Other ear and sense organ disorders (4 sources) Hearing loss 12-30-2022 Chronic Other ear and sense organ disorders (2 sources) Sensorineural hearing loss; Translations: [Unspecified sensorineural hearing loss] Chronic Other ear and sense organ disorders (8 sources) Sensorineural hearing loss, bilateral; Translations: [Sensorineural hearing loss, bilateral] Onset: 05-08-2015 10-02-2024 Chronic Other ear and sense organ disorders [...] of falling] Episodic Other lower respiratory disease (6 sources) Dyspnea; Translations: [Other forms of dyspnea] Resolved: 06-04-2021 03-31-2024 Episodic Other lower respiratory disease (7 sources) Shortness of breath; Translations: [Shortness of breath] 03-31-2024 Episodic Other nervous system disorders (20 sources) Cervical myelopathy; Translations: [Disease of spinal cord, unspecified] 12-30-2022 Chronic Other nervous system disorders (4 sources) Disease of spinal cord, unspecified Onset: 12-25-2021 Resolved: 03-26-2022 Chronic Other non-traumatic joint disorders (5 sources) Pain in left knee; Translations: [Left knee pain] 05-30-2024 Episodic Other nutritional; endocrine; and metabolic disorders (10 sources) Obesity; Translations: [Other obesity due to [...] conditions (not mental disorders or infectious disease) (7 sources) Encounter for screening for malignant neoplasm of prostate; Translations: [Encounter for screening for malignant neoplasm of colon] Onset: 06-11-2022 Episodic Comment on above: PSA: 1.54 - 06/2022, 2.18 - 06/2023, 1.83 - 06/2024 Other skin disorders (6 sources) Epidermoid cyst [...] (adult) (pediatric)] 03-03-2019 Chronic Residual codes; unclassified (11 sources) Obstructive sleep apnea (adult) (pediatric); Translations: [...] region] Onset: 06-17-2021 Resolved: 12-30-2022 09-09-2021 Chronic Comment on above: Problem List clean-u p per request of Phys. EHR Cmte Spondylosis; intervertebral disc disorders; other back problems [...] Translations: [ENCOUNTER FOR IMMUNIZATION] Onset: 07-08-2021 Episodic Malaise and fatigue (3 sources) Weakness; [...] Test Name Value Interpretation Reference Range Facility No Panel Informationon 10-02 [employer] Audiometry Audio indicated normal hearing 250-2000 Hz, sloping to a moderate to severe sensorineural hearing loss 8450-4472 Hz, bilaterally. Replaced by [facility] Basophils Auto (Bld) [#/Vol] on 04-10-2024 Basophils (Bld) [#/Vol] 0.1 10 3/uL 0.0-0.1 [facility] Basophils (Bld) [#/Vol] Automated basophil count 0.0-0.1 [facility] Basophils/100 WBC Auto (Bld) on 04-10-2024 Basophils/100 WBC (Bld) 1.6 % 0.2-2.0 [facility] Basophils/100 WBC (Bld) Automated basophil % 0.2-2.0 [facility] Eosinophils/100 WBC Auto (Bl d)on 04-10-2024 Eosinophils/100 WBC (Bld) 1.9 % 0.9-7.0 [facility] Eosinophils/100 WBC (Bld) Automated eosinophil % 0.9-7.0 [facility] Erythrocyte distribution wid th Auto (RBC) [Ratio]on 04-10-2024 Erythrocyte distribution width (RBC) [Ratio] 13.4 % 11.0-15.0 [facility] Erythrocyte distribution width (RBC) [Ratio] Erythrocyte distribution width [Ratio] by Automated count 11.0-15.0 [facility] Estimated glomerular filtrat ion rate (GFR) non- Americanon 04-10-2024 GFR/1.73 sq M.predicted among non-blacks MDRD (S/P/Bld) [Vol rate/Area] mL/min/{1.73_m2} >=60 [facility] GFR/1.73 sq M.predicted among non-blacks MDRD (S/P/Bld) [Vol rate/Area] Estimated glomerular filtration rate (GFR) non- >=60 [facility] Hematocrit Auto (Bld) [Volum e fraction]on 04-10-2024 Hematocrit (Bld) [Volume fraction] 46.4 % 42.0-54.0 [facility] Hematocrit (Bld) [Volume fraction] Hematocrit [Volume Fraction] of Blood by Automated count 42.0-54.0 [facility] Hemoglobin [Mass/volume] in Bloodon 04-10-2024 Hemoglobin (Bld) [Mass/Vol] 15.4 g/dL 14.0-18.0 [facility] Hemoglobin (Bld) [Mass/Vol] Hemoglobin [Mass/volume] in Blood 14.0-18.0 [facility] Laboratory - Chemistry and C hemistry - challengeon 04-10-2024 Calcium [Mass/Vol] 9.0 mg/dL 8.5-10.1 [facility] Chloride [Moles/Vol] 103 mmol/L 98-107 [facility] CO2 [Moles/Vol] 29.7 mmol/L 21.0-32.0 [facility] Creatinine [Mass/Vol] 1.07 mg/dL 0.70-1.30 [facility] GFR/1.73 sq M.predicted MDRD (S/P/Bld) [Vol rate/Area] mL/min/{1.73_m2} >=60 [facility] Glucose [Mass/Vol] 105 mg/dL 74-106 [facility] Potassium [Moles/Vol] 4.3 mmol/L 3.5-5.1 [facility] Sodium [Moles/Vol] 139 mmol/L 136-145 [facility] TSH Qn 1.588 m[IU]/L 0.358-3.740 [facility] Urea nitrogen [Mass/Vol] 18.0 mg/dL 7.0-18.0 [facility] Urea nitrogen/Creatinine [Mass ratio] 16.8 mg/mg [facility] Laboratory - Hematology and Cell countson 04-10-2024 Immature granulocytes/100 WBC (Bld) 0.8 % High 0.0-0.5 [facility] Leukocytes [#/volume] correc gerber for nucleated erythrocytes in Blood by Automated counon 04-10-2024 WBC corrected for nucl RBC Auto (Bld) [#/Vol] 7.3 10 3/uL 4.0-11.0 [facility] WBC corrected for nucl RBC Auto (Bld) [#/Vol] Leukocytes [#/volume] corrected for nucleated erythrocytes in Blood by Automated coun 4.0-11.0 [facility] Lymphocytes Auto (Bld) [#/Vo l]on 04-10-2024 Lymphocytes (Bld) [#/Vol] 1.2 10 3/uL 1.2-3.8 [facility] Lymphocytes (Bld) [#/Vol] Lymphocytes [#/volume] in Blood by Automated count 1.2-3.8 [facility] Lymphocytes/100 WBC Auto (Bl d)on 04-10-2024 Lymphocytes/100 WBC (Bld) 16.7 % Low 20.5-60.0 [facility] Lymphocytes/100 WBC (Bld) Lymphocytes/100 leukocytes in Blood by Automated count Low 20.5-60.0 [facility] MCH Auto (RBC) [Entitic mass ]on 04-10-2024 MCH (RBC) [Entitic mass] 27.9 pg 25.9-34.0 [facility] MCH (RBC) [Entitic mass] MCH [Entitic mass] by Automated count 25.9-34.0 [facility] MCHC Auto (RBC) [Mass/Vol]on 04-10-2024 MCHC (RBC) [Mass/Vol] 33.2 g/dL 29.9-35.2 [facility] MCHC (RBC) [Mass/Vol] MCHC [Mass/volume] by Automated count 29.9-35.2 [facility] MCV Auto (RBC) [Entitic vol] on 04-10-2024 MCV (RBC) [Entitic vol] 84.1 fL 80.0-94.0 [facility] MCV (RBC) [Entitic vol] MCV [Entitic volume] by Automated count 80.0-94.0 [facility] Monocytes Auto (Bld) [#/Vol] on 04-10-2024 Monocytes (Bld) [#/Vol] 0.4 10 3/uL 0.3-0.8 [facility] Monocytes (Bld) [#/Vol] Automated blood monocyte count 0.3-0.8 [facility] Monocytes/100 WBC Auto (Bld) on 04-10-2024 Monocytes/100 WBC (Bld) 5.9 % 1.7-12.0 [facility] Monocytes/100 WBC (Bld) Automated monocyte % 1.7-12.0 [facility] Neutrophils Auto (Bld) [#/Vo l]on 04-10-2024 Neutrophils (Bld) [#/Vol] 5.3 10 3/uL 1.4-6.5 [facility] Neutrophils (Bld) [#/Vol] Neutrophils [#/volume] in Blood by Automated count 1.4-6.5 [facility] Neutrophils/100 WBC Auto (Bl d)on 04-10-2024 Neutrophils/100 WBC (Bld) 73.1 % 43.0-75.0 [facility] Neutrophils/100 WBC (Bld) Automated neutrophil % 43.0-75.0 [facility] No Panel Informationon 04-10 Eosinophils # (Auto) 0.1 10 3/uL 0.0-0.7 [facility] Immature Granulocyte # (Auto) 0.06 10 3/uL High 0.00-0.03 [facility] Platelet mean volume Auto (B ld) [Entitic vol]on 04-10-2024 Platelet mean volume (Bld) [Entitic vol] 9.4 fL Low 9.5-13.5 [facility] Platelet mean volume (Bld) [Entitic vol] Platelet mean volume [Entitic volume] in Blood by Automated count Low 9.5-13.5 [facility] Platelets Auto (Bld) [#/Vol] on 04-10-2024 Platelets (Bld) [#/Vol] 239 10 3/uL 150-450 [facility] Platelets (Bld) [#/Vol] Platelets [#/volume] in Blood by Automated count 150-450 [facility] RBC Auto (Bld) [#/Vol]on RBC (Bld) [#/Vol] 5.52 10 6/uL 4.70-6.10 [facility] RBC (Bld) [#/Vol] Erythrocytes [#/volu me] in Blood by Automated count 4.70-6.10 [facility] Serum or plasma anion gap de terminationon 04-10-2024 Anion gap [Moles/Vol] 10.6 mmol/L [facility] Anion gap [Moles/Vol] Serum or plasma anion gap determination [facility] XR hand LT min 3V*on 024 XR hand LT min 3V* [facility] [address] [facility] [place] [address] XRay Report Signed Patient: Brent Weiner MR#: [id number] : 1945 Acct:[id number] Age/Sex: 77 / M ADM Date: 11/30/23 [place] [facility] [place]: Type: [facility] Attending Dr: Greta Pena MD Copies to: [...] Kervin Marshall M.D.11/30/2023 1:39 PM Dictation Location: [facility] Transcribed By: DONNA 11/30/23 1339 Dictated By: Kervin Marshall DO 11/30/23 1335 Signed By: 11/30/23 1339 Normal [facility] Ambulatory Visit Summaryon 0 08-10-2023 Ambulatory Visit Summary [facility] Debby :1945 Visit Date:08/10/2023 Ambulatory Visit Instructions Your [...] choosing us for your care. Normal [facility] General Surgery Office/Clini c Noteon 08-10-2023 General [...] Recorded SARS-CoV-2 (COVID-19) mRNA-1273 vaccine 09/19/2020 Recorded [facility] Comment on above: Result Comment: Elec tronically Signed By: RAUL ZUNIGA, Tremayne Davenport\.br\Date and Time Signed: 08/10/23 13:14 EST Pathology Noteon 08-04-2023 Pathology Note [id number]#1.00TIF F [facility] Outside Colonoscopyon 2023 Outside Colonoscopy [id number]#1.00TIF F [facility] Consent for Procedure/Surger yon 07-14-2023 Consent for Procedure/Surgery [id number] FF [facility] Insurance Correspondenceon 1 09-14-2022 Insurance Correspondence [id number]#1.00TI FF [facility] Ambulatory Visit Summaryon 1 09-13-2022 Ambulatory [...] you for choosing us for your care. [facility] Physician Referralon 023 Physician Referral [id number]#[id number] F [facility] Ambulatory Visit Summaryon 0 02-24-2023 Ambulatory [...] Generalised osteoarthritis Obstructive sleep apnea Tinnitus Normal [place] General Surgery Office/Clini c Noteon 02-24-2023 General [...] SARS-CoV-2 (COVID-19) mRNA-1273 vaccine 09/19/2020 Recorded Normal [place] Comment on above: Result Comment: Elec tronically [...] MD Where: General Surgery Raul/Veto Driscoll Normal [place] General Surgery Office/Clini c Noteon 02-10-2023 General [...] Recorded SARS-CoV-2 (COVID-19) mRNA-1273 vaccine 09/19/2020 Recorded [facility] Comment on above: Result Comment: Elec tronically Signed By: RAUL ZUNIGA, Tremayne Davenport\karoline\Date and Time Signed: 02/10/23 16:33 EDT Provider Letteron 02-10-2023 Provider Letter (Inserted Image. Lisa ble to display) February 10, 2023 BRENT WEINER [address] [place] [address] : 1945 To Whom It May Concern, Please excuse above patient from work until March 02, 2023. Sincerely, Dr. Tremayne Carter MD General Surgery [facility] Operative Reporton Operative Report [id number]#1.00CD: 127 [facility] ECG 12-Leadon 01-26-2023 ECG 12-Lead [id number]#1.00CD: 127 [facility] Pre-Certification Formon Pre-Certification Form [id number]#1.00CD :127 [facility] Consent for Procedure/Surger yon 01-14-2023 Consent for Procedure/Surgery [id number]#1.00CD:1 27 [facility] Ambulatory Visit Summaryon 0 01-13-2023 Ambulatory [...] Generalised osteoarthritis Obstructive sleep apnea Tinnitus Normal [place] Physician Referralon 023 Physician Referral [id number]#1.00CD: 127 Normal [place] CBC AUTO DIFFon 06-05-2022 BASO # 0.2 103/ul Critically high 0.0-0.1 [facility] Comment on above: Performed By: #### C BC #### [facility] [address] [place] [address] Dr. Nirmal Abernathy Basophils/100 WBC (Bld) 3.4 % Critically high 0.2-2.[address] [facility] Comment on above: Performed By: #### C BC #### [facility] [address] [place] [address] Dr. Nirmal Abernathy EO # 0.2 103/ul Normal 0.0-0.7 [facility] Comment on above: Performed By: #### C BC #### [facility] [address] [place] [address] Dr. Nirmal Abernathy Eosinophils/100 WBC (Bld) 3.9 % Normal 0.9-7.[address] [facility] Comment on above: Performed By: #### C BC #### [facility] [address] [place] [address] Dr. Nirmal Abernathy Erythrocyte distribution width (RBC) [Ratio] 13.4 % Normal 11.0-15.[address] [facility] Comment on above: Performed By: #### C BC #### [facility] [address] [place] [address] Dr. Nirmal Abernathy Hematocrit (Bld) [Volume fraction] 43.7 % Normal 42.0-54.[address] [facility] Comment on above: Performed By: #### C BC #### [facility] [address] [place] [address] Dr. Nirmal Abernathy Hemoglobin (Bld) [Mass/Vol] 14.1 g/dL Normal 14.0-18.[address] [facility] [address] [facility] Comment on above: Performed By: #### C BC #### [facility] [address] [place] [address] Dr. Nirmal Abernathy IG # 0.04 10e3/ul Critically high 0.00-0.03 [facility] Comment on above: Performed By: #### C BC #### [facility] [address] [place] [address] Dr. Nirmal Abernathy IG % 0.7 % Critically high 0.0-0.5 [facility] Comment on above: Performed By: #### C BC #### [facility] [address] [place] [address] Dr. Nirmal Abernathy LYMPH # 1.4 103/ul Normal 1.2-3.[address] [facility] Comment on above: Performed By: #### C BC #### [facility] [address] [place] [address] Dr. Nirmal Abernathy Lymphocytes/100 WBC (Bld) 22.9 % Normal 20.5-60.[address] [facility] Comment on above: Performed By: #### C BC #### [facility] [address] [place] [address] Dr. Nirmal Abernathy MANUAL DIFF REQ NO Normal [facility] Comment on above: Performed By: #### C BC #### [facility] [address] [place] [address] Dr. Nirmal Abernathy MCH (RBC) [Entitic mass] 27.0 pg Normal 25.9-34.[address] [facility] Comment on above: Performed By: #### C BC #### [facility] [address] [place] [address] Dr. Nirmal Abernathy MCHC (RBC) [Mass/Vol] 32.3 g/dL Normal 29.9-35.[address] [facility] Comment on above: Performed By: #### C BC #### [facility] [address] [place] [address] Dr. Nirmal Abernathy MCV (RBC) [Entitic vol] 83.7 fL Normal 80.0-94.[address] [facility] Comment on above: Performed By: #### C BC #### [facility] [address] [place] [address] Dr. Nirmal Abernathy MONO # 0.5 103/ul Normal 0.3-0.[address] [facility] Comment on above: Performed By: #### C BC #### [facility] [address] [place] [address] Dr. Nirmal Abernathy Monocytes/100 WBC (Bld) 8.1 % Normal 1.7-12.[address] [facility] Comment on above: Performed By: #### C BC #### [facility] [address] [place] [address] Dr. Nirmal Abernathy NEUT # 3.6 103/ul Normal 1.4-6.[address] [facility] Comment on above: Performed By: #### C BC #### [facility] [address] [address] [address] Nirmal Abernathy Neutrophils/100 WBC (Bld) 61.0 % Normal 43.0-75.[address] [facility] Comment on above: Performed By: #### C BC #### [facility] [address] [address] [address] Nirmal Abernathy Platelet mean volume (Bld) [Entitic vol] 9.1 fL Critically low 9.5-13.[address] [facility] Comment on above: Performed By: #### C BC #### [facility] [address] [place] [address] Dr. Nirmal Abernathy PLT 258 103/ul Normal 150-[address] [facility] Comment on above: Performed By: #### C BC #### [facility] [address] [place] [address] Dr. Nirmal Abernathy RBC 5.22 106/ul Normal 4.70-6.[address] [facility] Comment on above: Performed By: #### C BC #### [facility] [address] [place] [address] Dr. Nirmal Abernathy WBC 5.9 103/ul Normal 4.0-11.[address] [facility] Comment on above: Performed By: #### C BC #### [facility] [address] [place] [address] Dr. Nirmal Abernathy LIPID PROFILEon 06-05-2022 CHOL-HDL RATIO NORM SEE BELOW Normal [facility] Comment on above: Result Comment: 3.3 - 4.4 LOW RISK 4.4 - 7.1 AVERAGE RISK 7.1 - 11.0 MODERATE RISK >11.0 HIGH RISK Performed By: #### B MP, LIPID, ALT #### [facility] [address] [place] [address] Dr. Nirmal Abernathy Cholesterol [Mass/Vol] 164 mg/dL Normal <=[address] [facility] Comment on above: Performed By: #### B MP, LIPID, ALT #### [facility] [address] [address] [address] Nirmal Abernathy Cholesterol in HDL [Mass/Vol] 58 mg/dL Normal 40-[address] [facility] Comment on above: Performed By: #### B MP, LIPID, ALT #### [facility] [address] [address] [address] Nirmal Abenrathy Cholesterol in LDL [Mass/Vol] 94.0 mg/dL Normal [facility] Comment on above: Performed By: #### B MP, LIPID, ALT #### [facility] [address] [place] [address] Dr. Nirmal Abernathy Cholesterol.total/Ch olesterol in HDL [Mass ratio] 2.8 {ratio} Normal [facility] Comment on above: Performed By: #### B MP, LIPID, ALT #### [facility] [address] [address] [address] Nirmal Abernathy HDL NORMAL > or = 60 mg/dl - LO W CARDIOVASCULAR RISK <40 mg/dl - HIGH CARDIOVASCULAR RISK Normal [facility] Comment on above: Performed By: #### B MP, LIPID, ALT #### [facility] [address] [place] [address] Dr. Nirmal Abernathy LDL CALC NORMAL SEE BELOW Normal [facility] Comment on above: Result Comment: <100 mg/dl OPTIMAL 100 - 129 mg/dl NEAR OR ABOVE OPTIMAL 130 - 159 mg/dl BORDERLINE HIGH 160 - 189 mg/dl HIGH >190 mg/dl VERY HIGH Performed By: #### B MP, LIPID, ALT #### [facility] [address] [place] [address] Dr. Nirmal Abernathy Triglyceride [Mass/Vol] 60 mg/dL Normal <=150 [facility] Comment on above: Performed By: #### B MP, LIPID, ALT #### [facility] [address] [place] [address] Dr. Nirmal Abernathy VLDL CALC 12.0 mg/dL Normal [facility] Comment on above: Performed By: #### B MP, LIPID, ALT #### [facility] [address] [address] [address] Nirmal Abernathy PROF CHEM 8 (BAS METB)on Anion gap [Moles/Vol] 6.3 mmol/L Normal [facility] Comment on above: Performed By: #### B MP, LIPID, ALT #### [facility] [address] [address] [address] Nirmal Abernathy Calcium [Mass/Vol] 9.0 mg/dL Normal 8.5-10.1 [facility] Comment on above: Performed By: #### B MP, LIPID, ALT #### [facility] [address] [address] [address] Nirmal Abernathy Chloride [Moles/Vol] 105 mmol/L Normal 98-107 [facility] Comment on above: Performed By: #### B MP, LIPID, ALT #### [facility] [address] [place] [address] Dr. Nirmal bAernathy CO2 [Moles/Vol] 31.0 mmol/L Normal 21.0-32.0 [facility] Comment on above: Performed By: #### B MP, LIPID, ALT #### [facility] [address] [place] [address] Dr. Nirmal Abernathy Creatinine [Mass/Vol] 1.12 mg/dL Normal 0.70-1.30 [facility] Comment on above: Performed By: #### B MP, LIPID, ALT #### [facility] [address] [place] [address] Dr. Nirmal Abernatyh EGFR-AF BAHAMIAN >60 Normal >=60 [facility] Comment on above: Performed By: #### B MP, LIPID, ALT #### [facility] [address] [place] [address] Dr. Nirmal Abernathy EGFR-NON AF BAHAMIAN >60 Normal >=[address] [facility] Comment on above: Performed By: #### B MP, LIPID, ALT #### [facility] [address] [place] [address] Dr. Nirmal Abernathy Glucose [Mass/Vol] 99 mg/dL Normal 74-106 [facility] Comment on above: Performed By: #### B MP, LIPID, ALT #### [facility] [address] [place] [address] Dr. Nirmal Abernathy Potassium [Moles/Vol] 4.3 mmol/L Normal 3.5-5.[address] [facility] Comment on above: Performed By: #### B MP, LIPID, ALT #### [facility] [address] [place] [address] Dr. Nirmal Abernathy Sodium [Moles/Vol] 138 mmol/L Normal 136-145 [facility] Comment on above: Performed By: #### B MP, LIPID, ALT #### [facility] [address] [place] [address] Dr. Nirmal Abernathy Urea nitrogen [Mass/Vol] 19.0 mg/dL Critically high 7.0-18.[address] [facility] Comment on above: Performed By: #### B MP, LIPID, ALT #### [facility] [address] [place] [address] Dr. Nirmal Abernathy Urea nitrogen/Creatinine [Mass ratio] 17.0 mg/mg Normal [facility] Comment on above: Performed By: #### B MP, LIPID, ALT #### [facility] [address] [place] [address] Dr. Nirmal Abernathy [facility] [place] 06-05-2022 ALT [Catalytic activity/Vol] 32 U/L Normal 16-[address] [facility] Comment on above: Performed By: #### B MP, LIPID, ALT #### [facility] [address] [place] [address] Dr. Nirmal Abernathy LIPID PROFILEon 09-03-2021 CHOL-HDL RATIO NORM SEE BELOW Normal [facility] Comment on above: Result Comment: 3.3 - 4.4 LOW RISK 4.4 - 7.1 AVERAGE RISK 7.1 - 11.0 MODERATE RISK >11.0 HIGH RISK Performed By: #### L IPID, ALT #### [facility] [address] [place] [address] Dr. Nirmal Abernathy Cholesterol [Mass/Vol] 137 mg/dL Normal <=[address] [facility] Comment on above: Performed By: #### L IPID, ALT #### [facility] [address] [place] [address] Dr. Nirmal Abernathy Cholesterol in HDL [Mass/Vol] 51 mg/dL Normal [facility] Comment on above: Performed By: #### L IPID, ALT #### [facility] [address] [address] [address] Nirmal Abernathy Cholesterol in LDL [Mass/Vol] 69.6 mg/dL Normal [facility] Comment on above: Performed By: #### L IPID, ALT #### [facility] [address] [address] [address] Nirmal Abernathy Cholesterol.total/Ch olesterol in HDL [Mass ratio] 2.7 {ratio} Normal [facility] Comment on above: Performed By: #### L IPID, ALT #### [facility] [address] [address] [address] Nirmal Abernathy HDL NORMAL > or = 60 mg/dl - LO W CARDIOVASCULAR RISK <40 mg/dl - HIGH CARDIOVASCULAR RISK Normal [facility] Comment on above: Performed By: #### L IPID, ALT #### [facility] [address] [place] [address] Dr. Nirmal Abernathy LDL CALC NORMAL SEE BELOW Normal [facility] Comment on above: Result Comment: <100 mg/dl OPTIMAL 100 - 129 mg/dl NEAR OR ABOVE OPTIMAL 130 - 159 mg/dl BORDERLINE HIGH 160 - 189 mg/dl HIGH >190 mg/dl VERY HIGH Performed By: #### L IPID, ALT #### [facility] [address] [address] [address] Nirmal Abernathy Triglyceride [Mass/Vol] 82 mg/dL Normal <=150 [facility] Comment on above: Performed By: #### L IPID, ALT #### [facility] [address] [address] [address] Nirmal Abernathy VLDL CALC 16.4 mg/dL Normal [facility] Comment on above: Performed By: #### L IPID, ALT #### [facility] [address] [address] [address] Nirmal Abernathy SGPTon 09-03-2021 ALT [Catalytic activity/Vol] 39 U/L Normal 21-[address] [facility] Comment on above: Performed By: #### L IPID, ALT #### [facility] [address] [place] [address] Dr. Nirmal Abernathy Vital Signs Date Time Vital Sign Value Performing Clinician Facility 11-13-2024 11:48-0400 Body height 180.34 cm [facility] 11-13-2024 11:48-0400 Body mass index (BMI) [Ratio] 31.3 kg/m2 [facility] 11-13-2024 11:48-0400 Body weight 101.83 kg [facility] 11-13-2024 11:48-0400 Diastolic blood pressure 84 mm[Hg] [facility] 11-13-2024 11:48-0400 Heart rate 71 /min [facility] 11-13-2024 11:48-0400 SaO2% (BldA) [Mass fraction] 98 % [facility] 11-13-2024 11:48-0400 Systolic blood pressure 138 mm[Hg] [facility] 06-15-2024 11:55-0500 Body mass index (BMI) [Ratio] 30.1 kg/m2 [facility] 06-15-2024 11:55-0500 Diastolic blood pressure 89 mm[Hg] [facility] 06-15-2024 11:55-0500 Systolic blood pressure 139 mm[Hg] [facility] 06-15-2024 11:50-0500 Body height 180.34 cm [facility] 06-15-2024 11:50-0500 Body weight 98.08 kg [facility] 06-15-2024 11:50-0500 Heart rate 50 /min [facility] 06-15-2024 11:50-0500 Respiratory rate 12 /min [facility] 05-30-2024 09:28-0400 Body height 180.34 cm [facility] 05-30-2024 09:28-0400 Body mass index (BMI) [Ratio] 30.4 kg/m2 [facility] 05-30-2024 09:28-0400 Body weight 98.99 kg [facility] 05-30-2024 09:28-0400 Diastolic blood pressure 88 mm[Hg] [facility] 05-30-2024 09:28-0400 Heart rate 57 /min [facility] 05-30-2024 09:28-0400 Respiratory rate 12 /min [facility] 05-30-2024 09:28-0400 Systolic blood pressure 158 mm[Hg] [facility] 05-23-2024 14:29-0400 Body height 180.34 cm [facility] 05-23-2024 14:29-0400 Body mass index (BMI) [Ratio] 30.4 kg/m2 [facility] 05-23-2024 14:29-0400 Body weight 98.93 kg [facility] 05-23-2024 14:29-0400 Diastolic blood pressure 80 mm[Hg] [facility] 05-23-2024 14:29-0400 Heart rate 58 /min [facility] 05-23-2024 14:29-0400 Respiratory rate 12 /min [facility] 05-23-2024 14:29-0400 Systolic blood pressure 137 mm[Hg] [facility] 05-18-2024 15:55-0400 Diastolic blood pressure 80 mm[Hg] [facility] 05-18-2024 15:55-0400 Heart rate 64 /min [facility] 05-18-2024 15:55-0400 Systolic blood pressure 130 mm[Hg] [facility] 03-31-2024 10:22-0400 Body height 180.34 cm [facility] 03-31-2024 10:22-0400 Body mass index (BMI) [Ratio] 27.6 kg/m2 [facility] 03-31-2024 10:22-0400 Body weight 89.81 kg [facility] 03-31-2024 10:22-0400 Diastolic blood pressure 79 mm[Hg] [facility] 03-31-2024 10:22-0400 Heart rate 57 /min [facility] 03-31-2024 10:22-0400 Respiratory rate 12 /min [facility] 03-31-2024 10:22-0400 Systolic blood pressure 135 mm[Hg] [facility] 12-06-2023 08:57-0400 Body height 180.34 cm DO Lyndon Ball Work Phone: [facility] 12-06-2023 08:57-0400 Body mass index (BMI) [Ratio] 30.3 kg/m2 DO Lyndon Ball Work Phone: [facility] 12-06-2023 08:57-0400 Body weight 98.59 kg DO Lyndon Ball Work Phone: [facility] 12-06-2023 08:57-0400 Diastolic blood pressure 84 mm[Hg] DO Lyndon Ball Work Phone: [facility] 12-06-2023 08:57-0400 Heart rate 56 /min DO Lyndon Ball Work Phone: [facility] 12-06-2023 08:57-0400 Respiratory rate 12 /min DO Lyndon Ball Work Phone: [facility] 12-06-2023 08:57-0400 Systolic blood pressure 150 mm[Hg] DO Lyndon Ball Work Phone: [facility] 07-13-2023 13:56-0500 Blood Pressure Location [facility] [place] 07-13-2023 13:56-0500 Diastolic blood pressure 82 mm[Hg] [facility] [place] 07-13-2023 13:56-0500 Heart rate 74 /min [facility] N[facility] [place] 07-13-2023 13:56-0500 Respiratory rate 16 /min [facility] N[facility] [place] 07-13-2023 13:56-0500 Systolic blood pressure 124 mm[Hg] [facility] [place] 06-07-2023 09:00-0500 Body height 180.34 cm Lyndon Ball Other [facility] Other 06-07-2023 09:00-0500 Body mass index (BMI) [Ratio] 30.23 kg/m2 Lyndon Ball Other [facility] Other 06-07-2023 09:00-0500 Body weight 98.34 kg Lyndon Ball Other [facility] Other 06-07-2023 09:00-0500 Diastolic blood pressure 88 mm[Hg] Lyndon Ball Other [facility] Other 06-07-2023 09:00-0500 Respiratory rate 12 /min Lyndon Ball Other [facility] Other 06-07-2023 09:00-0500 Systolic blood pressure 138 mm[Hg] Lyndon Ball Other [facility] Other 01-13-2023 15:25-0400 Blood Pressure Location [facility] e27L [facility] [place] 01-13-2023 15:25-0400 Diastolic blood pressure 74 mm[Hg] [facility] N[facility] [place] 01-13-2023 15:25-0400 Heart rate 72 /min [facility] N[facility] [place] 01-13-2023 15:25-0400 Respiratory rate 16 /min [facility] N[facility] [place] 01-13-2023 15:25-0400 Systolic blood pressure 118 mm[Hg] [facility] N[facility] [place] 12-04-2022 09:30-0400 Body height 180.34 cm Lyndon Ball Other [facility] Other 12-04-2022 09:30-0400 Body mass index (BMI) [Ratio] 30.71 kg/m2 Lyndon Ball Other [facility] Other 12-04-2022 09:30-0400 Body weight 99.88 kg Lyndon Ball Other [facility] Other 12-04-2022 09:30-0400 Diastolic blood pressure 77 mm[Hg] Lyndon Ball Other [facility] Other 12-04-2022 09:30-0400 Respiratory rate 12 /min Lyndon Ball Other [facility] Other 12-04-2022 09:30-0400 SaO2% (BldA) [Mass fraction] 98 % Lyndon Ball Other [facility] Other 12-04-2022 09:30-0400 Systolic blood pressure 137 mm[Hg] Lyndon [employer] Other [facility] Other 10-29-2022 11:20-0400 Body height 180.34 cm Jovon Duncan Other [facility] Other 10-29-2022 11:20-0400 Body mass index (BMI) [Ratio] 29.98 kg/m2 Jovon Duncan Other [facility] Other 10-29-2022 11:20-0400 Body weight 97.52 kg Jovon Duncan Other [facility] Other 09-17-2022 11:20-0500 Body height 180.34 cm Jovon Duncan Other [facility] Other 09-17-2022 11:20-0500 Body mass index (BMI) [Ratio] 29.98 kg/m2 Jovon Duncan Other [facility] Other 09-17-2022 11:20-0500 Body weight 97.52 kg Jovon Duncan Other [facility] Other 09-17-2022 11:20-0500 Respiratory rate 18 /min Jovon Duncan Other [facility] Other 03-26-2022 11:20-0400 Body height 180.34 cm Jovon Duncan Other [facility] Other 03-26-2022 11:20-0400 Body mass index (BMI) [Ratio] 27.33 kg/m2 Jovon Duncan Other [facility] Other 03-26-2022 11:20-0400 Body weight 88.91 kg Jovon Duncan Other [facility] Other 12-25-2021 10:40-0400 Body height 180.34 cm Jovon Duncan Other [facility] Other 12-25-2021 10:40-0400 Body mass index (BMI) [Ratio] 27.33 kg/m2 Jovon Duncan Other [facility] Other 12-25-2021 10:40-0400 Body weight 88.91 kg Jovon Duncan Other [facility] Other 10-07-2021 14:00-0500 Body height 180.34 cm Jovon Duncan Other [facility] Other 10-07-2021 14:00-0500 Body mass index (BMI) [Ratio] 27.89 kg/m2 Jovon Duncan Other [facility] Other 10-07-2021 14:00-0500 Body weight 90.72 kg Jovon Duncan Other [facility] Other 09-18-2021 14:00-0500 Body height 180.34 cm Jovon Duncan Other [facility] Other 09-18-2021 14:00-0500 Body mass index (BMI) [Ratio] 27.89 kg/m2 Jovon Duncan Other [facility] Other 09-18-2021 14:00-0500 Body weight 90.72 kg Jovon Duncan Other [facility] Other 07-24-2021 10:40-0500 Body height 180.34 cm Jovon Duncan Other [facility] Other 07-24-2021 10:40-0500 Body mass index (BMI) [Ratio] 27.89 kg/m2 Jovon Duncan Other [facility] Other 07-24-2021 10:40-0500 Body weight 90.72 kg Jovon Duncan Other [facility] Other 06-17-2021 11:40-0500 Body height 180.34 cm Jovon Duncan Other [facility] Other 06-17-2021 11:40-0500 Body mass index (BMI) [Ratio] 27.89 kg/m2 Jovon Duncan Other [facility] Other 06-17-2021 11:40-0500 Body weight 90.72 kg Jovon Duncan Other [facility] Other 06-17-2021 11:40-0500 Diastolic blood pressure 71 mm[Hg] Jovon Duncan Other [facility] Other 06-17-2021 11:40-0500 Systolic blood pressure 130 mm[Hg] Jovon Duncan Other [facility] Other Encounters Encounter Date Encounter Type Care Provider Facility Start: 11-16-2024 End: 11-16-2024 Patient encounter procedure [facility] Mishel Pi[facility] Comment on above: Sensorineural hearin g loss, bilateral (Primary Dx) Start: 11-16-2024 End: 11-16-2024 ambulatory KLAUDIA VARGAS Not Available Start: 11-13-2024 End: 11-13-2024 ambulatory [facility] Work Phone: Start: 11-13-2024 End: 11-13-2024 Patient encounter procedure [facility] Work Phone: Start: 11-01-2024 End: 11-01-2024 Bamboo flowsheet Klaudia Vargas AUD Work Phone: [facility] Start: 11-01-2024 End: 11-01-2024 Bamboo flowsheet Klaudia aVrgas AUD Work Phone: [facility] Start: 11-01-2024 End: 11-01-2024 Patient encounter procedure Klaudia Vargas AUD Work Phone: [facility] Comment on above: Sensorineural hearin g loss, bilateral (Primary Dx) Start: 11-01-2024 End: 11-01-2024 ambulatory KLAUDIA VARGAS Not Available Start: 10-02-2024 End: 10-02-2024 Bamboo flowsheet Klaudia Vargas AUD Work Phone: [facility] Start: 10-02-2024 End: 10-02-2024 Bamboo flowsheet Klaudia Vargas AUD Work Phone: [facility] Start: 10-02-2024 End: 10-02-2024 Patient encounter procedure Klaudia Vargas AUD Work Phone: [facility] Comment on above: Sensorineural hearin g loss, bilateral (Primary Dx) Start: 10-02-2024 End: 10-02-2024 ambulatory KLAUDIA VARGAS Not Available Start: 06-15-2024 End: 06-15-2024 ambulatory [facility] Work Phone: Start: 06-15-2024 End: 06-15-2024 Patient encounter procedure [facility] Work Phone: Start: 06-13-2024 Patient encounter procedure [facility] Start: 05-31-2024 Non-patient / Non-visit [facility] Work Phone: Start: 05-30-2024 End: 05-30-2024 ambulatory [facility] Work Phone: Start: 05-30-2024 End: 05-30-2024 Patient encounter procedure [facility] Work Phone: Start: 05-23-2024 End: 05-23-2024 ambulatory [facility] Work Phone: Start: 05-23-2024 End: 05-23-2024 Patient encounter procedure [facility] Work Phone: Start: 05-18-2024 Non-patient / Non-visit [facility] Work Phone: Start: 04-20-2024 Non-patient / Non-visit [facility] Work Phone: Start: 04-10-2024 Non-patient / Non-visit [facility] Work Phone: Start: 03-31-2024 End: 03-31-2024 ambulatory [facility] Work Phone: Start: 03-31-2024 End: 03-31-2024 Patient encounter procedure [facility] Work Phone: Start: 12-06-2023 End: 12-06-2023 ambulatory DO [facility] Work Phone: [facility] Work Phone: Start: 12-06-2023 End: 12-06-2023 Patient encounter procedure DO Lyndon Dorman Work Phone: [facility] Work Phone: Start: 11-30-2023 End: 11-30-2023 ambulatory Greta Padillanakita Facility:[facility] Start: 11-30-2023 End: 11-30-2023 ambulatory DO Lyndon Dorman Work Phone: [facility] Work Phone: Start: 11-30-2023 End: 11-30-2023 Patient encounter procedure DO Lyndon Dorman Work Phone: [facility] Work Phone: Start: 10-04-2023 Non-patient / Non-visit DO Pranay Dorman Work Phone: [facility] Work Phone: Start: 08-11-2023 End: 08-11-2023 ambulatory Lyndon Dorman Other [facility] [employer] Other Start: 08-11-2023 Telephone encounter Lyndon Dorman [facility] Start: 08-10-2023 End: 08-11-2023 ambulatory Tremayne CARTER Facility:[facility] Start: 08-10-2023 End: 08-10-2023 Patient encounter procedure Tremayne R JERMAINEL [facility] [place] Start: 08-05-2023 End: 08-05-2023 ambulatory Lyndon Dorman Other [employer] Other Start: 08-05-2023 Telephone encounter Lyndon Dorman FP [facility] Start: 07-28-2023 End: 07-29-2023 ambulatory Tremayne R JERMAINEL Facility::[id number] Start: 07-20-2023 End: 07-20-2023 ambulatory Lyndon Dorman Other #[facility] Other Start: 07-20-2023 Office outpatient vi sit 15 minutes Lyndon Dorman [facility] Start: 07-13-2023 End: 07-14-2023 ambulatory LYNDON DORMAN Facility:[facility] Start: 07-13-2023 End: 07-13-2023 Patient encounter procedure Tremayne CARTER General Surgery N[facility]/Said [facility] Start: 06-18-2023 End: 06-18-2023 ambulatory Lyndon Dorman Other #[facility] Other Start: 06-18-2023 Telephone encounter Lyndon Dorman [facility] Start: 06-08-2023 End: 06-08-2023 ambulatory Lyndon Dorman Other #[facility] Other Start: 06-08-2023 Telephone encounter Lyndon Dorman [facility] Start: 06-07-2023 End: 06-07-2023 ambulatory Lyndon Dorman Other #[facility] Other Start: 06-07-2023 Patient encounter procedure Lyndon Dorman [facility] Start: 04-20-2023 End: 04-20-2023 ambulatory Lyndon Dorman Other #[facility] Other Start: 04-20-2023 Telephone encounter Lyndon Ball [facility] Start: 04-19-2023 End: 04-19-2023 ambulatory Lyndon Dorman Other #[facility] Other Start: 04-19-2023 Telephone encounter Lyndon Ball [facility] Start: 02-24-2023 End: 02-25-2023 ambulatory Tremayne CARTER Facility:[facility] Start: 02-24-2023 End: 02-24-2023 Patient encounter procedure Tremayne CARTER General Surgery Nill/Said [place] Start: 02-10-2023 End: 02-11-2023 ambulatory Tremayne R NILL Facility: [facility] Start: 02-04-2023 End: 02-04-2023 ambulatory Lyndon Dorman Other #[facility] Other Start: 02-04-2023 Telephone encounter Lyndon Dorman [facility] Start: 02-03-2023 End: 02-04-2023 ambulatory Tremayne R NILL Facility:CD:[id number] Start: 01-13-2023 End: 01-14-2023 ambulatory Tremayne R NILL Facility: [facility] Start: 01-13-2023 End: 01-13-2023 Patient encounter procedure Tremayne R NILL General Surgery Nill/Said [facility] Start: 12-04-2022 End: 12-04-2022 ambulatory Lyndon Dorman Other #[facility] Other Start: 12-04-2022 Office outpatient vi sit 25 minutes Lyndon Dorman [facility] Start: 10-29-2022 End: 10-29-2022 ambulatory Jovon Duncan Other #[facility] Other Start: 10-29-2022 Office outpatient vi sit 15 minutes Jovon Duncan [facility] [place], [facility] Start: 09-17-2022 Office outpatient vi sit 15 minutes Jovon Duncan [facility] [place] Start: 09-17-2022 End: 09-17-2022 ambulatory DO Lyndon Dorman Work Phone: [facility] Work Phone: Start: 09-17-2022 End: 09-17-2022 Patient encounter procedure DO Lyndon Dorman Work Phone: [facility] [place] Work Phone: Start: 08-17-2022 End: 08-17-2022 ambulatory Lyndon Dorman Other #[facility] Other Start: 08-17-2022 Telephone encounter Lyndon Dorman [facility] Start: 08-06-2022 ([facility]) [facility] Scheduled Lyndon Dandy [facility] Start: 08-06-2022 End: 08-06-2022 ambulatory Lyndon Dorman Other #[facility] Other Start: 06-05-2022 Adult health examination Amador devante Dorman Other #[facility] Other Start: 06-05-2022 End: 06-06-[address] LYNDON DORMAN Facility:[facility] Start: 03-26-2022 End: 03-26-2022 ambulatory Jovon Duncan Other #[facility] Other Start: 03-26-2022 Office outpatient vi sit 15 minutes Jovon Duncan [facility] Start: 03-26-2022 End: 03-26-2022 Patient encounter procedure DO Lyndon Dorman Work Phone: [facility] Start: 12-25-2021 End: 12-25-2021 ambulatory Jovon Duncan Other #[facility] Other Start: 12-25-2021 Office outpatient vi sit 15 minutes Jovon Duncan [facility] Start: 12-25-2021 End: 12-25-2021 Patient encounter procedure DO Lyndon Dorman Work Phone: [facility] Start: 10-27-2021 End: 11-01-[address] LYNDON DORMAN Facility:[facility] Start: 10-24-2021 End: 10-24-2021 ambulatory Jovon Duncan Other #[facility] Other Start: 10-24-2021 Telephone encounter Jovon Duncan [facility] [place] Start: 10-07-2021 End: 10-07-2021 ambulatory Jovon Duncan Other #[facility] Other Start: 10-07-2021 Postop follow up vis it related to original px Jovon Duncan [facility] [place] Start: 10-07-2021 End: 10-07-2021 Patient encounter procedure DO Lyndon [employer] Work Phone: [facility] Start: 09-18-2021 End: 09-18-2021 ambulatory Jovon Duncan Other #[facility] Other Start: 09-18-2021 Postop follow up vis it related to original px Jovon Duncan [facility] [place] Start: 09-08-2021 Admission [facility] Jovon Duncan [facility] Start: 09-08-2021 End: 09-08-2021 ambulatory Jovon Duncan Other #[facility] Other Start: 09-03-2021 End: 09-04-[address] LYNDON DORMAN Facility:[facility] Start: 08-01-[address] LYNDON DORMAN Facili ty:[facility] Start: 07-24-2021 End: 07-24-2021 ambulatory Jovon Duncan Other #[facility] Other Start: 07-24-2021 Office outpatient vi sit 40 minutes Jovon Duncan [facility] [place] Start: 07-08-2021 End: 07-09-[address] LYNDON DORMAN Facility:[facility] Start: 06-17-2021 End: 06-17-2021 ambulatory Jovon Duncan Other #[facility] Other Start: 06-17-2021 Office outpatient ne w 30 minutes Jovon Duncan [facility] [place] Procedures Date Procedure Procedure Detail Performing Clinician Start: 10-02-2024 AUDITORY FUNCTION TESTS Klaudia Vargas AUD Work Phone: Start: 11-30-2023 Plain X-ray of left hand DO Lyndon Ball Work Phone: Start: 07-28-2023 Colonoscopy Tremayne KEBEDE LL Start: 07-28-2023 Excision of cyst Michae l NILL Comment on above: upper back Start: 02-03-2023 Repair of right ingu inal hernia Tremayne DEANL Start: 09-17-2022 X-ray of cervical spine DO Lyndon Dorman Work Phone: Start: 06-05-[address] SOLANO IN DANDY Comment on above: Performed By: #### P [facility] #### [facility] [address] [place] [address] Dr. Nirmal Abernathy Start: 03-26-2022 X-ray of cervical spine DO Lyndon Dorman [employer] Phone: Start: 12-25-2021 X-ray of cervical spine DO Lyndon Dorman [employer] Phone: Start: 10-07-2021 X-ray of cervical spine DO Lyndon Dorman [employer] Phone: Start: 05-30-2018 Diabetes mellitus screening Lyndon Dorman Other Start: 05-24-2017 General examination of patient Lyndon Dorman Other Start: 11-20-2015 Screening for malign ant neoplasm of colon Lyndon Dorman Other Start: 10-01-2015 Bilateral cataracts (disorder) Tremayne DEANL Start: 03-26-2015 Screening for malign ant neoplasm of prostate Lyndon Dorman Other Start: 12-31-2012 Colonoscopy Tremayne NI LL Arthroscopy of shoulder Chaparro ael JERMAINEL Depression screening Kamilla Dorman Other History of surgical procedure on cervical spine Tremayne DEANL Pre-surgery evaluation Jovon Perla Other Repair of left ingui nal hernia Tremayne DEANL Screening for malign ant neoplasm of prostate Lyndon Dorman Other Plan of Treatment Date Care Activity Detail Author Start: 09-01-2025 Influenza vaccination Influenz a Vaccine (Season Ended) [facility] Start: 11-16-2024 End: 11-16-2024 Patient encounter procedure 11/16/2024 3:00 PM EDT Office Visit [facility] [address] [place] [address] [facility] Start: 11-01-2024 End: 11-01-2024 Patient encounter procedure 11/01/2024 9:30 AM EDT Office Visit [facility] [address] [place] [address] Klaudia Vargas, AUD [address] [place] [address] Arrived [facility] Comment on above: Arrived Start: 10-02-2024 End: 10-02-2024 Patient encounter procedure 10/02/2024 1:00 PM EST Office Visit [facility] [address] [place] [id number] Klaudia Vargas, AUD [address] [place] [address] Arrived [facility] OLEGARIO Comment on above: Arrived Start: 04-02-2024 Influenza vaccination Influenza Vacc ine (#1) [facility] Start: 11-30-2023 Plain X-ray of left hand XR hand LT min 3V* [facility] Start: 11-30-2023 XR Hand - left GE 3 Views [facility] Start: 12-27-2012 Pneumococcal Vaccine : 65+ Years (1 of 1 - PCV) Pneumococcal Vaccine: 65+ Years (1 of 1 - PCV) [facility] Start: 12-27-1997 Pneumococcal Vaccine : 65+ Years (1 of 1 - PCV) Pneumococcal Vaccine: 65+ Years (1 of 1 - PCV) [facility] Holter monitor study [facility] XR Chest 2 Views [facility] XR Knee - left 4 Views [facility] Immunizations Immunization Date Immunization Notes Care Provider [facility] 07-08-2021 COVID-19 mRNA-1273 (Moderna) DO Lyndon Dorman Work Phone: [facility] 10-15-2020 COVID-19 mRNA-1273 (Moderna) DO Lyndon Dorman Work Phone: [facility] 09-19-2020 COVID-19 mRNA-1273 (Moderna) DO Lyndon Dorman Work Phone: [facility] 05-24-2017 diphtheria, tetanus toxoids and acellular pertussis vaccine, unspecified formulation Lyndon Dorman Other [facility] 05-24-2017 pneumococcal polysaccharide vaccine, 23 valent Lyndon Dorman Other [facility] 03-30-2016 pneumococcal conjuga te vaccine, 13 valent Lyndon Dorman Other [facility] 03-30-2016 pneumococcal Conjugate, unspecified formulation; Translations: [Need for prophylactic vaccination against Streptococcus pneumoniae (pneumococcus)] Lyndon Dorman Other #[employer] Other NEGATED: Highlighted row has not occurred!07-13-2023 influenza virus vaccine, unspecified formulation Tremayne CARTER General Surgery [place] Payers Date Payer Category Payer Medicare (Managed Care) MARY BETH ZAMORA [facility] [id number] 2023 Self-pay [id number] 1957 Medicare [id number] 1957 Self-pay [id number] 1945 Unknown [id number] 2.16.840.1.487590.3.579. 2.593 1945 Unknown [id number] 2.16.840.1.923308.3.579. 2.593 1947 Unknown [id number] 2.16.840.1.398464.3.579. 2.593 1947 Unknown [id number] 2.16.840.1.802292.3.579. 2.593 1947 Unknown [id number] 2.16.840.1.454577.3.579. 2.727 1947 Unknown [id number] 2.16.840.1.371903.3.579. 2.727 1947 Unknown [id number] 2.16.840.1.541227.3.579. 2.727 1947 Unknown [id number] 2.16.840.1.700675.3.579. 2.727 1947 Unknown [id number] 2.16.840.1.085731.3.579. 2.727 1947 Unknown [id number] 2.16.840.1.201569.3.579. 2.727 1947 Unknown [id number] 2.16.840.1.376248.3.579. 2.727 1947 Unknown [id number] 2.16.840.1.708000.3.579. 2.1259 1947 Unknown [id number] 2.16.840.1.461973.3.579. 2.1259 1947 Unknown [id number] 2.16.840.1.640336.3.579. 2.1259 Medicare Medicare [id number] Unknown [id number] 2.16.840.1.070119.3.579. 2.593 Unknown [id number] 2.16.840.1.754785.3.579. 2.531 Social History Date Type Detail Facility Start: 09-08-2021 End: 07-13-2023 Tobacco smoking status NHIS Ex-smoker (finding) [facility] Start: 1945 Sex Assigned At Male [facility] Sex Assigned At [facility] Tobacco smoking status Never [facility] [place] Start: 10-04-2023 End: 10-04-2023 Tobacco smoking status NHIS Never smoked tobacco (finding) [facility] Start: 06-15-2024 End: 11-13-2024 Sex Male (finding) [facility] Tobacco smoking status HIIS Tobacco smoking consumption unknown [facility] Start: 1945 Sex assigned at Not on file N [facility] Medical Equipment Procedure Code Equipment Code Equipment Origin al Text Equipment Identifier Dates Decompression, spine, cervical, posterior approach CANCELLOUS 15CC CRUSHED FDA Start: 09-08-2021 Decompression, spine, cervical, posterior approach Bone-screw internal spinal fixation system, non-sterile ()[id number] FDA Start: 09-08-2021 Decompression, spine, cervical, posterior approach Bone-screw internal spinal fixation system, non-sterile ()[id number] FDA Start: 09-08-2021 Decompression, spine, cervical, posterior approach Bone-screw internal spinal fixation system, non-sterile ()[id number] FDA Start: 09-08-2021 Decompression, spine, cervical, posterior approach Bone-screw internal spinal fixation system, non-sterile ()[id number] FDA Start: 09-08-2021 Decompression, spine, cervical, posterior approach Spinal fusion graft kit ()[id number] FDA Start: 09-08-2021 Decompression, spine, cervical, posterior approach Bone-screw internal spinal fixation system, non-sterile ()[id number] FDA Start: 09-08-2021 Decompression, spine, cervical, posterior [...] Facility 07-13-2023 Functional Status N/A General [facility] 01-13-2023 Functional Status N/A General [facility] Clinical Notes 06-17-2021 to 11-16-2024 Mishel Piña, MA - 11/16/2024 3:00 PM Tom Vargas, AUD - 11/01/2024 9:30 AM Tom Vargas, AUD - 10/02/2024 1:00 PM EST Note Date & Type Note Facility 11-16-2024 History of Presen t illness Narrative Patient was in today for a follow up on a new hearing aid for his right ear. Patient state he really does not experience much difference but is keep the aid because it was free with his benefits. Patient is experiencing difficulty with retention of the aid. Patient did replace the 7 mm open dome with one of his 's domes. He states this is better but the aid still pulls out. I changed the stroke belt sander operator with a 4M and changed the dome to an XS vented dome. Patient was not sure but felt this might be slightly better. Patient will call for follow ups. We did discuss his left ear where he also has loss. Patient is thinking he might wait til next year when he can get a second aid for free. I did caution patient that if Signia changes the circuit he might not be able to get a matching aid. Patient indicated understanding. Cosigned by SOHAIL Stephens at 11/16/2024 6:02 PM EDT documented in this encounter [facility] 11-01-2024 History of Presen t illness Narrative HAF: Pt seen for the fitting of his right Signia HCS 513 CHEO coupled to his right ear. Aid was programmed to new user. VC active. Pt pleased with these settings and no changes were made. Created programs pt can access via the gt - these are 1. Univeral, 2. Noise, 3. TV. DL Gt and reviewed features. Discussed warranty and trial period. Practiced insertion and removal of aid. Pt did well. Discussed operation of overcoiler and maintenance of hearing aid. He is scheduled to return in 2 weeks with Mishel, but was encouraged to let us know if any problems were to arise in the interim. documented in this encounter [facility] 10-02-2024 History of Presen t illness Narrative History: Patient was referred for an audiological evaluation, by [facility]. Patient is aware of hearing loss, experiencing difficulties at times. He also reported bilateral tinnitus. He denies symptoms of ear pain or vertigo. History is positive for occupational noise exposure. Otoscopic Exam: Revealed partially occlusive cerumen, in the left ear which was removed prior to testing, without incident. The right ear canal was clear from excessive cerumen. Pure Tone Audiometry Audio indicated normal hearing 250-2000 Hz, sloping to a moderate to severe sensorineural hearing loss 3372-1880 Hz, bilaterally. Speech Audiometry Right SRT = 20 dB and word discrimination score at 50 dBHL = 96% Left SRT = 20 dB and word discrimination score at 50 dBHL = 96% Tympanometry Normal Type A tympanogram recorded in the right ear and a Type As (reduced compliance) tympanogram recorded in the left ear. Impressions: Discussed results with the patient. He is a borderline candidate for amplification. He would like to consider one hearing aid at this time and may purchase a second aid if he feels he needs it. Patient would like to continue with 1 HCS Branded Advanced 513- CHEO-T in beSETiT with size 3M stroke belt sander operator for the right ear. 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 He would prefer to be contacted once the aid has arrived and then can be scheduled for HAF. $0 due from pt. documented in this encounter [facility] 03-31-2024 Evaluation note Diagnosis Onset Date Resolution Hypertension acute March 31, 2024 10:15am Neck pain acute March 31, 024 10:15am DARRICK (obstructive sleep apnea) acute March 31 10:15am Palpitation acute March 31, 2024 10:15am SOB (shortness of breath) acute March 31 10:15am Hypertension acute May 2:25pm Neck pain acute May 23, 2024 2:25pm DARRICK (obstructive sleep apnea) acute May 23 2:25pm Palpitation acute May 23, 2024 2:25pm SOB (shortness of breath) acute May 23 2:25pm Knee pain, left acute May 032023 9:09am Medial meniscus tear acute 2023 9:09am Primary osteoarthritis of left knee acute May 30 9:09am Hypertension acute June 11:21am Knee pain, left acute June 15, 2024 11:21am Medicare annual wellness visit, subsequent acute June 15, 2024 11:21am Neck pain acute June 15, 2024 11:21am DARRICK (obstructive sleep apnea) acute June 15, 2 024 11:21am Palpitation acute June 11:21am Screening PSA (prostate specific antigen) acute June 15, 2024 11:21am SOB (shortness of breath) acute June 15, 2 024 11:21am [facility] Work Phone: [phone] 870-150001-10-2024 Evaluation note* Encounter Date Diagnosis Assessment Notes Treatment Notes Treatment Clinical Notes Aug, 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 #[facility] Other 12-19-2023 Evaluation note* Encounter Date Diagnosis [...] continue exercise to achieve/maintain a normal BMI. #[facility] Other 12-12-2023 NoteChief Complaint consultation for colonoscopy [...] Substance Abuse - Denies (more content not included)...[place]ervilleComment on above:Result Comment: Electronically Signed By: RAUL ZUNIGA, Tremayne Arzola\Date and Time Signed: 07/13/23 14:31 [id number] Evaluation note * Encounter Date Diagnosis Assessment Notes Treatment Notes Treatment Clinical Notes Jun, Cervical spondylosis (ICD-10 - M47.812) #[facility] Other 11-06-2023 Evaluation note* Encounter Date Diagnosis [...] use, the patient reduces the risk for TX, CVA, HTN, cardiac dysrhythmias and sudden cardiac [...] (ICD-10 - Z79.899) Check ALT and CBC #[facility] Other 09-19-2023 Evaluation note* Encounter Date Diagnosis Assessment Notes Treatment Notes Treatment Clinical Notes Apr, Primary hypertension (ICD-10 - I10) #[facility] Other 09-18-2023 Evaluation note* Encounter Date Diagnosis Assessment Notes Treatment Notes Treatment Clinical Notes Apr, Primary hypertension (ICD-10 - I10) #[facility] Other 06-14-2023 NoteChief Complaint consultation for possible [...] Hypertension: Father. TIA: Mother (more content not included)...[place]ervilleComment on above:Result Comment: Electronically Signed By: RAUL ZUNIGA, Tremayne Arzola\Date and Time Signed: 01/13/23 17:35 [id number] Evaluation note* Encounter Date Diagnosis Assessment Notes [...] use, the patient reduces the risk for TX, CVA, HTN, cardiac dysrhythmias and sudden cardiac [...] [BMI ] 30.0-30.9, adult (ICD-10 - Z68.30) #[facility] Other 03-30-2023 Evaluation note* Encounter Date Diagnosis [...] time Sep, Cervical myelopathy (ICD-10 - G95.9) #[facility] Other 02-16-2023 Evaluation note* Encounter Date Diagnosis [...] okay. Sep, Cervical myelopathy (ICD-10 - G95.9) #[facility] Other 01-16-2023 Evaluation note* Encounter Date Diagnosis Assessment Notes Treatment Notes Treatment Clinical Notes Aug, Primary hypertension (ICD-10 - I10) #[facility] Other 01-05-2023 Evaluation note* Encounter Date Diagnosis [...] for congestion, Tylenol for pain and fever. #[facility] Other 08-25-2022 Evaluation note* Encounter Date Diagnosis Assessment Notes Treatment Notes Treatment Clinical Notes Mar, Cervical myelopathy (ICD-10 - G95.9) Patient's gait is good, arm strength and range of motion good. Neck is healing well he looks quite comfortable. 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 He did not get his xray as requested prior to his appointment today. I will see the patient again in September at his yearly with 1 more x-ray of the neck to ensure the hardware remains good. For his age this patient is unusually active #[facility] Other 05-26-2022 Evaluation note* Encounter Date Diagnosis [...] answered questions for him and his . #[facility] Other 03-08-2022 Evaluation note* Encounter Date Diagnosis [...] in diseases classified elsewhere (ICD-10 - G99.2) #[facility] Other 02-17-2022 Evaluation note* Encounter Date Diagnosis [...] Spinal stenosis, cervical region (ICD-10 - M48.02) #[facility] Other 12-23-2021 Evaluation note* Encounter Date Diagnosis [...] Cervical radiculopathy at C7 (ICD-10 - M54.12) #[facility] Other 11-16-2021 Evaluation note* Encounter Date Diagnosis [...] in diseases classified elsewhere (ICD-10 - G99.2) #[facility] Other evaluation + Plan note No data available for this section General Surgery [place] Evaluation noteNo assessment information available [facility] Work Phone: Evaluation noteNo InformationNortDepartment of [facility] [employer] Other evaluation note* Diagnosis Onset Date Resolution Status Arthritis of carpometacarpal (CMC) joint of left thumb acute Left hand pain acute [facility] Work Phone: Evaluation note* Diagnosis Onset Date Resolution Status Arthritis of carpometacarpal (CMC) joint of left thumb acute Left hand pain acute Hypercholesterolemia acute Hypertension acute DARRICK (obstructive sleep apnea) acute [facility] Work Phone: Evaluation note* Diagnosis Onset Date Resolution Status Hypertension acute DARRICK (obstructive sleep apnea) acute [facility] Work Phone: Evaluation note* Diagnosis Onset Date Resolution Status Hypertension acute Neck pain acute DARRICK (obstructive sleep apnea) acute Palpitation acute SOB (shortness of breath) [place] Hypertension acute Neck pain acute DARRICK (obstructive sleep apnea) acute Palpitation acute SOB (shortness of breath) [place] [facility] Work Phone: Evaluation note* Diagnosis Sensorineural hearing loss, bilateral- Primary [facility] Diagnosis Sensorineural hearing loss, bilateral- Primary [facility] this [facility] Narrative - Reported* Type Description Date Medical History hypertension Surgical History HERNIA 2004 Surgical History RIGHT SHOULDER SURGER 1979 #[facility] Other History general Narrative - Reported* Type Description Date Medical History hypertension Surgical History HERNIA 2004 Surgical History RIGHT SHOULDER SURGER 1979 Surgical History PCD-Doctor Duncan Hospitalization History See Above #[facility] Other History general Narrative - Reported* Type [...] History PCD-[facility] Hospitalization History See Above #[facility] Other History general Narrative - Reported* Type [...] inguinal hernia 01/2023 Hospitalization History See Above #[facility] Other Hiscicu general Narrative - Reported* Type Description Date [...] History Colonoscopy 08/2023 Hospitalization History See Above #[facility] Other Hospital Discharge instructions No data available for this section [facility] [place] Progress note No data available for this section [facility] [place] Reason for referral (narrative)* Reason Referral for screeni ng colonoscopy Diagnosis 1 Colon cancer screeni ng (Z12.11) Referral Organization [facility] Daniel holloway Referring Provider First Name Lyndon Referring Provider Last Name Dandy Referring Provider Specialty Internal Me raheem Referred Organization [facility] Referred Provider Tremayne Carter Referred Address [address], [place],[address] Referred Provider Specialty Surgery Referral Priority Routine [...] labs just completed for his wellness exam. #waywire Other Reason for referral (narrative)* Reason Referral for suspect ed DeQuervain's Tenosynovitis Diagnosis 1 De Quervain's tenosy novitis (M65.4) Referral Organization [facility] Dandy holloway Referring Provider First Name Lyndon Referring Provider Last Name Dandy Referring Provider Specialty Internal Me dicine Referred Organization [facility] Referred Address [address] [place], [place],[address] Referred Provider Specialty Orthopaedic Surgery Referral Priority Routine General Notes Mr. Weiner has faile d conservative treatment, which included NSAIDs, topical Voltaren, ice and rest. #waywire Other Regslr for visit NarrativeReferral Dr. Pranay Dorman Cervical SpondylosisNort Dealer Tire Other Chief Complaint and Reason for Visit [...] Palpitation SOB (shortness of breath) Chief Complaint Admit Date increased BP March 31, 2024 10 :15am Amb Documentation May 18, 2024 3 :54pm follow up May 23, 2024 2 :25pm L Knee Pain/Can't Walk May 30 9:09am CC Adult Risk Stratification May 11:08am Wellness June 15, 2024 11:21am Reason for Visit Admit Date Hypertension March 31, 2024 10 :15am Neck pain March 31, 2024 10 :15am DARRICK (obstructive sleep apnea) March 10:15am Palpitation March 31, 2024 10 :15am SOB (shortness of breath) March 31, 024 10:15am Hypertension May 23, 2024 2 :25pm Neck pain May 23, 2024 2 :25pm DARRICK (obstructive sleep apnea) May 232023 2:25pm Palpitation May 23, 2024 2 :25pm SOB (shortness of breath) May 23, 2024 2:25pm Knee pain, left May 30, 2024 9 :09am Medial meniscus tear May 30, 2024 9:09am Primary osteoarthritis of left knee Octo 2023 9:09am Hypertension June 15, 2024 11:21am Knee pain, left June 15, 2024 11:21am Medicare annual wellness visit, subseque nt June 15, 2024 11:21am Neck pain June 15, 2024 11:21am DARRICK (obstructive sleep apnea) June 022023 11:21am Palpitation June 15, 2024 11:21am Screening PSA (prostate specific antigen ) June 15, 2024 11:21am SOB (shortness of breath) June 15, 2024 11:21am Chief Complaint Admit Date Fatigue/Shortness of Breath November 13, 2024 11:28am Family History No Family History Records Found [...] Hypertension Unknown Heart disease Unknown Advance Directives No Advanced Directives Records Found Advance Directive Response Recorded Date/ Time Advance Directives No July 07, 2021 1:12pm Advance Directive Response Recorded Date/ Time Advance Directives No July 07, 2021 12:12pm Reason for Referral Reason Evaluate and Treat S trenthening Diagnosis 1 Cervical spondylolys is (M43.02) Referral Organization [facility] urosurgery Referring Provider First Name Jovon Referring Provider Last Name Perla Referring Provider Specialty Neurologica l Surgery Referred Organization [facility] Referred Address [address],[address] Referred Provider Specialty Physical The rapist Referral [...] Active Member Role Status Dates Lyndon Dorman Primary Care Provide r, Attending Provider Active Start: April 20, 2024 Team Status: Active Member Role Status Dates Lyndon Dorman DO Primary Care Provider Active Start: May 18, 2024 Elizabeth Medina CMA Attending Provider Active Start: May 18, 2024 Team Status: Inactive Member Role Status Dates Lyndon Dandy , DO Primary Care Provide r, Attending Provider Active Start: May 23, 2024 End: May 23, 2024 Team Status: Inactive Member Role Status Dates Lyndon Dorman , DO Primary Care Provide r, Attending Provider Active Start: May 30, 2024 End: May 30, 2024 Team Status: Active Member Role Status Dates Lyndon Dorman , DO Primary Care Provide r, Attending Provider Active Start: May 31, 2024 Team Status: Inactive Member Role Status Dates Lyndon Dandy DO Primary Care Provide r, Attending Provider Active Start: June 15, 2024 End: June 15, 2024 Manager Interface Relationship Specialty Start Date End Date Lyndon Dorman MD [address] [place] [id number] PCP - General Internal Medicine 11/01/24 Manager Interface Relationship Specialty Start Date End Date Lyndon Dorman MD [address] [place] [id number] PCP - General Internal Medicine 11/01/24 Team Status: Inactive Member Role Status Dates Lyndon Dorman DO Primary Care Provide r, Attending Provider Active Start: November 13, 2024 End: November 13, 2024 Manager Interface Relationship Specialty Start Date End Date Lyndon Dorman MD PCP - General Internal Medicine 11/01/24 Goals (unrecognized section and content) Goals may [...] geryrequesting order for PTpcd with fusion C3- G1vxkwlt removal4 wk po PCD3 mo po PCD w/xray6 months po PCDCOVID +Refillyrly f/u PCD w/xrayf/u arm pain6 MONTH FOLLOW UP MBNo InformationrefillsNo InformationWellnessLab resultsRefillcoldNo InformationReferral (unrecognized sect ion and content) No Status Records FoundNo Status Records FoundNo Status Records FoundNo Status Records Found INFORMATION SOURCE (unrecogn ized section and content) DATE CREATED AUTHOR 06/12/2022 [facility] DATE CREATED AUTHOR AUTHOR'S ORGANIZ ATION 08/11/2023 [facility] DATE CREATED AUTHOR AUTHOR'S ORGANIZ ATION 12/04/2023 [facility] DATE CREATED AUTHOR AUTHOR'S ORGANIZ ATION 11/19/2024 [facility] EPIC FOR RECORDS PERTAINING TO PATIENTS WHO ARE [...] BE BASED ON THE PRIMARY CLINICAL RECORDS. [email or web address] provides no warranty or guarantee of the accuracy or completeness of information in this document.
--- NOTE | 2024-11-20 09:56 | PC.NURSE ---
Nursing Note Cardiac Stress Test Reviewed: Medication, allergies and patient history reviewed. Stress Test: [ x] Patient tolerated stress test well. [ x] Patient unable to tolerate walking on treadmill. Switched to Lexiscan stress test. [x ] No chest pain noted per patient [ ] Chest pain that resolved prior to leaving stress lab. [x ] No dyspnea noted. [ ] Dyspnea that resolved prior to leaving stress lab. [ x] Patient left stress lab asymptomatic and hemodynamically stable. [ ] Patient taken to the Emergency Room due to non-resolving symptoms following stress test. [ ] Patient achieved target heart rate. [ ] Patient unable to achieve target heart rate. [ ] Aminophylline administered as reversal agent to Lexiscan (Regadenoson). [ ] Nitro administered. Nursing Comments: Patient has foot pain and there was a poor conduction with the ekg pads despite all efforts for a clear picture with movement. Patient was unable to reach target heart rate and was switched to a lexiscan test. Patient left stress lab reporting he was back to his baseline and was taken to cafeteria for breakfast.
[2024-11-20] MEDS: REGADENOSON 0.4 MG/5 ML SYRINGE IV (13:07)
== END 2024-11-20 08:12 | disposition home or self-care (01) ==
LOC: NM 08:13
PROVIDERS: PCP Internal Medicine; Visit Provider Internal Medicine
DX: R07.2 Precordial pain (principal); R06.09 Other forms of dyspnea; I10 Essential (primary) hypertension; E78.00 Pure hypercholesterolemia, unspecified; Z82.49 Family history of ischemic heart disease and other diseases of the circulatory system
CPT/HCPCS: 78452; 93017; A9500; J2785

== ENCOUNTER 2024-12-08 12:54 | Outpatient (OUT) | payer MEDICARE, SELFPAY ==
[2024-12-08 13:06] LABS: Hemoglobin 14.5 g/dL (14.0-18.0)
--- NOTE | 2024-12-08 14:17 | RT_ITS ---
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 Findings were considered accurate and reproducible. No bronchodilator was administered due to normal spirometric values. Spirometry: -FEV1/FVC: Normal @ 79% -FEV1: Normal @ 90% -FVC: Low normal @ 82% Lung volumes by plethysmography: -RV: Normal @ 89% -TLC: Normal @ 86% Diffusion capacity: -DLCO: Mild-moderate reduction @ 65% when corrected for Hb 14.5g/dL Impressions: -Technically normal spirometry and normal lung volumes with an isolated diffusion impairment. This pattern can be seen in, but not restricted to, cardiopulmonary vascular disorders, early interstitial lung disease, and early emphysema. Clinical correlation required. Electronically Signed On 12-11-2024 16:04:54 EDT by Esau Marquis
== END 2024-12-08 12:55 | disposition home or self-care (01) ==
LOC: CARD 12:55
PROVIDERS: PCP Internal Medicine; Visit Provider Internal Medicine
DX: F17.211 Nicotine dependence, cigarettes, in remission (principal); R06.09 Other forms of dyspnea
CPT/HCPCS: 36415; 85018; 94010; 94726; 94729

== ENCOUNTER 2024-12-22 13:39 | Outpatient (OUT) | payer MEDICARE, SELFPAY ==
--- OUTSIDE RECORDS SUMMARY | 2024-12-22 13:42 | XMS_ITS | Clinical Summary ---
Author Organization [facility] Address [address] [place] [address] Care Team Providers Care Director Of Media Name Role Phone Lyndon Dorman DO Primary Care Provider [phone] Encounters Date Type Department Care Team Description 11/16/2024 3:00 PM EDT Office Visit [facility] [address] [place] [address] Sensorineural hearing loss, bilateral (Primary Dx) 11/01/2024 9:30 AM EDT Office Visit [facility] [address] [facility] [place] [address] Klaudia Vargas [facility] Sensorineural hearing loss, bilateral (Primary Dx) 11/01/2024 Bamboo flowsheet [facility] [address] [facility] [place] [address] Klaudia Vargas, OLEGARIO 10/02/2024 1:00 PM EST Office Visit [facility] [address] [facility] [place] [address] Klaudia Vargas AUD Sensorineural hearing loss, bilateral (Primary Dx) 10/02/2024 Bamboo flowsheet [facility] [address] [facility] [place] [address] Klaudai Vargas AUD from Last 3 Months Social History Tobacco Use Types Packs/Day Years Used Date Smoking Tobacco: Never Assessed Sex and Gender Information Value Date Recorded Sex Assigned at Not on file Legal Sex Male 8:24 PM EDT Gender Identity Not on file Sexual Orientation Not on file Last Filed Vital Signs Vital Sign Reading Time Taken Comments Blood Pressure 122/82 02/07/2018 12:00 PM EDT Pulse - - Temperature - - Respiratory Rate - - Oxygen Saturation - - Inhaled Oxygen Concentration - - Weight 93 kg (205 lb) 02/07/2018 12:00 PM EDT Height 177.8 cm (5' 10 ) 02/07/2018 12:00 PM EDT Body Mass Index 29.41 02/07/2018 12:00 PM EDT Plan of Treatment Health Maintenance Due Date Last Done Comments Pneumococcal Vaccine: 65+ Ye ars (1 of - PCV) 12/27/1997 Influenza Vaccine (Season Ended) 2025 Colonoscopy Discontinued 07/28/2023, 12/31/2012 Colorectal Cancer Screening Discontinued CT Colonography Discontinued FIT-DNA Discontinued FIT Discontinued FOBT Discontinued Sigmoidoscopy Discontinued Procedures Procedure Name Priority Date/Time Associated Diagnosis Comments AUDITORY FUNCTION TESTS Routine 10/02/2024 1:38 PM EST from Last 3 Months Results * Auditory function tests (10/02/2024 1:38 PM EST) Narrative Klaudia Vargsa AUD - 10/02/2024 1:38 PM EST Pure Tone Audiometry Audio indicated normal hearing 250-2000 Hz, sloping to a moderate to severe sensorineural hearing loss 0942-1696 Hz, bilaterally. Klaudia [facility] ORDER[facility]L ES Final Result from Last 3 Months Insurance [employer] Care Teams Director Of Media Relationship Specialty Start Date End Date Lyndon Dorman DO PCP - General Internal Medicine 11/01/24
--- NOTE | 2024-12-22 13:43 | CT_ITS ---
[facility] [place] [id number] Patient Name: NISHI WEINER MRN: [id number] date: 1945 Sex: M Assigned Patient Location: CT Current Patient Location: CT Accession/Order Number: [id number] Exam Date: 12/22/2024 15:00 Report Date: 12/22/2024 15:05 At the request of: KELLY DELGADO DO Procedure: CT chest wo con CT Chest without contrast TECHNIQUE: Axial imaging with 2-D reconstruction. The CT exam was performed using one or more the following dose reduction techniques: Automated exposure control, adjustment of the MA and/or Kv according to patient size, or use of the iterative reconstruction technique. History: Shortness of breath with exertion COMPARISON: 03/06/2019 THYROID: Unremarkable TRACHEA AND BRONCHI: Patent ESOPHAGUS: Unremarkable. HEART: Within normal limits PERICARDIAL EFFUSION: None CORONARY ARTERY CALCIFICATION: Present MEDIASTINUM: Calcified mediastinal lymph nodes. PULMONARY JENNA: Calcified right hilar lymph nodes. THORACIC AORTA Unremarkable LUNG NODULE , stable tiny lateral right lower lobe nodule seen with image #56. Stable left visual nodule seen with image #54 measuring up to 4 mm. No new or enlarging nodules. LUNGS: Lungs are clear PLEURAL EFFUSION: None PNEUMOTHORAX: No pneumothorax seen. CHEST WALL: No abnormality AXILLA:Unremarkable BONY STRUCTURES thoracic spondylosis. UPPER ABDOMEN: Hepatic steatosis CT/CT chest wo con IMPRESSION: No acute chest findings. Stable tiny nodules. Remote granulomatous changes. Hepatic steatosis. Coronary artery calcification. Impression dictated by: Kervin Marshall M.D. 12/22/2024 3:05 PM Dictation Location: [employer] Electronically authenticated by: [id number] Y Date: 12/22/2024 15:05
== END 2024-12-22 13:40 | disposition home or self-care (01) ==
LOC: CT 13:39
PROVIDERS: PCP Internal Medicine; Visit Provider Internal Medicine
DX: R06.09 Other forms of dyspnea (principal); R94.2 Abnormal results of pulmonary function studies; K76.0 Fatty (change of) liver, not elsewhere classified
CPT/HCPCS: 71250

== ENCOUNTER 2025-06-19 08:21 | Outpatient (OUT) | payer MEDICARE, SELFPAY ==
[2025-06-19 09:19] LABS: Hematocrit 44.0 % (42.0-54.0); Hemoglobin 14.8 g/dL (14.0-18.0); Immature Granulocytes Abs Auto 0.04 10^3/uL (0.00-0.03); Immature Granulocytes Pct Auto 0.7 % (0.0-0.5); Lymphocytes Absolute Auto 1.3 10^3/uL (1.2-3.8); Mean Corpuscular HGB Conc 33.6 g/dL (29.9-35.2); Mean Corpuscular Hemoglobin 27.8 pg (25.9-34.0); Mean Corpuscular Volume 82.6 fL (80.0-94.0); Platelet Count 226 10^3/uL (150-450); Red Blood Count 5.33 10^6/uL (4.70-6.10); White Blood Count 5.5 10^3/uL (4.0-11.0)
[2025-06-19 09:23] LABS: Alanine Aminotransferase 39 U/L (16-63); Albumin Globulin Ratio 1.1; Albumin Level 3.6 g/dL (3.4-5.0); Alkaline Phosphatase 66 U/L (46-116); Anion Gap 11.5; Aspartate Amino Transferase 21 U/L (15-37); Blood Urea Nitrogen 20.0 mg/dL (7.0-18.0); Calcium 8.8 mg/dL (8.5-10.1); Carbon Dioxide 28.7 mmol/L (21.0-32.0); Chloride 106 mmol/L (98-107); Cholesterol 201 mg/dL (<=200); Estimated GFR (African America >60 (>=60 mL/min/1.73m^2); Estimated GFR (Non-African Ame 55 (>=60 mL/min/1.73m^2); Globulin 3.3 g/dL; Glucose 104 mg/dL (74-106); HDL Cholesterol 48 mg/dL (40-60); Potassium 4.2 mmol/L (3.5-5.1); Sodium 142 mmol/L (136-145); Thyroid Stimulating Hormone 1.879 uIU/mL (0.358-3.740); Total Protein 6.9 g/dL (6.4-8.2); Triglycerides 89 mg/dL (<=150); VLDL CHOLESTEROL 17.8 mg/dL
== END 2025-06-19 08:22 | disposition home or self-care (01) ==
LOC: LAB 08:25
PROVIDERS: PCP Internal Medicine; Visit Provider Internal Medicine
DX: E78.00 Pure hypercholesterolemia, unspecified (principal); I10 Essential (primary) hypertension; R53.83 Other fatigue; Z12.5 Encounter for screening for malignant neoplasm of prostate
CPT/HCPCS: 36415; 80053; 80061; 84443; 85025; G0103